=== PATIENT | female | born 1975 | race Caucasian/White ===

== ENCOUNTER → 2020-08-26 13:59 | Outpatient (BNVA) | payer OTHER, SELFPAY | PROVIDERS: PCP Internal Medicine Geriatric Medicine; Visit Provider Physician Assistant | DX: K62.5 Hemorrhage of anus and rectum (principal); R10.9 Unspecified abdominal pain | CPT/HCPCS: 99213 ==

== ENCOUNTER 2020-09-05 09:38 | Outpatient (REF) | payer OTHER, SELFPAY | END 2020-09-05 09:39 | disposition home or self-care (01) | LOC: HO.MDS 09:38 | PROVIDERS: PCP Internal Medicine Geriatric Medicine; Visit Provider Internal Medicine Pulmonary Disease | DX: J45.50 Severe persistent asthma, uncomplicated (principal) | CPT/HCPCS: 96372 ==

== ENCOUNTER 2020-10-02 09:51 | Outpatient (REF) | payer OTHER, SELFPAY | END 2020-10-02 09:52 | disposition home or self-care (01) | LOC: HO.MDS 09:51 | PROVIDERS: PCP Internal Medicine Geriatric Medicine; Visit Provider Internal Medicine Pulmonary Disease | DX: J45.50 Severe persistent asthma, uncomplicated (principal) | CPT/HCPCS: 96372; J0517 ==

== ENCOUNTER 2020-11-28 10:34 | Outpatient (REF) | payer OTHER, SELFPAY | END 2020-11-28 10:35 | disposition home or self-care (01) | LOC: HO.MDS 10:34 | PROVIDERS: PCP Internal Medicine Geriatric Medicine; Visit Provider Internal Medicine Pulmonary Disease | DX: J45.50 Severe persistent asthma, uncomplicated (principal) | CPT/HCPCS: 96372; J0517 ==

== ENCOUNTER 2021-01-23 10:14 | Outpatient (REF) | payer OTHER, SELFPAY | END 2021-01-23 10:15 | disposition home or self-care (01) | LOC: HO.MDS 10:14 | PROVIDERS: PCP Internal Medicine Geriatric Medicine; Visit Provider Internal Medicine Pulmonary Disease | DX: J45.50 Severe persistent asthma, uncomplicated (principal) | CPT/HCPCS: 96372; 99212; J0517 ==

== ENCOUNTER → 2021-02-24 09:39 | Outpatient (BNVA) | payer OTHER, SELFPAY | PROVIDERS: PCP Internal Medicine Geriatric Medicine; Visit Provider Internal Medicine Pulmonary Disease | DX: J45.50 Severe persistent asthma, uncomplicated (principal); Z91.09 Other allergy status, other than to drugs and biological substances; B94.8 Sequelae of other specified infectious and parasitic diseases | CPT/HCPCS: 99212 ==

== ENCOUNTER 2021-03-16 13:37 | Outpatient (REF) | payer OTHER, SELFPAY ==
--- NOTE | ~2021-03-16 | US_ITS ---
EXAMINATION: US PELVIC COMPLETE CLINICAL INFORMATION: Amenorrhea COMPARISON: None TECHNIQUE: Transabdominal and transvaginal ultrasound pelvis were performed. FINDINGS: Uterus is retroflexed measuring 10.6 cm in length, 4.0 cm in AP and 5.0 cm in transverse dimension. There is a hypoechoic lesion in the fundal uterus measuring 0.9 x 0.7 x 0.8 cm. It is consistent with fibroid. No additional lesions seen. Right ovary measures 2.2 x 1.9 x 1.8 cm and volume 3.9 mL. It appears unremarkable. Left ovary measures 2.0 x 2.0 x 1.6 cm and volume 3.4 mL. It appears unremarkable. There is no free fluid in cul-de-sac. US/US pelvic and transvaginal IMPRESSION: Retroflexed uterus with a small fundal uterine fibroid. Unremarkable ovaries.
== END 2021-03-16 13:38 | disposition home or self-care (01) ==
LOC: HO.US 13:37
PROVIDERS: PCP Internal Medicine Geriatric Medicine; Visit Provider Registered Nurse
DX: N91.2 Amenorrhea, unspecified (principal)
CPT/HCPCS: 76830; 76856

== ENCOUNTER 2021-03-27 10:36 | Outpatient (REF) | payer OTHER, SELFPAY | END 2021-03-27 10:37 | disposition home or self-care (01) | LOC: HO.MDS 10:36 | PROVIDERS: PCP Internal Medicine Geriatric Medicine; Visit Provider Internal Medicine Pulmonary Disease | DX: J45.50 Severe persistent asthma, uncomplicated (principal) | CPT/HCPCS: 96372; 99212; J0517 ==

== ENCOUNTER 2021-04-28 16:58 | Emergency (ER) | payer OTHER, SELFPAY ==
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
[2021-04-28 17:09] VITALS: BP 150/78; PULSE 70; RESP 18; TEMP 36.8; O2SAT 99; BMI 38.2
[2021-04-28 19:07] LABS: Glucose Urine UA NEG (NEG); Leukocyte Esterase Urine NEG (NEG); Nitrite Urine NEG (NEG); PH 7.5 (5.0-8.0); Urine Blood NEG (NEG); Urine Ketones NEG (NEG); Urine Protein NEG (NEG-TRACE)
[2021-04-28 19:10] LABS: Appearance Urine CLEAR; Color Urine YELLOW; UPreg QC Valid YES; Urine Pregnancy NEGATIVE (NEGATIVE)
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
== END 2021-04-28 21:05 | disposition home or self-care (01) ==
PROVIDERS: Nurse Practitioner Family; Emergency Provider Internal Medicine; PCP Internal Medicine
DX: S16.1XXA Strain of muscle, fascia and tendon at neck level, initial encounter (principal); S29.011A Strain of muscle and tendon of front wall of thorax, initial encounter; V43.52XA Car driver injured in collision with other type car in traffic accident, initial encounter; Y93.89 Activity, other specified; Y92.414 Local residential or business street as the place of occurrence of the external cause; Y99.9 Unspecified external cause status
CPT/HCPCS: 70450; 71046; 72125; 81003; 81025; 99284

== ENCOUNTER → 2021-04-29 16:07 | Outpatient (BNVA) | payer OTHER, SELFPAY | PROVIDERS: PCP Internal Medicine Geriatric Medicine; Visit Provider Internal Medicine Pulmonary Disease | DX: J45.50 Severe persistent asthma, uncomplicated (principal); B94.8 Sequelae of other specified infectious and parasitic diseases; Z91.09 Other allergy status, other than to drugs and biological substances | CPT/HCPCS: 99212 ==

== ENCOUNTER 2021-05-29 13:24 | Outpatient (REF) | payer OTHER, SELFPAY | END 2021-05-29 13:25 | disposition home or self-care (01) | LOC: HO.MDS 13:24 | PROVIDERS: Visit Provider Internal Medicine Pulmonary Disease | DX: J45.50 Severe persistent asthma, uncomplicated (principal) | CPT/HCPCS: 96372; J0517 ==

== ENCOUNTER 2021-06-17 08:38 | Outpatient (REF) | payer OTHER, SELFPAY ==
--- NOTE | ~2021-06-17 | MM_ITS ---
EXAMINATION: MM SCREENING DIGITAL BREAST TOMOSYNTHESIS, BILATERAL CLINICAL INFORMATION: Screening. Asymptomatic. The lifetime risk of breast cancer based on the Tyrer-Cuzick Model is 8%. COMPARISON: Mammography: 06/03/2017, 07/21/2016, 12/06/2013 TECHNIQUE: Digital breast tomosynthesis is performed in both the craniocaudal and mediolateral oblique views along with computer-aided detection (CAD). Synthesized 2D images are generated from the tomosynthesis. FINDINGS: There are scattered areas of fibroglandular density (ACR BI-RADS breast composition Category b). There are no significant masses, abnormal calcifications, or other abnormalities. Parenchymal pattern is similar to prior studies. No developing density. No significant changes. MM/MM tomosynthesis screening BI IMPRESSION: No mammographic evidence of malignancy. ASSESSMENT: BI-RADS 1: Negative RECOMMENDATION: Routine annual mammography screening. This patient's information was entered into a reminder system with a target due date for their next mammogram.
== END 2021-06-17 08:39 | disposition home or self-care (01) ==
LOC: HO.MAMMO 08:38
PROVIDERS: Visit Provider Internal Medicine Geriatric Medicine
DX: Z12.31 Encounter for screening mammogram for malignant neoplasm of breast (principal)
CPT/HCPCS: 77063; 77067

== ENCOUNTER → 2021-07-02 14:30 | Outpatient (BNVA) | payer OTHER, SELFPAY | PROVIDERS: PCP Internal Medicine Geriatric Medicine; Visit Provider Internal Medicine Pulmonary Disease | DX: J45.50 Severe persistent asthma, uncomplicated (principal); Z91.09 Other allergy status, other than to drugs and biological substances | CPT/HCPCS: 99212 ==

== ENCOUNTER 2021-09-25 08:52 | Outpatient (REF) | payer OTHER, SELFPAY | END 2021-09-25 08:53 | disposition home or self-care (01) | LOC: HO.MDS 08:52 | PROVIDERS: PCP Internal Medicine; Visit Provider Internal Medicine Pulmonary Disease | DX: J45.50 Severe persistent asthma, uncomplicated (principal) | CPT/HCPCS: 96372; J0517 ==

== ENCOUNTER 2022-01-05 14:39 | Outpatient (REF) | payer OTHER, SELFPAY ==
--- NOTE | ~2022-01-05 | XR_ITS ---
EXAMINATION: XR CHEST CLINICAL INFORMATION: B94.8 - Sequelae of other specified infectious and parasitic conditions COMPARISON: Chest radiographs 04/28/2021, 06/23/2020; CT C-spine 04/28/2021 TECHNIQUE: 2 views of the chest were obtained. FINDINGS: The lungs are clear. There is no airspace consolidation or groundglass opacity or effusion. No hyperinflation. The costophrenic sulci are well-defined. The heart is normal in size. Vascularity normal. Hilar and mediastinal contours are unremarkable. No acute bony abnormality. There are some fine surgical clips in region of left thyroid. XR/XR chest 2V IMPRESSION: Unremarkable examination.
== END 2022-01-05 14:40 | disposition home or self-care (01) ==
LOC: HO.XRAY 14:39
PROVIDERS: PCP Internal Medicine Geriatric Medicine; Visit Provider Internal Medicine Pulmonary Disease
DX: B94.8 Sequelae of other specified infectious and parasitic diseases (principal); J45.50 Severe persistent asthma, uncomplicated; Z91.09 Other allergy status, other than to drugs and biological substances
CPT/HCPCS: 71046; 99212

== ENCOUNTER 2022-01-23 11:34 | Emergency (ER) | payer OTHER, SELFPAY ==
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
--- NOTE | ~2022-01-23 | XR_ITS ---
EXAMINATION: XR HAND, LEFT CLINICAL INFORMATION: Left hand injury. COMPARISON: None TECHNIQUE: PA, lateral, and oblique views of the left hand. FINDINGS: The bones and soft tissues are normal. No fracture. Alignment is anatomic. Joint spaces are maintained. No erosions or soft tissue calcifications. XR/XR hand LT min 3V IMPRESSION: Unremarkable left hand.
[2022-01-23 11:40] VITALS: BP 164/84; PULSE 75; O2SAT 96
[2022-01-23 11:41] VITALS: BP 148/47; PULSE 75; RESP 20; TEMP 36.7; O2SAT 98
[2022-01-23 11:44] VITALS: BP 148/57; PULSE 72; RESP 18; O2SAT 97; BMI 37.9
[2022-01-23] MEDS: Acetaminophen 325 MG TABLET 975 MG PO (12:05)
--- NOTE | 2022-01-23 12:11 | ED_ITS ---
HPI - Fall General Chief Complaint: Fall <MARIO Correa - Last Filed: 01/23/22 14:09> Stated Complaint: fall, left arm pain <MARIO Correa - Last Filed: 01/23/22 14:09> Time Seen by Provider: 01/23/22 11:59 <MARIO Correa - Last Filed: 01/23/22 14:09> History of Present Illness HPI Narrative: Patient complains of left hand and left upper chest after a fall where she fell on the hand and fell on her chest and bruised her face and her knees, she slipped going into a store <MARIO Correa - Last Filed: 01/23/22 14:09> Related Data Home Medications: Home Medications Medication Instructions Recorded Confirmed albuterol sulfate mg INHALATION 08/26/20 albuterol sulfate 90 mcg/actuation 2 puff PO Q4-6H PRN 08/26/20 aerosol inhaler budesonide 0.25 mg/2 mL suspension mg INHALATION BID 08/26/20 for nebulization levothyroxine 150 mcg tablet 150 mcg PO DAILY 08/26/20 Previous Rx's Medication Instructions Recorded fluticasone furoate 200 1 inh INHALATION DAILY 30 Days #1 03/27/21 mcg-vilanterol 25 mcg/dose ea inhalation powder (Breo Ellipta) acetaminophen 325 mg capsule 650 mg PO Q6H PRN #20 cap 04/28/21 (Tylenol) cyclobenzaprine 10 mg tablet 10 mg PO TID PRN #10 tab 04/28/21 benralizumab 30 mg/mL subcutaneous 30 mg SUBCUT Q8W #1 ml 07/06/21 syringe prednisone 10 mg tablet 40 mg PO DAILY 5 Days #20 tab 01/05/22 acetaminophen 300 mg-codeine 30 mg 1 tab PO Q6H PRN #10 tab 01/23/22 tablet <MARIO Correa - Last Filed: 01/23/22 14:09> Allergies/Adverse Reactions: Allergies Allergy/AdvReac Type Severity Reaction Status Date / Time aspirin [ASPIRIN] Allergy Unknown UNKNOWN, Verified 01/05/22 14:42 anaphylaxis Latex Allergy Unknown anaphylaxis, Verified 01/05/22 14:42 rash Latex, Natural Rubber Allergy Unknown HIVES Verified 01/05/22 14:42 [LATEX, NATURAL RUBBER] naproxen [From NAPROSYN] Allergy Unknown UNKNOWN, Verified 02/15/22 14:42 anaphylaxis <MARIO Correa - Last Filed: 01/23/22 14:09> Review of Systems Review of Systems: Positive for left hand and left chest wall pain after a fall Negatives are no headache no loss of consciousness no dizziness no confusion no fainting no feeling faint no vision changes no no neck pain no numbness weakness or tingling no difficulty breathing no abdominal pain no nausea or vomiting no weakness or numbness <MARIO Correa - Last Filed: 01/23/22 14:09> Yes all other systems are reviewed and are negative <MARIO Correa - Last Filed: 01/23/22 14:09> [facility] Past Medical History Source: nursing notes reviewed <MARIO Correa - Last Filed: 01/23/22 14:09> Surgical History: Surgical History H/O thyroidectomy History of facial surgery <MARIO Correa Last Filed: 01/23/22 14:09> Family History Family History: Family History Mother Diabetes <MARIO Correa Last Filed: 01/23/22 14:09> Social History Social History: Social History Alcohol intake: never Patient Tobacco Use Status: Never used Tobacco Use of substances other than those prescribed or required for medical reasons: No Advance Directives: No Advance Directives Information Provided: No Patient : No <MARIO Correa Last Filed: 01/23/22 14:09> Physical Exam Vital Signs: Vital Signs: Last Vital Signs Temp 97.8 F 01/23/22 13:56 Pulse 71 01/23/22 13:56 Resp 18 01/23/22 13:56 BP 124/66 01/23/22 13:56 Pulse Ox 98 01/23/22 13:56 BMI result Body Mass Index 37.9 <MARIO Correa Last Filed: 01/23/22 14:09> General appearance is no distress There is no bruising or deformity to the skull no Ayon sign no raccoon eyes Pupils equal round reactive to light extraocular motions are intact There is mild scraped to the left side of face The neck is supple and nontender next the chest is clear to auscultation bilateral but there is some left-sided chest wall tenderness reproduced with movement and palpation Abdomen is soft and nontender Extremities the left hand is bruised on the ulnar aspect of the hand with some swelling, there is an abrasion over the 5th MCP joint, and limited range of motion of the 5th finger Other extremities seem to be normal Gait and balance are normal, she is A&O x3 her interaction verbal comprehension and expression are normal <MARIO Correa Last Filed: 01/23/22 14:09> Course Course Course Narrative: X-ray of left hand was negative but as she was having discomfort and there was swelling she was given a splint and will follow with the hand doctor if not improved as x-ray can miss some injuries she is informed Left ribs x-ray and chest were normal and patient is discharged with diagnosis of left hand sprain and contusion and chest wall pain musculoskeletal <MARIO Correa Last Filed: 01/23/22 14:09> Discharge Plan Discharge Clinical Impression: Chest wall pain, Sprain of hand, left, Contusion of hand, left <MARIO Correa Last Filed: 01/23/22 14:09> Patient Disposition: Home, Self-Care <MARIO Correa Last Filed: 01/23/22 14:09> Additional Instructions: Left hand x-ray was normal but as it was uncomfortable to bend and move we placed a splint, you can remove it to check the hand and to wash the hand as needed If not better next week follow with hand doctor For any problems with the injury to her chest follow with primary doctor Return any time any worse condition or any concerns <MARIO Correa Last Filed: 01/23/22 14:09> Prescriptions: New acetaminophen-codeine 300-30 mg tablet 1 tab PO Q6H PRN (Reason: pain) Qty: 10 0RF Rx Instructions: Narcotic, no driving for 6 hours after taking this medication No Action benralizumab 30 mg/mL syringe 30 mg subcut Q8W Qty: 1 12RF cyclobenzaprine 10 mg tablet 10 mg PO TID PRN (Reason: muscle spasm) Qty: 10 0RF acetaminophen [Tylenol] 325 mg capsule 650 mg PO Q6H PRN (Reason: pain) Qty: 20 0RF Breo Ellipta 200-25 mcg/dose blister with device 1 inh inhalation DAILY 30 Days Qty: 1 6RF budesonide 0.25 mg/2 mL suspension for nebulization inhalation BID 0RF levothyroxine 150 mcg tablet 150 mcg PO DAILY 0RF albuterol sulfate 90 mcg/actuation HFA aerosol inhaler 2 puff PO Q4-6H PRN0RF albuterol sulfate 2.5 mg /3 mL (0.083 %) solution for nebulization inhalation 0RF prednisone 10 mg tablet 40 mg PO DAILY 5 Days Qty: 20 0RF <MARIO Correa - Last Filed: 01/23/22 14:09> Referrals: Yazmin Mchugh MD [Physician] - 10 days (Left hand injury) <MARIO Correa - Last Filed: 01/23/22 14:09> Stand Alone Forms: Work/School Release <MARIO Correa - Last Filed: 01/23/22 14:09> Interventions: ED Discharge Assessment Last Done: 01/23/22 14:22 <MARIO Correa - Last Filed: 01/23/22 14:09> Discharge Date/Time: 01/23/22 14:24 <MARIO Correa - Last Filed: 01/23/22 14:09>
[2022-01-23 13:10] VITALS: RESP 17
[2022-01-23 13:56] VITALS: BP 124/66; PULSE 71; RESP 18; TEMP 36.6; O2SAT 98
[2022-01-23] MEDS: Diphth,Pertus(ACell),Tet Adult 0.5 ML SYRINGE IM (14:16)
== END 2022-01-23 14:24 | disposition home or self-care (01) ==
PROVIDERS: Emergency Provider Emergency Medicine
DX: R07.89 Other chest pain (principal); S63.92XA Sprain of unspecified part of left wrist and hand, initial encounter; S60.221A Contusion of right hand, initial encounter; W01.0XXA Fall on same level from slipping, tripping and stumbling without subsequent striking against object, initial encounter; Y93.01 Activity, walking, marching and hiking; Y92.512 Supermarket, store or market as the place of occurrence of the external cause; Y99.9 Unspecified external cause status
CPT/HCPCS: 71101; 73130; 90471; 90715; 99284

== ENCOUNTER → 2022-02-03 14:19 | Outpatient (BNVA) | payer OTHER, SELFPAY | PROVIDERS: PCP Internal Medicine Geriatric Medicine; Visit Provider Internal Medicine Pulmonary Disease | DX: J45.50 Severe persistent asthma, uncomplicated (principal); Z91.09 Other allergy status, other than to drugs and biological substances | CPT/HCPCS: 99212 ==

== ENCOUNTER 2022-02-04 13:09 | Outpatient (REF) | payer OTHER, SELFPAY ==
--- NOTE | ~2022-02-04 | XR_ITS ---
EXAMINATION: XR HAND, LEFT CLINICAL INFORMATION: Pain COMPARISON: Previous x-ray 01/23/2022 TECHNIQUE: PA, lateral, and oblique views of the left hand. FINDINGS: The bones and soft tissues are normal. No fracture. Alignment is anatomic. Joint spaces are maintained. No erosions or soft tissue calcifications. XR/XR hand LT min 3V IMPRESSION: Normal left hand.
== END 2022-02-04 13:10 | disposition home or self-care (01) ==
LOC: HO.HOSX 13:09
PROVIDERS: Visit Provider Physician Assistant
DX: S62.301A Unspecified fracture of second metacarpal bone, left hand, initial encounter for closed fracture (principal); W19.XXXA Unspecified fall, initial encounter; Y93.9 Activity, unspecified; Y92.9 Unspecified place or not applicable; Y99.9 Unspecified external cause status
CPT/HCPCS: 73130; 99202

== ENCOUNTER 2022-02-24 07:52 | Outpatient (REF) | payer OTHER, SELFPAY ==
--- NOTE | ~2022-02-24 | XR_ITS ---
EXAMINATION: XR HAND, LEFT CLINICAL INFORMATION: Pain COMPARISON: None TECHNIQUE: PA, lateral, and oblique views of the left hand. FINDINGS: The bones and soft tissues are normal. No fracture. Alignment is anatomic. Joint spaces are maintained. No erosions or soft tissue calcifications. XR/XR hand LT min 3V IMPRESSION: Normal radiograph. No evidence of bone erosion. No significant arthritis.
== END 2022-02-24 07:53 | disposition home or self-care (01) ==
LOC: HO.HOSX 07:52
PROVIDERS: Visit Provider Physician Assistant
DX: S62.309D Unspecified fracture of unspecified metacarpal bone, subsequent encounter for fracture with routine healing (principal)
CPT/HCPCS: 73130; 99212

== ENCOUNTER 2022-02-25 07:13 | Outpatient (REF) | payer OTHER, SELFPAY | END 2022-02-25 07:14 | disposition home or self-care (01) | LOC: HO.MDS 07:13 | PROVIDERS: Visit Provider Internal Medicine Pulmonary Disease | DX: J45.50 Severe persistent asthma, uncomplicated (principal) | CPT/HCPCS: 96372; J0517 ==

== ENCOUNTER → 2022-03-19 08:14 | Outpatient (BNVA) | payer OTHER, SELFPAY | PROVIDERS: Visit Provider Surgery | DX: Z13.89 Encounter for screening for other disorder (principal) ==

== ENCOUNTER 2022-03-30 07:20 | Outpatient (REF) | payer OTHER, SELFPAY ==
--- NOTE | ~2022-03-30 | XR_ITS ---
EXAMINATION: XR CHEST 2 VIEWS CLINICAL INFORMATION: Morbid obesity. COMPARISON: Prior chest radiographs, most recently 01/23/2022. TECHNIQUE: Frontal and lateral views of the chest were obtained. FINDINGS: The heart, great vessels, pulmonary vasculature and mediastinum are normal. The lungs show no focal infiltrate, effusion or pneumothorax. There is no acute osseous abnormality. There are degenerative changes of the thoracic spine. XR/XR chest 2V IMPRESSION: No active cardiopulmonary disease.
--- NOTE | 2022-03-30 07:31 | ECG_ITS ---
Test Reason : e66.01 Blood Pressure : / mmHG Vent. Rate : 066 BPM Atrial Rate : 066 BPM P-R Int : 156 ms QRS Dur : 082 ms QT Int : 374 ms P-R-T Axes : 066 019 032 degrees QTc Int : 392 ms Normal sinus rhythm Normal ECG No previous ECGs available Referred By: Roni Everett Electronically Signed By:BRAYAN GUERRA MD
[2022-03-30 07:57] LABS: MANUAL DIFF FLAG NO
[2022-03-30 08:35] LABS: Basophils Percent Auto 0.2 % (0-2); Hemoglobin 13.1 g/dl (12.0-16.0); Imm Gran Abs Auto 0.01 X10*3/uL (0.00-0.03); Imm Gran Pct Auto 0.2 % (0.0-0.4); Lymphocytes Absolute Auto 2.1 X10*3/uL (1.2-4.9); Lymphocytes Percent Auto 35.1 % (20-40); Mean Corpuscular HGB Conc 32.8 g/dl (31.0-35.0); Mean Corpuscular Hemoglobin 29.3 pg (27.0-33.0); Mean Corpuscular Volume 89.5 fL (80.0-98.0); Mean Platelet Volume 10.5 fL (9.4-12.3); Monocytes Absolute Auto 0.4 X10*3/uL (0.1-1.2); Neutrophils Absolute Auto 3.4 x10*3/uL (2.0-8.3); Neutrophils Percent Auto 57.5 % (45-73); Platelet Count 229 X10*3/uL (160-400); Red Blood Count 4.47 X10*6/uL (4.20-5.50); Red Cell Distribution Width 15.2 % (11.0-16.0); White Blood Count 5.8 X10*3/uL (4.8-10.8)
[2022-03-30 08:37] LABS: Estimated Average Glucose 114 mg/dL; Hemoglobin A1c % 5.6 %
[2022-03-30 09:07] LABS: Alanine Aminotransferase 14 U/L (0-31); Alkaline Phosphatase 58 U/L (39-117); Anion Gap 10 (12-20); Aspartate Amino Transferase 15 U/L (5-31); Bilirubin Total 0.5 mg/dL (0.0-1.0); Blood Urea Nitrogen 14 mg/dL (9-16); C Reactive Protein 0.27 mg/dL (< or = 0.50); Calcium 9.7 mg/dL (8.4-10.2); Carbon Dioxide 25 mmol/L (22-29); Chloride 108 mmol/L (96-108); Cholesterol 189 mg/dL; Estimated Glomerular Filt Rate > 60; Glucose Random 104 mg/dL (60-115); HDL Cholesterol 49 mg/dL; Iron 79 mcg/dL (30-160); LDL Cholesterol Calculated 128 mg/dl; Percent Iron Saturation 22 % (15-50); Potassium 4.6 mmol/L (3.3-5.1); Sodium 138 mmol/L (135-145); Total Iron Binding Capacity 355 mcg/dL (228-428); Total Protein 6.8 g/dL (6.5-8.0); Triglycerides 60 mg/dL; Unsaturated Iron Binding 276 ug/dL
[2022-03-30 09:31] LABS: Ferritin 49 ng/mL (10-250); Insulin 10 uU/mL (2-29); TSH reflex Free T4 2.95 uIU/mL (0.32-4.0); Vitamin D 25-OH Total 19.6 ng/mL (>30)
[2022-03-30 09:35] LABS: Folate 10.1 ng/mL (> or = 4.0); Vitamin B12 738 pg/mL (200-900)
[2022-04-01 14:46] LABS: Calcium (PTHI) 8.8 mg/dL (8.6-10.2); PTHI 82 pg/mL (16-77)
[2022-04-03 14:51] LABS: Zinc 65 mcg/dL (60-130)
[2022-04-05 06:02] LABS: Vitamin B1 10 nmol/L (8-30)
[2022-04-05 12:40] LABS: Vitamin A 40 mcg/dL (38-98)
== END 2022-03-30 07:21 | disposition home or self-care (01) ==
LOC: HO.XRAY 07:20
PROVIDERS: PCP Internal Medicine Geriatric Medicine; Visit Provider Surgery
DX: Z01.818 Encounter for other preprocedural examination (principal); E66.01 Morbid (severe) obesity due to excess calories; E03.9 Hypothyroidism, unspecified; J45.909 Unspecified asthma, uncomplicated
CPT/HCPCS: 36415; 71046; 80053; 80061; 82306; 82607; 82728; 82746; 83036; 83525; 83540; 83970; 84425; 84443; 84590; 84630; 85025; 86140; 93005

== ENCOUNTER 2022-04-12 | Outpatient (REF) | payer OTHER, SELFPAY ==
[2022-04-14 14:55] LABS: H Pylori Breath Test Negative (Negative)
== END 2022-04-12 00:01 | disposition home or self-care (01) ==
LOC: HO.LNP
PROVIDERS: Visit Provider Surgery
DX: E03.9 Hypothyroidism, unspecified (principal); E66.01 Morbid (severe) obesity due to excess calories; J45.909 Unspecified asthma, uncomplicated
CPT/HCPCS: 83013

== ENCOUNTER → 2022-04-12 14:43 | Outpatient (BNVA) | payer OTHER, SELFPAY | PROVIDERS: PCP Internal Medicine Geriatric Medicine; Referring Provider Internal Medicine Geriatric Medicine; Visit Provider Physician Assistant Surgical | DX: Z11.0 Encounter for screening for intestinal infectious diseases (principal) | CPT/HCPCS: 99211 ==

== ENCOUNTER → 2022-04-21 13:25 | Outpatient (BNVA) | payer OTHER, SELFPAY | PROVIDERS: PCP Internal Medicine Geriatric Medicine; Visit Provider Internal Medicine Pulmonary Disease | DX: J45.50 Severe persistent asthma, uncomplicated (principal); Z91.09 Other allergy status, other than to drugs and biological substances; F43.21 Adjustment disorder with depressed mood; F15.10 Other stimulant abuse, uncomplicated; E66.9 Obesity, unspecified | CPT/HCPCS: 90791; 99212 ==

== ENCOUNTER 2022-04-30 08:18 | Outpatient (REF) | payer OTHER, SELFPAY | END 2022-04-30 08:19 | disposition home or self-care (01) | LOC: HO.MDS 08:18 | PROVIDERS: Visit Provider Internal Medicine Pulmonary Disease | DX: J45.50 Severe persistent asthma, uncomplicated (principal) | CPT/HCPCS: 96372; J0517 ==

== ENCOUNTER → 2022-05-03 14:06 | Outpatient (BNVA) | payer OTHER, SELFPAY | PROVIDERS: Referring Provider Internal Medicine Geriatric Medicine; Visit Provider Dietitian, Registered | DX: E66.9 Obesity, unspecified (principal); Z71.3 Dietary counseling and surveillance | CPT/HCPCS: 97802 ==

== ENCOUNTER → 2022-05-26 13:57 | Outpatient (BNVA) | payer OTHER, SELFPAY | PROVIDERS: Visit Provider Counselor Mental Health | DX: F43.21 Adjustment disorder with depressed mood (principal); F15.10 Other stimulant abuse, uncomplicated; E66.9 Obesity, unspecified | CPT/HCPCS: 90834 ==

== ENCOUNTER 2022-05-27 08:42 | Outpatient (REF) | payer OTHER, SELFPAY ==
--- NOTE | ~2022-05-27 | US_ITS ---
EXAMINATION: US COMPLETE ABDOMEN WITH LIVER ELASTOGRAPHY CLINICAL INFORMATION: Obesity. COMPARISON: None TECHNIQUE: Real-time imaging of the abdominal viscera. Noninvasive ultrasound liver fibrosis assessment was performed using Rizwana ElastPQ point quantification shear wave elastography (2D-SWE) with a C5-2 MHz transducer. Multiple elastography samples are obtained. FINDINGS: PANCREAS: Normal. The visualized pancreatic head and body are normal in appearance. The remainder of the pancreas is obscured from visualization by the overlying bowel gas. ABDOMINAL AORTA: The proximal, middle, and distal aortic segments are normal in caliber. INFERIOR VENA CAVA: Visualized portions are normal. LIVER: There is a small calcification in the right hepatic lobe measuring 0.4 x 0.3 x 0.3 cm. The liver demonstrates normal size, contour and echogenicity. No focal lesion or intrahepatic biliary duct dilatation. The right lobe measures 14.7 cm in length. The left lobe measures 10.1 cm in length. Portal flow is hepatopetal. Shear wave liver elastography median stiffness is 1.52 m/s (reference: Normal median stiffness is 1.3 m/s or less). IQR/median stiffness to assess sampling precision is 0.39 (reference: Good quality data set is IQR/median stiffness of 0.15 or less). GALLBLADDER: Normal. The gallbladder is physiologically distended without evidence of stones, sludge, polyps, wall thickening or pericholecystic fluid. COMMON BILE DUCT: Normal in caliber measuring 0.6 cm in diameter. RIGHT KIDNEY: Normal. No hydronephrosis. No renal calculi or focal parenchymal lesions. The kidney measures 11.2 cm in maximum dimension. LEFT KIDNEY: Normal. No hydronephrosis. No renal calculi or focal parenchymal lesions. The kidney measures 9.6 cm in maximum dimension. SPLEEN: Normal. The spleen measures 8.8 cm in maximum dimension. FREE FLUID: None. US/US abdomen comp w elastography IMPRESSION: 1. Small calcification in the right hepatic lobe measuring 0.4 x 0.3 x 0.3 cm. The rest of the liver is unremarkable. 2. Liver Elastography: Median liver stiffness measures 1.52 m/s corresponding to cACLD (ruled out). REFERENCE: Society of Radiologists in Ultrasound Liver Stiffness Thresholds (2020): LIVER STIFFNESS THRESHOLDS: *Liver Stiffness equal or less than 1.3 m/s: High probability of being normal. *Liver Stiffness less than 1.7 m/s: In the absence of other known clinical signs, rules out compensated advanced chronic liver disease. *Liver Stiffness 1.7-2.1 m/s: Suggestive of compensated advanced chronic liver disease but need further test for confirmation. *Liver Stiffness over 2.1 m/s: Rules in compensated advanced chronic liver disease. *Liver Stiffness over 2.4 m/s: Suggestive of clinically significant portal hypertension. QUALITY OF DATA SET: *IQR/Median value equal or less than 0.15 implies a quality data set. *IQR/Median value over 0.15 implies a poor quality data set. SIGNIFICANT CHANGE FROM PRIOR EXAM: Significant change if liver stiffness measurement is 10% or greater from prior exam. OTHER CONSIDERATIONS: The stage of liver fibrosis may be overestimated in the setting of acute hepatitis, liver inflammation, elevated liver function tests, hepatic vascular congestion, obstructive cholestasis, non-fasting state, and infiltrative diseases such as amyloidosis and lymphoma. In some patients with NAFLD, the liver stiffness thresholds for compensated advanced chronic liver disease may be lower. In causes other than viral hepatitis and NAFLD, liver stiffness thresholds are not well established.
--- NOTE | ~2022-05-27 | FL_ITS ---
: EXAMINATION: FLUOROSCOPY UPPER GI WITH AIR CLINICAL INFORMATION: Obesity due to excess calories. COMPARISON: Abdominal ultrasound performed same day. TECHNIQUE: A double contrast examination was performed. Fluoroscopic evaluation and multiple spot films were obtained. Barium contrast was utilized throughout the exam. A barium tablet was also administered. FINDINGS: There is normal esophageal mucosa and motility. No hiatal hernia or reflux is identified. Barium flows easily through a normal appearing stomach, duodenal bulb, and sweep without evidence of ulcer or inflammation. Barium tablet passed through the esophagus into the stomach without delay. FLUOROSCOPY TIME: 1.1 minutes DOSE: 31.176 mGy DAP: 9.394 Gy-cm2 IMAGES: 26 FL/FL upper GI w air IMPRESSION: Normal upper GI series.
== END 2022-05-27 08:43 | disposition home or self-care (01) ==
LOC: HO.XRAY 08:42
PROVIDERS: PCP Internal Medicine Geriatric Medicine; Visit Provider Surgery
DX: E03.9 Hypothyroidism, unspecified (principal); J45.909 Unspecified asthma, uncomplicated; E66.01 Morbid (severe) obesity due to excess calories
CPT/HCPCS: 74246; 76705; 76981

== ENCOUNTER 2022-06-25 14:12 | Outpatient (REF) | payer OTHER, SELFPAY | END 2022-06-25 14:13 | disposition home or self-care (01) | LOC: HO.MDS 14:12 | PROVIDERS: PCP Internal Medicine Geriatric Medicine; Visit Provider Internal Medicine Pulmonary Disease | DX: J45.50 Severe persistent asthma, uncomplicated (principal) | CPT/HCPCS: 96372; J0517 ==

== ENCOUNTER → 2022-06-28 16:01 | Outpatient (BNVA) | payer OTHER, SELFPAY | PROVIDERS: PCP Internal Medicine Geriatric Medicine; Visit Provider Dietitian, Registered | DX: E66.9 Obesity, unspecified (principal); Z71.3 Dietary counseling and surveillance | CPT/HCPCS: 97803 ==

== ENCOUNTER 2022-08-20 | Outpatient (REF) | payer OTHER, SELFPAY | END 2022-08-20 00:01 | disposition home or self-care (01) | LOC: CF | PROVIDERS: Visit Provider Dietitian, Registered | DX: E66.9 Obesity, unspecified (principal); Z68.37 Body mass index [BMI] 37.0-37.9, adult; Z71.3 Dietary counseling and surveillance | CPT/HCPCS: 97803 ==

== ENCOUNTER 2022-08-31 14:18 | Outpatient (REF) | payer OTHER, SELFPAY | END 2022-08-31 14:19 | disposition home or self-care (01) | LOC: HO.MDS 14:18 | PROVIDERS: Visit Provider Internal Medicine Pulmonary Disease | DX: J45.50 Severe persistent asthma, uncomplicated (principal) | CPT/HCPCS: 96372; J0517 ==

== ENCOUNTER 2023-01-28 10:24 | Outpatient (REF) | payer MEDICAID, SELFPAY ==
--- NOTE | ~2023-01-28 | MM_ITS ---
EXAMINATION: MM SCREENING DIGITAL BREAST TOMOSYNTHESIS, BILATERAL CLINICAL INFORMATION: Screening. Asymptomatic. The lifetime risk of breast cancer based on the Tyrer-Cuzick Model is 8%. COMPARISON: Mammography: 06/17/2021, 06/03/2017, 07/21/2016 TECHNIQUE: Digital breast tomosynthesis is performed in both the craniocaudal and mediolateral oblique views along with computer-aided detection (CAD). Synthesized 2D images are generated from the tomosynthesis. FINDINGS: There are scattered areas of fibroglandular density (ACR BI-RADS breast composition Category b). There are no significant masses, abnormal calcifications, or other abnormalities. Parenchymal pattern is similar to prior studies. There is no developing density or architectural abnormality. The axilla and skin contours are unremarkable. No significant changes. MM/MM tomosynthesis screening BI IMPRESSION: No mammographic evidence of malignancy. ASSESSMENT: BI-RADS 1: Negative RECOMMENDATION: Routine annual mammography screening. This patient's information was entered into a reminder system with a target due date for their next mammogram.
== END 2023-01-28 10:25 | disposition home or self-care (01) ==
LOC: HO.MAMMO 10:24
PROVIDERS: Visit Provider Internal Medicine Geriatric Medicine
DX: Z12.31 Encounter for screening mammogram for malignant neoplasm of breast (principal)
CPT/HCPCS: 77063; 77067

== ENCOUNTER 2023-08-03 13:11 | Outpatient (AMB) | payer MEDICAID, SELFPAY ==
[2023-08-03 13:13] VITALS: BP 119/77; PULSE 77; O2SAT 98; BMI 38.9
--- NOTE | 2023-08-03 13:13 | A.OFFVIS_ITS ---
Intake Vital Signs 08/03/23 13:13 Height 5 ft 2 in Weight 212 lb 11.937 oz BMI 38.9 BP 119/77 Blood Pressure Location Rt brachial Position Sitting Pulse 77 Pulse Source Doppler Pulse Oximetry (%) 98 Oxygen Delivery Method Room Air Intake Visit Reasons: asthma exacerbation Allergies aspirin [ASPIRIN] Allergy (Unknown, Verified 08/03/23 13:16) UNKNOWN, anaphylaxis latex Allergy (Unknown, Verified 08/03/23 13:16) Anaphylaxis, Rash Latex, Natural Rubber [LATEX, NATURAL RUBBER] Allergy (Unknown, Verified 08/03/23 13:16) HIVES naproxen [From NAPROSYN] Allergy (Unknown, Verified 08/03/23 13:16) UNKNOWN, anaphylaxis HPI asthma exacerbation HPI Details 47-year-old lady, lifetime nonsmoker, fo llowed for environmental allergies and severe persistent allergic asthma. Previously has syndrome has been controlled on Fasenra, Breo, nebulized budesonide and albuterol. However, recently she has ran out of her medications and now she presents with an acute exacerbation complain of wheezing and dyspnea on exertion. FORMERLY [facility] Medical History (Updated 07/16/22 @ 11:50 by Roni Everett MD) Hypothyroidism Morbid obesity Surgical History History of facial surgery H/O thyroidectomy Family History Mother Diabetes Social History Household Members: Significant Other and Children Housing: House Alcohol intake: never Patient Tobacco Use Status: Never used Tobacco service: No Current occupational status: employed Current occupation: rt handed [employer] Const Denies daytime sleepiness, Denies excessive sweating, Denies fatigue, Denies fever(s), Denies lethargy, Denies malaise, Denies night sweats, Denies snoring and Denies weight loss Eyes Denies blurry vision and Denies itchy eyes ENT Denies nasal congestion, Denies post nasal drip, Denies sinus pain, Denies sinus pressure and Denies other ( Thrush) Card Denies chest pain, Denies pedal edema, Denies dyspnea, Reports dyspnea on exertion, Denies orthopnea and Denies paroxysmal nocturnal dyspnea Resp Denies cough, Denies hemoptysis, Denies excessive phlegm production, Denies dyspnea, Reports dyspnea on exertion, Denies snoring and Reports wheezing GI Denies abdominal pain and Denies heartburn Musc Denies myalgias, Denies arthralgias and Denies joint swelling Skin/Breast Denies rash Neuro Denies memory loss and Denies seizure-like activity Psych Denies abnormal sleep pattern, Denies anxiety and Denies memory loss Endo Denies excessive sweating, Denies fatigue and Denies heat intolerance Sam/Lymph Denies easy bruising Aller/Immun Denies itchy eyes, Denies seasonal rhinorrhea and Reports wheezing Physical Exam Vital Signs: Last Vital Signs Pulse 77 08/03/23 13:13 BP 119/77 08/03/23 13:13 Pulse Ox 98 08/03/23 13:13 Oxygen Delivery Method Room Air 08/03/23 13:13 BMI result Body Mass Index 38.9 Const General: no acute distress and alert Nutritional Appearance: not obese Orientation/consciousness: Other orientation findings ( oriented) HEENT Head: Yes atraumatic Eyes General: appearance normal, both eyes and all related structures Sclerae: sclerae normal EOM: EOMs intact bilaterally Neck Neck: Yes supple Lymphatic: no lymphadenopathy noted Resp Effort & Inspection: normal respiratory effort and no use of accessory muscles Auscultation: wheezes expiratory wheezes (Mild bilaterally) Cardio Rate: regular rate Rhythm: regular rhythm Heart sounds: no gallops, no murmurs and no rubs Skin General skin exam: other ( warm) Extrem General: No clubbing, No cyanosis and No edema Assessment & Plan Assessment & Plan (1) Severe persistent allergic asthma: Code(s): J45.50 - Severe persistent asthma, uncomplicated Plan: Suboptimal control as patient has ran out of her Breo and stopped her Fasenra. Restart Fasenra and Breo. Continue albuterol MDI. Will treat acute exacerbation with a course of prednisone. (2) Environmental allergies: Code(s): Z91.09 - Other allergy status, other than to drugs and biological substances Plan: Expect to improve after restarting Fasenra. Medications: New prednisone 40 mg (4 x 10 mg) PO DAILY 7 days 28 tabs 0RF Changed From albuterol sulfate 90 mcg/actuation 2 puffs PO Q4-6H PRN To albuterol sulfate 90 mcg/actuation 2 puffs PO Q4-6H 30 days PRN 1 ea 6RF shortness of breath or wheezing Refilled fluticasone furoate-vilanterol 200-25 mcg/dose (Breo Ellipta) 1 inh inhalation DAILY 1 ea 6RF 30 days fluticasone furoate-vilanterol 200-25 mcg/dose (Breo Ellipta) 1 inh inhalation DAILY 30 days 1 ea 6RF Coding Level of Care Code Est Pt Level 4 (39800) Diagnoses Severe persistent allergic asthma J45.50 Environmental allergies Z91.09
== END 2023-08-03 13:39 | disposition home or self-care (01) ==
PROVIDERS: PCP Internal Medicine Geriatric Medicine; Visit Provider Internal Medicine Pulmonary Disease
DX: J45.50 Severe persistent asthma, uncomplicated (principal); Z91.09 Other allergy status, other than to drugs and biological substances
CPT/HCPCS: 99214

== ENCOUNTER → 2023-08-03 13:11 | Outpatient (BNVA) | payer MEDICAID, SELFPAY | PROVIDERS: PCP Internal Medicine Geriatric Medicine; Visit Provider Internal Medicine Pulmonary Disease | DX: J45.51 Severe persistent asthma with (acute) exacerbation (principal); Z91.09 Other allergy status, other than to drugs and biological substances | CPT/HCPCS: 99212 ==

== ENCOUNTER 2023-09-14 13:03 | Outpatient (AMB) | payer MEDICAID, SELFPAY ==
[2023-09-14 13:13] VITALS: BP 118/72; PULSE 80; O2SAT 96; BMI 38.7
--- NOTE | 2023-09-14 13:13 | A.OFFVIS_ITS ---
Intake Vital Signs 09/14/23 13:13 Height 5 ft 2 in Weight 211 lb 10.3 oz BMI 38.7 BP 118/72 Blood Pressure Location Rt brachial Position Sitting Pulse 80 Pulse Source Doppler Pulse Oximetry (%) 96 Oxygen Delivery Method Room Air Intake Visit Reasons: asthma exacerbation Allergies aspirin [ASPIRIN] Allergy (Unknown, Verified 09/14/23 13:19) UNKNOWN, anaphylaxis latex Allergy (Unknown, Verified 09/14/23 13:19) Anaphylaxis, Rash Latex, Natural Rubber [LATEX, NATURAL RUBBER] Allergy (Unknown, Verified 09/14/23 13:19) HIVES naproxen [From NAPROSYN] Allergy (Unknown, Verified 09/14/23 13:19) UNKNOWN, anaphylaxis HPI asthma exacerbation HPI Details 47-year-old lady, lifetime nonsmoker, fo llowed for environmental allergies and severe persistent allergic asthma. Previously has syndrome has been controlled on Fasenra, Breo, nebulized budesonide and albuterol. At the last office visit she has been restarted on her prior regimen with improvement in her symptoms. However, she has had exacerbation secondary to COVID-19 approximately 2-3 weeks prior and now she still has lingering bronchitis also further exacerbated by fluid retention with lower extremity edema and orthopnea. FOR[facility]LY [facility] Medical History (Updated 07/16/22 @ 11:50 by Roni Everett MD) Hypothyroidism Morbid obesity Surgical History History of facial surgery H/O thyroidectomy Family History Mother Diabetes Social History Household Members: Significant Other and Children Housing: House Alcohol intake: never Patient Tobacco Use Status: Never used Tobacco service: No Current occupational status: employed Current occupation: rt handed [employer] Const Denies daytime sleepiness, Denies excessive sweating, Denies fatigue, Denies fever(s), Denies lethargy, Denies malaise, Denies night sweats, Denies snoring and Denies weight loss Eyes Denies blurry vision and Denies itchy eyes ENT Denies nasal congestion, Denies post nasal drip, Denies sinus pain, Denies sinus pressure and Denies other ( Thrush) Card Denies chest pain, Reports pedal edema, Reports leg edema, Denies dyspnea, Reports dyspnea on exertion, Reports orthopnea and Denies paroxysmal nocturnal dyspnea Resp Reports cough, Denies hemoptysis, Denies excessive phlegm production, Denies dyspnea, Reports dyspnea on exertion, Denies snoring and Denies wheezing GI Denies abdominal pain and Denies heartburn Musc Denies myalgias, Denies arthralgias and Denies joint swelling Skin/Breast Denies rash Neuro Denies memory loss and Denies seizure-like activity Psych Denies abnormal sleep pattern, Denies anxiety and Denies memory loss Endo Denies excessive sweating, Denies fatigue and Denies heat intolerance Sam/Lymph Denies easy bruising Aller/Immun Denies itchy eyes, Denies seasonal rhinorrhea and Denies wheezing Physical Exam Vital Signs: Last Vital Signs Pulse 80 09/14/23 13:13 BP 118/72 09/14/23 13:13 Pulse Ox 96 09/14/23 13:13 Oxygen Delivery Method Room Air 09/14/23 13:13 BMI result Body Mass Index 38.7 Const General: no acute distress and alert Nutritional Appearance: obese Orientation/consciousness: Other orientation findings ( oriented) HEENT Head: Yes atraumatic Eyes General: appearance normal, both eyes and all related structures Sclerae: sclerae normal EOM: EOMs intact bilaterally Neck Neck: Yes supple Lymphatic: no lymphadenopathy noted Resp Effort & Inspection: normal respiratory effort and no use of accessory muscles Auscultation: crackles ( with basilar predominance) and wheezes ( Expiratory bilateral) Cardio Rate: regular rate Rhythm: regular rhythm Heart sounds: no gallops, no murmurs and no rubs Skin General skin exam: other ( warm) Extrem General: No clubbing, No cyanosis and Yes edema ( 2+ bilateral) Assessment & Plan Assessment & Plan (1) 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 Will start on diuretic with Lasix 40 mg daily. Will also treat with a course of Levaquin. Will obtain chest x-ray. (2) Severe persistent allergic asthma: Code(s): J45.50 - Severe persistent asthma, uncomplicated Plan: Baseline controlled with Fasenra, Breo, and albuterol MDI. Continue current regimen. (3) Environmental allergies: Code(s): Z91.09 - Other allergy status, other than to drugs and biological substances Plan: Baseline controlled on Fasenra. Continue current regimen. Orders: Orders XR chest 2V Today J45.50 - Severe persistent asthma, uncomplicated Medications: New levofloxacin 750 mg PO DAILY 7 days 7 tabs 0RF J45.50 - Severe persistent asthma, uncomplicated furosemide (Lasix) 40 mg PO QAM 30 days 30 tabs 6RF J45.50 - Severe persistent asthma, uncomplicated prednisone 40 mg (2 x 20 mg) PO DAILY 10 days 20 tabs 0RF J45.50 - Severe persistent asthma, uncomplicated Discontinued prednisone Discontinued Reason: Doctor's Order 40 mg (4 x 10 mg) PO DAILY 7 days 28 tabs 0RF Coding Level of Care Code Est Pt Level 4 (55889) Diagnoses [id number] syndrome B94.8 Severe persistent allergic asthma J45.50 Environmental allergies Z91.09
== END 2023-09-14 13:39 | disposition home or self-care (01) ==
PROVIDERS: PCP Internal Medicine Geriatric Medicine; Visit Provider Internal Medicine Pulmonary Disease
DX: B94.8 Sequelae of other specified infectious and parasitic diseases (principal); J45.50 Severe persistent asthma, uncomplicated; Z91.09 Other allergy status, other than to drugs and biological substances
CPT/HCPCS: 99214

== ENCOUNTER 2023-09-14 13:03 | Outpatient (REF) | payer MEDICAID, SELFPAY ==
--- NOTE | ~2023-09-14 | XR_ITS ---
EXAMINATION: XR CHEST CLINICAL INFORMATION: Reason for Exam J45.50 - Severe persistent asthma, uncomplicated COMPARISON: Chest radiograph 03/30/2022 TECHNIQUE: 2 views of the chest FINDINGS: Lines and tubes: None. Clear lungs. No pleural effusion. No pneumothorax. Unchanged cardiomediastinal silhouette. Chronic right anterior sixth rib fracture deformity. XR/XR chest 2V IMPRESSION: * Clear lungs.
== END 2023-09-14 13:04 | disposition home or self-care (01) ==
LOC: HO.XRAY 13:03
PROVIDERS: PCP Internal Medicine Geriatric Medicine; Visit Provider Internal Medicine Pulmonary Disease
DX: J45.50 Severe persistent asthma, uncomplicated (principal); B94.8 Sequelae of other specified infectious and parasitic diseases; Z91.09 Other allergy status, other than to drugs and biological substances
CPT/HCPCS: 71046; 99212

== ENCOUNTER 2023-10-27 20:22 | Emergency (ER) | payer MEDICAID, SELFPAY ==
--- NOTE | ~2023-10-27 | XR_ITS ---
EXAMINATION: XR CHEST CLINICAL INFORMATION: Cough COMPARISON: None available. TECHNIQUE: 2 views of the chest were obtained. FINDINGS: No significant abnormality is noted involving the heart, lungs, mediastinum, bony thorax or soft tissues. XR/XR chest 2V IMPRESSION: Unremarkable. Chest Examination.
--- NOTE | 2023-10-27 20:25 | ED_ITS ---
HPI - General Adult General Chief complaint: General Medical Stated complaint: chest pain,left arm numb,left eye blood shot Time Seen by Provider: 10/28/23 01:49 Source: patient Mode of arrival: ambulatory History of Present Illness HPI narrative: 47-year-old female with known history of asthma and has had a persistent cough since being treated for pneumonia approximately 1 month ago. She tells me very little of what was in her triage note about right foot numbness, chest pain. She does inform me that she was scheduled for a dental procedure today but she was informed that her blood pressure was too high. Related Data Home Medications Medication Instructions Recorded Confirmed levothyroxine 150 mcg tablet 150 mcg PO DAILY 08/26/20 03/19/22 Previous Rx's Medication Instructions Recorded levocetirizine 5 mg tablet 5 mg PO DAILY 30 days #30 tabs 04/21/22 (Allergy Relief (levocetirizine)) benralizumab 30 mg/mL subcutaneous 30 mg subcut Q8W #1 mL 08/09/22 syringe albuterol sulfate 90 mcg/actuation 2 puff PO Q4-6H PRN shortness of 08/03/23 aerosol inhaler breath or wheezing 30 days #1 ea fluticasone furoate 200 1 inh inhalation DAILY 30 days #1 08/03/23 mcg-vilanterol 25 mcg/dose ea inhalation powder (Breo Ellipta) cholecalciferol (vitamin D3) 125 125 mcg PO DAILY #90 caps 08/08/23 mcg (5,000 unit) capsule furosemide 40 mg tablet (Lasix) 40 mg PO QAM 30 days #30 tabs 09/14/23 prednisone 20 mg tablet 40 mg (2 x 20 mg) PO DAILY 10 days 09/14/23 #20 tabs albuterol sulfate 2.5 mg/3 mL 2.5 mg (3 mL) inhalation Q4-6H PRN 09/21/23 (0.083 %) solution for nebulization shortness of breath or wheezing 30 days #180 mL amoxicillin 875 mg-potassium 1 tab PO BID 10 days #20 tabs 09/21/23 clavulanate 125 mg tablet budesonide 0.25 mg/2 mL suspension 0.25 mg (2 mL) inhalation BID 30 09/21/23 for nebulization days #120 mL benzonatate 200 mg capsule 200 mg PO TID PRN cough #14 caps 10/28/23 prednisone 50 mg tablet 50 mg PO DAILY 4 days #4 tabs 10/28/23 Allergies Allergy/AdvReac Type Severity Reaction Status Date / Time aspirin [ASPIRIN] Allergy Unknown UNKNOWN, Verified 10/27/23 20:26 anaphylaxis latex Allergy Unknown Anaphylaxis, Verified 10/27/23 20:26 Rash Latex, Natural Rubber Allergy Unknown HIVES Verified 10/27/23 20:26 [LATEX, NATURAL RUBBER] naproxen [From NAPROSYN] Allergy Unknown UNKNOWN, Verified 10/27/23 20:26 anaphylaxis Review of Systems 2 Review of Systems: Pertinent positives and negatives as stated in [facility] Past Medical History Source: nursing notes reviewed Medical History Hypothyroidism Morbid obesity Surgical History History of facial surgery H/O thyroidectomy Family History Family History Mother Diabetes Social History Social History Household Members: Significant Other and Children Housing: House Alcohol intake: never Patient Tobacco Use Status: Never used Tobacco Advance Directives: No Advance Directives Information Provided: No service: No Current occupational status: employed Current occupation: rt handed Physical Exam ED Vital Signs: Vital Signs - 24 hr 10/27/23 20:26 10/27/23 23:54 10/28/23 01:17 Temperature 97.5 F 97.3 F 98.3 F Pulse Rate 83 88 87 Respiratory Rate 18 20 16 Blood Pressure 190/72 H 136/84 144/70 H Pulse Oximetry 96 95 96 Oxygen Delivery Method Room Air Room Air Room Air BMI result Body Mass Index 38.4 VITAL SIGNS: Reviewed. GENERAL: Well developed, well nourished, in no acute distress. HEAD: Normocephalic/atraumatic EYES: PERRLA, EOMI EARS: Ext canals without abnormality NOSE: Nares patent bilateral OROPHARYNX: no oral lesions noted, posterior pharynx clear NECK: Supple, no adenopathy LUNGS: Decreased breath sounds without increased work of breathing or tachypnea SpO2<96> CARDIOVASCULAR: Regular rate and rhythm without noted murmurs ABDOMEN: Soft, non-tender, non-distended with bowel sounds. MUSCULOSKELETAL: No tenderness, deformities, or effusions noted on gross inspection. EXTREMITIES: No cyanosis, clubbing or edema. SKIN: Inspection of the skin reveals no rashes NEUROLOGIC: Alert and oriented x 4. Strength and sensation to light touch were grossly intact x 4. Course Course Course Narrative: This is an RME: Additional HPI, ROS, PE not included below will be deferred to primary provider. This is a 15-sgey-huf-female, with a hx of asthma, presenting to the emergency department with complaints of left arm arm pain and chest pain x 3 hours. Patient also reports that she traveled to [place] recently, recently treated for pneumonia. Treated with Augmentin. She finished a course. Patient with cough with shortness of breath, prolonged expiratory wheeze noted throughout all lung blackwell. Plan: Labs, EKG, chest x-ray further ER evaluation needed. Medical Decision Making Medical Decision Making MDM Narrative: 47-year-old female with history and clinical presentation most consistent with mild asthma exacerbation and will treat patient with 10 mg DuoNeb and 50 mg of prednisone. She is not hypoxic. And suspect that patient's elevated blood pressure is related to her use of the cough suppressant containing phenylephrine. She will be instructed to no longer use the phenylephrine/cough suppressant and instead I will prescribe something different. Reviewed all investigations and hematologic indices are grossly within normal limits without any derangements. Chemistry indices are grossly within normal limits, high sensitivity troponin is undetectable and BNP is within normal limits. Chest x-ray negative for infiltrate and otherwise my interpretation is in agreement with radiology's impression. My interpretation is that patient is experiencing asthma exacerbation, mild. After receiving treatment and prednisone with Tessalon she will be discharged. Differential Diagnosis Differential Diagnoses: The differential diagnosis associated with the presentation includes Please see the discussion above Admission/Observation Consideration of admission/observation: Escalation of care including admission/observation considered Please see the discussion above Lab Data [facility] Lab Attestation statement: I reviewed the patient's lab results. Please see the discussion above 10/27/23 20:49 10/27/23 20:49 Labs: Lab Results 10/27/23 10/27/23 Range/Units 20:49 20:50 WBC 8.6 (4.8-10.8) X10*3/uL RBC 4.63 (4.20-5.50) X10*6/uL Hgb 13.2 (12.0-16.0) g/dl Hct 39.9 (37.0-47.0) % MCV 86.2 (80.0-98.0) fL MCH 28.5 (27.0-33.0) pg MCHC 33.1 (31.0-35.0) g/dl RDW 14.9 (11.0-16.0) % Plt Count 289 D (160-400) X10*3/uL MPV 10.1 (9.4-12.3) fL Immature Gran % (Auto) 0.3 (0.0-0.4) % Neut % (Auto) 52.5 (45-73) % Lymph % (Auto) 32.2 (20-40) % [place] % (Auto) 6.8 (2-11) % Eos % (Auto) 7.9 H (0-4) % Baso % (Auto) 0.3 (0-2) % Lymph # (Auto) 2.8 (1.2-4.9) X10*3/uL [place] # (Auto) 0.6 (0.1-1.2) X10*3/uL Eos # (Auto) 0.7 H (0.0-0.4) X10*3/uL Baso # (Auto) 0.0 (0.0-0.2) X10*3/uL Abs Immat Gran (auto) 0.03 (0.00-0.03) X10*3/uL Absolute Neuts (auto) 4.5 (2.0-8.3) x10*3/uL Absolute Nucleated RBC 0.000 (0.0-0.012) X10*3/uL Nucleated RBC % (auto) 0.0 (0.0-0.2) /100WBC Sodium 138 (135-145) mmol/L Potassium 4.0 (3.3-5.1) mmol/L Chloride 105 (96-108) mmol/L Carbon Dioxide 23 (22-29) mmol/L Anion Gap 14 (12-20) BUN 23 H (9-16) mg/dL Creatinine 0.89 (0.5-1.4) mg/dL Estim Creat Clear Calc 82.2 Estimated GFR > 60 Random Glucose 107 (60-115) mg/dL Calcium 9.8 (8.4-10.2) mg/dL Total Bilirubin 0.3 (0.0-1.0) mg/dL Direct Bilirubin 0.1 (0.0-0.5) mg/dL AST 18 (5-31) U/L ALT 14 (0-31) U/L Alkaline Phosphatase 65 (39-117) U/L Troponin I High Sens < 2.7 (<3.5-17.0) ng/L B-Natriuretic Peptide < 10 (<100) pg/mL Total Protein 8.1 H (6.5-8.0) g/dL Albumin 4.2 (3.5-5.0) g/dL Influenza Type A (PCR) NEGATIVE (Negative) Influenza Type B (PCR) NEGATIVE (Negative) RSV RNA Qual (PCR) NEGATIVE (Negative) SARS-CoV-2 RNA (RT-PCR) NEGATIVE (Negative) Independent Interpretation I performed an independent interpretation of an: EKG Interpretation: Normal sinus rhythm, HR-73, no STEMI, VA/QRS/QTC is within normal limits. Radiology Impression Discussion of test interpretation with radiology: I have reviewed the radiologist's reading. Radiologist Impression: Please see the discussion above External Record Review External record reviewed: Outpatient record, Prior outpatient labs and Prior outpatient radiology Chronic Conditions Patient?s care impacted by: Other Asthma Critical Care Time Critical Care Time Critical Care Time: Yes Total Critical Care Time: 30 Attestation: I personally attest to this time spent taking care of the patient. Discharge Plan Discharge Clinical Impression: Asthma exacerbation Patient Disposition: Home, Self-Care Instructions: Asthma (ED) Additional Instructions: 1. Resume all home medications as prescribed. 2. Complete the course of steroids as prescribed. 3. Follow-up with your primary care doctor as well as your cloth mercerizer back tender. Stop using the cough medicine that you currently have as it is likely contributing to your blood pressure. I will prescribe you cough medication. Prescriptions: New benzonatate 200 mg capsule 200 mg PO TID PRN (Reason: cough) Qty: 14 0RF prednisone 50 mg tablet 50 mg PO DAILY 4 Days Qty: 4 0RF No Action benralizumab 30 mg/mL syringe 30 mg subcut Q8W Qty: 1 12RF cholecalciferol (vitamin D3) 125 mcg (5,000 unit) capsule 125 mcg PO DAILY Qty: 90 0RF amoxicillin-pot clavulanate 875-125 mg tablet 1 tab PO BID 10 Days Qty: 20 0RF budesonide 0.25 mg/2 mL suspension for nebulization 0.25 mg inhalation BID 30 Days Qty: 120 6RF albuterol sulfate 2.5 mg /3 mL (0.083 %) solution for nebulization 2.5 mg inhalation Q4-6H PRN (Reason: shortness of breath or wheezing) 30 Days Qty: 180 6RF levothyroxine 150 mcg tablet 150 mcg PO DAILY levocetirizine [Allergy Relief (levocetirizin)] 5 mg tablet 5 mg PO DAILY 30 Days Qty: 30 3RF albuterol sulfate 90 mcg/actuation HFA aerosol inhaler 2 puff PO Q4-6H PRN (Reason: shortness of breath or wheezing) 30 Days Qty: 1 6RF fluticasone furoate-vilanterol [Breo Ellipta] 200-25 mcg/dose blister with device 1 inh inhalation DAILY 30 Days Qty: 1 6RF furosemide [Lasix] 40 mg tablet 40 mg PO QAM 30 Days Qty: 30 6RF prednisone 20 mg tablet 40 mg PO DAILY 10 Days Qty: 20 0RF Referrals: Name,MD Amol [Primary Care Provider] -
[2023-10-27 20:26] VITALS: BP 190/72; PULSE 83; RESP 18; TEMP 36.4; O2SAT 96; BMI 38.4
--- NOTE | 2023-10-27 20:30 | ECG_ITS ---
Test Reason : CX PAIN Blood Pressure : / mmHG Vent. Rate : 073 BPM Atrial Rate : 073 BPM P-R Int : 128 ms QRS Dur : 086 ms QT Int : 372 ms P-R-T Axes : 011 004 024 degrees QTc Int : 409 ms Normal sinus rhythm Normal ECG When compared with ECG of 30-MAR-2022 07:32, No significant change was found Referred By: Rain Amado Electronically Signed By:GRZEGORZ LEONARD
[2023-10-27 20:56] LABS: MANUAL DIFF FLAG NO
[2023-10-27 20:58] LABS: Basophils Percent Auto 0.3 % (0-2); Eosinophils Absolute Auto 0.7 X10*3/uL (0.0-0.4); Eosinophils Percent Auto 7.9 % (0-4); Hematocrit 39.9 % (37.0-47.0); Hemoglobin 13.2 g/dl (12.0-16.0); Imm Gran Abs Auto 0.03 X10*3/uL (0.00-0.03); Imm Gran Pct Auto 0.3 % (0.0-0.4); Lymphocytes Absolute Auto 2.8 X10*3/uL (1.2-4.9); Lymphocytes Percent Auto 32.2 % (20-40); Mean Corpuscular HGB Conc 33.1 g/dl (31.0-35.0); Mean Corpuscular Hemoglobin 28.5 pg (27.0-33.0); Mean Corpuscular Volume 86.2 fL (80.0-98.0); Mean Platelet Volume 10.1 fL (9.4-12.3); Monocytes Absolute Auto 0.6 X10*3/uL (0.1-1.2); Monocytes Percent Auto 6.8 % (2-11); Neutrophils Absolute Auto 4.5 x10*3/uL (2.0-8.3); Neutrophils Percent Auto 52.5 % (45-73); Platelet Count 289 X10*3/uL (160-400); Red Blood Count 4.63 X10*6/uL (4.20-5.50); Red Cell Distribution Width 14.9 % (11.0-16.0); White Blood Count 8.6 X10*3/uL (4.8-10.8)
[2023-10-27 21:12] LABS: Alanine Aminotransferase 14 U/L (0-31); Albumin Level 4.2 g/dL (3.5-5.0); Alkaline Phosphatase 65 U/L (39-117); Anion Gap 14 (12-20); Aspartate Amino Transferase 18 U/L (5-31); Bilirubin Direct 0.1 mg/dL (0.0-0.5); Bilirubin Total 0.3 mg/dL (0.0-1.0); Blood Urea Nitrogen 23 mg/dL (9-16); Calcium 9.8 mg/dL (8.4-10.2); Carbon Dioxide 23 mmol/L (22-29); Chloride 105 mmol/L (96-108); Creatinine Clr Calc Pharmacy 82.2; Estimated Glomerular Filt Rate > 60; Glucose Random 107 mg/dL (60-115); Sodium 138 mmol/L (135-145); Total Protein 8.1 g/dL (6.5-8.0)
[2023-10-27 21:17] LABS: B Type Natriuretic Peptide < 10 pg/mL (<100)
[2023-10-27 21:20] LABS: Troponin-I High Sensitivity < 2.7 ng/L (<3.5-17.0)
[2023-10-27 21:34] LABS: Influenza A PCR NEGATIVE (Negative); Influenza B PCR NEGATIVE (Negative); Resp Syncy Virus RNA Qual PCR NEGATIVE (Negative); SARS COV2 PCR INHOUSE NEGATIVE (Negative)
[2023-10-27 23:54] VITALS: BP 136/84; PULSE 88; RESP 20; TEMP 36.3; O2SAT 95
[2023-10-28 01:17] VITALS: BP 144/70; PULSE 87; RESP 16; TEMP 36.8; O2SAT 96
[2023-10-28] MEDS: Benzonatate 100 MG CAPSULE 200 MG PO (02:35)
[2023-10-28] MEDS: predniSONE 10 MG TABLET 50 MG PO (02:36)
[2023-10-28 02:49] VITALS: PULSE 83; RESP 16; O2SAT 94
[2023-10-28] MEDS: Albuterol Sulfate 7.5 MG, Albuterol/Iprat 2.5/0.5MG 3 ML 3 ML INHALE (02:49)
== END 2023-10-28 04:17 | disposition home or self-care (01) ==
PROVIDERS: Physician Assistant Medical; Emergency Provider Emergency Medicine; PCP Internal Medicine Geriatric Medicine
DX: J45.901 Unspecified asthma with (acute) exacerbation (principal); R07.89 Other chest pain; R05.9 Cough, unspecified; Z20.822 Contact with and (suspected) exposure to COVID-19; Z20.828 Contact with and (suspected) exposure to other viral communicable diseases; Z79.899 Other long term (current) drug therapy
CPT/HCPCS: 0241U; 36415; 71046; 80048; 80076; 83880; 84484; 85025; 93005; 94640; 99284; 99285

== ENCOUNTER → 2023-10-27 20:30 | Outpatient (BNV) | payer MEDICAID, SELFPAY | PROVIDERS: Emergency Provider Emergency Medicine; PCP Internal Medicine Geriatric Medicine; Visit Provider Internal Medicine | DX: R07.9 Chest pain, unspecified (principal) | CPT/HCPCS: 93010 ==

== ENCOUNTER 2023-12-26 11:01 | Outpatient (REF) | payer MEDICAID, SELFPAY ==
[2023-12-26 14:05] LABS: TSH reflex Free T4 0.03 uIU/mL (0.32-4.0)
[2023-12-26 15:07] LABS: Free T4 (Free Thyroxine) 1.58 ng/dL (0.71-1.85)
== END 2023-12-26 11:02 | disposition home or self-care (01) ==
LOC: HO.HHCL 11:01
PROVIDERS: Visit Provider Internal Medicine Geriatric Medicine
DX: E89.0 Postprocedural hypothyroidism (principal)
CPT/HCPCS: 36415; 84439; 84443

== ENCOUNTER 2024-08-10 11:36 | Outpatient (REF) | payer MEDICAID, SELFPAY ==
--- NOTE | ~2024-08-10 | XR_ITS ---
EXAMINATION: XR CHEST CLINICAL INFORMATION: Cough. COMPARISON: October 27, 2023 TECHNIQUE: 2 views of the chest were obtained. FINDINGS: The lungs are well-expanded. No focal consolidation. No pleural effusion. Cardiac silhouette is unchanged. XR/XR chest 2V IMPRESSION: No acute abnormality. Electronically signed by: Delmar Bran MD 08/10/2024 01:31 PM EDT
== END 2024-08-10 11:37 | disposition home or self-care (01) ==
LOC: HO.HHCX 11:36
PROVIDERS: Visit Provider Internal Medicine Geriatric Medicine
DX: J45.50 Severe persistent asthma, uncomplicated (principal); R07.81 Pleurodynia
CPT/HCPCS: 71046

== ENCOUNTER 2024-09-29 13:16 | Inpatient (IN) | payer OTHER, SELFPAY ==
[2024-09-29] VITALS (7 sets, daily range): BP systolic 130–153; BP diastolic 69–89; PULSE 100–131; RESP 17–32; TEMP 36.3–36.6; O2SAT 93–98; BMI 38.4; BMI 38.2
--- NOTE | ~2024-09-29 | CT_ITS ---
EXAMINATION: CT ANGIOGRAM OF THE CHEST WITH AND WITHOUT CONTRAST (CT PULMONARY ANGIOGRAM FOR PE) CLINICAL INFORMATION: hypoxia, cough COMPARISON: Chest CTA dated 12/28/2018 TECHNIQUE: Prior to contrast administration, noncontrast localization images were obtained. Subsequently, multidetector volumetric imaging was performed from the thoracic inlet to below the diaphragms following the administration of 80 mL Omnipaque 350 intravenous contrast. No contrast reaction reported Sagittal, coronal, and MIP oblique sagittal reformatted images were obtained on the CT workstation, uploaded to PACS, and reviewed. This CT examination was performed using dose optimization techniques as appropriate, variously including the following: *Automated exposure control *Adjustment of mA and/or kV according to patient size (this includes techniques or standardized protocols for targeted exams where dose is matched to indication/reason for exam; i.e. extremities or head) *Use of iterative reconstruction technique Total exam dose-length product 363 mGy-cm FINDINGS: QUALITY OF STUDY/CONTRAST BOLUS: Satisfactory. PULMONARY ARTERIES: No pulmonary emboli in the central or segmental pulmonary arteries. Limited evaluation of the subsegmental pulmonary arteries but no definite filling defects. THORACIC AORTA: No aneurysm. LUNG: Mosaic attenuation of the lungs likely represents small airways disease. Subsegmental atelectasis in the bilateral lower lobes. Scattered areas of mucus plugging in the bilateral lower lobes. No focal consolidation, nodules or masses. PLEURA: No pleural effusion or pneumothorax. MEDIASTINUM: Normal heart size. No pericardial effusion. No hilar or mediastinal lymphadenopathy. No evidence of septal bowing or right heart strain. CORONARY ARTERY CALCIFICATION: None visualized on this study. CHEST WALL/AXILLA: No axillary or internal mammary lymphadenopathy. OSSEOUS STRUCTURES: Multilevel degenerative changes of the thoracic spine. No destructive osseous lesions. Subacute or chronic fracture of the lateral right sixth rib with callus formation (9:100). UPPER ABDOMEN: Unremarkable. No reflux of contrast into the hepatic veins to suggest elevated right heart pressures. CT/CT angio chest PE protocol IMPRESSION: 1. No pulmonary emboli in the central or segmental pulmonary arteries. Limited evaluation of the subsegmental pulmonary arteries but no definite filling defects. 2. Mosaic attenuation of the lungs likely represents small airways disease. Scattered areas of mucus plugging in the bilateral lower lobes. 3. Subacute versus chronic fracture of the lateral right sixth rib with callus formation. VTE: negative. Electronically signed by: Macrina Adams MD 09/30/2024 12:01 PM [facility]
--- NOTE | ~2024-09-29 | XR_ITS ---
EXAMINATION: XR CHEST CLINICAL INFORMATION: Cough and wheezing for the past 8 days. Worse over the last 3 days. COMPARISON: Chest radiograph dated 08/10/2024 TECHNIQUE: Frontal view of the chest was obtained. FINDINGS: The lung volumes. No significant abnormality is noted involving the heart, lungs, mediastinum, bony thorax or soft tissues. XR/XR chest 1V IMPRESSION: Unremarkable examination. Electronically signed by: Macrina Adams MD 09/29/2024 03:37 PM [facility]
--- NOTE | 2024-09-29 13:19 | ED_ITS ---
HPI - Asthma General Chief Complaint: Asthma Stated Complaint: asthma diff breathing Time Seen by Provider: 09/29/24 13:23 Related Data Home Medications ?Medication ?Instructions ?Recorded ?Confirmed levothyroxine 150 mcg tablet 150 mcg PO DAILY 08/26/20 03/19/22 Previous Rx's ?Medication ?Instructions ?Recorded levocetirizine 5 mg tablet 5 mg PO DAILY 30 days #30 tabs 04/21/22 (Allergy Relief (levocetirizine)) albuterol sulfate 90 mcg/actuation 2 puff PO Q4-6H PRN shortness of 08/03/23 aerosol inhaler breath or wheezing 30 days #1 ea fluticasone furoate 200 1 inh inhalation DAILY 30 days #1 08/03/23 mcg-vilanterol 25 mcg/dose ea inhalation powder (Breo Ellipta) cholecalciferol (vitamin D3) 125 125 mcg PO DAILY #90 caps 08/08/23 mcg (5,000 unit) capsule prednisone 20 mg tablet 40 mg (2 x 20 mg) PO DAILY 10 days 09/14/23 #20 tabs albuterol sulfate 2.5 mg/3 mL 2.5 mg (3 mL) inhalation Q4-6H PRN 09/21/23 (0.083 %) solution for nebulization shortness of breath or wheezing 30 days #180 mL amoxicillin 875 mg-potassium 1 tab PO BID 10 days #20 tabs 09/21/23 clavulanate 125 mg tablet benzonatate 200 mg capsule 200 mg PO TID PRN cough #14 caps 10/28/23 prednisone 50 mg tablet 50 mg PO DAILY 4 days #4 tabs 10/28/23 benralizumab 30 mg/mL subcutaneous 30 mg subcut Q8W #1 mL 01/23/24 syringe furosemide 40 mg tablet 40 mg PO QAM #90 tabs 06/13/24 budesonide 0.25 mg/2 mL suspension 0.25 mg (2 mL) inhalation BID #360 07/02/24 for nebulization mL Allergies Allergy/AdvReac Type Severity Reaction Status Date / Time aspirin [ASPIRIN] Allergy Unknown UNKNOWN, Verified 09/29/24 13:20 anaphylaxis latex Allergy Unknown Anaphylaxis, Verified 09/29/24 13:20 Rash Latex, Natural Rubber Allergy Unknown HIVES Verified 09/29/24 13:20 [LATEX, NATURAL RUBBER] naproxen [From NAPROSYN] Allergy Unknown UNKNOWN, Verified 09/29/24 13:20 anaphylaxis [facility] Past Medical History Medical History Hypothyroidism Morbid obesity Surgical History History of facial surgery H/O thyroidectomy Family History Family History Mother Diabetes Social History Social History Household Members: Significant Other and Children Housing: House Alcohol intake: never Patient Tobacco Use Status: Never used Tobacco Advance Directives: No Advance Directives Information Provided: No Patient : No service: No Current occupational status: employed Current occupation: rt handed Physical Exam 2 Vital Signs: Vital Signs: Last Vital Signs Temp 97.4 F 09/29/24 13:19 Pulse 131 H 09/29/24 13:30 Resp 32 H 09/29/24 13:30 BP 153/89 H 09/29/24 13:19 Pulse Ox 97 09/29/24 13:19 O2 Del Method Room Air 09/29/24 13:19 BMI result Body Mass Index 38.4 Course Course Course Narrative: This is an RME performed by Katrina Flores CNP: Additional HPI, ROS, PE not included below will be deferred to primary provider. Patient is a 48-year-old female who presents emergency department for evaluation of an asthma attack. Onset 8 days ago progressively worsening. Requiring treatments every 2 hours with minimal improvement. Arrived obviously dyspneic, inspiratory wheezing, tachycardia 123, O2 saturation 97%. Significant increased work of breathing. Spoke with charge master coordinator, patient moved to ED 4 Medications Administered Generic Name Dose Route Start Last Admin Trade Name Freq PRN Reason Stop Dose Admin Magnesium Sulfate 2 gm in 50 mls @ 25 mls/hr 09/29/24 13:24 09/29/24 13:32 Magnesium Sulfate/H2o IV 09/29/24 15:23 25 mls/hr ONCE ONE Administration Discontinued Medications Generic Name Dose Route Start Last Admin Trade Name Freq PRN Reason Stop Dose Admin Levalbuterol HCl 3.75 mg 09/29/24 13:29 09/29/24 13:36 Levalbuterol Hcl 1.25 Mg/3 Ml Vial.Neb INHALE 09/29/24 13:30 3.75 mg ONCE ONE Administration Methylprednisolone Sodium Succinate 125 mg 09/29/24 13:20 09/29/24 13:29 Methylprednisolone Sod Succ 125 Mg/2 Ml Vial IVPUSH 09/29/24 13:21 125 mg ONCE ONE Administration Medical Decision Making Lab Data 09/29/24 13:30 09/29/24 13:30 Labs: Lab Results 09/29/24 09/29/24 09/29/24 Range/Units 13:30 13:31 13:38 WBC 13.7 H (4.8-10.8) X10*3/uL RBC 4.92 (4.20-5.50) X10*6/uL Hgb 14.3 (12.0-16.0) g/dl Hct 42.5 (37.0-47.0) % MCV 86.4 (80.0-98.0) fL MCH 29.1 (27.0-33.0) pg MCHC 33.6 (31.0-35.0) g/dl RDW 15.5 (11.0-16.0) % Plt Count 256 (160-400) X10*3/uL MPV 9.8 (9.4-12.3) fL Immature Gran % (Auto) 0.2 (0.0-0.4) % Neut % (Auto) 66.9 (45-73) % Lymph % (Auto) 22.7 (20-40) % [place] % (Auto) 5.3 (2-11) % Eos % (Auto) 4.7 H (0-4) % Baso % (Auto) 0.2 (0-2) % Lymph # (Auto) 3.1 (1.2-4.9) X10*3/uL [place] # (Auto) 0.7 (0.1-1.2) X10*3/uL Eos # (Auto) 0.6 H (0.0-0.4) X10*3/uL Baso # (Auto) 0.0 (0.0-0.2) X10*3/uL Abs Immat Gran (auto) 0.03 (0.00-0.03) X10*3/uL Absolute Neuts (auto) 9.1 H (2.0-8.3) x10*3/uL Absolute Nucleated RBC 0.000 (0.0-0.012) X10*3/uL Nucleated RBC % (auto) 0.0 (0.0-0.2) /100WBC VBG pH 7.34 (7.32-7.43) VBG pCO2 52 mmHg VBG pO2 36 mmHg VBG HCO3 29 H (22-26) mmol/L VBG O2 Saturation 51.0 % VBG Base Excess 2.2 mmol/L Sodium 145 (135-145) mmol/L Potassium 4.2 (3.3-5.1) mmol/L Chloride 109 H (96-108) mmol/L Carbon Dioxide 25 (22-29) mmol/L Anion Gap 15 (12-20) BUN 12 (9-16) mg/dL Creatinine 0.79 (0.5-1.4) mg/dL Estim Creat Clear Calc 91.6 Estimated GFR > 60 Random Glucose 109 (60-115) mg/dL Calcium 10.9 H D (8.4-10.2) mg/dL Magnesium 2.2 (1.6-2.6) mg/dL Total Bilirubin 1.0 (0.0-1.0) mg/dL AST 26 (5-31) U/L ALT 28 (0-31) U/L Alkaline Phosphatase 80 (39-117) U/L B-Natriuretic Peptide < 10 (<100) pg/mL Total Protein 8.3 H (6.5-8.0) g/dL Albumin 4.5 (3.5-5.0) g/dL Influenza Type A (PCR) NEGATIVE (Negative) Influenza Type B (PCR) NEGATIVE (Negative) RSV RNA Qual (PCR) NEGATIVE (Negative) SARS-CoV-2 RNA (RT-PCR) NEGATIVE (Negative) Discharge Plan Discharge Prescriptions: No Action cholecalciferol (vitamin D3) 125 mcg (5,000 unit) capsule 125 mcg PO DAILY Qty: 90 0RF amoxicillin-pot clavulanate 875-125 mg tablet 1 tab PO BID 10 Days Qty: 20 0RF albuterol sulfate 2.5 mg /3 mL (0.083 %) solution for nebulization 2.5 mg inhalation Q4-6H PRN (Reason: shortness of breath or wheezing) 30 Days Qty: 180 6RF benralizumab 30 mg/mL syringe 30 mg subcut Q8W Qty: 1 12RF furosemide 40 mg tablet 40 mg PO QAM Qty: 90 2RF budesonide 0.25 mg/2 mL suspension for nebulization 0.25 mg inhalation BID Qty: 360 2RF benzonatate 200 mg capsule 200 mg PO TID PRN (Reason: cough) Qty: 14 0RF prednisone 50 mg tablet 50 mg PO DAILY 4 Days Qty: 4 0RF levothyroxine 150 mcg tablet 150 mcg PO DAILY levocetirizine [Allergy Relief (levocetirizin)] 5 mg tablet 5 mg PO DAILY 30 Days Qty: 30 3RF albuterol sulfate 90 mcg/actuation HFA aerosol inhaler 2 puff PO Q4-6H PRN (Reason: shortness of breath or wheezing) 30 Days Qty: 1 6RF fluticasone furoate-vilanterol [Breo Ellipta] 200-25 mcg/dose blister with device 1 inh inhalation DAILY 30 Days Qty: 1 6RF prednisone 20 mg tablet 40 mg PO DAILY 10 Days Qty: 20 0RF Print Language: Occitan
--- NOTE | 2024-09-29 13:20 | ECG_ITS ---
Test Reason : sob Blood Pressure : / mmHG Vent. Rate : 111 BPM Atrial Rate : 111 BPM P-R Int : 154 ms QRS Dur : 078 ms QT Int : 288 ms P-R-T Axes : 059 008 015 degrees QTc Int : 391 ms Sinus tachycardia Possible Left atrial enlargement Nonspecific ST and T wave abnormality Abnormal ECG When compared with ECG of 27-OCT-2023 20:41, Vent. rate has increased BY [address] now depressed in Anterior leads Nonspecific T wave abnormality now evident in Anterolateral leads Referred By: Anne Flores Electronically Signed By:BRAYAN GUERRA MD
--- NOTE | 2024-09-29 13:26 | ED_ITS ---
HPI - Asthma General Chief Complaint: Asthma Stated Complaint: asthma diff breathing Time Seen by Provider: 09/29/24 13:23 Source: patient Mode of arrival: ambulatory Limitations: no limitations History of Present Illness ED Provider: MARIO Hoffman HPI Narrative: 48-year-old female presents with cough, shortness of breath, wheezing ongoing x9 days. Patient reports seems to be getting worse despite using nebulizing treatments at home Q 1 hour. Patient reports her knees was sick with bronchitis and she is not sure if she could have something similar. She reports she decided to come in today after 9 days because her breathing became more labored. She just feels overall unwell. Denies chest pain, fevers, chills, headache, vision changes, dizziness, weakness. Related Data Home Medications ?Medication ?Instructions ?Recorded ?Confirmed levothyroxine 150 mcg tablet 150 mcg PO DAILY 08/26/20 03/19/22 Previous Rx's ?Medication ?Instructions ?Recorded levocetirizine 5 mg tablet 5 mg PO DAILY 30 days #30 tabs 04/21/22 (Allergy Relief (levocetirizine)) albuterol sulfate 90 mcg/actuation 2 puff PO Q4-6H PRN shortness of 08/03/23 aerosol inhaler breath or wheezing 30 days #1 ea fluticasone furoate 200 1 inh inhalation DAILY 30 days #1 08/03/23 mcg-vilanterol 25 mcg/dose ea inhalation powder (Breo Ellipta) cholecalciferol (vitamin D3) 125 125 mcg PO DAILY #90 caps 08/08/23 mcg (5,000 unit) capsule prednisone 20 mg tablet 40 mg (2 x 20 mg) PO DAILY 10 days 09/14/23 #20 tabs albuterol sulfate 2.5 mg/3 mL 2.5 mg (3 mL) inhalation Q4-6H PRN 09/21/23 (0.083 %) solution for nebulization shortness of breath or wheezing 30 days #180 mL amoxicillin 875 mg-potassium 1 tab PO BID 10 days #20 tabs 09/21/23 clavulanate 125 mg tablet benzonatate 200 mg capsule 200 mg PO TID PRN cough #14 caps 10/28/23 prednisone 50 mg tablet 50 mg PO DAILY 4 days #4 tabs 10/28/23 benralizumab 30 mg/mL subcutaneous 30 mg subcut Q8W #1 mL 01/23/24 syringe furosemide 40 mg tablet 40 mg PO QAM #90 tabs 06/13/24 budesonide 0.25 mg/2 mL suspension 0.25 mg (2 mL) inhalation BID #360 07/02/24 for nebulization mL Allergies Allergy/AdvReac Type Severity Reaction Status Date / Time aspirin [ASPIRIN] Allergy Unknown UNKNOWN, Verified 09/29/24 13:20 anaphylaxis latex Allergy Unknown Anaphylaxis, Verified 09/29/24 13:20 Rash Latex, Natural Rubber Allergy Unknown HIVES Verified 09/29/24 13:20 [LATEX, NATURAL RUBBER] naproxen [From NAPROSYN] Allergy Unknown UNKNOWN, Verified 09/29/24 13:20 anaphylaxis Review of Systems 2 Review of Systems: Yes all other systems are reviewed and are negative [facility] Past Medical History Attestation statement: The following information was validated with the patient. Source: old records reviewed and nursing notes reviewed Medical History Hypothyroidism Morbid obesity Surgical History History of facial surgery H/O thyroidectomy Family History Family History Mother Diabetes Social History Social History Household Members: Significant Other and Children Housing: House Alcohol intake: never Patient Tobacco Use Status: Never used Tobacco Advance Directives: No Advance Directives Information Provided: No Patient : No service: No Current occupational status: employed Current occupation: rt handed Physical Exam 2 Vital Signs: Vital Signs: Last Vital Signs Temp 97.4 F 09/29/24 13:19 Pulse 131 H 09/29/24 13:30 Resp 32 H 09/29/24 13:30 BP 153/89 H 09/29/24 13:19 Pulse Ox 97 09/29/24 13:19 O2 Del Method Room Air 09/29/24 13:19 BMI result Body Mass Index 38.4 Patient tachypneic, tachycardic. Appearance: Alert.? Oriented X3.? + Mild- moderate acute distress.? Head: Normocephalic, atraumatic, no step-offs or deformities Eyes: Pupils equal, round and reactive to light.? Neck: Normal inspection.? Neck supple.? CVS: Normal heart rate and rhythm.? Pulses normal.? Respiratory: + mild to moderate respiratory distress, patient tripoding, tachypneic, little air movement with expiratory wheezing bilaterally. Abdomen: Soft and nontender.? Skin: Skin warm and dry.? Normal skin color.? Normal skin turgor.? Extremities: No lower extremity edema.? No calf ttp. 5/5 strength to bilateral upper and lower extremities Back: No midline tenderness, no C-spine tenderness, full range of motion, no CVA tenderness bilaterally Neuro: Oriented X 3.? No motor deficit.? No sensory deficit. CN 2-12 intact Course Reevaluation(s) Reevaluation #1: Patient with mild leukocytosis 13.7 no left shift this is likely reactive secondary to acute respiratory distress/from multiple steroid treatments at home. Chemistry unremarkable no acute findings needing intervention. Flu, COVID, RSV negative. Chest x-ray has not been read however no signs of consolidation on x-ray. EKG nonischemic. Patient is saturating well on room air however is very tight still with wheezing. Will give more Xopenex. Plan hospital admission Time: 14:41 Medications Administered Generic Name Dose Route Start Last Admin Trade Name Freq PRN Reason Stop Dose Admin Magnesium Sulfate 2 gm in 50 mls @ 25 mls/hr 09/29/24 13:24 09/29/24 13:32 Magnesium Sulfate/H2o IV 09/29/24 15:23 25 mls/hr ONCE ONE Administration Discontinued Medications Generic Name Dose Route Start Last Admin Trade Name Freq PRN Reason Stop Dose Admin Levalbuterol HCl 3.75 mg 09/29/24 13:29 09/29/24 13:36 Levalbuterol Hcl 1.25 Mg/3 Ml Vial.Neb INHALE 09/29/24 13:30 3.75 mg ONCE ONE Administration Methylprednisolone Sodium Succinate 125 mg 09/29/24 13:20 09/29/24 13:29 Methylprednisolone Sod Succ 125 Mg/2 Ml Vial IVPUSH 09/29/24 13:21 125 mg ONCE ONE Administration Medical Decision Making Medical Decision Making [facility] Narrative: 1327 48-year-old female presents with shortness of breath, wheezing, cough x9 days. Recent sick contact at home PE- + mild to moderate respiratory distress, patient tripoding, tachypneic, little air movement with expiratory wheezing bilaterally. History and physical exam concerning for bronchitis with asthma exacerbation. Unlikely pneumonia, PE, ACS. There is [id number] respiratory distress on exam. Unlikely pneumothorax. Plan labs, viral testing, chest x-ray, bronch protocol Differential Diagnosis Differential Diagnoses: The differential diagnosis associated with the presentation includes (History and physical exam concerning for bronchitis with asthma exacerbation. Unlikely pneumonia, PE, ACS. There is [id number] respiratory distress on exam. Unlikely pneumothorax.) Admission/Observation Consideration of admission/observation: Escalation of care including admission/observation considered Lab Data MDM Lab Attestation statement: I reviewed the patient's lab results. 09/29/24 13:30 09/29/24 13:30 Labs: Lab Results 09/29/24 09/29/24 09/29/24 Range/Units 13:30 13:31 13:38 WBC 13.7 H (4.8-10.8) X10*3/uL RBC 4.92 (4.20-5.50) X10*6/uL Hgb 14.3 (12.0-16.0) g/dl Hct 42.5 (37.0-47.0) % MCV 86.4 (80.0-98.0) fL MCH 29.1 (27.0-33.0) pg MCHC 33.6 (31.0-35.0) g/dl RDW 15.5 (11.0-16.0) % Plt Count 256 (160-400) X10*3/uL MPV 9.8 (9.4-12.3) fL Immature Gran % (Auto) 0.2 (0.0-0.4) % Neut % (Auto) 66.9 (45-73) % Lymph % (Auto) 22.7 (20-40) % [place] % (Auto) 5.3 (2-11) % Eos % (Auto) 4.7 H (0-4) % Baso % (Auto) 0.2 (0-2) % Lymph # (Auto) 3.1 (1.2-4.9) X10*3/uL [place] # (Auto) 0.7 (0.1-1.2) X10*3/uL Eos # (Auto) 0.6 H (0.0-0.4) X10*3/uL Baso # (Auto) 0.0 (0.0-0.2) X10*3/uL Abs Immat Gran (auto) 0.03 (0.00-0.03) X10*3/uL Absolute Neuts (auto) 9.1 H (2.0-8.3) x10*3/uL Absolute Nucleated RBC 0.000 (0.0-0.012) X10*3/uL Nucleated RBC % (auto) 0.0 (0.0-0.2) /100WBC VBG pH 7.34 (7.32-7.43) VBG pCO2 52 mmHg VBG pO2 36 mmHg VBG HCO3 29 H (22-26) mmol/L VBG O2 Saturation 51.0 % VBG Base Excess 2.2 mmol/L Sodium 145 (135-145) mmol/L Potassium 4.2 (3.3-5.1) mmol/L Chloride 109 H (96-108) mmol/L Carbon Dioxide 25 (22-29) mmol/L Anion Gap 15 (12-20) BUN 12 (9-16) mg/dL Creatinine 0.79 (0.5-1.4) mg/dL Estim Creat Clear Calc 91.6 Estimated GFR > 60 Random Glucose 109 (60-115) mg/dL Calcium 10.9 H D (8.4-10.2) mg/dL Magnesium 2.2 (1.6-2.6) mg/dL Total Bilirubin 1.0 (0.0-1.0) mg/dL AST 26 (5-31) U/L ALT 28 (0-31) U/L Alkaline Phosphatase 80 (39-117) U/L B-Natriuretic Peptide < 10 (<100) pg/mL Total Protein 8.3 H (6.5-8.0) g/dL Albumin 4.5 (3.5-5.0) g/dL Influenza Type A (PCR) NEGATIVE (Negative) Influenza Type B (PCR) NEGATIVE (Negative) RSV RNA Qual (PCR) NEGATIVE (Negative) SARS-CoV-2 RNA (RT-PCR) NEGATIVE (Negative) Independent Interpretation I performed an independent interpretation of an: EKG (Sinus tachycardia Possible Left atrial enlargement Nonspecific ST and T wave abnormality Abnormal ECG When compared with ECG of 27-OCT-2023 20:41, Vent. rate has increased BY [address] now depressed in Anterior leads Nonspecific T wave abnormality now evident in Anterolateral leads) and Plain X-Ray Radiology Impression Discussion of test interpretation with radiology: I have reviewed the radiologist's reading. External Record Review External record reviewed: Office record and Outpatient record Chronic Conditions Patient?s care impacted by: Other (astham ) Critical Care Time Critical Care Time Critical Care Time: Yes Total Critical Care Time: 35 Attestation: I attest to this time spent taking care of the patient, obtaining history, physical, reviewing labs, imaging, treatment of patients condition +/- specialist/hospitalist consult Discharge Plan Discharge Clinical Impression: Asthma exacerbation Patient Disposition: Admitted As Inpatient Prescriptions: No Action cholecalciferol (vitamin D3) 125 mcg (5,000 unit) capsule 125 mcg PO DAILY Qty: 90 0RF amoxicillin-pot clavulanate 875-125 mg tablet 1 tab PO BID 10 Days Qty: 20 0RF albuterol sulfate 2.5 mg /3 mL (0.083 %) solution for nebulization 2.5 mg inhalation Q4-6H PRN (Reason: shortness of breath or wheezing) 30 Days Qty: 180 6RF benralizumab 30 mg/mL syringe 30 mg subcut Q8W Qty: 1 12RF furosemide 40 mg tablet 40 mg PO QAM Qty: 90 2RF budesonide 0.25 mg/2 mL suspension for nebulization 0.25 mg inhalation BID Qty: 360 2RF benzonatate 200 mg capsule 200 mg PO TID PRN (Reason: cough) Qty: 14 0RF prednisone 50 mg tablet 50 mg PO DAILY 4 Days Qty: 4 0RF levothyroxine 150 mcg tablet 150 mcg PO DAILY levocetirizine [Allergy Relief (levocetirizin)] 5 mg tablet 5 mg PO DAILY 30 Days Qty: 30 3RF albuterol sulfate 90 mcg/actuation HFA aerosol inhaler 2 puff PO Q4-6H PRN (Reason: shortness of breath or wheezing) 30 Days Qty: 1 6RF fluticasone furoate-vilanterol [Breo Ellipta] 200-25 mcg/dose blister with device 1 inh inhalation DAILY 30 Days Qty: 1 6RF prednisone 20 mg tablet 40 mg PO DAILY 10 Days Qty: 20 0RF Print Language: Latvian
[2024-09-29] MEDS: methylPREDNISolone Sod Succ 125 MG/2 ML VIAL IVPUSH (13:29)
[2024-09-29] MEDS: Magnesium Sulfate/H2O 2 GM/50 ML PIGGYBACK IV (13:32)
[2024-09-29 13:35] LABS: MANUAL DIFF FLAG NO
[2024-09-29] MEDS: levalbuterol HCL 1.25 MG/3 ML VIAL.NEB 3.75 MG INHALE (13:36)
[2024-09-29 13:37] LABS: Basophils Percent Auto 0.2 % (0-2); Eosinophils Absolute Auto 0.6 X10*3/uL (0.0-0.4); Eosinophils Percent Auto 4.7 % (0-4); Hematocrit 42.5 % (37.0-47.0); Hemoglobin 14.3 g/dl (12.0-16.0); Imm Gran Abs Auto 0.03 X10*3/uL (0.00-0.03); Imm Gran Pct Auto 0.2 % (0.0-0.4); Lymphocytes Absolute Auto 3.1 X10*3/uL (1.2-4.9); Lymphocytes Percent Auto 22.7 % (20-40); Mean Corpuscular HGB Conc 33.6 g/dl (31.0-35.0); Mean Corpuscular Hemoglobin 29.1 pg (27.0-33.0); Mean Corpuscular Volume 86.4 fL (80.0-98.0); Mean Platelet Volume 9.8 fL (9.4-12.3); Monocytes Absolute Auto 0.7 X10*3/uL (0.1-1.2); Monocytes Percent Auto 5.3 % (2-11); Neutrophils Absolute Auto 9.1 x10*3/uL (2.0-8.3); Neutrophils Percent Auto 66.9 % (45-73); Platelet Count 256 X10*3/uL (160-400); Red Blood Count 4.92 X10*6/uL (4.20-5.50); Red Cell Distribution Width 15.5 % (11.0-16.0); White Blood Count 13.7 X10*3/uL (4.8-10.8)
[2024-09-29 13:41] LABS: Venous Blood Gas Refer to POC result
[2024-09-29 13:43] LABS: VBG Base Excess 2.2 mmol/L; VBG HCO3 29 mmol/L (22-26); VBG pCO2 52 mmHg; VBG pH 7.34 (7.32-7.43); VBG pO2 36 mmHg
[2024-09-29 13:58] LABS: Alanine Aminotransferase 28 U/L (0-31); Albumin Level 4.5 g/dL (3.5-5.0); Alkaline Phosphatase 80 U/L (39-117); Anion Gap 15 (12-20); Aspartate Amino Transferase 26 U/L (5-31); Blood Urea Nitrogen 12 mg/dL (9-16); Calcium 10.9 mg/dL (8.4-10.2); Carbon Dioxide 25 mmol/L (22-29); Chloride 109 mmol/L (96-108); Creatinine Clr Calc Pharmacy 91.6; Estimated Glomerular Filt Rate > 60; Glucose Random 109 mg/dL (60-115); Magnesium 2.2 mg/dL (1.6-2.6); Potassium 4.2 mmol/L (3.3-5.1); Sodium 145 mmol/L (135-145); Total Protein 8.3 g/dL (6.5-8.0)
[2024-09-29 14:04] LABS: B Type Natriuretic Peptide < 10 pg/mL (<100)
[2024-09-29 14:14] LABS: Influenza A PCR NEGATIVE (Negative); Influenza B PCR NEGATIVE (Negative); Resp Syncy Virus RNA Qual PCR NEGATIVE (Negative); SARS COV2 PCR INHOUSE NEGATIVE (Negative)
--- NOTE | 2024-09-29 14:52 | PC.NURSE ---
Pt presents to ED from home, reports 3 days of worsening SOB, cough (productive) and right sided back/lung pain. Reports hx of asthma, using inhalers with no relief. Initially very tachypnic and SOB on arrival, after treatments and meds pt improved and is now comfortable. Denies N/V/D, fevers. Alert and oriented, sinus tach on monitor.
--- NOTE | 2024-09-29 15:31 | PHA.MEDREC ---
Addendum entered by Jon Kyle RPh 09/29/24 15:47: Reviewed by [facility] Original Note: Pharmacy Consult ? Medication Reconciliation Pharmacy has completed the medication reconciliation. Spoke with patient to confirm medications. She has combivent that she uses q4h prn. She got it in [place] which is why it is not in claims (she has it with her currently). She still uses her Breo which she also has with her (it has 12 doses left), which she last used yesterday. She confirmed her levothyroxine is 150 mcg currently (claims shows she goes back and forth between 175 and 150). She reports she is not using the furosemide right now. She finished her prednisone taper. Unknown when she last took montelukast. She uses not OTC.
--- NOTE | 2024-09-29 16:06 | PM.IMHP ---
History of Present Illness Date of Service: 09/29/24 <Camila Becerra NP - Last Filed: 09/30/24 11:42> Chief Complaint: Cough <Camila Becerra NP - Last Filed: 09/30/24 11:42> 48-year-old woman presenting with shortness of breath, cough and wheezing for over 9 days. Patient reports that her symptoms have been getting worse despite using her home nebulizers and using them almost every hour. She denies any recent illness but a family member had bronchitis recently. She denied chest pain, nausea, vomiting, diarrhea, recent travel. In the ER chest x-ray was negative for consolidation or effusion. She received a dose of IV Solu-Medrol, IV magnesium and Xopenex. Plan will be to admit for acute asthma exacerbation. <Camila Becerra NP - Last Filed: 09/30/24 11:42> Review of Systems Review of Systems: Denies any recent fever chills or decrease in appetite respiratory see HPI cardiovascular denied chest pain gastrointestinal denies any dysphagia abdominal pain nausea vomiting or diarrhea genitourinary denies any dysuria frequency or hematuria musculoskeletal denies any joint pain or swelling neuropsych denies any weakness or seizures all other systems reviewed are negative <Camila Becerra NP - Last Filed: 09/30/24 11:42> [facility] Medical History: Medical History Hypothyroidism Morbid obesity <Camila Becerra NP - Last Filed: 09/30/24 11:42> Family History: Family History Mother Diabetes <Camila Becerra NP - Last Filed: 09/30/24 11:42> Surgical History: Surgical History History of facial surgery H/O thyroidectomy <Camila Becerra NP - Last Filed: 09/30/24 11:42> Social History: Social History Household Members: Significant Other and Children Housing: House Alcohol intake: never Patient Tobacco Use Status: Never used Tobacco Use of substances other than those prescribed or required for medical reasons: No Currently Displaying Signs/Symptoms of Drug Intoxication Withdrawal: No Have you been hit, kicked, punched, or otherwise hurt by someone within the past year? If so, by whom?: No Do you feel safe in your current relationship?: No Is there a partner from a previous relationship who is making you feel unsafe now?: No Are you made to feel afraid or neglected: No Advance Directives: No Advance Directives Information Provided: No Advance Directives on File: No Do you have a plan to hurt others: No Plan Recently lost weight without trying: No Eating poorly because of decreased appetite: No Nutrition Risks: No Nutritional Risk Patient : No : No Poor oral hygiene: No service: No Current occupational status: employed Current occupation: rt handed <Camila Becerra NP - Last Filed: 09/30/24 11:42> Meds Allergies/Adverse reactions: Allergies Allergy/AdvReac Type Severity Reaction Status Date / Time aspirin [ASPIRIN] Allergy Unknown UNKNOWN, Verified 09/29/24 13:20 anaphylaxis latex Allergy Unknown Anaphylaxis, Verified 09/29/24 13:20 Rash Latex, Natural Rubber Allergy Unknown HIVES Verified 09/29/24 13:20 [LATEX, NATURAL RUBBER] naproxen [From NAPROSYN] Allergy Unknown UNKNOWN, Verified 09/29/24 13:20 anaphylaxis <Camila Becerra NP - Last Filed: 09/30/24 11:42> Home medications: Home Medications ?Medication ?Instructions ?Recorded ?Confirmed ?Last Taken ?Type levothyroxine 150 mcg tablet 150 mcg PO DAILY@0600 08/26/20 09/29/24 09/28/24 History albuterol sulfate 2.5 mg/3 mL 2.5 mg inhalation QID PRN 09/29/24 09/29/24 Unknown History (0.083 %) solution for nebulization shortness of breath or wheezing ipratropium 20 mcg-albuterol 100 1 puff inhalation Q4H PRN 09/29/24 09/29/24 Unknown History mcg/actuation mist for inhalation Shortness Of Breath Or Wheezing (Combivent Respimat) montelukast 10 mg tablet 10 mg PO DAILY 09/29/24 09/29/24 Unknown History <Camila Becerra NP - Last Filed: 09/30/24 11:42> Physical Exam Vital Signs and Narrative: Vital Signs: Last Vital Signs Temp 97.4 F 11/09/24 13:19 Pulse 110 H 09/29/24 14:50 Resp 20 09/29/24 14:50 BP 130/76 09/29/24 14:50 Pulse Ox 95 09/29/24 14:50 O2 Del Method Room Air 09/29/24 14:50 BMI result Body Mass Index 38.4 <Camila Becerra NP - Last Filed: 09/30/24 11:42> Appearing in no acute distress head is normocephalic atraumatic eyes pupils are PERRLA sclera is anicteric mouth throat mucous membranes are intact and moist neck is supple no lymphadenopathy, no JVD noted lung sounds exp wheezing heart regular rate rhythm, clear S1, S2 positive bowel sounds, abdomen is soft, nontender neuro patient is alert x3, no focal deficits <Camila Becerra NP - Last Filed: 09/30/24 11:42> Results Labs CBC and Chem 7: 09/30/24 06:55 09/30/24 06:55 <Camila Becerra NP - Last Filed: 09/30/24 11:42> Labs: Laboratory Results - last 24 hr 09/29/24 09/29/24 09/29/24 13:30 13:31 13:38 MCV 86.4 MCH 29.1 MCHC 33.6 RDW 15.5 Plt Count 256 MPV 9.8 Immature Gran % (Auto) 0.2 Neut % (Auto) 66.9 Lymph % (Auto) 22.7 [place] % (Auto) 5.3 Eos % (Auto) 4.7 H Baso % (Auto) 0.2 Lymph # (Auto) 3.1 [place] # (Auto) 0.7 Eos # (Auto) 0.6 H Baso # (Auto) 0.0 Abs Immat Gran (auto) 0.03 Absolute Neuts (auto) 9.1 H Absolute Nucleated RBC 0.000 Nucleated RBC % (auto) 0.0 VBG pH 7.34 VBG pCO2 52 VBG pO2 36 VBG HCO3 29 H VBG O2 Saturation 51.0 VBG Base Excess 2.2 Anion Gap 15 Estim Creat Clear Calc 91.6 Estimated GFR > 60 Random Glucose 109 Calcium 10.9 H D Magnesium 2.2 Total Bilirubin 1.0 AST 26 ALT 28 Alkaline Phosphatase 80 B-Natriuretic Peptide < 10 Total Protein 8.3 H Albumin 4.5 Influenza Type A (PCR) NEGATIVE Influenza Type B (PCR) NEGATIVE RSV RNA Qual (PCR) NEGATIVE SARS-CoV-2 RNA (RT-PCR) NEGATIVE <Camila Becerra NP - Last Filed: 09/30/24 11:42> Imaging Radiologist's Impressions: Impressions Chest X-Ray 09/29/24 13:29 IMPRESSION: Unremarkable examination. Electronically signed by: Macrina Adams MD 09/29/2024 03:37 PM [facility] <Camila Becerra NP - Last Filed: 09/30/24 11:42> Assessment and Plan (1) Asthma exacerbation: Status: Acute <Camila Becerra NP - Last Filed: 09/30/24 11:42> 48 year old women admitted with asthma exacerbation Asthma exacerbation Start xopenex and IV Solu-Medrol Oxygen supplementation to keep oxygen saturation greater than 91% Monitor respiratory status Tachycardia Secondary to respiratory updraft treatments Monitor on telemetry Hypothyroidism Continue levothyroxine Severe obesity. BMI 38.4 Discussed importance of weight management as this may be contributing to worsening of other comorbidities DVT prophylaxis with Lovenox Full code <Camila Becerra NP - Last Filed: 09/30/24 11:42> Quality Stroke Does the patient have a stroke diagnosis?: No <Ace Prieto MD - Last Filed: 09/30/24 06:55> VTE Prior VTE?: No <Ace Prieto MD - Last Filed: 09/30/24 06:55> VTE Risk Level:: Medical - moderate - high <Ace Prieto MD - Last Filed: 09/30/24 06:55> VTE Device Contraindication: Treatment Not Indicated <Ace Prieto MD - Last Filed: 09/30/24 06:55> VTE Drug Contraindication: N/A - Med Ordered <Ace Prieto MD - Last Filed: 09/30/24 06:55>
[2024-09-29] MEDS: levalbuterol HCL 1.25 MG/3 ML VIAL.NEB INHALE ×2 (18:37→23:21)
--- NOTE | 2024-09-29 19:51 | PC.NURSE ---
Patient complains of SOB with ambulation. Ambulated with nurse to the bathroom. Returned and Oxygen saturations were ok at 98%.
[2024-09-29] MEDS: 0.9 % Sodium Chloride Flush 3 ML SYRINGE IVFLUSH (23:58)
[2024-09-30] VITALS (14 sets, daily range): BP systolic 117–145; BP diastolic 59–72; PULSE 72–124; RESP 16–28; TEMP 35.9–37; O2SAT 91–99
[2024-09-30] MEDS: Acetaminophen 325 MG TABLET 650 MG PO ×3 (00:05→20:54)
[2024-09-30] MEDS: levalbuterol HCL 1.25 MG/3 ML VIAL.NEB INHALE ×6 (03:18→23:18)
[2024-09-30] MEDS: Levothyroxine Sodium 150 MCG TABLET PO (06:36)
[2024-09-30 07:37] LABS: MANUAL DIFF FLAG NO
[2024-09-30 08:01] LABS: Basophils Percent Auto 0.1 % (0-2); Hematocrit 38.3 % (37.0-47.0); Imm Gran Abs Auto 0.08 X10*3/uL (0.00-0.03); Imm Gran Pct Auto 0.6 % (0.0-0.4); Lymphocytes Absolute Auto 1.1 X10*3/uL (1.2-4.9); Lymphocytes Percent Auto 7.8 % (20-40); Mean Corpuscular HGB Conc 33.9 g/dl (31.0-35.0); Mean Corpuscular Hemoglobin 29.1 pg (27.0-33.0); Mean Corpuscular Volume 85.9 fL (80.0-98.0); Mean Platelet Volume 10.3 fL (9.4-12.3); Monocytes Absolute Auto 0.6 X10*3/uL (0.1-1.2); Neutrophils Absolute Auto 12.6 x10*3/uL (2.0-8.3); Neutrophils Percent Auto 87.5 % (45-73); Platelet Count 230 X10*3/uL (160-400); Red Blood Count 4.46 X10*6/uL (4.20-5.50); Red Cell Distribution Width 15.4 % (11.0-16.0); White Blood Count 14.4 X10*3/uL (4.8-10.8)
[2024-09-30 08:12] LABS: Anion Gap 15 (12-20); Blood Urea Nitrogen 13 mg/dL (9-16); Calcium 10.1 mg/dL (8.4-10.2); Carbon Dioxide 21 mmol/L (22-29); Chloride 110 mmol/L (96-108); Creatinine Clr Calc Pharmacy 103.1; Estimated Glomerular Filt Rate > 60; Glucose Random 127 mg/dL (60-115); Potassium 4.4 mmol/L (3.3-5.1); Sodium 142 mmol/L (135-145)
--- NOTE | 2024-09-30 08:21 | P.PNIM_ITS ---
Subjective Subjective Date of Service: 09/30/24 Physical Exam 2 Vital Signs: Vital Signs: Last Vital Signs Temp 98.6 F 09/30/24 07:24 Pulse 124 H 09/30/24 07:50 Resp 28 H 09/30/24 07:50 BP 140/62 H 09/30/24 07:24 Pulse Ox 99 09/30/24 07:24 O2 Del Method Nasal Cannula 09/30/24 07:24 O2 Flow Rate 3.0 09/30/24 07:24 BMI result Body Mass Index 38.2 Objective Data Active Medications Acetaminophen (Acetaminophen 325 Mg Tablet) 650 mg PO Q6H PRN PRN Reason: Pain, Mild (Pain Scale 1-3), fever or headache Last Admin: 09/30/24 00:05 Dose: 650 mg Documented By: LIZBETH Calcium Carbonate (Calcium Carbonate 750 Mg Tab.Chew) 750 mg PO Q4H PRN PRN Reason: Heartburn Guaifenesin/Dextromethorphan (Guaifenesin Dm 100/10/5 Ml 5 Ml Syrup) 5 ml PO Q4H PRN PRN Reason: Cough Azithromycin 500 mg/ Sodium (Chloride) 250 mls @ 125 mls/hr IV Q24H [facility] Levalbuterol HCl (Levalbuterol Hcl 1.25 Mg/3 Ml Vial.Neb) 1.25 mg INHALE Q4H [facility] Last Admin: 09/30/24 07:49 Dose: 1.25 mg Documented By: ARCHANA Levothyroxine Sodium (Levothyroxine Sodium 150 Mcg Tablet) 150 mcg PO DAILY@0600 [facility] Last Admin: 09/30/24 06:36 Dose: 150 mcg Documented By: LIZBETH Magnesium Hydroxide (Milk Of Magnesia 30 Ml Oral.Susp) 30 ml PO DAILY PRN PRN Reason: Constipation Melatonin (Melatonin 3 Mg Tablet) 6 mg PO BEDTIME PRN PRN Reason: Insomnia Methylprednisolone Sodium Succinate (Methylprednisolone Sod Succ 40 Mg/Ml Vial) 40 mg IVPUSH Q12H [facility] Sodium Chloride (0.9 % Sodium Chloride Flush 3 Ml Syringe) 3 ml IVFLUSH QSHIFT [facility] Last Admin: 09/29/24 23:58 Dose: 3 ml Documented By: LIZBETH Labs 09/30/24 06:55 09/30/24 06:55 Labs: Laboratory Results - last 24 hr 09/29/24 09/29/24 09/29/24 13:30 13:31 13:38 MCV 86.4 MCH 29.1 MCHC 33.6 RDW 15.5 Plt Count 256 MPV 9.8 Immature Gran % (Auto) 0.2 Neut % (Auto) 66.9 Lymph % (Auto) 22.7 [place] % (Auto) 5.3 Eos % (Auto) 4.7 H Baso % (Auto) 0.2 Lymph # (Auto) 3.1 [place] # (Auto) 0.7 Eos # (Auto) 0.6 H Baso # (Auto) 0.0 Abs Immat Gran (auto) 0.03 Absolute Neuts (auto) 9.1 H Absolute Nucleated RBC 0.000 Nucleated RBC % (auto) 0.0 VBG pH 7.34 VBG pCO2 52 VBG pO2 36 VBG HCO3 29 H VBG O2 Saturation 51.0 VBG Base Excess 2.2 Anion Gap 15 Estim Creat Clear Calc 91.6 Estimated GFR > 60 Random Glucose 109 Calcium 10.9 H D Magnesium 2.2 Total Bilirubin 1.0 AST 26 ALT 28 Alkaline Phosphatase 80 B-Natriuretic Peptide < 10 Total Protein 8.3 H Albumin 4.5 Influenza Type A (PCR) NEGATIVE Influenza Type B (PCR) NEGATIVE RSV RNA Qual (PCR) NEGATIVE SARS-CoV-2 RNA (RT-PCR) NEGATIVE 09/30/24 06:55 MCV 85.9 MCH 29.1 MCHC 33.9 RDW 15.4 Plt Count 230 MPV 10.3 Immature Gran % (Auto) 0.6 H Neut % (Auto) 87.5 H Lymph % (Auto) 7.8 L [place] % (Auto) 4.0 Eos % (Auto) 0.0 Baso % (Auto) 0.1 Lymph # (Auto) 1.1 L [place] # (Auto) 0.6 Eos # (Auto) 0.0 Baso # (Auto) 0.0 Abs Immat Gran (auto) 0.08 H Absolute Neuts (auto) 12.6 H Absolute Nucleated RBC 0.000 Nucleated RBC % (auto) 0.0 VBG pH VBG pCO2 VBG pO2 VBG HCO3 VBG O2 Saturation VBG Base Excess Anion Gap 15 Estim Creat Clear Calc 103.1 Estimated GFR > 60 Random Glucose 127 H Calcium 10.1 D Magnesium Total Bilirubin AST ALT Alkaline Phosphatase B-Natriuretic Peptide Total Protein Albumin Influenza Type A (PCR) Influenza Type B (PCR) RSV RNA Qual (PCR) SARS-CoV-2 RNA (RT-PCR) Assessment and Plan (1) Asthma: Status: Acute Plan 48 year old women admitted with asthma exacerbation Asthma exacerbation continue xopenex and IV Solu-Medrol Oxygen supplementation to keep oxygen saturation greater than 91% start azithromycin check RPP cough suppresant Tachycardia Secondary to respiratory updraft treatments Monitor on telemetry Hypothyroidism Continue levothyroxine Severe obesity. BMI 38.4 Discussed importance of weight management as this may be contributing to worsening of other comorbidities DVT prophylaxis with Lovenox attending Dr. Anderson Full code Quality Stroke Does the patient have a stroke diagnosis?: No VTE Prior VTE?: No VTE Risk Level:: Medical - moderate - high VTE Device Contraindication: Treatment Not Indicated VTE Drug Contraindication: N/A - Med Ordered
[2024-09-30] MEDS: Azithromycin 500 MG in 0.9 % Sodium Chloride 250 ML 125 MG IV (08:44)
[2024-09-30] MEDS: methylPREDNISolone Sod Succ 40 MG/ML VIAL IVPUSH ×2 (08:44→20:49)
[2024-09-30] MEDS: guaiFENesin DM 100/10/5 ML 5 ML SYRUP PO ×3 (08:44→22:20)
[2024-09-30] MEDS: 0.9 % Sodium Chloride Flush 3 ML SYRINGE IVFLUSH ×2 (08:45→20:51)
--- NOTE | 2024-09-30 09:50 | MHC.CM.PN ---
CM met with Patient at bedside. Patient lives in a house with her Mother, whom she cares for. Home/self care is the goal and CM has initiated and will follow for dc planning. Patient's PCP is Dr. Amol Titus and Patient's car is her for self transport to home.
[2024-09-30] MEDS: iohexoL 350 MG/ML 100 ML INFUS..BTL IV (10:42)
[2024-09-30 12:00] LABS: Adenovirus PCR Not Detected (Not Detect.); Bordetella parapertussis PCR Not Detected (Not Detect.); Bordetella pertussis PCR Not Detected (Not Detect.); Chlamydia pneumoniae PCR Not Detected (Not Detect.); Coronavirus 229E PCR Not Detected (Not Detect.); Coronavirus HKU1 PCR Not Detected (Not Detect.); Coronavirus NL63 PCR Not Detected (Not Detect.); Coronavirus OC43 PCR Not Detected (Not Detect.); Human metapneumovirus PCR Not Detected (Not Detect.); Influenza A PCR Not Detected (Not Detect.); Influenza B PCR Not Detected (Not Detect.); Mycoplasma pneumoniae PCR Not Detected (Not Detect.); Parainfluenza 1 PCR Not Detected (Not Detect.); Parainfluenza 2 PCR Not Detected (Not Detect.); Parainfluenza 3 PCR Not Detected (Not Detect.); Parainfluenza 4 PCR Not Detected (Not Detect.); RSV PCR Not Detected (Not Detect.); Rhino/Enterovirus PCR Not Detected (Not Detect.)
--- NOTE | 2024-09-30 12:07 | HO.PM.IMPN ---
Subjective Subjective Date of Service: 09/30/24 Physical Exam Vital Signs: Vital Signs: Last Vital Signs Temp 98.6 F 09/30/24 07:24 Pulse 101 H 09/30/24 10:37 Resp 20 09/30/24 10:37 BP 140/62 H 09/30/24 07:24 Pulse Ox 99 09/30/24 07:24 O2 Del Method Nasal Cannula 09/30/24 07:24 O2 Flow Rate 3.0 09/30/24 07:24 BMI result Body Mass Index 38.2 Objective Data Active Medications Acetaminophen (Acetaminophen 325 Mg Tablet) 650 mg PO Q6H PRN PRN Reason: Pain, Mild (Pain Scale 1-3), fever or headache Last Admin: 09/30/24 00:05 Dose: 650 mg Documented By: LIZBETH Calcium Carbonate (Calcium Carbonate 750 Mg Tab.Chew) 750 mg PO Q4H PRN PRN Reason: Heartburn Guaifenesin/Dextromethorphan (Guaifenesin Dm 100/10/5 Ml 5 Ml Syrup) 5 ml PO Q4H PRN PRN Reason: Cough Last Admin: 09/30/24 08:44 Dose: 5 ml Documented By: MINDY Azithromycin 500 mg/ Sodium (Chloride) 250 mls @ 125 mls/hr IV Q24H [facility] Last Infusion: 09/30/24 10:28 Dose: 125 mls/hr Documented By: MINDY Levalbuterol HCl (Levalbuterol Hcl 1.25 Mg/3 Ml Vial.Neb) 1.25 mg INHALE Q4H [facility] Last Admin: 09/30/24 10:31 Dose: 1.25 mg Documented By: ARCHANA Levothyroxine Sodium (Levothyroxine Sodium 150 Mcg Tablet) 150 mcg PO DAILY@0600 [facility] Last Admin: 09/30/24 06:36 Dose: 150 mcg Documented By: LIZBETH Magnesium Hydroxide (Milk Of Magnesia 30 Ml Oral.Susp) 30 ml PO DAILY PRN PRN Reason: Constipation Melatonin (Melatonin 3 Mg Tablet) 6 mg PO BEDTIME PRN PRN Reason: Insomnia Methylprednisolone Sodium Succinate (Methylprednisolone Sod Succ 40 Mg/Ml Vial) 40 mg IVPUSH Q12H [facility] Last Admin: 09/30/24 08:44 Dose: 40 mg Documented By: MINDY Sodium Chloride (0.9 % Sodium Chloride Flush 3 Ml Syringe) 3 ml IVFLUSH QSHIFT [facility] Last Admin: 09/30/24 08:45 Dose: 3 ml Documented By: MINDY Labs 09/30/24 06:55 09/30/24 06:55 Labs: Laboratory Results - last 24 hr 09/29/24 09/29/24 09/29/24 13:30 13:31 13:38 MCV 86.4 MCH 29.1 MCHC 33.6 RDW 15.5 Plt Count 256 MPV 9.8 Immature Gran % (Auto) 0.2 Neut % (Auto) 66.9 Lymph % (Auto) 22.7 [place] % (Auto) 5.3 Eos % (Auto) 4.7 H Baso % (Auto) 0.2 Lymph # (Auto) 3.1 [place] # (Auto) 0.7 Eos # (Auto) 0.6 H Baso # (Auto) 0.0 Abs Immat Gran (auto) 0.03 Absolute Neuts (auto) 9.1 H Absolute Nucleated RBC 0.000 Nucleated RBC % (auto) 0.0 VBG pH 7.34 VBG pCO2 52 VBG pO2 36 VBG HCO3 29 H VBG O2 Saturation 51.0 VBG Base Excess 2.2 Anion Gap 15 Estim Creat Clear Calc 91.6 Estimated GFR > 60 Random Glucose 109 Calcium 10.9 H D Magnesium 2.2 Total Bilirubin 1.0 AST 26 ALT 28 Alkaline Phosphatase 80 B-Natriuretic Peptide < 10 Total Protein 8.3 H Albumin 4.5 Influenza Type A (PCR) NEGATIVE Influenza Type B (PCR) NEGATIVE RSV RNA Qual (PCR) NEGATIVE SARS-CoV-2 RNA (RT-PCR) NEGATIVE 09/30/24 06:55 MCV 85.9 MCH 29.1 MCHC 33.9 RDW 15.4 Plt Count 230 MPV 10.3 Immature Gran % (Auto) 0.6 H Neut % (Auto) 87.5 H Lymph % (Auto) 7.8 L [place] % (Auto) 4.0 Eos % (Auto) 0.0 Baso % (Auto) 0.1 Lymph # (Auto) 1.1 L [place] # (Auto) 0.6 Eos # (Auto) 0.0 Baso # (Auto) 0.0 Abs Immat Gran (auto) 0.08 H Absolute Neuts (auto) 12.6 H Absolute Nucleated RBC 0.000 Nucleated RBC % (auto) 0.0 VBG pH VBG pCO2 VBG pO2 VBG HCO3 VBG O2 Saturation VBG Base Excess Anion Gap 15 Estim Creat Clear Calc 103.1 Estimated GFR > 60 Random Glucose 127 H Calcium 10.1 D Magnesium Total Bilirubin AST ALT Alkaline Phosphatase B-Natriuretic Peptide Total Protein Albumin Influenza Type A (PCR) Influenza Type B (PCR) RSV RNA Qual (PCR) SARS-CoV-2 RNA (RT-PCR) Quality Stroke Does the patient have a stroke diagnosis?: No VTE Prior VTE?: No VTE Risk Level:: Medical - moderate - high VTE Device Contraindication: Treatment Not Indicated VTE Drug Contraindication: N/A - Med Ordered
--- NOTE | 2024-09-30 12:38 | P.CONPL_ITS ---
History of Present Illness History of Present Illness Consult date: 09/30/24 Chief complaint: asthma exacerbation, dyspnea Narrative: 48-year-old lady with underlying severe persistent allergic asthma previously on biologic therapy, suboptimally compliant with follow-up, admitted on 09/29/2024 with worsening dyspnea deemed to be secondary to asthma exacerbation, treated with empiric steroids and nebulized bronchodilators. CT angio chest with no evidence of pulmonary emboli, but showing pulmonary edema. Patient also complaining of orthopnea and worsening lower extremity edema. Review of Systems 2 Constitutional: Constitutional: Denies daytime sleepiness, Denies excessive sweating, Denies fatigue, Denies fever(s), Denies lethargy, Denies malaise, Denies night sweats, Denies snoring and Denies weight loss Eyes: Eyes: Denies blurry vision and Denies itchy eyes ENT: Denies nasal congestion, Denies post nasal drip, Denies sinus pain, Denies sinus pressure and Denies other ( Thrush) Cardiovascular: Cardiovascular: Denies chest pain, Reports pedal edema, Reports dyspnea, Reports orthopnea and Reports paroxysmal nocturnal dyspnea Respiratory: Respiratory: Denies cough, Denies hemoptysis, Denies excessive phlegm production, Reports dyspnea, Denies snoring and Denies wheezing Gastrointestinal: Gastrointestinal: Denies abdominal pain and Denies heartburn Musculoskeletal: Musculoskeletal: Denies myalgias, Denies arthralgias and Denies joint swelling Integumentary/Breasts: Skin/Breast: Denies rash Neurologic: Denies memory loss and Denies seizure-like activity Psychiatric: Psychiatric: Denies abnormal sleep pattern, Denies anxiety and Denies memory loss Endocrine: Endocrine: Denies excessive sweating, Denies fatigue and Denies heat intolerance Hematologic/Lymphatic: Hematologic/Lymphatic: Denies easy bruising Allergic/Immunologic: Allergic/Immunologic: Denies itchy eyes, Denies seasonal rhinorrhea and Denies wheezing PMFSH Past Medical History Medical History Hypothyroidism Morbid obesity Family History Family History Mother Diabetes Surgical History Surgical History History of facial surgery H/O thyroidectomy Social History Social History Household Members: Significant Other and Children Housing: House Alcohol intake: never Patient Tobacco Use Status: Never used Tobacco Use of substances other than those prescribed or required for medical reasons: No Currently Displaying Signs/Symptoms of Drug Intoxication Withdrawal: No Have you been hit, kicked, punched, or otherwise hurt by someone within the past year? If so, by whom?: No Do you feel safe in your current relationship?: No Is there a partner from a previous relationship who is making you feel unsafe now?: No Are you made to feel afraid or neglected: No Advance Directives: No Advance Directives Information Provided: No Advance Directives on File: No Do you have a plan to hurt others: No Plan Recently lost weight without trying: No Eating poorly because of decreased appetite: No Nutrition Risks: No Nutritional Risk Patient : No : No Poor oral hygiene: No service: No Current occupational status: employed Current occupation: rt handed Meds Allergies Allergy/AdvReac Type Severity Reaction Status Date / Time aspirin [ASPIRIN] Allergy Unknown UNKNOWN, Verified 09/29/24 13:20 anaphylaxis latex Allergy Unknown Anaphylaxis, Verified 09/29/24 13:20 Rash Latex, Natural Rubber Allergy Unknown HIVES Verified 09/29/24 13:20 [LATEX, NATURAL RUBBER] naproxen [From NAPROSYN] Allergy Unknown UNKNOWN, Verified 09/29/24 13:20 anaphylaxis Active Medications: Current Medications Acetaminophen (Acetaminophen 325 Mg Tablet) 650 mg PO Q6H PRN PRN Reason: Pain, Mild (Pain Scale 1-3), fever or headache Last Admin: 09/30/24 00:05 Dose: 650 mg Calcium Carbonate (Calcium Carbonate 750 Mg Tab.Chew) 750 mg PO Q4H PRN PRN Reason: Heartburn Furosemide (Furosemide 20 Mg/2 Ml Vial) 20 mg IVPUSH BID@0900,1800 [facility]; Protocol Guaifenesin/Dextromethorphan (Guaifenesin Dm 100/10/5 Ml 5 Ml Syrup) 5 ml PO Q4H PRN PRN Reason: Cough Last Admin: 09/30/24 08:44 Dose: 5 ml Azithromycin 500 mg/ Sodium (Chloride) 250 mls @ 125 mls/hr IV Q24H [facility] Last Infusion: 09/30/24 12:22 Dose: Infused Levalbuterol HCl (Levalbuterol Hcl 1.25 Mg/3 Ml Vial.Neb) 1.25 mg INHALE Q4H [facility] Last Admin: 09/30/24 10:31 Dose: 1.25 mg Levothyroxine Sodium (Levothyroxine Sodium 150 Mcg Tablet) 150 mcg PO DAILY@0600 [facility] Last Admin: 09/30/24 06:36 Dose: 150 mcg Magnesium Hydroxide (Milk Of Magnesia 30 Ml Oral.Susp) 30 ml PO DAILY PRN PRN Reason: Constipation Melatonin (Melatonin 3 Mg Tablet) 6 mg PO BEDTIME PRN PRN Reason: Insomnia Methylprednisolone Sodium Succinate (Methylprednisolone Sod Succ 40 Mg/Ml Vial) 40 mg IVPUSH Q12H [facility] Last Admin: 09/30/24 08:44 Dose: 40 mg Sodium Chloride (0.9 % Sodium Chloride Flush 3 Ml Syringe) 3 ml IVFLUSH QSHIFT [facility] Last Admin: 09/30/24 08:45 Dose: 3 ml Home Medications ?Medication ?Instructions ?Recorded ?Confirmed ?Last Taken ?Type levothyroxine 150 mcg tablet 150 mcg PO DAILY@0600 08/26/20 09/29/24 09/28/24 History albuterol sulfate 2.5 mg/3 mL 2.5 mg inhalation QID PRN 09/29/24 09/29/24 Unknown History (0.083 %) solution for nebulization shortness of breath or wheezing ipratropium 20 mcg-albuterol 100 1 puff inhalation Q4H PRN 09/29/24 09/29/24 Unknown History mcg/actuation mist for inhalation Shortness Of Breath Or Wheezing (Combivent Respimat) montelukast 10 mg tablet 10 mg PO DAILY 09/29/24 09/29/24 Unknown History Physical Exam 2 Vital Signs: Vital Signs: Last Vital Signs Temp 98.6 F 09/30/24 07:24 Pulse 101 H 09/30/24 10:37 Resp 20 09/30/24 10:37 BP 140/62 H 09/30/24 07:24 Pulse Ox 99 09/30/24 07:24 O2 Del Method Nasal Cannula 09/30/24 07:24 O2 Flow Rate 3.0 09/30/24 07:24 BMI result Body Mass Index 38.2 Const: General: no acute distress and alert Nutritional Appearance: obese Orientation/consciousness: Other orientation findings ( oriented) HEENT: Head: Yes atraumatic Eyes: General: appearance normal, both eyes and all related structures S clerae: sclerae normal EOM: EOMs intact bilaterally Neck: Neck: Yes supple Lymphatic: no lymphadenopathy noted Resp: Effort & Inspection: normal respiratory effort and no use of accessory muscles Auscultation: clear to auscultation bilaterally Cardio: Rate: tachycardic Rhythm: regular rhythm Heart sounds: no gallops, no murmurs and no rubs Skin: General skin exam: other ( warm) Extrem: General: No clubbing, No cyanosis and Yes edema (1+ bilateral lower extremity) Results Laboratory Findings 09/30/24 06:55 09/30/24 06:55 Abnormal lab findings: Abnormal Labs 09/29/24 09/29/24 09/30/24 13:30 13:38 06:55 WBC 13.7 H 14.4 H Immature Gran % (Auto) 0.6 H Neut % (Auto) 87.5 H Lymph % (Auto) 7.8 L Eos % (Auto) 4.7 H Lymph # (Auto) 1.1 L Eos # (Auto) 0.6 H Abs Immat Gran (auto) 0.08 H Absolute Neuts (auto) 9.1 H 12.6 H VBG HCO3 29 H Chloride 109 H 110 H Carbon Dioxide 21 L Random Glucose 127 H Calcium 10.9 H D Total Protein 8.3 H Assessment and Plan (1) Severe persistent allergic asthma: Status: Acute (2) Morbid obesity: Status: Acute (3) Orthopnea: Status: Acute Plan Impression: 48-year-old lady with underlying severe persistent allergic asthma admitted with worsening dyspnea. CT angio chest with no evidence of pulmonary emboli. No significant wheezing on physical exam, does complain of orthopnea and worsening lower extremity edema. Respiratory viral panel is pending. Recommendations: Consider tapering off systemic glucocorticoids. Agree with nebulized bronchodilator regimen. Consider obtaining 2D echocardiogram and starting diuresis. Procedures Date of Service Date of Service: 09/30/24
[2024-09-30 13:50] LABS: SARS-CoV-2 PCR Not Detected (Not Detect.)
[2024-09-30] MEDS: Furosemide 20 MG/2 ML VIAL IVPUSH (17:27)
[2024-10-01] VITALS (10 sets, daily range): BP systolic 124–142; BP diastolic 70–91; PULSE 78–108; RESP 16–24; TEMP 36.5–36.8; O2SAT 93–98
[2024-10-01] MEDS: levalbuterol HCL 1.25 MG/3 ML VIAL.NEB INHALE ×5 (03:44→20:24)
[2024-10-01] MEDS: Levothyroxine Sodium 150 MCG TABLET PO (06:04)
--- NOTE | 2024-10-01 07:00 | CA_ITS ---
Transthoracic Echocardiogram Patient (Last, First, Middle): Denise Saunders, Gender: Female Date of : 1975 Age: 48 Procedure Date: 10/01/2024 Procedure Type: Transthoracic Echocardiogram Location[place] [facility] [place] Height: 157.48 cm Weight: 94.35 kg BSA: 1.94 m2 Heart Rate: 73 bpm BP: 139 / 70 mmHg Glove Turner: Referring MD: Camila Becerra NP Symptoms: ? chf, pos orthopnea Study Quality: Fair ECG Rhythm: Sinus Conclusions: - Normal left ventricular size and systolic function. There is mildly increased left ventricular wall thickness. The visually estimated ejection fraction is between 60-65%. - Diastolic function is normal for age. - Normal right ventricular cavity size and systolic function. - Normal right atrial pressure. There is no evidence of pulmonary hypertension. Findings Left Ventricle Normal left ventricular size and systolic function. There is mildly increased left ventricular wall thickness. The visually estimated ejection fraction is between 60-65%. There is no evidence of regional wall motion abnormalities. Diastolic function is normal for age. Right Ventricle Normal right ventricular cavity size and systolic function. Atria The left atrium is normal in size. The right atrium is normal in size. Aortic Valve The aortic valve structure and function is likely normal. There is no aortic valve stenosis. There is no aortic valve regurgitation. Mitral Valve The mitral valve appears normal. There is no mitral valve regurgitation. There is no mitral valve stenosis. Pulmonic Valve The pulmonic valve is likely normal. Tricuspid Valve Normal tricuspid valve structure and function. There is no tricuspid valve regurgitation. The right ventricular systolic pressure is 35 mmHg. Normal right atrial pressure. There is no evidence of pulmonary hypertension. Great Vessels All visible segments of the aorta are normal in size. The visualized portions of the pulmonary artery and branches are normal. Venous The inferior vena cava is normal in size and collapses greater than 50% with inspiration. Pericardium/Pleural There is no evidence of pericardial effusion. Prior Study Comparison No significant change compared to prior study dated: 07/16/2020. Measurements 2D Linear Measurements IVSd: 0.99 0.6-0.9/0.6-1.0 cm LVIDd: 4.27 3.9-5.3/4.2-5.9 cm LVIDd Index: 2.20 2.4-3.2/2.2-3.1 cm/m2 LVIDs: 2.68 2.0-3.6 cm LVPWd: 0.97 0.7-1.1 cm LA Diam: 3.30 2.7-3.8/3.0-4.0 cm LAIDs Index: 1.70 1.5-2.3 cm/m2 LV Mass: 170.99 67-162/88-224 g LV Mass Index: 88.14 43-95/49-115 g/m2 LVOT Diam: 2.20 3.0+(-)1.3 cm Mitral Valve MV Pk E: 0.79 MV PK A: 0.63 MV Decel Time: 138.00 E/A: 1.30 E'Lateral: 14.50 E'Medial: 9.14 E/E' Med: 8.70 E/E' Lat: 5.50 PHT: 41.00 MVA PHT: 5.37 Decel Iron: 5.73 Aortic Valve AoV Pk Vasile: 1.60 AoV Pk Grad: 10.00 TERRI: 2.47 LVOT LVOT Pk Vasile: 1.01 LVOT Mn Vasile: 0.68 LVOT VTI: 0.23 LVOT Pk Grad: 4.00 LVOT Mn Grad: 2.00 LVOT Diam: 2.20 LVOT Area: 3.80 Diastolic Function MV Pk E: 0.79 MV Pk A: 0.63 E/A: 1.30 E'Medial: 9.14 E/E' Med: 8.70 E' Laterial: 14.50 E/E' Lat: 5.50 Right Ventricle TAPSE (mm): 28.40 Tricuspid Valve TR Pk Vasile: 2.85 TR Pk Grad: 32.00 RA Press: 3.00 RVSP: 35.00 Great Vessels Aorta Sinus of Valsalva: 2.80 2.0-3.5 cm Ao Asc: 2.90 2.1-3.4 cm Pulmonary Valve PV Pk Vasile: 1.05 Peak PV Grad: 4.00 Updated in Other Vendor System with Status of Final Wagner Cristina MD electronically signed on 10/01/2024 2:56:01 PM with status of Final
--- NOTE | 2024-10-01 09:30 | P.PNIM_ITS ---
Subjective Subjective Date of Service: 10/01/24 Review of Systems Follow up cough and wheezing feels slightly better after lasix Physical Exam 2 Vital Signs: Vital Signs: Last Vital Signs Temp 97.9 F 10/01/24 07:19 Pulse 80 10/01/24 07:43 Resp 16 10/01/24 07:43 BP 139/70 10/01/24 07:19 Pulse Ox 95 10/01/24 07:19 O2 Del Method Room Air 10/01/24 07:19 O2 Flow Rate 2 09/30/24 23:26 BMI result Body Mass Index 38.2 Appearing in no acute distress lung sounds exp wheezing heart regular rate rhythm, clear S1, S2 positive bowel sounds, abdomen is soft, nontender neuro patient is alert x3, no focal deficits Objective Data Active Medications Acetaminophen (Acetaminophen 325 Mg Tablet) 650 mg PO Q6H PRN PRN Reason: Pain, Mild (Pain Scale 1-3), fever or headache Last Admin: 09/30/24 20:54 Dose: 650 mg Documented By: MONA Calcium Carbonate (Calcium Carbonate 750 Mg Tab.Chew) 750 mg PO Q4H PRN PRN Reason: Heartburn Furosemide (Furosemide 20 Mg/2 Ml Vial) 20 mg IVPUSH BID@0900,1800 [facility]; Protocol Last Admin: 09/30/24 17:27 Dose: 20 mg Documented By: MINDY Guaifenesin/Dextromethorphan (Guaifenesin Dm 100/10/5 Ml 5 Ml Syrup) 5 ml PO Q4H PRN PRN Reason: Cough Last Admin: 09/30/24 22:20 Dose: 5 ml Documented By: MONA Azithromycin 500 mg/ Sodium (Chloride) 250 mls @ 125 mls/hr IV Q24H [facility] Last Infusion: 09/30/24 12:22 Dose: Infused Documented By: BONITA Levalbuterol HCl (Levalbuterol Hcl 1.25 Mg/3 Ml Vial.Neb) 1.25 mg INHALE Q4H [facility] Last Admin: 10/01/24 07:43 Dose: 1.25 mg Documented By: ANN MARIE Levothyroxine Sodium (Levothyroxine Sodium 150 Mcg Tablet) 150 mcg PO DAILY@0600 [facility] Last Admin: 10/01/24 06:04 Dose: 150 mcg Documented By: MONA Magnesium Hydroxide (Milk Of Magnesia 30 Ml Oral.Susp) 30 ml PO DAILY PRN PRN Reason: Constipation Melatonin (Melatonin 3 Mg Tablet) 6 mg PO BEDTIME PRN PRN Reason: Insomnia Methylprednisolone Sodium Succinate (Methylprednisolone Sod Succ 40 Mg/Ml Vial) 40 mg IVPUSH Q12H [facility] Last Admin: 09/30/24 20:49 Dose: 40 mg Documented By: MONA Sodium Chloride (0.9 % Sodium Chloride Flush 3 Ml Syringe) 3 ml IVFLUSH QSHIFT [facility] Last Admin: 09/30/24 20:51 Dose: 3 ml Documented By: MONA Labs 09/30/24 06:55 09/30/24 06:55 Labs: Laboratory Results - last 24 hr 09/30/24 09:00 Respiratory Panel Valerio See Note Adenovirus (Rapid PCR) Not Detected B.pert (TEM-PCR) Not Detected B.parapertussis DNA PCR Not Detected C. pneumoniae DNA (PCR) Not Detected Coronavirus OC43 (PCR) Not Detected Coronavirus HKU1 (PCR) Not Detected Coronavirus 229E (PCR) Not Detected Coronavirus NL63 (PCR) Not Detected Human Metapneumovir PCR Not Detected Influenza A (RT-PCR) Not Detected Influenza B (RT-PCR) Not Detected M. pneumoniae (PCR) Not Detected Parainfluenza 1 (PCR) Not Detected Parainfluenza 2 (PCR) Not Detected Parainfluenza 3 (PCR) Not Detected Parainfluenza 4 (PCR) Not Detected RSV (PCR) Not Detected Entero/Rhino (PCR) Not Detected SARS-CoV-2 RNA (RT-PCR) Not Detected Microbiology Microbiology Results: Microbiology 09/30/24 09:10 Gram Stain - Final Sputum - Expectorated Sputum Culture - Final Assessment and Plan (1) Asthma: Status: Acute Plan 48 year old women admitted with asthma exacerbation ? fluid overload start IV lasix echocardiogram pulmonary following Asthma exacerbation continue xopenex and IV Solu-Medrol Oxygen supplementation oxygen to keep oxygen saturation greater than 91% azithromycin neg RPP cough suppresant Tachycardia Secondary to respiratory updraft treatments Monitor on telemetry Hypothyroidism Continue levothyroxine Severe obesity. BMI 38.2 Discussed importance of weight management as this may be contributing to worsening of other comorbidities DVT prophylaxis with Lovenox attending Dr. Maria Full code Quality Stroke Does the patient have a stroke diagnosis?: No VTE Prior VTE?: No VTE Risk Level:: Medical - moderate - high VTE Device Contraindication: Treatment Not Indicated VTE Drug Contraindication: N/A - Med Ordered
[2024-10-01 09:49] LABS: Anion Gap 15 (12-20); Blood Urea Nitrogen 16 mg/dL (9-16); Calcium 9.7 mg/dL (8.4-10.2); Carbon Dioxide 25 mmol/L (22-29); Chloride 105 mmol/L (96-108); Creatinine Clr Calc Pharmacy 96.2; Estimated Glomerular Filt Rate > 60; Glucose Random 115 mg/dL (60-115); Potassium 4.5 mmol/L (3.3-5.1); Sodium 140 mmol/L (135-145)
[2024-10-01 09:51] LABS: B Type Natriuretic Peptide 16 pg/mL (<100)
[2024-10-01] MEDS: Furosemide 20 MG/2 ML VIAL IVPUSH ×2 (10:45→18:31)
[2024-10-01] MEDS: 0.9 % Sodium Chloride Flush 3 ML SYRINGE IVFLUSH ×2 (10:45→18:31)
[2024-10-01] MEDS: methylPREDNISolone Sod Succ 40 MG/ML VIAL IVPUSH ×2 (10:45→21:24)
[2024-10-01] MEDS: Azithromycin 500 MG in 0.9 % Sodium Chloride 250 ML 125 MG IV (10:46)
--- NOTE | 2024-10-01 12:47 | MHC.CM.PN ---
PER MD ROUNDS, PT NOT YET CLEARED TO DC DCP REMAINS HOME VIA SELF TRANSPORT
[2024-10-01] MEDS: guaiFENesin DM 100/10/5 ML 5 ML SYRUP PO (21:30)
[2024-10-01] MEDS: Acetaminophen 325 MG TABLET 650 MG PO (21:30)
[2024-10-02] VITALS (13 sets, daily range): BP systolic 112–148; BP diastolic 57–87; PULSE 57–91; RESP 18–20; TEMP 36.3–36.8; O2SAT 91–98
[2024-10-02] MEDS: levalbuterol HCL 1.25 MG/3 ML VIAL.NEB INHALE ×6 (00:22→22:10)
[2024-10-02] MEDS: Levothyroxine Sodium 150 MCG TABLET PO (06:24)
[2024-10-02] MEDS: 0.9 % Sodium Chloride Flush 3 ML SYRINGE IVFLUSH ×3 (08:55→20:09)
[2024-10-02] MEDS: predniSONE 20 MG TABLET 40 MG PO (09:26)
[2024-10-02] MEDS: Acetaminophen 325 MG TABLET 650 MG PO (09:30)
[2024-10-02] MEDS: Azithromycin 500 MG in 0.9 % Sodium Chloride 250 ML 250 MG IV (09:33)
--- NOTE | 2024-10-02 11:34 | HO.PM.IMPN ---
Subjective Subjective Date of Service: 10/02/24 Review of Systems Follow up cough and wheezing feels slightly better after lasix Physical Exam Vital Signs: Vital Signs: Last Vital Signs Temp 97.7 F 10/02/24 08:00 Pulse 82 10/02/24 09:01 Resp 18 10/02/24 09:01 BP 112/62 10/02/24 08:00 Pulse Ox 97 10/02/24 08:00 O2 Del Method Nasal Cannula 10/02/24 08:00 O2 Flow Rate 2 10/02/24 08:00 BMI result Body Mass Index 38.2 Appearing in no acute distress lung sounds exp wheezing heart regular rate rhythm, clear S1, S2 positive bowel sounds, abdomen is soft, nontender neuro patient is alert x3, no focal deficits Objective Data Active Medications Acetaminophen (Acetaminophen 325 Mg Tablet) 650 mg PO Q6H PRN PRN Reason: Pain, Mild (Pain Scale 1-3), fever or headache Last Admin: 10/02/24 09:30 Dose: 650 mg Documented By: ÁNGEL Calcium Carbonate (Calcium Carbonate 750 Mg Tab.Chew) 750 mg PO Q4H PRN PRN Reason: Heartburn Guaifenesin/Dextromethorphan (Guaifenesin Dm 100/10/5 Ml 5 Ml Syrup) 5 ml PO Q4H PRN PRN Reason: Cough Last Admin: 10/01/24 21:30 Dose: 5 ml Documented By: MONA Azithromycin 500 mg/ Sodium (Chloride) 250 mls @ 125 mls/hr IV Q24H REPLACED BY [facility] Last Infusion: 10/02/24 11:25 Dose: Infused Documented By: ÁNGEL Levalbuterol HCl (Levalbuterol Hcl 1.25 Mg/3 Ml Vial.Neb) 1.25 mg INHALE Q4H REPLACED BY [facility] Last Admin: 10/02/24 08:58 Dose: 1.25 mg Documented By: SCOVIJUSTUS Levothyroxine Sodium (Levothyroxine Sodium 150 Mcg Tablet) 150 mcg PO DAILY@0600 REPLACED BY [facility] Last Admin: 10/02/24 06:24 Dose: 150 mcg Documented By: MONA Magnesium Hydroxide (Milk Of Magnesia 30 Ml Oral.Susp) 30 ml PO DAILY PRN PRN Reason: Constipation Melatonin (Melatonin 3 Mg Tablet) 6 mg PO BEDTIME PRN PRN Reason: Insomnia Prednisone (Prednisone 20 Mg Tablet) 40 mg PO DAILY REPLACED BY [facility] Last Admin: 10/02/24 09:26 Dose: 40 mg Documented By: ÁNGEL Sodium Chloride (0.9 % Sodium Chloride Flush 3 Ml Syringe) 3 ml IVFLUSH QSHIFT REPLACED BY [facility] Last Admin: 10/02/24 00:23 Dose: Not Given Documented By: MONA Non-Admin Reason: No Access Labs 09/30/24 06:55 10/01/24 08:38 Assessment and Plan (1) Asthma: Status: Acute Plan 48 year old women admitted with asthma exacerbation Asthma exacerbation continue xopenex and switch to po prednisone Oxygen supplementation oxygen to keep oxygen saturation greater than 91% azithromycin, stop tomorrow neg RPP cough suppresant ? fluid overload, leg edema s/p IV lasix normal echocardiogram, low BNP Tachycardia Secondary to respiratory updraft treatments Monitor on telemetry Hypothyroidism Continue levothyroxine Severe obesity. BMI 38.2 Discussed importance of weight management as this may be contributing to worsening of other comorbidities DVT prophylaxis with Lovenox attending Dr. Maria Full code Quality Stroke Does the patient have a stroke diagnosis?: No VTE Prior VTE?: No VTE Risk Level:: Medical - moderate - high VTE Device Contraindication: Treatment Not Indicated VTE Drug Contraindication: N/A - Med Ordered
[2024-10-02] MEDS: guaiFENesin LA 600 MG TAB.ER.12H PO ×2 (11:54→20:08)
--- NOTE | 2024-10-02 16:01 | P.CDIM_ITS ---
PROVIDER RESPONSE TEXT: To clarify, the appropriate diagnosis supported by the clinical indicators: Mild intermittent: With exacerbation QUERY TEXT: PHYSICIAN'S DOCUMENTATION REQUEST Date of Query: 10/01/2024 11:37 AM EST Patient Name: Denise Saunders Admit Date: 09/29/2024 Dear Camila Becerra SECURITY ORDERLY, A review of the medical record indicates additional documentation may be needed. Please review below and update the documentation accordingly. The diagnosis of asthma was documented in the record on 10/01/24. Additional clinical indicators from the record include: Asthma exacerbation continue xopenex and IV Solu-Medrol Oxygen supplementation oxygen to keep oxygen saturation greater than 91% azithromycin neg RPP cough suppressant Based on the above, please clarify in the Progress Notes further specificity regarding the type and a cuity of the asthma: Mild intermittent Please specify if with or without acute exacerbation or status asthmaticus Mild persistent Please specify if with or without acute exacerbation or status asthmaticus Moderate persistent Please specify if with or without acute exacerbation or status asthmaticus Severe persistent Please specify if with or without acute exacerbation or status asthmaticus Exercise induced Please specify if with or without acute exacerbation or status asthmaticus Chronic obstructive asthma and indicate if with acute lower respiratory infection Please specify if with or without acute exacerbation or status asthmaticus Asthma with underlying COPD and indicate if with acute lower respiratory infection Please specify if with or without acute exacerbation or status asthmaticus Other (explain) Clinically unable to determine (explain) Thank you, Ingris Sebastian RN Use of terms such as suspected, likely, concern for, or probable (associated with a specific diagnosi s that is being evaluated, monitored, or treated as if it exists) are acceptable and can be coded in the inpatient se tting, when documented at the time of discharge. Please use your independent medical judgment in providing your response. THIS QUERY IS PART OF THE PERMANENT MEDICAL RECORD
[2024-10-03] VITALS (11 sets, daily range): BP systolic 115–132; BP diastolic 56–71; PULSE 56–98; RESP 16–20; TEMP 36.1–36.9; O2SAT 94–100
[2024-10-03] MEDS: levalbuterol HCL 1.25 MG/3 ML VIAL.NEB INHALE ×6 (01:03→20:31)
[2024-10-03] MEDS: Levothyroxine Sodium 150 MCG TABLET PO (05:44)
[2024-10-03] MEDS: Fluticasone/Vilanterol 200/25 BLST.W.DEV 1 PUFF INHALE (07:52)
[2024-10-03] MEDS: guaiFENesin LA 600 MG TAB.ER.12H PO ×2 (09:01→20:27)
[2024-10-03] MEDS: predniSONE 20 MG TABLET 40 MG PO (09:01)
[2024-10-03] MEDS: 0.9 % Sodium Chloride Flush 3 ML SYRINGE IVFLUSH ×3 (09:02→20:34)
--- NOTE | 2024-10-03 14:39 | MHC.CM.PN ---
Per rounds and EMR review, pt is not medically cleared for DC, she requires ongoing treatment for Asthma exaserbation. DCP: home, self care.
--- NOTE | 2024-10-03 15:02 | P.PNIM_ITS ---
Subjective Subjective Date of Service: 10/03/24 Interval History: Breathing essentially unchanged since admission if not worse. Compliant with therapies Review of Systems Admits shortness of breath with minimal movement Denies chest pain Denies nausea vomiting diarrhea Denies fever chills Physical Exam 2 Vital Signs: Vital Signs: Last Vital Signs Temp 97.3 F 10/03/24 10:49 Pulse 79 10/03/24 11:35 Resp 20 10/03/24 11:35 BP 116/64 10/03/24 10:49 Pulse Ox 96 10/03/24 10:49 O2 Del Method Room Air 10/03/24 10:49 O2 Flow Rate 2 10/03/24 07:41 BMI result Body Mass Index 38.2 Const: Other: Awake alert. Able to speak in full sentences Resp: Other: Diminished bilaterally with expiratory wheezes noted Cardio: Other: No S4; positive S1-S2; no S3 murmurs rubs or gallops GI: Other: Soft nontender nondistended normoactive bowel sounds Extrem: Other: No edema bilaterally Objective Data Active Medications Acetaminophen (Acetaminophen 325 Mg Tablet) 650 mg PO Q6H PRN PRN Reason: Pain, Mild (Pain Scale 1-3), fever or headache Last Admin: 10/02/24 09:30 Dose: 650 mg Documented By: ÁNGEL Calcium Carbonate (Calcium Carbonate 750 Mg Tab.Chew) 750 mg PO Q4H PRN PRN Reason: Heartburn Fluticasone/Vilanterol (Fluticasone/Vilanterol 200/25 Blst.W.Dev) 1 puff INHALE RDAILY [facility] Last Admin: 10/03/24 07:52 Dose: 1 puff Documented By: ANN MARIE Guaifenesin (Guaifenesin La 600 Mg Tab.Er.12h) 600 mg PO BID [facility] Last Admin: 10/03/24 09:01 Dose: 600 mg Documented By: TOYA Guaifenesin/Dextromethorphan (Guaifenesin Dm 100/10/5 Ml 5 Ml Syrup) 5 ml PO Q4H PRN PRN Reason: Cough Last Admin: 10/01/24 21:30 Dose: 5 ml Documented By: MONA Levalbuterol HCl (Levalbuterol Hcl 1.25 Mg/3 Ml Vial.Neb) 1.25 mg INHALE Q4H [facility] Last Admin: 10/03/24 11:35 Dose: 1.25 mg Documented By: ANN MARIE Levothyroxine Sodium (Levothyroxine Sodium 150 Mcg Tablet) 150 mcg PO DAILY@0600 [facility] Last Admin: 10/03/24 05:44 Dose: 150 mcg Documented By: CHRISTIE Magnesium Hydroxide (Milk Of Magnesia 30 Ml Oral.Susp) 30 ml PO DAILY PRN PRN Reason: Constipation Melatonin (Melatonin 3 Mg Tablet) 6 mg PO BEDTIME PRN PRN Reason: Insomnia Prednisone (Prednisone 20 Mg Tablet) 40 mg PO DAILY [facility] Last Admin: 10/03/24 09:01 Dose: 40 mg Documented By: TOYA Sodium Chloride (0.9 % Sodium Chloride Flush 3 Ml Syringe) 3 ml IVFLUSH QSHIFT [facility] Last Admin: 10/03/24 09:02 Dose: 3 ml Documented By: TOYA Labs 09/30/24 06:55 10/01/24 08:38 Assessment and Plan (1) Asthma exacerbation: Status: Acute Plan 48 year old women admitted with asthma exacerbation; has had ongoing issues worsening over the last years but acutely over the last 9 days 1.Asthma exacerbation -continue xopenex; given exam we will restart methylprednisolone 60 IV q.6 - add doxycycline 100 mg IV q.12 hours -maintain O2 greater than 92% 2.Hypothyroidism -stable and well compensated -continue current therapies Lovenox Full code Requires ongoing hospitalization given failure with switch to oral prednisone. Will add IV doxycycline and methylprednisolone and follow up Quality Stroke Does the patient have a stroke diagnosis?: No VTE Prior VTE?: No VTE Risk Level:: Medical - moderate - high VTE Device Contraindication: Treatment Not Indicated VTE Drug Contraindication: N/A - Med Ordered
[2024-10-03] MEDS: methylPREDNISolone Sod Succ 125 MG/2 ML VIAL 60 MG IVPUSH ×2 (15:39→20:27)
[2024-10-04] VITALS (13 sets, daily range): BP systolic 116–144; BP diastolic 64–91; PULSE 57–87; RESP 16–20; TEMP 36.1–37.2; O2SAT 94–99
[2024-10-04] MEDS: levalbuterol HCL 1.25 MG/3 ML VIAL.NEB INHALE ×7 (00:34→23:36)
[2024-10-04] MEDS: methylPREDNISolone Sod Succ 125 MG/2 ML VIAL 60 MG IVPUSH ×4 (03:34→20:08)
[2024-10-04] MEDS: Levothyroxine Sodium 150 MCG TABLET PO (05:57)
[2024-10-04 07:31] LABS: MANUAL DIFF FLAG NO
[2024-10-04 07:36] LABS: Basophils Percent Auto 0.3 % (0-2); Hematocrit 44.5 % (37.0-47.0); Hemoglobin 14.6 g/dl (12.0-16.0); Imm Gran Abs Auto 0.16 X10*3/uL (0.00-0.03); Imm Gran Pct Auto 1.1 % (0.0-0.4); Lymphocytes Absolute Auto 1.4 X10*3/uL (1.2-4.9); Lymphocytes Percent Auto 9.4 % (20-40); Mean Corpuscular HGB Conc 32.8 g/dl (31.0-35.0); Mean Corpuscular Hemoglobin 28.9 pg (27.0-33.0); Mean Corpuscular Volume 87.9 fL (80.0-98.0); Mean Platelet Volume 10.1 fL (9.4-12.3); Monocytes Absolute Auto 0.3 X10*3/uL (0.1-1.2); Monocytes Percent Auto 1.7 % (2-11); Neutrophils Absolute Auto 12.6 x10*3/uL (2.0-8.3); Neutrophils Percent Auto 87.5 % (45-73); Platelet Count 285 X10*3/uL (160-400); Red Blood Count 5.06 X10*6/uL (4.20-5.50); Red Cell Distribution Width 15.4 % (11.0-16.0); White Blood Count 14.4 X10*3/uL (4.8-10.8)
[2024-10-04 07:56] LABS: Alanine Aminotransferase 26 U/L (0-31); Albumin Level 4.1 g/dL (3.5-5.0); Alkaline Phosphatase 72 U/L (39-117); Anion Gap 15 (12-20); Aspartate Amino Transferase 17 U/L (5-31); Bilirubin Total 0.5 mg/dL (0.0-1.0); Blood Urea Nitrogen 16 mg/dL (9-16); Calcium 10.4 mg/dL (8.4-10.2); Carbon Dioxide 26 mmol/L (22-29); Chloride 103 mmol/L (96-108); Creatinine Clr Calc Pharmacy 92.5; Estimated Glomerular Filt Rate > 60; Glucose Fasting 149 mg/dL (60-99); Potassium 5.2 mmol/L (3.3-5.1); Sodium 139 mmol/L (135-145); Total Protein 7.5 g/dL (6.5-8.0)
[2024-10-04] MEDS: Fluticasone/Vilanterol 200/25 BLST.W.DEV 1 PUFF INHALE (08:36)
[2024-10-04] MEDS: Sodium Zirconium Cyclosilicate 10 GM POWD.PACK PO (08:44)
[2024-10-04] MEDS: guaiFENesin LA 600 MG TAB.ER.12H PO ×2 (08:44→20:07)
[2024-10-04] MEDS: 0.9 % Sodium Chloride Flush 3 ML SYRINGE IVFLUSH ×2 (08:45→14:58)
--- NOTE | 2024-10-04 16:41 | P.PNIM_ITS ---
Subjective Subjective Date of Service: 10/04/24 Interval History: Breathing somewhat improved overnight and response to steroids Review of Systems Admits shortness of breath with minimal movement Denies chest pain Denies nausea vomiting diarrhea Denies fever chills Physical Exam 2 Vital Signs: Vital Signs: Last Vital Signs Temp 96.9 F 10/04/24 15:08 Pulse 81 10/04/24 15:59 Resp 17 10/04/24 15:59 BP 132/79 10/04/24 15:08 Pulse Ox 97 10/04/24 15:08 O2 Del Method Room Air 10/04/24 15:08 O2 Flow Rate 2 10/03/24 23:06 BMI result Body Mass Index 38.2 Const: Other: Awake alert. Able to speak in full sentences Resp: Other: Diminished bilaterally with expiratory wheezes noted Cardio: Other: No S4; positive S1-S2; no S3 murmurs rubs or gallops GI: Other: Soft nontender nondistended normoactive bowel sounds Extrem: Other: No edema bilaterally Objective Data Active Medications Acetaminophen (Acetaminophen 325 Mg Tablet) 650 mg PO Q6H PRN PRN Reason: Pain, Mild (Pain Scale 1-3), fever or headache Last Admin: 10/02/24 09:30 Dose: 650 mg Documented By: ÁNGEL Calcium Carbonate (Calcium Carbonate 750 Mg Tab.Chew) 750 mg PO Q4H PRN PRN Reason: Heartburn Fluticasone/Vilanterol (Fluticasone/Vilanterol 200/25 Blst.W.Dev) 1 puff INHALE RDAILY [facility] Last Admin: 10/04/24 08:36 Dose: 1 puff Documented By: MARTINA Guaifenesin (Guaifenesin La 600 Mg Tab.Er.12h) 600 mg PO BID [facility] Last Admin: 10/04/24 08:44 Dose: 600 mg Documented By: MT Guaifenesin/Dextromethorphan (Guaifenesin Dm 100/10/5 Ml 5 Ml Syrup) 5 ml PO Q4H PRN PRN Reason: Cough Last Admin: 10/01/24 21:30 Dose: 5 ml Documented By: MONA Levalbuterol HCl (Levalbuterol Hcl 1.25 Mg/3 Ml Vial.Neb) 1.25 mg INHALE Q4H [facility] Last Admin: 10/04/24 15:59 Dose: 1.25 mg Documented By: MARTINA Levothyroxine Sodium (Levothyroxine Sodium 150 Mcg Tablet) 150 mcg PO DAILY@0600 [facility] Last Admin: 10/04/24 05:57 Dose: 150 mcg Documented By: BETI Magnesium Hydroxide (Milk Of Magnesia 30 Ml Oral.Susp) 30 ml PO DAILY PRN PRN Reason: Constipation Melatonin (Melatonin 3 Mg Tablet) 6 mg PO BEDTIME PRN PRN Reason: Insomnia Methylprednisolone Sodium Succinate (Methylprednisolone Sod Succ 125 Mg/2 Ml Vial) 60 mg IVPUSH Q6H [facility] Last Admin: 10/04/24 14:57 Dose: 60 mg Documented By: MT Sodium Chloride (0.9 % Sodium Chloride Flush 3 Ml Syringe) 3 ml IVFLUSH QSHIFT [facility] Last Admin: 10/04/24 14:58 Dose: 3 ml Documented By: MT Labs 10/04/24 06:49 10/04/24 06:49 Labs: Laboratory Results - last 24 hr 10/04/24 06:49 MCV 87.9 MCH 28.9 MCHC 32.8 RDW 15.4 Plt Count 285 MPV 10.1 Immature Gran % (Auto) 1.1 H Neut % (Auto) 87.5 H Lymph % (Auto) 9.4 L [place] % (Auto) 1.7 L Eos % (Auto) 0.0 Baso % (Auto) 0.3 Lymph # (Auto) 1.4 [place] # (Auto) 0.3 Eos # (Auto) 0.0 Baso # (Auto) 0.0 Abs Immat Gran (auto) 0.16 H Absolute Neuts (auto) 12.6 H Absolute Nucleated RBC 0.000 Nucleated RBC % (auto) 0.0 Anion Gap 15 Estim Creat Clear Calc 92.5 Estimated GFR > 60 Fasting Glucose 149 H Calcium 10.4 H D Total Bilirubin 0.5 AST 17 ALT 26 Alkaline Phosphatase 72 Total Protein 7.5 Albumin 4.1 Assessment and Plan (1) Asthma exacerbation: Status: Acute Plan 48 year old women admitted with asthma exacerbation; has had ongoing issues worsening over the last years but acutely over the last 9 days 1.Asthma exacerbation -continue xopenex; given exam we will restart methylprednisolone 60 IV q.6... Improvement noted -doxycycline 100 mg IV q.12 hours(2) -maintain O2 greater than 92% 2.Hypothyroidism -stable and well compensated -continue current therapies Lovenox Full code Requires ongoing hospitalization given failure with switch to oral prednisone. Will add IV doxycycline and methylprednisolone and follow up Quality Stroke Does the patient have a stroke diagnosis?: No VTE Prior VTE?: No VTE Risk Level:: Medical - moderate - high VTE Device Contraindication: Treatment Not Indicated VTE Drug Contraindication: N/A - Med Ordered
[2024-10-04] MEDS: Furosemide 20 MG/2 ML VIAL IVPUSH (17:40)
[2024-10-05] VITALS (11 sets, daily range): BP systolic 104–124; BP diastolic 57–63; PULSE 62–85; RESP 17–20; TEMP 36.4–37.1; O2SAT 92–98
[2024-10-05] MEDS: methylPREDNISolone Sod Succ 125 MG/2 ML VIAL 60 MG IVPUSH ×4 (02:31→20:19)
[2024-10-05] MEDS: 0.9 % Sodium Chloride Flush 3 ML SYRINGE IVFLUSH ×4 (02:31→20:20)
[2024-10-05] MEDS: Levothyroxine Sodium 150 MCG TABLET PO (06:00)
[2024-10-05] MEDS: levalbuterol HCL 1.25 MG/3 ML VIAL.NEB INHALE ×4 (07:02→20:08)
[2024-10-05] MEDS: Fluticasone/Vilanterol 200/25 BLST.W.DEV 1 PUFF INHALE (07:03)
[2024-10-05] MEDS: guaiFENesin LA 600 MG TAB.ER.12H PO ×2 (09:03→20:19)
--- NOTE | 2024-10-05 15:26 | MHC.CM.PN ---
Pt is not ready for DC, she requires ongoing tx for asthma exaserbation. DCP remains home, self care.
--- NOTE | 2024-10-05 15:42 | P.PNIM_ITS ---
Subjective Subjective Date of Service: 10/05/24 Interval History: Slowly improving with steroids. Ambulating without O2 Review of Systems Admits shortness of breath with minimal movement Denies chest pain Denies nausea vomiting diarrhea Denies fever chills Physical Exam 2 Vital Signs: Vital Signs: Last Vital Signs Temp 97.7 F 10/05/24 15:23 Pulse 76 10/05/24 15:23 Resp 18 10/05/24 15:23 BP 118/61 10/05/24 15:23 Pulse Ox 98 10/05/24 15:23 O2 Del Method Room Air 10/05/24 15:23 O2 Flow Rate 2 10/05/24 03:23 BMI result Body Mass Index 38.2 Const: Other: Awake alert. Able to speak in full sentences Resp: Other: Diminished bilaterally with expiratory wheezes noted Cardio: Other: No S4; positive S1-S2; no S3 murmurs rubs or gallops GI: Other: Soft nontender nondistended normoactive bowel sounds Extrem: Other: No edema bilaterally Objective Data Active Medications Acetaminophen (Acetaminophen 325 Mg Tablet) 650 mg PO Q6H PRN PRN Reason: Pain, Mild (Pain Scale 1-3), fever or headache Last Admin: 10/02/24 09:30 Dose: 650 mg Documented By: ÁNGEL Calcium Carbonate (Calcium Carbonate 750 Mg Tab.Chew) 750 mg PO Q4H PRN PRN Reason: Heartburn Fluticasone/Vilanterol (Fluticasone/Vilanterol 200/25 Blst.W.Dev) 1 puff INHALE RDAILY [facility] Last Admin: 10/05/24 07:03 Dose: 1 puff Documented By: ANN MARIE Guaifenesin (Guaifenesin La 600 Mg Tab.Er.12h) 600 mg PO BID [facility] Last Admin: 10/05/24 09:03 Dose: 600 mg Documented By: MICHAEL Guaifenesin/Dextromethorphan (Guaifenesin Dm 100/10/5 Ml 5 Ml Syrup) 5 ml PO Q4H PRN PRN Reason: Cough Last Admin: 10/01/24 21:30 Dose: 5 ml Documented By: MONA Levalbuterol HCl (Levalbuterol Hcl 1.25 Mg/3 Ml Vial.Neb) 1.25 mg INHALE Q4H [facility] Last Admin: 10/05/24 15:05 Dose: 1.25 mg Documented By: ANN MARIE Levothyroxine Sodium (Levothyroxine Sodium 150 Mcg Tablet) 150 mcg PO DAILY@0600 [facility] Last Admin: 10/05/24 06:00 Dose: 150 mcg Documented By: ROCHELLE Magnesium Hydroxide (Milk Of Magnesia 30 Ml Oral.Susp) 30 ml PO DAILY PRN PRN Reason: Constipation Melatonin (Melatonin 3 Mg Tablet) 6 mg PO BEDTIME PRN PRN Reason: Insomnia Methylprednisolone Sodium Succinate (Methylprednisolone Sod Succ 125 Mg/2 Ml Vial) 60 mg IVPUSH Q6H [facility] Last Admin: 10/05/24 09:03 Dose: 60 mg Documented By: MICHAEL Sodium Chloride (0.9 % Sodium Chloride Flush 3 Ml Syringe) 3 ml IVFLUSH QSHIFT [facility] Last Admin: 10/05/24 09:03 Dose: 3 ml Documented By: MICHAEL Labs 10/04/24 06:49 10/04/24 06:49 Assessment and Plan (1) Asthma exacerbation: Status: Acute Plan 48 year old women admitted with asthma exacerbation; has had ongoing issues worsening over the last years but acutely over the last 9 days 1.Asthma exacerbation -continue xopenex; given exam we will restart methylprednisolone 60 IV q.6... P.o. taper in a.m. -doxycycline 100 mg IV q.12 hours(3) -maintain O2 greater than 92% 2.Hypothyroidism -stable and well compensated -continue current therapies Lovenox Full code Requires ongoing hospitalization given failure with switch to oral prednisone. Will add IV doxycycline and methylprednisolone and follow up Quality Stroke Does the patient have a stroke diagnosis?: No VTE Prior VTE?: No VTE Risk Level:: Medical - moderate - high VTE Device Contraindication: Treatment Not Indicated VTE Drug Contraindication: N/A - Med Ordered
[2024-10-06] VITALS (8 sets, daily range): BP systolic 113–121; BP diastolic 55–61; PULSE 63–86; RESP 18–20; TEMP 36.4–36.5; O2SAT 95–98
[2024-10-06] MEDS: levalbuterol HCL 1.25 MG/3 ML VIAL.NEB INHALE ×4 (00:48→11:10)
[2024-10-06] MEDS: methylPREDNISolone Sod Succ 125 MG/2 ML VIAL 60 MG IVPUSH ×2 (03:04→08:44)
[2024-10-06] MEDS: Levothyroxine Sodium 150 MCG TABLET PO (05:53)
[2024-10-06] MEDS: Fluticasone/Vilanterol 200/25 BLST.W.DEV 1 PUFF INHALE (07:41)
[2024-10-06] MEDS: guaiFENesin LA 600 MG TAB.ER.12H PO (08:44)
[2024-10-06] MEDS: 0.9 % Sodium Chloride Flush 3 ML SYRINGE IVFLUSH (08:44)
--- NOTE | 2024-10-06 11:43 | P.DS_ITS ---
DS: Providers Provider Date of Service: 10/06/24 Date of admission: 09/29/24 16:21 Date of discharge: 10/06/24 Primary care physician: Amol Titus MD Consults: 09/30/24 09:08 Consult to Pulmonology Routine Consulting Provider: [facility] [place] [facility] Reason for consultation: worsening cough, asthma symptoms DS: Diagnosis Discharge Diagnosis (1) Asthma exacerbation: Status: Acute DS: Summary Hospital Course Hospital Course: 48-year-old woman presenting with shortness of breath, cough and wheezing for over 9 days. Patient reports that her symptoms have been getting worse despite using her home nebulizers and using them almost every hour. She denies any recent illness but a family member had bronchitis recently. She denied chest pain, nausea, vomiting, diarrhea, recent travel. In the ER chest x-ray was negative for consolidation or effusion. She received a dose of IV Solu-Medrol, IV magnesium and Xopenex. Plan will be to admit for acute asthma exacerbation. Hospital Course Patient admitted to telemetry where monitor failed to demonstrate any abnormal rhythms. Her Solu-Medrol was increased to 60 mg q.6 hours on day 4 secondary to limited response to previous dosing. At that point azithromycin was added and she received azithromycin 500 mg daily for 5 days. She was slow to progress however was able to be weaned off of O2. At this point in time she is medically acceptable discharge to complete a course of steroid taper. She has been given the number of Weston Prince MD, allergy immunology to follow up for her persistent allergic asthma. Time Attestation Discharge Coordination Time (in mins): 35 Quality: Safe Use of Opioids Does Pt have an Active Cancer Diagnosis on the Problem List?: No Quality: Stroke Does the patient have a stroke diagnosis?: No Physical Exam Vital Signs: Vital Signs: Last Vital Signs Temp 97.6 F 10/06/24 10:55 Pulse 86 10/06/24 11:10 Resp 18 10/06/24 11:10 BP 121/61 10/06/24 10:55 Pulse Ox 96 10/06/24 10:55 O2 Del Method Room Air 10/06/24 10:55 O2 Flow Rate 2 10/05/24 03:23 BMI result Body Mass Index 38.2 Const: Other: Awake alert. Able to speak in full sentences Resp: Other: Diminished bilaterally with expiratory wheezes noted Cardio: Other: No S4; positive S1-S2; no S3 murmurs rubs or gallops GI: Other: Soft nontender nondistended normoactive bowel sounds Extrem: Other: No edema bilaterally Discharge Plan Discharge Anticipated Discharge Date/Time: 10/06/24 11:35 Patient Disposition: Home, Self-Care Discharge Diagnosis: Asthma exacerbation Referrals: Name,MD Amol [Primary Care Provider] - 1 Week Discharge Medications: New prednisone 10 mg tablet See Rx Instructions .Route .COMPLEX Qty: 45 0RF Rx Instructions: 10 mg orally; 5 tabs p.o. daily x3 days; 4 tabs p.o. daily x3 days; 3 tabs daily x3 days; 2 tabs daily x3 days; 1 tab daily x3 days doxycycline hyclate 100 mg tablet 100 mg PO BID 7 Days Qty: 14 0RF Continued budesonide 0.25 mg/2 mL suspension for nebulization 0.25 mg inhalation BID Qty: 360 2RF montelukast 10 mg tablet 10 mg PO DAILY Combivent Respimat 20-100 mcg/actuation Mist 1 puff INHALATION Q4H PRN (Reason: Shortness Of Breath Or Wheezing) levothyroxine 150 mcg tablet 150 mcg PO DAILY@0600 albuterol sulfate 90 mcg/actuation HFA aerosol inhaler 2 puff PO Q4-6H PRN (Reason: shortness of breath or wheezing) 30 Days Qty: 1 6RF fluticasone furoate-vilanterol [Breo Ellipta] 200-25 mcg/dose blister with device 1 inh inhalation DAILY 30 Days Qty: 1 6RF Discontinued albuterol sulfate 2.5 mg /3 mL (0.083 %) solution for nebulization 2.5 mg inhalation QID PRN (Reason: shortness of breath or wheezing) Discharge Orders: Discharge Order (Routine); Ordered 10/06/24 Ordered By: Kervin Romeo Diet: Advance to usual diet Activity on Discharge: As tolerated Stand Alone Forms: Patient Portal Discharge page Print Language: Swedish Care Plan Goals: Continue all medications as prior to hospitalization Health Concerns: Doxycycline 100 mg twice daily 7 days has been added along with prednisone taper. Plan of Treatment: Follow up with PCP next available; call for an appointment with Weston Prince MD brick pointer [phone] Assessment: See discharge summary
--- NOTE | 2024-10-06 12:20 | MHC.CM.PN ---
Pt is medically cleared for discharge home self-care today, pt will transport herself home today.
== END 2024-10-06 14:14 | disposition home or self-care (01) | DRG 141 ==
LOC: HO.ED 14:41 → HO.EDOVER 16:44 → HO.IMC 23:00
PROVIDERS: Nurse Practitioner Family; Physician Assistant; Admitting Provider Nurse Practitioner Acute Care; Emergency Provider Emergency Medicine; PCP Internal Medicine Geriatric Medicine; Visit Provider Hospitalist
DX: J45.21 Mild intermittent asthma with (acute) exacerbation (principal); E66.01 Morbid (severe) obesity due to excess calories; E89.0 Postprocedural hypothyroidism; Z68.38 Body mass index [BMI] 38.0-38.9, adult; Z71.3 Dietary counseling and surveillance; E87.70 Fluid overload, unspecified; Z20.822 Contact with and (suspected) exposure to COVID-19; Z91.040 Latex allergy status; Z79.51 Long term (current) use of inhaled steroids; Z79.890 Hormone replacement therapy; Z79.899 Other long term (current) drug therapy
CPT/HCPCS: 0241U; 36415; 71045; 71275; 80048; 80053; 82803; 83735; 83880; 85025; 87070; 87205; 87633; 93005; 93306; 94640; 97116; 97162; 99285; J0456; J1940; J2919; J3475; Q9957; Q9967

== ENCOUNTER → 2024-09-29 13:20 | Outpatient (BNV) | payer MEDICAID, SELFPAY | PROVIDERS: Admitting Provider Nurse Practitioner Acute Care; Emergency Provider Emergency Medicine; PCP Internal Medicine Geriatric Medicine; Visit Provider Internal Medicine Cardiovascular Disease | DX: R06.02 Shortness of breath (principal); R00.0 Tachycardia, unspecified; R94.31 Abnormal electrocardiogram [ECG] [EKG] | CPT/HCPCS: 93010 ==

== ENCOUNTER 2024-09-29 16:21 | Outpatient (BNV) | payer OTHER, SELFPAY | END 2024-10-01 07:00 | PROVIDERS: Admitting Provider Nurse Practitioner Acute Care; Emergency Provider Emergency Medicine; PCP Internal Medicine Geriatric Medicine; Visit Provider Internal Medicine Cardiovascular Disease | DX: R06.01 Orthopnea (principal) | CPT/HCPCS: 93306 ==

== ENCOUNTER → 2024-09-29 16:21 | Outpatient (BNV) | payer MEDICAID, SELFPAY | PROVIDERS: Admitting Provider Nurse Practitioner Acute Care; Emergency Provider Emergency Medicine; PCP Internal Medicine Geriatric Medicine; Visit Provider Nurse Practitioner Acute Care | DX: J45.901 Unspecified asthma with (acute) exacerbation (principal) | CPT/HCPCS: 99232; 99239 ==

== ENCOUNTER → 2024-09-29 16:21 | Outpatient (BNV) | payer MEDICAID, SELFPAY | PROVIDERS: Admitting Provider Nurse Practitioner Acute Care; Emergency Provider Emergency Medicine; PCP Internal Medicine Geriatric Medicine; Visit Provider Internal Medicine Pulmonary Disease | DX: J45.50 Severe persistent asthma, uncomplicated (principal); E66.01 Morbid (severe) obesity due to excess calories; Z68.38 Body mass index [BMI] 38.0-38.9, adult | CPT/HCPCS: 99222 ==

== ENCOUNTER 2024-11-23 16:20 | Outpatient (REF) | payer MEDICAID, SELFPAY ==
--- NOTE | ~2024-11-23 | US_ITS ---
CLINICAL HISTORY: LE edema recent travel Venous duplex ultrasound bilateral lower extremity Comparison: None Findings: The visualized deep veins are fully compressible with normal Doppler color flow and spectral tracings. No popliteal cyst. IMPRESSION: 1. Negative for bilateral lower extremity deep vein thrombosis. This document has been electronically signed by: Dread Bolanos MD on 11/24/2024 08:42:08
--- OUTSIDE RECORDS SUMMARY | 2024-11-23 16:52 | XMS_ITS | Data Portability ---
Author Organization [place] - [facility], Allergy Address [address] [place] [phone] Care Team Providers Care Molding Room Supervisor Name Role Phone NAME, YANIRA Primary Care Provider Assessment Encounter Date Assessment Date Assessment LastModified by Organization Details LastModified Time 10/12/2024 10/12/2024 48-year-old female presents for reevaluation. She seems to be improving on current antibiotic and steroid regimen. Given her persistent facial pain and pressure however I have recommended CT scan of the sinus. Follow-up after CT scan for review and further planning. In the meantime she should resume use of Flonase and sinus irrigation. All questions were answered. [email or web address] Not available 10/12/2024 11:50:21 Plan of Treatment Reminders Order Date Submit Date Provider Last Modified By Organization Details Last Modified Time Details Appointments Establish ed 30 2024 02:30P M ADDY Abdi MD Not available Not available Not available Lab None recorded. Referral None recorded. Procedures None recorded. Surgeries None recorded. Imaging CT, maxillofa cial, w/o contrast 2023 024 [facility] [place], [address] [facility] [address], [place], [address], 10/29/2024 13:56:00 Medication Orders Flonase Allergy Relief 50 mcg/actua tion nasal spray,milka pension 2023 024 [email or web address] [id number], [address] [place], [address], 10/26/2024 16:10:11 Patient TargetsNo targets recorded. Patient InstructionsNo instructions recorded. Reason for Referral None Reported. Results Created Date Observation Date Name Description Value Unit Range Abnormal Flag Note LastModifiedBy Organization Detail LastModifiedTime 10/20/20 24 10/19/2024 CT, maxil lofac ial, w/o contr ast No observ ation record ed. [email or web address] [facility] [address], [place], [address], 10/24/2024 14:14:10 Result Notes None recorded. Problems Name Problem SNOMED Code Status Onset Date Resolution Date Notes Provider Name and Address Organization Details Recorded Time Headache 92758731 Active 2017 Facial pain NOS; Note: Date Diagnosed: 07/26/2018 11:01 AM (R51) Not Available formerly [facility] 4 02:30:49 Uncomplic ated severe persisten t asthma 050661603 Active 2017 Severe persistent asthma, uncomplica sarah; Note: Date Diagnosed: 06/26/2018 1:04 PM (J45.50) Not Available formerly [facility] 4 02:30:43 Recurrent acute sinusitis 524032293 Active 2017 Other acute recurrent sinusitis; Note: Date Diagnosed: 07/26/2018 10:56 AM (J01.81) Not Available formerly [facility] 4 02:30:42 Nasal congestio n 19685509 Active 2017 Nasal congestion ; Note: Date Diagnosed: 06/26/2018 1:04 PM (R09.81) Not Available formerly [facility] 4 02:30:57 Problem Notes None recorded. Procedures Surgical History Date Name Laterality Status Provider Name and Address Organization Details Recorded Time Thyroid Surgery completed Estefani Coello [place] - [facility] 10/12/2024 10:31:27 excision of varicose vein completed Estefani Coello [place] - [facility] 10/12/2024 10:31:35 Imaging Results Imaging Date Name Status LastModified by Organiz ation Details LastModified Time 10/19/2024 CT, maxillofacial , w/o contrast completed [facility] [address] [facility] [address], [place], [address], 10/24/2024 14:14:10 Procedure Notes None recorded. Medical Equipment None Reported. Allergies Allergen ID Allergen Name Allergen Category Reaction Reaction Severity Criticality Documentation Date Start Date Code Code System Note Provider Name and Address Organization Details Recorded Time 92613 Latex (substanc e) environme nt,medica tion other Not available Not available 04/03/2024 78138 8007 SNOMED React ion: unkno wn, unspe cifie d;; Not Available formerly [facility] 4 00:59:03 00940 aspirin medicatio n other Not available Not available 04/03/2024 1191 RxNorm React ion: unkno wn, unspe cifie d;; Not Available formerly [facility] 4 00:59:05 95413 naproxen medicatio n other Not available Not available 04/03/2024 7258 RxNorm React ion: unkno wn, unspe cifie d;; Not Available formerly [facility] 4 00:59:09 Medications Name Sig Start Date Stop Date Status Note LastModified by Organization Details LastModified Time pulmoneb comp nebulizer 3665lt Use nebulize r as instruct ed active Not Available Not Available No t Available furosemid e 40 mg tablet TAKE 1 TABLET BY MOUTH EVERY DAY IN THE MORNING active Not Available Not Available No t Available levothyro xine 175 mcg tablet TAKE 1 TABLET BY MOUTH EVERY DAY 10/12 completed Not Available Not Available Not Available prednison e 10 mg tablet PLEASE SEE ATTACHED FOR DETAILED DIRECTIO NS active Not Available Not Available No t Available doxycycli ne hyclate 100 mg capsule 10/12 completed Medicati on ID: [id number] P rescribe d By Name: Addy dangelo MD Brand Name: doxycycl ine hyclate Send Method: E-Prescr ibed Sub s Allowed: subs OK Speci al Instruct ion: Take 1 PO bid X 2 weeks Me dication GenericN andre: doxycycl ine hyclate Not Available Not Available Not Available albuterol sulfate 2.5 mg/3 mL (0.083 %) solution for nebulizat ion INHALE 1 AMPULE USING A NEBULIZE R FOUR TIMES DAILY NEEDED active Not Available Not Available No t Available benzonata te 200 mg capsule TAKE 1 CAPSULE BY MOUTH 3 TIMES A DAY NEEDED COUGH 10/12 completed Not Available Not Available Not Available prednison e 20 mg tablet PLEASE SEE ATTACHED FOR DETAILED DIRECTIO NS 10/12 completed Not Available Not Available Not Available triamcino lone acetonide 0.1 % topical ointment APPLY TO THE AFFECTED AREA(S) TWICE DAILY active Not Available Not Available No t Available prednison e 50 mg tablet TAKE 1 TABLET BY MOUTH EVERY DAY FOR 4 DAYS 10/12 completed Not Available Not Available Not Available levothyro xine 150 mcg tablet TAKE 1 TABLET BY MOUTH EVERY DAY active Not Available Not Available No t Available budesonid e 0.25 mg/2 mL suspensio n for nebulizat ion 0.25 MG (2 ML) INHALED 2 TIMES A DAY active Not Available Not Available No t Available omeprazol e 20 mg capsule,d elayed release 1 capsule by mouth 10/12 completed Medicati on ID: [id number] D uration Value: 30 Prescri bed By Name: JESE Rock nd Name: karthik craig Send Method: E-Prescr ibed Sub s Allowed: subs OK Medic ationGen ericName : omeprazo le Not Available Not Available Not Available mont[address] [facility] 10 mg tablet TAKE 1 TABLET BY MOUTH EVERY DAY IN THE MORNING 10/12 completed Not Available Not Available Not Available fluticaso ne propionat e 50 mcg/actua tion nasal spray,milka pension USE 2 SPRAYS IN EACH NOSTRIL ONCE A DAY 2023 active Not Available Not Available Not Avai lable doxycycli ne hyclate 100 mg tablet TAKE 1 TABLET BY MOUTH TWICE A DAY FOR 7 DAYS active Not Available Not Available No t Available Ventolin HFA 90 mcg/actua tion aerosol inhaler INHALE 2 PUFFS BY MOUTH EVERY 4 HOURS NEEDED FOR WHEEZING OR SHORTNES S OF BREATH active Not Available Not Available No t Available Breo Ellipta 200 mcg-25 mcg/dose powder for inhalatio n INHALE 1 PUFF DAILY active Not Available Not Available No t Available Breztri Aerospher e 160 mcg-9mcg- 4.8mcg/ac tuation HFA aerosol inhaler active Not Available Not Available Not Available Flowflex COVID-19 Antigen Home Test kit USE DIRECTED 10/12 completed Not Available Not Available Not Available Paxlovid 300 mg (150 mg x 2)-100 mg tablets in a dose pack TAKE 3 TABLETS BY MOUTH 2 TIMES A DAY FOR 5 DAYS 10/12 completed Not Available Not Available Not Available Vitals None Recorded Social History None recorded. Functional Status None recorded. Mental Status None recorded. Family History Nothing Reported. Medical History Condition Response Thyroid Problems Y Asthma Y Gynecological HistoryNo gynecological history recorded. Obstetrics History GPAL:G 0 P 0 0 0 0 Past Encounters Encounter ID Performer Location Encounter Start Date Encounter Closed Date Diagnosis/Indication Diagnosis SNOMED-CT Code Diagnosis ICD10 Code [id number] MEENU DANIELS PA-C [facility] [address] [phone] 10/12/2024 09:52:25 10/12/2024 11:06:29 Nasal congestion 47477515 R09.81 Recurrent acute sinusitis 483614153 J01.81 Uncomplica sarah severe persistent asthma 570114272 J45.50 Health Concerns Section Related Observation LastModified by Organization Detai ls LastModified Time None Recorded Concern Status LastModified by Organization Details LastModified Time None Recorded Advance Directives Directive None Recorded Payers Encounter Date Sequence Insurance Name Policy Number Policy Gan Covered Member ID Gan Member ID Guarantor Name 10/12/2024 1 [facility] TYPE I ([id number]) [id number] [facility] [id number] Denisetrent Saunders Notes Date Note Type Note Provider Name and Address Organization Details Recorded Time 10/12/2024 text/html 48-year-old femdeclan craig with history of endoscopic sinus surgery with Dr. Gonzalez 6 years ago presents for reevaluation. Recently evaluated at the emergency room for cough. She was also having copious nasal discharge. 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 Was recently prescribed a new inhaler. Chest x-rays were negative for pneumonia. She was prescribed doxycycline and prednisone and is feeling improved but does continue to have some facial pain and pressure. Was on antibiotic for 8 days in the hospital and was prescribed an additional 7 days outpatient. 2 more days until completion. MEENU DANIELS PA-C [address] [place] [address] [address], [place], [address], [facility] - [facility] 10/12/2024 11:51:22 OBGyn Episode No OBEpisode recorded.
--- OUTSIDE RECORDS SUMMARY | 2024-11-23 16:52 | XMS_ITS | Continuity of Care Document ---
Author Organization [place] - [facility], [facility] Address [address] [place] [phone] Care Team Providers Care Verification Lead Name Role Phone NAME, YANIRA Primary Care [...] and sinus irrigation. All questions were answered. [email or web address] Not available 10/12/2024 11:50:21 Plan of Treatment Reminders Order Date Submit Date Provider Last Modified By Organization Details Last Modified Time Details Appointments Establish ed 30 2024 02:30P M ADDY Abdi MD Not available Not available Not available Lab None recorded. Referral None recorded. Procedures None recorded. Surgeries None recorded. Imaging CT, maxillofa cial, w/o contrast 2023 024 [email or web address] [facility] [place], [address] [facility], [facility] [address], [place], [address], 10/29/2024 13:56:00 Medication Orders Flonase Allergy Relief 50 mcg/actua tion nasal spray,milka pension 2023 024 [email or web address] [id number], [address] [place], [address], 10/26/2024 16:10:11 Patient TargetsNo targets recorded. Patient InstructionsNo instructions recorded. Reason for Referral None Reported. Results Created Date Observation Date Name Description Value Unit Range Abnormal Flag Note LastModifiedBy Organization Detail LastModifiedTime 10/20/20 24 10/19/2024 CT, maxil lofac ial, w/o contr ast No observ ation record ed. [email or web address] [facility] [place] [address] [facility] [address], [place], [address], 10/24/2024 14:14:10 Result Notes None recorded. Problems Name Problem SNOMED Code Status Onset Date Resolution Date Notes Provider Name and Address Organization Details Recorded Time Headache 23954134 Active 2017 Facial pain NOS; Note: Date Diagnosed: 07/26/2018 11:01 AM (R51) Not Available [facility] 4 02:30:49 Uncomplic ated severe persisten t asthma 231201491 Active 2017 Severe persistent asthma, uncomplica sarah; Note: Date Diagnosed: 06/26/2018 1:04 PM (J45.50) Not Available [facility] 4 02:30:43 Recurrent acute sinusitis 299111609 Active 2017 Other acute recurrent sinusitis; Note: Date Diagnosed: 07/26/2018 10:56 AM (J01.81) Not Available [facility] 4 02:30:42 Nasal congestio n 64080416 Active 2017 Nasal congestion ; Note: Date Diagnosed: 06/26/2018 1:04 PM (R09.81) Not Available [facility] 4 02:30:57 Problem Notes None recorded. Procedures Surgical History Date Name Laterality Status Provider Name and Address Organization Details Recorded Time Thyroid Surgery completed Estefani Coello [place] - [facility] 10/12/2024 10:31:27 excision of varicose vein completed Estefani Coello [place] [facility] 10/12/2024 10:31:35 Imaging Results None recorded. Procedure Notes None recorded. Medical Equipment None Reported. Allergies Allergen ID Allergen Name Allergen Category Reaction Reaction Severity Criticality Documentation Date Start Date Code Code System Note Provider Name and Address Organization Details Recorded Time 05318 Latex (substanc e) environme nt,medica tion other Not available Not available 04/03/2024 73762 8007 SNOMED React ion: unkno wn, unspe cifie d;; Not Available [facility] 4 00:59:03 83787 aspirin medicatio n other Not available Not available 04/03/2024 1191 RxNorm React ion: unkno wn, unspe cifie d;; Not Available [facility] 4 00:59:05 01648 naproxen medicatio n other Not available Not available 04/03/2024 7258 RxNorm React ion: unkno wn, unspe cifie d;; Not Available [facility] 4 00:59:09 Medications Name Sig Start Date [...] mg capsule 10/12 completed Medicati on ID: [id number] P rescribe d By Name: Addy dangelo [...] by mouth 10/12 completed Medicati on ID: [id number] D uration Value: 30 Prescri bed By [...] Diagnosis/Indication Diagnosis SNOMED-CT Code Diagnosis ICD10 Code [id number] MEENU DANIELS PA-C [facility] [address] [address] 10/12/2024 09:52:25 10/12/2024 11:06:29 Nasal congestion 61350955 R09.81 Recurrent acute sinusitis 744315834 J01.81 Uncomplica sarah severe persistent asthma 975268055 J45.50 Health Concerns Section Related Observation LastModified by Organization Detai ls LastModified Time None Recorded Concern Status LastModified by Organization Details LastModified Time None Recorded Payers Encounter Date Sequence Insurance Name Policy Number Policy Gan Covered Member ID Gan Member ID Guarantor Name 10/12/2024 1 [facility] [employer] [facility] DIRECT [facility] TYPE I (HMO) [id number] [employer] [id number] Denise Chip Notes Date Note Type Note Provider Name and Address Organization Details Recorded Time 10/12/2024 text/html 48-year-old fema rafa with history of endoscopic sinus surgery with Dr. Gonzalez 6 years ago presents for reevaluation. Recently evaluated at the emergency room for cough. She was also having copious nasal discharge. She sees a mule driver and an bench scientist who manage her allergies and asthma. Was recently prescribed a new inhaler. Chest x-rays were negative for pneumonia. She was prescribed doxycycline and prednisone and is feeling improved but does continue to have some facial pain and pressure. Was on antibiotic for 8 days in the hospital and was prescribed an additional 7 days outpatient. 2 more days until completion. MEENU DANIELS PA-C [address] [place] [address], [phone], [facility] - [facility] 10/12/2024 11:51:22 OBGyn Episode No OBEpisode recorded.
== END 2024-11-23 16:21 | disposition home or self-care (01) ==
LOC: HO.US 16:20
PROVIDERS: PCP Internal Medicine Geriatric Medicine; Visit Provider Internal Medicine
DX: R60.0 Localized edema (principal)
CPT/HCPCS: 93970

== ENCOUNTER → 2024-11-23 16:27 | Outpatient (BNV) | payer MEDICAID, SELFPAY | PROVIDERS: PCP Internal Medicine Geriatric Medicine; Visit Provider Specialist | DX: R60.0 Localized edema (principal) | CPT/HCPCS: 93970 ==

== ENCOUNTER 2024-12-11 10:31 | Outpatient (AMB) | payer MEDICAID, SELFPAY ==
--- NOTE | 2024-12-11 10:37 | A.OFFVIS_ITS ---
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 She states this has been going on for about a month. She took a trip in October and states the swelling has been going on since then. Non diabetic , never a smoker. Patient has discoloration and burning pain in both legs. 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 The patient states she 1st noticed it approximately 1 month ago when she went on vacation with a 3 hour flight. She states the swelling occurred after the flight while she was on vacation in [place]. Complaints include pain in her calves, swelling of lower extremities, cramping, fatigue, and heaviness of the lower extremities. It has been affecting their daily activities including walking, standing, and physical activity. It is noted in bilateral legs. Her primary has started her on Lasix, the patient states that it has not been working to decrease the swelling. Patient states that at [facility] approximately 10+ years ago she had laser vein procedures on bilateral lower extremities, pointing to the areas of the great saphenous veins. Patient denies any history of DVT/ PE. Patient denies any history of phlebitis. Trial of compression includes - nothing They now present for vascular evaluation regarding their varicose veins. [facility] Medical History Severe persistent allergic asthma Asthma Hypothyroidism Morbid obesity Surgical History History of facial surgery H/O thyroidectomy Family History Mother Diabetes Social History Household Members: Significant Other and Children Housing: House Alcohol intake: never Patient Tobacco Use Status: Never used Tobacco service: No Current occupational status: employed Current occupation: rt handed Review of Systems Const Reports as per HPI and Denies weakness ENT Reports Normal hearing present and Denies dizziness Card Reports as per HPI, Denies chest pain, Denies chest pain at rest, Denies chest pain with activity, Denies dyspnea and Denies dyspnea on exertion Resp Reports as per HPI, Denies cough, Denies dyspnea and Denies dyspnea on exertion GI Reports as per HPI, Denies abdominal pain, Denies nausea and Denies vomiting Musc Denies numbness Skin/Breast Reports as per HPI, Denies erythema and Denies wounds Neuro Reports Normal hearing present, Denies dizziness, Denies numbness, Denies Sensory deficit (Neuro) and Denies weakness Psych Reports no additional complaints Endo Reports no additional complaints Physical Exam Const General: healthy appearing and no acute distress Orientation/consciousness: patient oriented x3 HEENT Head: Yes normal to inspection Ears: hearing grossly normal bilaterally Mouth: Normal oral and palatal mucosa present Resp Effort & Inspection: normal respiratory effort and able to speak in complete sentences Auscultation: clear to auscultation bilaterally Cardio Jugular venous distension: no JVD Rate: regular rate Rhythm: regular rhythm Heart sounds: S1 normal heart sound present and S2 normal heart sound present Bruits: no abdominal aortic bruits, no carotid bruits, no femoral bruits and no renal bruits Peripheral pulses: Peripheral pulses 2+ throughout GI Inspection: Yes normal to inspection Palpation (GI): No Abdominal aortic bruit present Skin General skin exam: no rashes or lesions noted Wounds: no wounds Hair: normal Neuro General: patient oriented x3 Cranial nerves: Yes Normal hearing present Cognition (Neuro): normal cognition Gait exam (Neuro): Normal gait present Motor exam (neuro): 5/5 motor strength present throughout Sensory Exam: No Sensory deficit (Neuro) Extrem Other: Bilateral lower extremities:+ 1 peripheral edema noted. Discoloration noted around the ankles. No varicosities noted. General: Yes normal to inspection, Yes full ROM, Yes capillary refill normal and Yes normal gait Assessment & Plan Assessment & Plan (1) Varicose veins of both lower extremities with inflammation: Code(s): I83.11 - Varicose veins of right lower extremity with inflammation; I83.12 - Varicose veins of left lower extremity with inflammation Category: Medical Plan: Denise is presenting today on a referral from her PCP for bilateral lower extremity swelling and pain, worsening over the last month. In short, the patient has evidence of venous insufficiency. I have discussed the pathophysiology with the patient. In addition I have provided informational material regarding venous disease to the patient. We have discussed conservative measures including compression, elevation, and exercise. I have also provided a handout regarding appropriate use of compression stockings and where to purchase good compression stockings as well. I measured her calf and ankle circumference and I discussed that an extra-large were probably be the best size for her. I have taken the liberty of ordering venous insufficiency testing with the patient. They will follow up with me after testing. The patient had an opportunity to ask questions regarding the treatment plan. All questions were answered. Imaging studies, laboratory studies and physical exam results were discussed and reviewed in detail. No major barriers to understanding were identified. The patient expressed understanding and agreement with the above treatment plan. The patient is aware they should contact our office by phone for worsening of the current condition or the appearance of new symptoms. Thank you for allowing me to participate in the vascular care of this patient. If you have any questions or concerns regarding the treatment for the above condition please do not hesitate to contact me. The office telephone contact is [phone]. This note is constructed using voice recognition software. While every effort has been made to ensure accuracy, alligator shear operator errors may have been included. Thank you for allowing me to participate in the care of your patient. Yours sincerely, MARIO Landaverde Orders: Orders US venous duplex LE BI 1 Week I83.11 - Varicose veins of right lower extremity with inflammation, I83.12 - Varicose veins of left lower extremity with i nflammation Coding Level of Care Code New Pt Level 4 (17017) Diagnoses Varicose veins of both lower extremities with inflammation I83.11; I83.12
--- OUTSIDE RECORDS SUMMARY | 2024-12-11 11:51 | XMS_ITS | Encounter Summary ---
Author Organization [employer] Address [address] [facility] [address] [place] [address] Care Team Providers Care Ship Runner Name Role Phone Name, Amol CARY Primary Care Provider [phone] Encounter Details Date Type Department Care Team ([facility] st Contact Info) Description 11/26/2024 Telephone [facility] [address] [place], [place] [phone] Saloni Horta MD [address] [place] [address] Social History Tobacco Use Types Packs/Day Years Used Date Smoking Tobacco: Never Smokeless Tobacco: Never Alcohol Use Standard Drinks/Week Comments Never 0 (1 standard drink = 0.6 oz pur e alcohol) Depression Answer Date Recorded Patient Health Questionnaire-9 Score 0 12/26/2023 Patient Health Questionnaire-9 Score 0 12/26/2023 Last PHQ-9: Questionnaire Data Not on file 0 12/26/2023 Housing Stability Answer Date Recorded What is your housing situation today? I have ranjeet partida 09/05/[address] you li ve. Do you have problems with any of the following? None of the above 09/05/2023 Food Insecurity Answer Date Recorded Within the past 12 months, y ou worried that your food would run out before you got money to buy more: Never True 09/05/2023 Within the past 12 months,th e food you bought just didn't last and you didn't have enough money to get more: Never True Transportation Answer Date Recorded In the past 12 months, has l ack of transportation kept you from medical appts, meetings, work or from getting things needed for daily living? No 09/05/2023 Utilities Answer Date Recorded In the past 12 months, has t he electric, gas, oil or water company threatened to shut off services in your home? No 09/05/2023 Depression Answer Date Recorded Patient Health Questionnaire-2 Score 0 12/26/2023 Comments Unknown Sex and Gender Information Value Date Recorded Sex Assigned at Female 09/20/2022 10:19 AM EDT Legal Sex Female 10:19 AM EDT Gender Identity Female 09/20/2022 10:19 AM EDT Sexual Orientation Straight 09/20/2022 10 :19 AM EDT documented as of this encounter Miscellaneous Notes * Telephone Encounter - Sisi Celis RN - 11/26/2024 11:35 AM EST TC placed to pt regarding message below per Dr. Mirza. Pt verbalized understanding. No questionsor concerns expressed at this time. Pt to F/U as needed. ----- Message from Saloni Beck MD sent at 11/26/2024 11:34 AM EST ----- Please let patient know venous US is negative for DVT thank you documented in this encounter Plan of Treatment Upcoming Encounters Date Type Department Care Team (Late st Contact Info) Description 01/25/2025 10:30 AM EST Office Visit [facility] [address] [place] [address] Name, MD Amol [address] [place] [address] documented as of this encounter Visit Diagnoses Not on filedocumented in this encounter Additional Health Concerns Assessment Noted Time PHQ-9 Depression Total Score: 0 12/26/19 24 10:28 AM EST documented as of this encounter Care Teams Ship Runner Relationship Specialty Start Date End Date Name, MD Amol [address] [place] [phone] PCP - General Family Medicine 07/06/17 documented as of this encounter
--- OUTSIDE RECORDS SUMMARY | 2024-12-11 11:51 | XMS_ITS | Encounter Summary ---
Author Organization [employer] Address [address] [facility] 7t [place] [address] Care Team Providers Care Supervisor [employer] Name Role Phone Name, Amol CARY Primary Care Provider [phone] Reason for Visit * Reason Comments Med Refill Encounter Details Date Type Department Care Team ([facility] st Contact Info) Description 07/01/2024 Refill [facility] [address] [place], [place] [phone] Name, MD Amol [address] [place] [address] Severe persistent allergic asthma Social History Tobacco Use Types Packs/Day Years [...] AM EDT documented as of this encounter Plan of Treatment Upcoming Encounters Date Type Department Care Team (Late st Contact Info) Description 01/25/2025 10:30 AM EST Office Visit [facility] [address] [place] [phone] Name, MD Amol [address] [place] [phone] documented as of this encounter Visit Diagnoses Diagnosis Severe persistent allergic asthma documented in this encounter Additional Health Concerns Assessment Noted Time PHQ-9 Depression Total Score: 0 12/26/19 24 10:28 AM EST documented as of this encounter Care Teams Supervisor [employer] Relationship Specialty Start Date End Date NameAmol MD [address] [place] [phone] PCP - General Family Medicine 07/06/17 documented as of this encounter
--- OUTSIDE RECORDS SUMMARY | 2024-12-11 11:51 | XMS_ITS | Encounter Summary ---
Author Organization [facility] [facility] Address [address] [place] [address] 7t [place] [address] Care Team Providers Care Hat Lacer Name Role Phone Name, Amol CARY Primary Care Provider [phone] Reason for Referral * Imaging (STAT) - Closed Specialty Diagnoses / Procedures Referred By Contac t Referred To Contact Cardiology Diagnoses Bilateral leg edema Procedures Vascular US lower extremity venous duplex bilateral Saloni Horta MD [address] [place] [address] Phone: tel: fax: [address] Phone: tel: fax: Referral ID Status Reason Start Date Expiration Date V isits Requested Visits Authorized [id number] Closed Perform Procedure 11/23/2024 11/23/2025 1 0 * Consultation (Routine) - Authorized Specialty Diagnoses / Procedures Referred By Contac t Referred To Contact Vascular Surgery Diagnoses Bilateral leg edema Saloni Horta MD [address] [place] [address] Phone: tel: fax: Jovanni Medina MD [address] [place] [address] Phone: tel: fax: Referral ID Status Reason Start Date Expiration Date Visits Requested Visits Authorized [id number] Authorized Specialty Services Required 11/26/2024 11/26/2025 6 6 Reason for Visit * Reason Comments Fever Chills Leg Swelling Encounter Details Date Type Department Care Team (Late st Contact Info) Description 11/23/2024 3:20 PM EST Office Visit [facility] [address] [place] [phone] Saloni Horta MD [address] [place] [address] Bilateral leg edema (Primary Dx); Viral URI; Viral upper respiratory tract infection; Elevated blood pressure reading Social History Tobacco Use Types Packs/Day Years [...] AM EDT documented as of this encounter Last Filed Vital Signs Vital Sign Reading Time Taken Comments Blood Pressure 152/80 11/23/2024 3:22 PM EST Pulse 82 11/23/2024 3:22 PM EST Temperature 36.6 ??C (97.8 ??F) 11/23/2024 3:22 PM ES T Respiratory Rate 17 11/23/2024 3:22 PM EST Oxygen Saturation 98% 11/23/2024 3:22 PM EST Inhaled Oxygen Concentration - - Weight 99.3 kg (219 lb) 11/23/2024 3:22 PM EST Height - - Body Mass Index 40.06 08/10/2024 10:19 AM EDT documented in this encounter Progress Notes * Saloni Beck MD - 11/23/2024 3:20 PM EST SUBJECTIVE: Denise Saunders is a 48 y.o. year old female who presents for sick visit . Acute Concerns: 2 days with chills, body aches, congestion patient also tells me she has being having for the past 10 days LE edema, reports she walked for 2 hours and after this she noticed the swelling of both legs, patient recent traveled to [place] Social History Social History Narrative Not on file Patient Active Problem List Diagnosis Other allergic rhinitis Class 2 obesity Hypothyroidism Elevated immunoglobulin E level Eosinophilia Prediabetes Severe persistent asthma without complication Visual impairment Stargardt's disease Varicose vein of leg Family history of dementia Acid reflux Dermatitis Hospital discharge follow-up Bilateral leg edema Viral upper respiratory tract infection Elevated blood pressure reading No family history on file. Review of Systems Constitutional: Negative. HENT: Positive for congestion, rhinorrhea, sinus pain, sneezing and sore throat. Negative for dental problem, drooling, ear discharge, ear pain, facial swelling, hearing loss, mouth sores, nosebleeds, postnasal drip, sinus pressure, tinnitus, trouble swallowing and voice change. Respiratory: Positive for cough. Negative for apnea, choking, chest tightness, shortness of breath,wheezing and stridor. OBJECTIVE: Vitals: 11/23/24 1522 BP: (!) 152/80 BP Location: Left arm Patient Position: Sitting BP Cuff Size: Large adult Pulse: 82 Resp: 17 Temp: 97.8 ??F (36.6 ??C) TempSrc: Temporal SpO2: 98% Weight: 219 lb (99.3 kg) Physical Exam Constitutional: Appearance: Normal appearance. Cardiovascular: Rate and Rhythm: Normal rate and regular rhythm. Pulmonary: Effort: Pulmonary effort is normal. Breath sounds: Normal breath sounds. Abdominal: General: Abdomen is flat. Palpations: Abdomen is soft. Musculoskeletal: Right lower leg: Edema present. Left lower leg: Edema present. Neurological: Mental Status: She is alert. Follow Up: No follow-ups on file. Current Outpatient Medications on File Prior to Visit Medication Sig Dispense Refill albuterol (2.5 MG/3ML) 0.083% nebulizer solution TAKE 3ML VIA NEBULIZER 4 TIMES A DAY NEEDED 75 mL 2 albuterol 108 (90 Base) MCG/ACT inhaler Inhale 2 puffs every 4 (four) hours if needed for wheezing or shortness of breath. 18 g 3 Fvpzqle-Xcjehzsfsxv-Hvjlujzwvg (Breztri Aerosphere) 160-9-4.8 MCG/ACT aerosol Inhale 2 puffs 2 times daily. fluticasone (Flonase) 50 MCG/ACT nasal spray Administer 1 spray into each nostril 2 times daily. levothyroxine (Synthroid) 150 MCG tablet Take 1 tablet (150 mcg) by mouth before breakfast. 30 tablet 11 Misc. Devices (Pulse Oximeter For Finger) [facility] To use every 4 hours. Call the office if O2 Sat <90% 1 each 0 Nebulizers [facility] Use nebulizer as instructed 1 each 0 Respiratory Therapy Supplies (Nebulizer/Tubing/Mouthpiece) kit To be used with Nebulizer 1 kit 0 [] triamcinolone (Kenalog) 0.1 % ointment Apply topically 2 times daily. 80 g 1 No current facility-administered medications on file prior to visit. Problem List Items Addressed This Visit Bilateral leg edema - Primary US stat to r/o DVT (low probability) Likely venous insufficiency referral to vascular Relevant Medications furosemide (Lasix) 40 MG tablet Other Relevant Orders Referral to Vascular Surgery Vascular US lower extremity venous duplex bilateral (Completed) Viral upper respiratory tract infection Symptomatic relief and rest Elevated blood pressure reading Likely due to patient being sick I advise low Na diet and weight reduction F/u with PCP Other Visit Diagnoses Viral URI Relevant Orders POCT Rapid COVID Ag (Completed) Influenza A (ID NOW Rapid Molecular) (Completed) Influenza B (ID NOW Rapid Molecular) (Completed) documented in this encounter Miscellaneous Notes * Assessment & Plan Note - Saloni Beck MD - 11/26/2024 12:22 PM EST Associated Problem(s): Bilateral leg edema US stat to r/o DVT (low probability) Likely venous insufficiency referral to vascular * Assessment & Plan Note - Saloni Beck MD - 11/26/2024 12:22 PM EST Associated Problem(s): Viral upper respiratory tract infection Symptomatic relief and rest * Assessment & Plan Note - Saloni Beck MD - 11/26/2024 12:21 PM EST Associated Problem(s): Elevated blood pressure reading Likely due to patient being sick I advise low Na diet and weight reduction F/u with PCP documented in this encounter Plan of Treatment Upcoming Encounters Date Type Department Care Team (Late st Contact Info) Description 01/25/2025 10:30 AM EST Office Visit [facility] [address] [place] [address] Name, MD Amol [address] [place] [address] Scheduled Referrals Name Type Priority Associated Diagnoses Orde r Schedule Referral to Vascular Surgery Outpatient Referral Routine Bilateral leg edema Expected: 11/23/2024 (Approximate), Expires: 11/23/2025 documented as of this encounter Procedures Procedure Name Priority Date/Time Associated Diagnosis Comments VASC US LOWER EXTREMITY VENOUS DUPLEX BILATERAL STAT 11/24/2024 8:42 AM EST Bilateral leg edema POCT INFLUENZA B (ID NOW RAPID MOLECULAR) Routine 11/23/2024 3:32 PM EST Viral URI POCT INFLUENZA A (ID NOW RAPID MOLECULAR) Routine 11/23/2024 3:32 PM EST Viral URI POCT RAPID COVID ANTIGEN Routine 11/23/2024 3:32 PM EST Viral URI documented in this encounter Results * Vascular US lower extremity venous duplex bilateral (11/24/2024 8:42 AM EST) 11/24/2024 8:42 AM EST Narrative [facility] - 11/24/2024 8:43 AM EST ? [facility] ?[address] ?[place] [address] ? Ultrasound Report ? Signed ? Patient: Chip,Denise ?MR#: [id number] ?? 190 ? : 1975 ?Acct:[id number] ? Age/Sex: 48 / F ?ADM Date: 11/23/24 ? Loc: HO.US ? Attending Dr: Saloni Beck MD ? Ordering Physician: Saloni Horta MD ?? Date of Service: 11/23/24 ?? Procedure(s): US venous duplex LE BI ?? Accession Number(s): [id number] ? cc: Saloni Horta MD; Name,Amol CARY ? CLINICAL HISTORY: LE edema recent travel ? Venous duplex ultrasound bilateral lower extremity ? Comparison: None ? Findings: ?? The visualized deep veins are fully compressible with normal Doppler color ?? flow and spectral tracings. ?? No popliteal cyst. ? IMPRESSION: ?? 1. Negative for bilateral lower extremity deep vein thrombosis. ? This document has been electronically signed by: Dread Bolanos MD on ?? 11/24/2024 08:42:08 ? Dictated By: ?Dread Bolanos MD ? Signed By: ?<Electronically signed by Dread Bolanos MD in OV> ?11/24/24842 ? DD/ 1 ? TD/TT: 01/04/25 0842 ? Machine Strap Buckler: ? Procedure Note Donotuseinterpreter, Image - 11/24/[address] [address] Ultrasound Report Signed Patient: Jesus Saunders#: [id number] : 1975Acct:[id number] Age/Sex: 48 / FADM Date: 11/23/24 Loc: HO.US Attending Dr: Saloni Beck MD Ordering Physician: Saloni Horta MD Date of Service: 11/23/24 Procedure(s): US venous duplex LE BI Accession Number(s): [id number] cc: Saloni Horta MD; Name,Amol CARY CLINICAL HISTORY: LE edema recent travel Venous duplex ultrasound bilateral lower extremity Comparison: None Findings: The visualized deep veins are fully compressible with normal Doppler color flow and spectral tracings. No popliteal cyst. IMPRESSION: 1. Negative for bilateral lower extremity deep vein thrombosis. This document has been electronically signed by: Dread Bolanos MD on 11/24/2024 08:42:08 Dictated By: Dread Bolanos MD Signed By: <Electronically signed by Dread Bolanos MD in OV> 11/24/24 0843 DD/ 0842 TD/TT: 11/24/24 0842 Machine Strap Buckler: us Saloni Beck MD CV VASCULAR PROCEDURE S Final Result [facility] [address] [place] [phone] * Influenza B (ID NOW Rapid Molecular) (11/23/2024 3:32 PM EST) Influenza B Negative Negative, Indeterminate [facility] Swab 11/23/2024 3:32 PM EST Saloni Beck MD POINT OF CARE TEST EN TER/EDIT ORDERABLES Final Result Performing Organization Address [facility]/ZIP Co de Phone Number [facility] [address] [place] [address] [phone] * Influenza A (ID NOW Rapid Molecular) (11/23/2024 3:32 PM EST) Influenza A Negative Negative, Indeterminate [facility] Swab 11/23/2024 3:32 PM EST us Saloni Beck MD POINT OF CARE TEST EN TER/EDIT ORDERABLES Final Result Performing Organization Address [facility] Co de Phone Number [facility] [address] [place] [phone] * POCT Rapid COVID Ag (11/23/2024 3:32 PM EST) Rapid COVID Ag Negative [facility] Swab 11/23/2024 3:32 PM EST us Saloni Beck MD POINT OF CARE TEST EN TER/EDIT ORDERABLES Final Result Performing Organization Address [facility] de Phone Number [facility] [address] [place] [phone] documented in this encounter Visit Diagnoses Diagnosis Bilateral leg edema- Primary Edema Viral URI Acute upper respiratory infections of unspecified site Viral upper respiratory tract infection Acute upper respiratory infections of unspecified site Elevated blood pressure reading Elevated blood pressure reading without diagnosis of hypertension documented in this encounter Additional Health Concerns Assessment Noted Time PHQ-9 Depression Total Score: 0 12/26/19 24 10:28 AM EST documented as of this encounter Care Teams Hat Lacer Relationship Specialty Start Date End Date Name, MD Amol [address] [place] [address] PCP - General Family Medicine 07/06/17 documented as of this encounter
--- OUTSIDE RECORDS SUMMARY | 2024-12-11 11:51 | XMS_ITS | Data Portability ---
Author Organization [place] - [facility] Address [address] [place] [phone] Care Team Providers Care Supervisor Sleeping Bag Department Name Role Phone NAME, YANIRA Primary Care [...] and sinus irrigation. All questions were answered. [email or web address] Not available 10/12/2024 11:50:21 Plan of Treatment Reminders Order Date Submit Date Provider Last Modified By Organization Details Last Modified Time Details Appointments Establish ed 30 2024 02:30P M ADDY Abdi MD Not available Not available Not available Lab None recorded. Referral None recorded. Procedures None recorded. Surgeries None recorded. Imaging CT, maxillofa cial, w/o contrast 2023 024 [email or web address] [facility] [place], [address] [facility] [address], [place], [address], 10/29/2024 13:56:00 Medication Orders Flonase Allergy Relief 50 mcg/actua tion nasal spray,milka pension 2023 024 [email or web address] [id number], [address] [place], [address], 10/26/2024 16:10:11 Patient TargetsNo targets recorded. Patient InstructionsNo instructions recorded. Reason for Referral None Reported. Results Created Date Observation Date Name Description Value Unit Range Abnormal Flag Note LastModifiedBy Organization Detail LastModifiedTime 10/20/20 24 10/19/2024 CT, maxil lofac ial, w/o contr ast No observ ation record ed. [email or web address] [facility] [place] [address], [place], [address], 10/24/2024 14:14:10 Result Notes None recorded. Problems Name Problem SNOMED Code Status Onset Date Resolution Date Notes Provider Name and Address Organization Details Recorded Time Headache 78397079 Active 2017 Facial pain NOS; Note: Date Diagnosed: 07/26/2018 11:01 AM (R51) Not Available [facility] 4 02:30:49 Uncomplic ated severe persisten t asthma 517312532 Active 2017 Severe persistent asthma, uncomplica sarah; Note: Date Diagnosed: 06/26/2018 1:04 PM (J45.50) Not Available [facility] 4 02:30:43 Recurrent acute sinusitis 050450532 Active 2017 Other acute recurrent sinusitis; Note: Date Diagnosed: 07/26/2018 10:56 AM (J01.81) Not Available [facility] 4 02:30:42 Nasal congestio n 83409662 Active 2017 Nasal congestion ; Note: Date Diagnosed: 06/26/2018 1:04 PM (R09.81) Not Available [facility] 4 02:30:57 Problem Notes None recorded. Procedures Surgical History Date Name Laterality Status Provider Name and Address Organization Details Recorded Time Thyroid Surgery completed Estefani Coello [place] - [facility] 10/12/2024 10:31:27 excision of varicose vein completed Estefani Coello [place] - [facility] 10/12/2024 10:31:35 Imaging Results Imaging Date Name Status LastModified by Organiz ation Details LastModified Time 10/19/2024 CT, maxillofacial , w/o contrast completed [email or web address] [facility] [address] [facility] [address], [place], [address], 10/24/2024 14:14:10 Procedure Notes None recorded. Medical Equipment None Reported. Allergies Allergen ID Allergen Name Allergen Category Reaction Reaction Severity Criticality Documentation Date Start Date Code Code System Note Provider Name and Address Organization Details Recorded Time 78528 Latex (substanc e) environme nt,medica tion other Not available Not available 04/03/2024 95873 8007 SNOMED React ion: unkno wn, unspe cifie d;; Not Available [facility] 4 00:59:03 01344 aspirin medicatio n other Not available Not available 04/03/2024 1191 RxNorm React ion: unkno wn, unspe cifie d;; Not Available [facility] 4 00:59:05 34263 naproxen medicatio n other Not available Not available 04/03/2024 7258 RxNorm React ion: unkno wn, unspe cifie d;; Not Available [facility] 4 00:59:09 Medications Name Sig [...] mg capsule 10/12 completed Medicati on ID: [id number] P rescribe d By Name: Addy dangelo [...] by mouth 10/12 completed Medicati on ID: [id number] D uration Value: 30 Prescri bed By [...] Diagnosis/Indication Diagnosis SNOMED-CT Code Diagnosis ICD10 Code Diagnosis Note [id number] MEENU DANIELS PA-C [facility] [address] [phone] 10/12/2024 09:52:25 10/12/2024 11:06:29 Nasal congestion 73530937 R09.81 Recurrent acute sinusitis 034481063 J01.81 Uncomplica sarah severe persistent asthma 647051815 J45.50 Health Concerns Section Related Observation LastModified by Organization Detai ls LastModified Time None Recorded Concern Status LastModified by Organization Details LastModified Time None Recorded Advance Directives Directive None Recorded Payers Encounter Date Sequence Insurance Name Policy Number Policy Gan Covered Member ID Gan Member ID Guarantor Name 10/12/2024 1 [facility] TYPE I ([id number]) [id number] Denise Chip [id number] Denisetrent Saunders Notes Date Note Type Note Provider Name and Address Organization Details Recorded Time 10/12/2024 text/html 48-year-old alverto craig with history of endoscopic sinus surgery with Dr. Gonzalez 6 years ago presents for reevaluation. Recently evaluated at the emergency room for cough. She was also having copious nasal discharge. She sees a main galley scullion and an market risk manager who manage her allergies and asthma. Was recently prescribed a new inhaler. Chest x-rays were negative for pneumonia. She was prescribed doxycycline and prednisone and is feeling improved but does continue to have some facial pain and pressure. Was on antibiotic for 8 days in the hospital and was prescribed an additional 7 days outpatient. 2 more days until completion. MEENU DANIELS PA-C [address] [place] [address], [place], [phone], [facility] - [facility] 10/12/2024 11:51:22 OBGyn Episode No OBEpisode recorded.
--- OUTSIDE RECORDS SUMMARY | 2024-12-11 11:51 | XMS_ITS | Encounter Summary ---
Author Organization [employer] Address [address] [facility] 7t [place] [address] Care Team Providers Care Bath Solution Maker Name Role Phone Name, Amol CARY Primary Care Provider [phone] Reason for Visit * Reason Onset Date Comments Hospital Follow-up 10/08/2024 Encounter Details Date Type Department Care Team ([facility] st Contact Info) Description 10/08/2024 Telephone [facility] [address] [place], [place] [id number] Name, MD Amol [address] [place] [address] Hospital Follow-up Social History Tobacco Use Types Packs/Day Years [...] encounter Miscellaneous Notes * Telephone Encounter - Harleen Corbett - 10/08/2024 10:12 AM EST Tc from pt requesting a HDF appt. [place] [facility] [place]: [place]/29/24 Discharge date: 10/06/24 Diagnosed: chronic asthma Please contact at [phone] Croatian documented in this encounter Plan of Treatment Upcoming Encounters Date Type Department Care Team (Late st Contact Info) Description 01/25/2025 10:30 AM EST Office Visit [facility] [address] [place] [address] Name, MD Amol [address] [place] [phone] documented as of this encounter Visit Diagnoses Not on filedocumented in this encounter Additional Health Concerns Assessment Noted Time PHQ-9 Depression Total Score: 0 12/26/19 10:28 AM EST documented as of this encounter Care Teams Bath Solution Maker Relationship Specialty Start Date End Date Name, MD Amol [address] [place] [id number] PCP - General Family Medicine 07/06/17 documented as of this encounter
--- OUTSIDE RECORDS SUMMARY | 2024-12-11 11:51 | XMS_ITS | Encounter Summary ---
Author Organization [employer] Address [address] [facility] 7t [place] [address] Care Team Providers Care Television Picture Tube Rebuilder Name Role Phone Name, Amol CARY Primary Care Provider [phone] Reason for Visit * Reason Onset Date Comments FMLA 12/03/2024 I called the pat ient regarding an application for FMLA. She stated that she was hospitalized at the [facility], from 09/29/24 to 10/06/24 for asthma. She has been out of work since that time, because she is still not feeling well enough to return to work. She stated that she will be having polyps removed from her sinuses in December, and she will bring a different application to her surgeon at that time. Encounter Details Date Type Department Care Team (Late st Contact Info) Description 12/03/2024 Telephone [facility] [address] [place] [address] Name, MD Amol [address] [place] [address] FMLA (I called the patient regarding an application for FMLA. She stated that she was hospitalized at the [facility], from 09/29/24 to 10/06/24 for asthma. She has been out of work since that time, because she is still not feeling well enough to return to work. She stated that she will be having polyps removed from her sinuses in December, and she will bring a different application to her surgeon at that time.) Social History Tobacco Use Types Packs/Day Years [...] encounter Miscellaneous Notes * Telephone Encounter - Bri Fernández [place] - 12/03/2024 1:58 PM EST I called the patient regarding an application for FMLA. She stated that she was hospitalized at [facility], from 09/29/24 to 10/06/24 for asthma. She has been out of work since that time, because she is still not feeling well enough to return to work. She stated that she will be having polyps removed from her sinuses in December, and she will bring a different application to her [facility] at that time. documented in this encounter Plan of Treatment Upcoming Encounters Date Type Department Care Team (Late st Contact Info) Description 01/25/2025 10:30 AM EST Office Visit [facility] [address] [facility] [place] [address] Name, MD Amol [address] [place] [address] documented as of this encounter Visit Diagnoses Not on filedocumented in this encounter Additional Health Concerns Assessment Noted Time PHQ-9 Depression Total Score: 0 12/26/19 10:28 AM EST documented as of this encounter Care Teams Television Picture Tube Rebuilder Relationship Specialty Start Date End Date Name, MD Amol [facility] [place] [address] PCP - General Family Medicine 07/06/17 documented as of this encounter
--- OUTSIDE RECORDS SUMMARY | 2024-12-11 11:51 | XMS_ITS | Encounter Summary ---
Author Organization [facility] Address [address] [place] [address] 7 [place] [address] Care Team Providers Care Field Specialist Name Role Phone Name, Amol CARY Primary Care Provider [phone] Encounter Details Date Type Department Care Team (Latest Contact Info) Description 07/28/2022 Abstract [facility] CONVERSIONS Dental, Provider, DDS Social History Tobacco Use Types Packs/Day Years Used Date Smoking Tobacco: Never Assessed Comments Unknown Sex and Gender Information Value [...] Description 01/25/2025 10:30 AM EST Office Visit [facility] [address] [place] [address] NameAmol MD [address] [place] [address] documented as of this encounter Visit Diagnoses Not on filedocumented in this encounter Care Teams Field Specialist Relationship Specialty Start Date End Date Amol Titus MD [address] [place] [address] PCP - General Family Medicine 07/06/17 documented as of this encounter
--- OUTSIDE RECORDS SUMMARY | 2024-12-11 11:51 | XMS_ITS | Encounter Summary ---
Author Organization [employer] Address [address] [facility] 7t [place] [address] Care Team Providers Care Electronics Test Engineer Name Role Phone Name, Amol CARY Primary Care Provider [phone] Reason for Visit * Reason Onset Date Comments Dec recalls 11/23/2024 Encounter Details Date Type Department Care Team ([facility] st Contact Info) Description 11/23/2024 Telephone [facility] [address] [place] [address] Rhea Whitmore [place] Dec recalls Social History Tobacco Use Types Packs/Day Years [...] encounter Miscellaneous Notes * Telephone Encounter - Rhea Whitmore MA - 11/23/2024 1:39 PM EST T/C placed to pt. Scheduled recall. Pt agrees with plan. Reminder letter sent . documented in this encounter Plan of Treatment Upcoming Encounters Date Type Department Care Team (Late st Contact Info) Description 01/25/2025 10:30 AM EST Office Visit [facility] [address] [place] [address] Name, MD Amol [address] [place] [address] documented as of this encounter Visit Diagnoses Not on filedocumented in this encounter Additional Health Concerns Assessment Noted Time PHQ-9 Depression Total Score: 0 12/26/19 24 10:28 AM EST documented as of this encounter Care Teams Electronics Test Engineer Relationship Specialty Start Date End Date Name, MD Amol [address] [place] [address] PCP - General Family Medicine 07/06/17 documented as of this encounter
--- OUTSIDE RECORDS SUMMARY | 2024-12-11 11:51 | XMS_ITS | Encounter Summary ---
Author Organization [employer] Address [address] [facility] [address]t [place] [address] Care Team Providers Care Hydraulic Assembler Name Role Phone Name, Amol CARY Primary Care Provider [phone] Reason for Visit * Reason Comments Follow-up Encounter Details Date Type Department Care Team ([facility] Contact Info) Description 12/11/2024 11:00 AM EST Office Visit [facility] [address] [place] [phone] Name, MD Amol [address] [place] [address] Prediabetes Social History Tobacco Use Types Packs/Day Years [...] Sign Reading Time Taken Comments Blood Pressure 140/82 12/11/2024 11:47 AM EST Pulse 88 12/11/2024 11:47 AM EST Temperature 36 ??C (96.8 ??F) 12/11/2024 11:47 AM EST Respiratory Rate 16 12/11/2024 11:47 AM EST Oxygen Saturation - - Inhaled Oxygen Concentration - - Weight 97.7 kg (215 lb 6.4 oz) 12/11/2024 11:47 AM EST Height 157.5 cm (5' 2 ) 12/11/2024 11:47 AM EST Body Mass Index 39.4 12/11/2024 11:47 AM EST documented in this encounter Plan of Treatment Upcoming Encounters Date Type Department Care Team (Late st Contact Info) Description 01/25/2025 10:30 AM EST Office Visit [facility] [address] [place] [address] Name, MD Amol [address] [place] [address] Scheduled Orders Name Type Priority Associated Diagnoses Orde r Schedule POCT Glucose Point of Care Testing Routine Prediabetes Ordered: 12/11/2024 documented as of this encounter Procedures Procedure Name Priority Date/Time Associated Diagnosis Comments POCT GLYCATED HEMOGLOBIN, TOTAL Routine 12/11/2024 11:49 AM EST Prediabetes documented in this encounter Results * POCT HGB A1C (12/11/2024 11:49 AM EST) Hemoglobin A1C 6.0 4.0 - 6.0 % QC Media Lot # [id number] Lot# Expiration Date [id number] Blood 12/11/2024 11:4 9 AM EST Amol Titus MD POINT OF CARE TEST ENTER/EDIT OR DERABLES Final Result documented in this encounter Visit Diagnoses Diagnosis Prediabetes Other abnormal glucose documented in this encounter Additional Health Concerns Assessment Noted Time PHQ-9 Depression Total Score: 0 12/26/19 24 10:28 AM EST documented as of this encounter Care Teams Hydraulic Assembler Relationship Specialty Start Date End Date Name, MD Amol [address] [place] [address] PCP - General Family Medicine 07/06/17 documented as of this encounter
--- OUTSIDE RECORDS SUMMARY | 2024-12-11 11:51 | XMS_ITS | Encounter Summary ---
Author Organization [employer] Address [address] [facility] 7t [place] [address] Care Team Providers Care Child Care Center Assistant Director Name Role Phone Name, Amol CARY Primary Care Provider [phone] Reason for Visit * Reason Onset Date Comments chart prep 12/03/2024 Encounter Details Date Type Department Care Team ([facility] st Contact Info) Description 12/03/2024 Telephone [facility] [address] [place] [address] Rhea Whitmore MA chart prep Social History Tobacco Use Types Packs/Day Years [...] Telephone Encounter - Rhea Whitmore MA - 12/03/2024 10:54 AM EST Chart Prep Labs: done Images: done Vaccines due: yes Referrals: complete Screenings: colonoscopy , mammogram Overdue care gaps: A1C Pre-DM documented in this encounter Plan of Treatment Upcoming Encounters Date Type Department Care Team (Late st Contact Info) Description 01/25/2025 10:30 AM EST Office Visit [facility] [address] [place] [address] Name, MD mAol [address] [place] [address] documented as of this encounter Visit Diagnoses Not on filedocumented in this encounter Additional Health Concerns Assessment Noted Time PHQ-9 Depression Total Score: 0 12/26/19 24 10:28 AM EST documented as of this encounter Care Teams Child Care Center Assistant Director Relationship Specialty Start Date End Date Name, MD Amol [address] [place] [address] PCP - General Family Medicine 07/06/17 documented as of this encounter
--- OUTSIDE RECORDS SUMMARY | 2024-12-11 11:51 | XMS_ITS | Clinical Summary ---
Author Organization [employer] Address [address] [facility] [address] [place] [address] Care Team Providers Care Director Of Strategic Communications Name Role Phone Name, Amol CARY Primary Care Provider [phone] Allergies Active Allergy Reactions Criticality Noted Date Comments Aspirin Angioedema,Swelling Other reaction(s): difficulty breathing, hives Latex Swelling 03/29/2017 Other reaction(s): swelling of face Naproxen Angioedema,Swelling, Whe ezing High Other reaction(s): swelling Medications Misc. Devices (Pulse Oximeter For Finger) miscIndications: Cough in adult,COVID-19 To use every 4 hours. Call the office if O2 Sat < 90% 1 each 4 Active levothyroxine (Synthroid) 150 MCG tablet Take 1 tablet (150 mcg) by mouth before breakfast. 30 tablet 11 4 12/26/19 25 Active Budeson-Glycopyr rol-Formoterol (Breztri Aerosphere) 160-9-4.8 MCG/ACT aerosol Inhale 2 puffs 2 times daily. Active fluticasone (Flonase) 50 MCG/ACT nasal spray Administer 1 spray into each nostril 2 times daily. 4 Active albuterol (2.5 MG/3ML) 0.083% nebulizer solutionIndicati ons:Severe persistent asthma without complication TAKE 3ML VIA NEBULIZER 4 TIMES A DAY NEEDED 75 mL 2 4 Active albuterol 108 (90 Base) MCG/ACT inhalerIndicatio ns:Severe persistent asthma without complication Inhale 2 puffs every 4 (four) hours if needed for wheezing or shortness of breath. 18 g 3 4 Active Nebulizers miscIndications: Severe persistent asthma without complication Use nebulizer as instructed 1 each 4 Active Respiratory Therapy Supplies (Nebulizer/Tubin g/Mouthpiece) kitIndications:S evere persistent asthma without complication To be used with Nebulizer 1 kit 4 Active furosemide (Lasix) 40 MG tabletIndication s:Bilateral leg edema Take 1 tablet (40 mg) by mouth Once per day. 7 tablet 5 11/23/19 26 Active triamcinolone (Kenalog) 0.1 % ointmentIndicati ons:Dermatitis Apply topically 2 times daily. 80 g 1 4 11/23/19 25 Active Problems Problem Noted Date Diagnosed Date Elevated blood pressure reading 11/26/2024 Assessment & Plan (11/26/2024 12:21 PM EST): Likely due to patient being sick I advise low Na diet and weight reduction F/u with PCP Bilateral leg edema 11/23/2024 Assessment & Plan (11/26/2024 12:22 PM EST): US stat to r/o DVT (low probability) Likely venous insufficiency referral to vascular Viral upper respiratory tract infection 11/23/19 25 Assessment & Plan (11/26/2024 12:22 PM EST): Symptomatic relief and rest Dermatitis 10/24/2024 Assessment & Plan (10/24/2024 12:37 PM EST): Dry skin evident on soles of feet, no sign of fungal infection Will send rx for triamcinolone BID x 2 weeks for itchy, dry skin Hospital discharge follow-up 10/24/2024 Acid reflux 12/23/2023 12/23/2023 Prediabetes 12/20/2022 Visual impairment 12/20/2022 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 Hypothyroidism 11/07/2017 Elevated immunoglobulin E level 11/07/2017 Overview (12/20/2022): Last Assessment & Plan: Continue singulair. Eosinophilia 11/07/2017 Overview (12/20/2022): Last Assessment & Plan: She may be a candidate for Nucala or Fasenra, but unfortunately noncompliance with appointments render this a nonviable option at this time. Uncomplicated severe persistent asthma 7 Overview (12/03/2024): Severe persistent asthma, uncomplicated; Note: Date Diagnosed: 06/26/2018 1:04 PM (J45.50) Assessment & Plan (10/24/2024 2:18 PM EST): Pt asthma controlled on Breztri BID and albuterol PRN Discontinued Budesonide and educated patient that she is getting Budesonide dose in her Breztri inhaler Also counseled patient that it is not necessary to have both albuterol nebulizer solution and inhaler, pt insisted to have both on hand and was educated on proper dosing and not to exceed 6 doses a day. Also educated on side effects of albuterol including palpitations and shakiness Pt plans to f/u with pulm Pt plans to f/u on ENT for surgery scheduled for 01/01/25, informed patient of need for preoperative evaluation Plan 2 f/u with me in 2 months for asthma Varicose vein of leg 10/16/2012 Class 2 obesity 05/31/2012 Overview (12/23/2023): Last Assessment & Plan: Minimize oral steroid use. Resolved Problems Problem Noted Date Diagnosed Date Resolved Date Leg swelling 12/23/2023 12/23/2023 12/26/2023 Restrictive lung disease 11/07/201703/2024 Overview (12/20/2022): Last Assessment & Plan: Likely from body habitus. Weight loss encouraged. Recent chest imaging revealed no evidence of interstitial lung disease. Cough 11/07/2017 12/26/2023 Overview (12/20/2022): Last Assessment & Plan: Polysomnogram 4 years ago revealed no evidence of obstructive sleep apnea. Postoperative hypothyroidism 07/12/2012 12/26/2023 Encounters Date Type Department Care Team Description 12/11/2024 11:00 AM EST Office Visit [facility] [address] [place] [phone] Name, MD Amol Prediabetes 12/03/2024 Telephone [facility] [address] [place] [address] Name, MD Amol FMLA (I called the patient regarding an application for FMLA. She stated that she was hospitalized at the [facility], from 09/29/24 to 10/06/24 for asthma. She has been out of work since that time, because she is still not feeling well enough to return to work. She stated that she will be having polyps removed from her sinuses in December, and she will bring a different application to her surgeon at that time.) 12/03/2024 Telephone [facility] [address] [place] [address] Rhea Whitmore MA chart prep 11/26/2024 Telephone [facility] [address] [address] Saloni Horta MD 11/23/2024 3:20 PM EST Office Visit [facility] [address] [address] Saloni Hrota MD Bilateral leg edema (Primary Dx); Viral URI; Viral upper respiratory tract infection; Elevated blood pressure reading 11/23/[address] [address] Rhea Whitmore MA Feb recalls 10/24/2024 9:45 AM EST Office Visit [address] [address] Faye Rivera MD Hospital discharge follow-up (Primary Dx); Severe persistent asthma without complication; Dermatitis 10/23/[address] [address] Brayden Tirado MA chart prep 10/08/2024 Patient Outreach [address] [address] Amol Titus MD Transition Of Care (Tcm) (HDF scheduled) 10/08/[address] [address] Amol Titus MD Hospital Follow-up 09/29/2024 Orders Only [facility] External Provider, [facility] 09/14/[address] [address] Rhea Whitmore MA Jan recsll from Last 3 Months Immunizations Name Administration Dates Next Due Hep B, adult 01/08/2009,08/27/2008,07/03/2002 Influenza injectable quadriv alent IIV4 with preservative 10/03/2017,09/29/2015 Influenza, Split (incl. arely fied surface antigen) 09/14/2013,10/16/2012 Influenza, seasonal, injecta ble, preservative free 01/06/2017 MMR 07/31/2014,05/13/2014 TD (adult), 2 Lf tetanus tox oid, preservative free, adsorbed 01/23/2022,11/21/2004 Tdap 01/23/2022 Social History Tobacco Use Types Packs/Day Years Used Date Smoking Tobacco: Never Smokeless Tobacco: Never Tobacco Cessation:Counseling Given: Not Answered Alcohol Use Standard Drinks/Week Comments Never 0 (1 standard drink = 0.6 oz pur e alcohol) Depression Answer Date Recorded Patient Health Questionnaire-9 Score 0 12/26/2023 Patient Health Questionnaire-9 Score 0 12/26/2023 Last PHQ-9: Questionnaire Data Not on file 0 12/26/2023 Housing Stability Answer Date Recorded What is your housing situation today? I have ranjeet helga 09/05/[address] you li [...] Orientation Straight 09/20/2022 10 :19 AM EDT Last Filed Vital Signs Vital Sign Reading Time Taken Comments Blood Pressure 140/82 12/11/2024 11:47 AM EST Pulse 88 12/11/2024 11:47 AM EST Temperature 36 ??C (96.8 ??F) 12/11/2024 11:47 AM EST Respiratory Rate 16 12/11/2024 11:47 AM EST Oxygen Saturation 98% 11/23/2024 3:22 PM EST Inhaled Oxygen Concentration - - Weight 97.7 kg (215 lb 6.4 oz) 12/11/2024 11:47 AM EST Height 157.5 cm (5' 2 ) 12/11/2024 11:47 AM EST Body Mass Index 39.4 12/11/2024 11:47 AM EST Plan of Treatment Upcoming Encounters Date Type Department Care Team (Late st Contact Info) Description 01/25/2025 10:30 AM EST Office Visit [facility] [address] [place] [address] Name, MD Amol [address] [place] [address] Health Maintenance Due Date Last Done Comments CT Colonography 1975 Colonoscopy 1973 Colorectal Cancer Screening 1975 FIT DNA/Cologuard 1975 FIT 1975 FOBT 1975 HIV Screening 1975 Sigmoidoscopy 1975 Pneumococcal Vaccine: Pediatrics (0 to 5 Years) and At-Risk Patients (6 to 64 Years) (1 of 2 - PCV) 1979 Family Planning (PISQ) 1988 Hepatitis C Screening 1991 Pap Smear 06/18/2023 06/18/2020 Zoster Vaccines (1 of 2) 2023 COVID-19 Vaccine (3 - season) 2024 08/20/2021, 07/30/2021 Influenza Vaccine (#1) 2024 7, 01/06/2017, 09/29/2015, Additional history exists SDOH Screening 12/19/2024 12/19/2023 Depression Screening 12/26/2024 12/26/2023, 12/26/19 24 Mammogram 01/28/2025 01/28/2023, 01/19, 01/28/2023, Additional history exists Cervical Cancer Screening 06/18/2025 HPV/Cotest 06/18/2025 06/18/2020 Alcohol/Substance Use Screening 07/04/2025 07/04/2024 Tobacco Screening 08/10/2025 08/10/2024 Diabetes: Hemoglobin A1C 12/11/2025 025, 03/30/2022, 02/05/2022, Additional history exists DTaP/Tdap/Td Vaccines (3 - Td or Tdap) 01/24/2032 01/23/2022, 01/23/2022, 11/21/2004 RSV Patients and Patients Aged 60 years or older (1 - 1-dose 75+ series) 2048 Hepatitis B Vaccines Completed 01/08/2009, 08/27/2008, 07/03/2002 HIB Vaccines Aged Out No longer eligi ble based on patient's age to complete this topic HPV Vaccines Aged Out No longer eligi ble based on patient's age to complete this topic Hepatitis A Vaccines Aged Out No long er eligible based on patient's age to complete this topic IPV Vaccines Aged Out No longer eligi ble based on patient's age to complete this topic Meningococcal Vaccine Aged Out No pa kim eligible based on patient's age to complete this topic RSV under 20 months Aged Out No longe r eligible based on patient's age to complete this topic Rotavirus Vaccines Aged Out No longer eligible based on patient's age to complete this topic Procedures Procedure Name Priority Date/Time Associated Diagnosis Comments POCT GLYCATED HEMOGLOBIN, TOTAL Routine 12/11/2024 11:49 AM EST Prediabetes VASC US LOWER EXTREMITY VENOUS DUPLEX BILATERAL STAT 11/24/2024 8:42 AM EST Bilateral leg edema POCT INFLUENZA B (ID NOW RAPID MOLECULAR) Routine 11/23/2024 3:32 PM EST Viral URI POCT INFLUENZA A (ID NOW RAPID MOLECULAR) Routine 11/23/2024 3:32 PM EST Viral URI POCT RAPID COVID ANTIGEN Routine 11/23/2024 3:32 PM EST Viral URI CTA CHEST PE PROTOCAL Routine 09/30/2024 9:00 AM EST VENOUS BLOOD GAS Routine 09/29/2024 1:38 PM EST SARS COV2/INFLUENZA A/B AND RSV RNA QL NAAT Routine 09/29/2024 1:31 PM EST B TYPE NATRIURETIC PEPTIDE (BNP) Routine 09/29/2024 1:30 PM EST MAGNESIUM Routine 09/29/2024 1:30 PM EST COMPREHENSIVE METABOLIC PANEL Routine 09/29/2024 1:30 PM EST CBC WITH AUTO DIFFERENTIAL Routine 09/29/2024 1:30 PM EST XR CHEST 1 VIEW Routine 09/29/2024 1:29 PM EST BI MAMMOGRAM SCREENING TOMOSYNTHESIS BILATERAL Routine 01/28/2023 10:46 AM EST HPV MRNA E6/E7 Routine 06/18/2020 2:37 PM EDT THINPREP PAP Routine 06/18/2020 2:37 PM EDT from Last 3 Months or Most Recently Relevant to Health Maintenance Results * POCT HGB A1C (12/11/2024 11:49 AM EST) Hemoglobin A1C 6.0 4.0 - 6.0 % QC Media Lot # [id number] Lot# Expiration Date [id number] Blood 12/11/2024 11:4 9 AM EST us Amol Titus MD POINT OF CARE TEST ENTER/EDIT OR DERABLES Final Result * Vascular US lower extremity venous duplex bilateral (11/24/2024 8:42 AM EST) 11/24/2024 8:42 AM EST Narrative [facility] - 11/24/2024 8:43 AM EST ? [facility] ?[address] ?[place] [address] ? Ultrasound Report ? Signed ? Patient: Chip,Denise ?MR#: [id number] ?? 190 ? : 1975 ?Acct:[id number] ? Age/Sex: 48 / F ?ADM Date: 11/23/24 ? Loc: HO.US ? Attending Dr: Saloni Beck MD ? Ordering Physician: Saloni Horta MD ?? Date of Service: 11/23/24 ?? Procedure(s): US venous duplex LE BI ?? Accession Number(s): [id number] ? cc: Saloni Horta MD; Name,Amol CARY [...] signed by Dread Bolanos MD in OV> ?11/24/24 0843 ? DD/ 0842 ? TD/TT: 11/24/24841 ? Jacquard Loom Carpet Weaver: ? Procedure Note Susie, Image - 11/24/2024 [place] [address] Ultrasound Report Signed Patient: Denise SaundersMR#: [id number] 190 : 1975Acct:[id number] Age/Sex: 48 / FADM Date: 11/23/24 Loc: HO.US Attending Dr: Saloni Beck MD Ordering Physician: Saloni Horta MD Date of Service: 11/23/24 Procedure(s): US venous duplex LE BI Accession Number(s): [id number] cc: Saloni Horta MD; Name,Amol CARY CLINICAL [...] signed by Dread Bolanos MD in OV> 11/24/24842 DD/ 1 TD/TT: 11/24/24841 Jacquard Loom Carpet Weaver: us Saloni Beck MD CV VASCULAR PROCEDURE S Final Result Performing Organization Address [facility]/ZIP Co de Phone Number [facility] [address] [place] [phone] * Influenza B (ID NOW Rapid Molecular) (11/23/2024 3:32 PM EST) [facility] Influenza B Negative Negative, Indeterminate [facility] Swab 11/23/2024 3:32 PM EST us Saloni Beck MD POINT OF CARE TEST EN TER/EDIT ORDERABLES Final Result Performing Organization Address [facility] Co de Phone Number [facility] [address] [place] [phone] * Influenza A (ID NOW Rapid Molecular) (11/23/2024 3:32 PM EST) [facility] Influenza A Negative Negative, Indeterminate [facility] Swab 11/23/2024 3:32 PM EST Saloni Beck MD POINT OF CARE TEST EN TER/EDIT ORDERABLES Final Result Performing Organization Address [facility] Co de Phone Number [facility] [address] [place] [phone] * POCT Rapid COVID Ag (11/23/2024 3:32 PM EST) [facility] Rapid COVID Ag Negative [facility] Swab 11/23/2024 3:32 PM EST us Saloni Beck MD POINT OF CARE TEST EN TER/EDIT ORDERABLES Final Result [facility] [address] [place] [address] [phone] * CTA Chest PE Protocal (09/30/2024 9:00 AM EST) Anatomical Region Laterality Modality Body, Chest Computed Tomogra phy 09/30/2024 9:00 AM EST Narrative 09/30/2024 12:03 PM EST ? [facility] ?[address] ?[place] [address] ? CT Scan Report ? Signed ? Patient: Chip,Denise ?MR#: [id number] ?? 190 ? : 1975 ?Acct:[id number] ? Age/Sex: 48 / F ?ADM Date: 09/29/24 ? Loc: HO.IMC ?482-1 ? Attending Dr: Camila Becerra CAMERA SUPERVISOR ? Ordering Physician: Camila Becerra NP ?? Date of Service: 09/30/24 ?? Procedure(s): CT angio chest PE protocol ?? Accession Number(s): [id number] ? cc: Name,Amol CARY; Camila Becerra NP ? EXAMINATION: ?? CT ANGIOGRAM OF THE CHEST WITH AND WITHOUT CONTRAST (CT PULMONARY ?? ANGIOGRAM FOR PE) ? CLINICAL INFORMATION: ?? hypoxia, cough ? COMPARISON: ?? Chest CTA dated 12/28/2018 ? TECHNIQUE: ?? Prior to contrast administration, noncontrast localization images were ?? obtained. ?? Subsequently, multidetector volumetric imaging was ?? performed from the thoracic inlet to below the diaphragms following the ?? administration of 80 mL Omnipaque 350 intravenous contrast. ?? No contrast reaction reported ?? Sagittal, coronal, and MIP oblique sagittal reformatted images were ?? obtained on the CT workstation, uploaded to PACS, and reviewed. ? This CT examination was performed using dose optimization techniques as ?? appropriate, variously including the following: ?? *Automated exposure control ?? *Adjustment of mA and/or kV according to patient size (this includes ?? techniques or standardized protocols for targeted exams where dose is ?? matched to indication/reason for exam; i.e. extremities or head) ?? *Use of iterative reconstruction technique ? Total exam dose-length product 363 mGy-cm ? FINDINGS: ? QUALITY OF STUDY/CONTRAST BOLUS: Satisfactory. ? PULMONARY ARTERIES: No pulmonary emboli in the central or segmental ?? pulmonary arteries. Limited evaluation of the subsegmental pulmonary ?? arteries but no definite filling defects. ? THORACIC AORTA: No aneurysm. ? LUNG: Mosaic attenuation of the lungs likely represents small airways ?? disease. Subsegmental atelectasis in the bilateral lower lobes. ?? Scattered areas of mucus plugging in the bilateral lower lobes. No ?? focal consolidation, nodules or masses. ? PLEURA: No pleural effusion or pneumothorax. ? MEDIASTINUM: Normal heart size. ??No pericardial effusion. ??No hilar or ?? mediastinal lymphadenopathy. ??No evidence of septal bowing or right ?? heart strain. ? CORONARY ARTERY CALCIFICATION: None visualized on this study. ? CHEST WALL/AXILLA: No axillary or internal mammary lymphadenopathy. ? OSSEOUS STRUCTURES: Multilevel degenerative changes of the thoracic ?? spine. No destructive osseous lesions. ??Subacute or chronic fracture of ?? the lateral right sixth rib with callus formation (9:100). ? UPPER ABDOMEN: Unremarkable. ??No reflux of contrast into the hepatic ?? veins to suggest elevated right heart pressures. ? CT/CT angio chest PE protocol ?? IMPRESSION: ?? 1. ??No pulmonary emboli in the central or segmental pulmonary arteries. ?? Limited evaluation of the subsegmental pulmonary arteries but no ?? definite filling defects. ?? 2. ??Mosaic attenuation of the lungs likely represents small airways ?? disease. Scattered areas of mucus plugging in the bilateral lower lobes. ?? 3. ??Subacute versus chronic fracture of the lateral right sixth rib ?? with callus formation. ?? VTE: negative. ? Electronically signed by: ??Macrina Adams MD ??09/30/2024 12:01 PM EST ?? RP ? Dictated By: ?No Adams ? Signed By: ?<Electronically signed by No ??Bryan in OV> ? 09/30/24 1201 ? DD/ 0900 ? TD/TT: 09/30/24 1043 ? Jacquard Loom Carpet Weaver: ? Procedure Note Susie, Image - 09/30/[address] [address] [address] Scan Report Signed Patient: Jesus Saunders#: [id number] 190 : 1975Acct:[id number] Age/Sex: 48 / FADM Date: 09/29/24 Loc: [facility] 482-[address]: Camila Becerra NP Ordering Physician: Camila Becerra NP Date of Service: 09/30/24 Procedure(s): CT angio chest PE protocol Accession Number(s): [id number] cc: Amol Titus MD; Camila Becerra NP EXAMINATION: CT ANGIOGRAM OF THE CHEST WITH AND WITHOUT CONTRAST (CT PULMONARY ANGIOGRAM FOR PE) CLINICAL INFORMATION: hypoxia, cough COMPARISON: Chest CTA dated 12/28/2018 TECHNIQUE: Prior to contrast administration, noncontrast localization images were obtained. Subsequently, multidetector volumetric imaging was performed from the thoracic inlet to below the diaphragms following the administration of 80 mL Omnipaque 350 intravenous contrast. No contrast reaction reported Sagittal, coronal, and MIP oblique sagittal reformatted images were obtained on the CT workstation, uploaded to PACS, and reviewed. This CT examination was performed using dose optimization techniques as appropriate, variously including the following: *Automated exposure control *Adjustment of mA and/or kV according to patient size (this includes techniques or standardized protocols for targeted exams where dose is matched to indication/reason for exam; i.e. extremities or head) *Use of iterative reconstruction technique Total exam dose-length product 363 mGy-cm FINDINGS: QUALITY OF STUDY/CONTRAST BOLUS: Satisfactory. PULMONARY ARTERIES: No pulmonary emboli in the central or segmental pulmonary arteries. Limited evaluation of the subsegmental pulmonary arteries but no definite filling defects. THORACIC AORTA: No aneurysm. LUNG: Mosaic attenuation of the lungs likely represents small airways disease. Subsegmental atelectasis in the bilateral lower lobes. Scattered areas of mucus plugging in the bilateral lower lobes. No focal consolidation, nodules or masses. PLEURA: No pleural effusion or pneumothorax. MEDIASTINUM: Normal heart size. No pericardial effusion. No hilar or mediastinal lymphadenopathy. No evidence of septal bowing or right heart strain. CORONARY ARTERY CALCIFICATION: None visualized on this study. CHEST WALL/AXILLA: No axillary or internal mammary lymphadenopathy. OSSEOUS STRUCTURES: Multilevel degenerative changes of the thoracic spine. No destructive osseous lesions. Subacute or chronic fracture of the lateral right sixth rib with callus formation (9:100). UPPER ABDOMEN: Unremarkable. No reflux of contrast into the hepatic veins to suggest elevated right heart pressures. CT/CT angio chest PE protocol IMPRESSION: 1. No pulmonary emboli in the central or segmental pulmonary arteries. Limited evaluation of the subsegmental pulmonary arteries but no definite filling defects. 2. Mosaic attenuation of the lungs likely represents small airways disease. Scattered areas of mucus plugging in the bilateral lower lobes. 3. Subacute versus chronic fracture of the lateral right sixth rib with callus formation. VTE: negative. Electronically signed by: Macrina Adams MD 09/30/2024 12:01 PM EST Dictated By: No Adams Signed By: <Electronically signed by No Adams in OV> 09/30/24 1201 DD/ 0900 TD/TT: 09/30/24 1043 Jacquard Loom Carpet Weaver: [facility] External Provider IMG CT PROCEDURES Edited Result - Final * (ABNORMAL) VENOUS BLOOD GAS (09/29/2024 1:38 PM EST) VBG pH 7.34 7.32 - 7.43 [facility] Comment:METER #: [id number] additional_comment: Cbcabanbe VBG PCO2 52 mmHg [facility] Comment:METER #: [id number] additional_comment: Cbcabanbe VBG PO2 36 mmHg [facility] Comment:METER #: [id number] additional_comment: Cbcabanbe VBG Base Excess 2.2 mmol/L [facility] Comment:METER #: [id number] additional_comment: Cbcabanbe VBG HCO3 29(H) 22 - 26 mmol/L [facility] Comment:METER #: [id number] additional_comment: Cbcabanbe O2 Sat, [place] 51.0 % [facility] Comment:METER #: [id number] additional_comment: Cbcabanbe 09/29/2024 1:38 PM EST 09/29/2024 1:43 PM EST Generic External Data Provider LAB BLOOD ORDERAB LES Final Result Performing Organization Address [facility] Co de Phone Number [facility] [address] [place] [phone] * SARS-CoV-2 RNA, Influenza A/B, and RSV RNA, Ql NAAT (09/29/2024 1:31 PM EST) Influenza A PCR NEGATIVE Negative [facility] Influenza B PCR NEGATIVE Negative [facility] Resp Syncy Virus RNA Qual PCR NEGATIVE Negative [facility] SARS COV2 PCR NEGATIVE Negative [facility] Comment:All test results mus t be correlated with clinical findings.Negative results do not preclude SARS-CoV2, influenza Avirus, influenza B virus and/or RSV infectionand should not be used as the sole basis for treatment orother patient management decisions. Negative results must becombined with clinical observations, patient history, andepidemiological information.This test has not been evaluated for monitoring treatment ofinfection.This test has been authorized by the FDA under an EmergencyUse Authorization (EUA) for use by authorized laboratories.Testing performed on the [employer] GeneXpert utilizingreal-time RT-PCR.All SARS CoV2 and positive influenza A/B results arereported to [facility]. 09/29/2024 1:31 PM EST 09/29/2024 1:34 PM EST Generic External Data Provider LAB MICROBIOLOGY - GENERAL ORDERABLES Final Result Performing Organization Address [facility] [place]/[facility]/ZIP Co de Phone Number [facility] [address] [place] [phone] * (ABNORMAL) CBC auto differential (09/29/2024 1:30 PM EST) White Blood Count 13.7(H) 4.8 - 10.8 X10*3/uL [facility] Red Blood Count 4.92 4.20 - 5.50 X10*6/uL [facility] Hemoglobin 14.3 12.0 - 16.0 g/dl [facility] Hematocrit 42.5 37.0 - 47.0 % [facility] Mean Corpuscular Volume 86.4 80.0 - 98.0 fL [facility] Mean Corpuscular Hemoglobin 29.1 27.0 - 33.0 pg [facility] Mean Corpuscular HGB Conc 33.6 31.0 - 35.0 g/dl [facility] Red Cell Distribution Width 15.5 11.0 - 16.0 % [facility] Platelet Count 256 160 - 400 X10*3/uL [facility] Mean Platelet Volume 9.8 9.4 - 12.3 fL [facility] Neutrophils Percent Auto 66.9 45 - 73 % [facility] Imm Gran Pct Auto 0.2 0.0 - 0.4 % [facility] Lymphocytes Percent Auto 22.7 20 - 40 % [facility] Monocytes Percent Auto 5.3 2 - 11 % [facility] Eosinophils Percent Auto 4.7(H) 0 - 4 % [facility] Basophils Percent Auto 0.2 0 - 2 % [facility] NRBC Pct Auto 0.0 0.0 - 0.2 /100WBC [facility] Neutrophils Absolute Auto 9.1(H) 2.0 - 8.3 x10*3/uL [facility] Imm Gran Abs Auto 0.03 0.00 - 0.03 X10*3/uL [facility] Lymphocytes Absolute Auto 3.1 1.2 - 4.9 X10*3/uL [facility] Monocytes Absolute Auto 0.7 0.1 - 1.2 X10*3/uL [facility] Eosinophils Absolute Auto 0.6(H) 0.0 - 0.4 X10*3/uL [facility] Basophils Absolute Auto 0.0 0.0 - 0.2 X10*3/uL [facility] NRBC Abs Auto 0.000 0.0 - 0.012 X10*3/uL [facility] 09/29/2024 1:30 PM EST 09/29/2024 1:33 PM EST us Generic External Data Provider LAB BLOOD ORDERAB LES Final Result Performing Organization Address [facility] [place]/[facility] Co de Phone Number [facility] [address] [place] [phone] * B Type Natriuretic Peptide (BNP) (09/29/2024 1:30 PM EST) Pathologist [facility] B Type Natriuretic Peptide <10 <100 pg/mL [facility] Comment:For those patients w ho are being treated with Natrecor(nesiritide, recombinant BNP), BNP testing should beperformed at least two hours post treatment in order toensure that only endogenous levels of BNP are detected. 09/29/2024 1:30 PM EST 09/29/2024 1:33 PM EST us Generic External Data Provider LAB BLOOD ORDERAB LES Final Result Performing Organization Address [facility] Phone Number [facility] [address] [place] [phone] * Magnesium (09/29/2024 1:30 PM EST) Pathologist [facility] Magnesium 2.2 1.6 - 2.6 mg/dL [facility] 09/29/2024 1:30 PM EST 09/29/2024 1:34 PM EST us Generic External Data Provider LAB BLOOD ORDERAB LES Final Result Performing Organization Address [facility] [place]/[facility] Co de Phone Number [facility] [address] [place] [phone] * (ABNORMAL) Comprehensive Metabolic Panel (09/29/2024 1:30 PM EST) Sodium 145 135 - 145 mmol/L [facility] Potassium 4.2 3.3 - 5.1 mmol/L [facility] Chloride 109(H) 96 - 108 mmol/L [facility] Carbon Dioxide 25 22 - 29 mmol/L [facility] Anion Gap 15 12 - 20 [facility] Urea Nitrogen (BUN) 12 9 - 16 mg/dL [facility] Creatinine, Serum 0.79 0.5 - 1.4 mg/dL [facility] Creatinine Clr Calc Pharmacy 91.6 [facility] Comment:Provided height and weight: 157.48 cm,95.254 kg.eGFR (calculated from the MDRD study equation) and eCrCl(calculated from the Cockcroft-Gault equation) are based ondifferent parameters and may not yield comparable results.If eCrCl result is absurd, please check patient'sheight/weight. Estimated Glomerular Filt Rate >60 [facility] Comment:NOTE: For -Am erican individuals, multiply the result by 1.210.Chronic Kidney Disease: Estimated GFR < 60 mL/min/1.18f1Cjetph Kidney Disease: Estimated GFR < 15 mL/min/1.73m2 Glucose 109 60 - 115 mg/dL [facility] Calcium 10.9(H) 8.4 - 10.2 mg/dL [facility] Bilirubin, Total 1.0 0.0 - 1.0 mg/dL [facility] Aspartate Amino Transferase 26 5 - 31 U/L [facility] Alanine Aminotransferase 28 0 - 31 U/L [facility] Total Protein 8.3(H) 6.5 - 8.0 g/dL [facility] Albumin Level 4.5 3.5 - 5.0 g/dL [facility] Alkaline Phosphatase 80 39 - 117 U/L [facility] 09/29/2024 1:30 PM EST 09/29/2024 1:34 PM EST us Generic External Data Provider LAB BLOOD ORDERAB LES Final Result [facility] [address] [place] [phone] * XR Chest 1 View (09/29/2024 1:29 PM EST) Anatomical Region Laterality Modality Chest Radiographic Mariana ging 09/29/2024 1:29 PM EST Narrative 09/29/2024 3:40 PM EST ? [facility] ?[address] ?[place] [address] ?XRay Report ? Signed ? Patient: Chip,Denise ?MR#: [id number] ?? 190 ? : 1975 ?Acct:[id number] ? Age/Sex: 48 / F ?ADM Date: 09/29/24 ? Loc: HO.ED ? Attending Dr: ? Ordering Physician: Stewart Hoffman ?? Date of Service: 09/29/24 ?? Procedure(s): XR chest 1V ?? Accession Number(s): [id number] ? cc: Stewart Hoffman; Name,Amol CARY ? EXAMINATION: ?? XR CHEST ? CLINICAL INFORMATION: ?? Cough and wheezing for the past 8 days. Worse over the last 3 days. ? COMPARISON: ?? Chest radiograph dated 08/10/2024 ? TECHNIQUE: ?? Frontal view of the chest was obtained. ? FINDINGS: ?? The lung volumes. No significant abnormality is noted involving the ?? heart, lungs, mediastinum, bony thorax or soft tissues. ? XR/XR chest 1V ?? IMPRESSION: ?? Unremarkable examination. ? Electronically signed by: ??Macrina Adams MD ??09/29/2024 03:37 PM EST ?? RP ? Dictated By: ?No Adams ? Signed By: ?<Electronically signed by No ??Bryan in OV> ? 09/29/24 1537 ? DD/ 1329 ? TD/TT: 09/29/24 1337 ? Jacquard Loom Carpet Weaver: ? Procedure Note Dottie Richards - 09/29/[address] [address] XRay Report Signed Patient: Denise SaundersMR#: [id number] 190 : 1975Acct:[id number] Age/Sex: 48 / FADM Date: 09/29/24 Loc: .ED Attending Dr: Ordering Physician: Stewart Hoffman Date of Service: 09/29/24 Procedure(s): XR chest 1V Accession Number(s): [id number] cc: Stewart Hoffman; Name,Amol CARY EXAMINATION: XR CHEST CLINICAL INFORMATION: Cough and wheezing for the past 8 days. Worse over the last 3 days. COMPARISON: Chest radiograph dated 08/10/2024 TECHNIQUE: Frontal view of the chest was obtained. FINDINGS: The lung volumes. No significant abnormality is noted involving the heart, lungs, mediastinum, bony thorax or soft tissues. XR/XR chest 1V IMPRESSION: Unremarkable examination. Electronically signed by: Macrina Adams MD 09/29/2024 03:37 PM EST Dictated By: No Adams Signed By: <Electronically signed by No Adams in OV> 09/29/24 1537 DD/ 1329 TD/TT: 09/29/24 1337 Jacquard Loom Carpet Weaver: [facility] External Provider IMG XR PROCEDURES Final Result * BI Mammogram Screening Tomosynthesis Bilateral (01/28/2023 10:46 AM EST) Anatomical Region Laterality Modality Breast Bilateral Mammography 01/28/2023 10:4 6 AM EST Narrative 01/31/2023 1:16 PM EDT ? [facility] ? [address] ?[place] [address] ? Mammography Report ? Signed ? Patient: Chip,Denise ?MR#: [id number] ?? 190 ? : 1975 ?Acct:[id number] ? Age/Sex: 47 / F ?ADM Date: 03/10/23 ? Loc: HO.MAMMO ? Attending : Amol Titus MD ? Ordering Physician: Amol Titus MD ?Results: 1Negative ? Date of Service: 01/28/23 ?Follow Up: 1 Year From Orig ?? inal Mammogram ? Procedure(s): MM tomosynthesis screening BI ?? Accession Number(s): [id number] ? cc: Tacho,Amol CARY ? EXAMINATION: ?? MM SCREENING DIGITAL BREAST TOMOSYNTHESIS, BILATERAL ? CLINICAL INFORMATION: ? Screening. Asymptomatic. ? The lifetime risk of breast cancer based on the Tyrer-Cuzick Model is ?? 8%. ? COMPARISON: ?? Mammography: 06/17/2021, 06/03/2017, 07/21/2016 ? TECHNIQUE: ?? Digital breast tomosynthesis is performed in both the craniocaudal and ?? mediolateral oblique views along with computer-aided detection (CAD). ?? Synthesized 2D images are generated from the tomosynthesis. ? FINDINGS: ?? There are scattered areas of fibroglandular density (ACR BI-RADS breast ?? composition Category b). ? There are no significant masses, abnormal calcifications, or other ?? abnormalities. ??Parenchymal pattern is similar to prior studies. There ?? is no developing density or architectural abnormality. The axilla and ?? skin contours are unremarkable. No significant changes. ? MM/MM tomosynthesis screening BI ?? IMPRESSION: ?? No mammographic evidence of malignancy. ? ASSESSMENT: ? BI-RADS 1: Negative ? RECOMMENDATION: ?? Routine annual mammography screening. ? This patient's information was entered into a reminder system with a ?? target due date for their next mammogram. ? Dictated By: ?Lucas Ocampo MD ? Signed By: ?<Electronically signed by Lucas Ocampo MD in OV> ?01/31/23 1314 ? DD/ 45 ? TD/TT: ? Jacquard Loom Carpet Weaver: BUCK ? Procedure Note Donotbradinterpreter, Image - [facility] [address] [place] [address] Mammography Report Signed Patient: Denise SaundersMR#: [id number] 190 : 1975Acct:[id number] Age/Sex: 47 / FADM Date: 01/28/23 Loc: HO.MAMMO Attending Dr: Amol Titus MD Ordering Physician: Amol Titus MDResults: 1Negative Date of Service: 01/28/23Follow Up: 1 Year From Orig inal Mammogram Procedure(s): MM tomosynthesis screening BI Accession Number(s): [id number] cc: Amol Titus MD EXAMINATION: MM SCREENING DIGITAL BREAST TOMOSYNTHESIS, BILATERAL CLINICAL INFORMATION: Screening. Asymptomatic. The lifetime risk of breast cancer based on the Tyrer-Cuzick Model is 8%. COMPARISON: Mammography: 06/17/2021, 06/03/2017, 07/21/2016 TECHNIQUE: Digital breast tomosynthesis is performed in both the craniocaudal and mediolateral oblique views along with computer-aided detection (CAD). Synthesized 2D images are generated from the tomosynthesis. FINDINGS: There are scattered areas of fibroglandular density (ACR BI-RADS breast composition Category b). There are no significant masses, abnormal calcifications, or other abnormalities. Parenchymal pattern is similar to prior studies. There is no developing density or architectural abnormality. The axilla and skin contours are unremarkable. No significant changes. MM/MM tomosynthesis screening BI IMPRESSION: No mammographic evidence of malignancy. ASSESSMENT: BI-RADS 1: Negative RECOMMENDATION: Routine annual mammography screening. This patient's information was entered into a reminder system with a target due date for their next mammogram. Dictated By: Lucas Ocampo MD Signed By: <Electronically signed by Lucas Ocampo MD in OV> 01/31/23 1314 DD/ 1046 TD/TT: Jacquard Loom Carpet Weaver: BUCK [facility] External Provider IMG BI PROCEDURES Edited Result - Final * THINPREP PAP (06/18/2020 2:37 PM EDT) Clinical Information: [facility] Comment:None given COMMENT [facility] Comment: EXPLANATORY NOTE: ? The Pap is a screening test for cervical cancer. It is ?? not a diagnostic test and is subject to false negative ?? and false positive results. It is most reliable when a ?? satisfactory sample, regularly obtained, is submitted ?? with relevant clinical findings and history, and when ?? the Pap result is evaluated along with historic and ?? current clinical information. ?? [employer]: [facility] Comment: JXM, CT(ASCP) CT screening location: [address] ??[address] Interpretation/Resu lt: [facility] Comment:Negative for intraep ithelial lesion or malignancy. LMP: [facility] Comment:05/28/20 Prev. BX: NONE [facility] Prev. PAP: [facility] Comment:NONE GIVEN SOURCE: [facility] Comment:None given Statement Of Adequacy: [facility] Comment: Satisfactory for evaluation. Endocervical/transformation zone component present. 06/18/2020 2:37 PM EDT Tamar BERMUDEZ LAB PATHOLOGY ORDERABLES Final Result [facility] [address] * HPV mRNA E6/E7 (06/18/2020 2:37 PM EDT) HPV nRNA E6/E7 Not Detected Not Detected [facility] Comment: This test was performed using the APTIMA HPV Assay ([employer] ?? This assay detects E6/E7 viral messenger RNA (mRNA) from 14 high-risk HPV types (16,18,31,33,35,39,45,51,52,56,58,59,66,68). ?? The analytical performance characteristics of this assay have been determined by [employer]. The modifications have not been cleared or approved by the FDA. This assay has been validated pursuant to the CLIA regulations and is used for clinical purposes. 06/18/2020 2:37 PM EDT us Tamar BERMUDEZ LAB BLOOD ORDERABLES Gin pierson Result [facility] [address] from Last 3 Months or Most Recently Relevant to Health Maintenance Insurance [facility] C3 HSN FULL Care Teams Director Of Strategic Communications Relationship Specialty Start Date End Date Name, MD Amol [address] [place] [phone] PCP - General Family Medicine 07/06/17
== END 2024-12-11 11:10 | disposition home or self-care (01) ==
PROVIDERS: PCP Internal Medicine Geriatric Medicine; Visit Provider Physician Assistant Surgical
DX: I83.11 Varicose veins of right lower extremity with inflammation (principal); I83.12 Varicose veins of left lower extremity with inflammation
CPT/HCPCS: 99204

== ENCOUNTER → 2024-12-11 10:31 | Outpatient (BNVA) | payer MEDICAID, SELFPAY | PROVIDERS: PCP Internal Medicine Geriatric Medicine; Visit Provider Physician Assistant Surgical | DX: I83.11 Varicose veins of right lower extremity with inflammation (principal); I83.12 Varicose veins of left lower extremity with inflammation | CPT/HCPCS: 99212 ==

== ENCOUNTER → 2024-12-25 08:34 | Outpatient (BNV) | payer MEDICAID, SELFPAY | PROVIDERS: PCP Internal Medicine Geriatric Medicine; Visit Provider Radiology Diagnostic Radiology | DX: I83.11 Varicose veins of right lower extremity with inflammation (principal); I83.12 Varicose veins of left lower extremity with inflammation | CPT/HCPCS: 93970 ==

== ENCOUNTER 2025-01-08 11:12 | Outpatient (AMB) | payer MEDICAID, SELFPAY ==
--- NOTE | 2025-01-08 11:18 | A.OFFVIS_ITS ---
Intake Visit Reasons: follow up s/p US 12/25/24 Intake Note: Patient presents for follow up US . She states both legs are swollen . Accompanied by: Self / Same As Patient Allergies aspirin [ASPIRIN] Allergy (Unknown, Verified 01/08/25 11:19) UNKNOWN, anaphylaxis latex Allergy (Unknown, Verified 01/08/25 11:19) Anaphylaxis, Rash Latex, Natural Rubber [LATEX, NATURAL RUBBER] Allergy (Unknown, Verified 01/08/25 11:19) HIVES naproxen [From NAPROSYN] Allergy (Unknown, Verified 01/08/25 11:19) UNKNOWN, anaphylaxis HPI HPI follow up s/p US 12/25/24: Details: Very pleasant 49-year-old female presents for a re-evaluation regarding swollen lower extremities. She had actually been seen and treated for venous disease in the past proximally 10 years ago at [facility] where it appears that she had bilateral lower extremity ablation is. She continues to have significantly swollen lower extremities. She has even had a trial of Lasix with no signifi cant improvement. 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 She actually provided at the time of visit a picture of her lower extremities which was quite impressive of the amount of edema that she develops at the end of the day in her legs. She now presents to us for follow-up. [facility] Medical History Severe persistent allergic asthma Asthma Hypothyroidism Morbid obesity Surgical History History of facial surgery H/O thyroidectomy Family History Mother Diabetes Social History Household Members: Significant Other and Children Housing: House Alcohol intake: never Patient Tobacco Use Status: Never used Tobacco service: No Current occupational status: employed Current occupation: rt handed Review of Systems Const Reports as per HPI ENT Reports no additional complaints Card Denies chest pain, Denies chest pain at rest and Denies chest pain with activity Resp Denies chest congestion and Denies cough GI Reports no additional complaints Musc Details: pain over varicosities, aching of lower extremities, swelling, cramping, heaviness and tiredness, itching Denies abnormal gait Skin/Breast Reports pruritus and Denies wounds Neuro Reports no additional complaints and Denies abnormal gait Psych Denies no additional complaints Physical Exam Const General: cooperative, healthy appearing and comfortable Orientation/consciousness: oriented to person, oriented to place and oriented to time Neck Carotids: no bruits Chest Chest palpation & inspection: normal inspection of the chest and normal palpation of entire chest wall Resp Effort & Inspection: normal respiratory effort and able to speak in complete sentences Cardio Rate: regular rate Heart sounds: S1 normal heart sound present and S2 normal heart sound present Peripheral pulses: Peripheral pulses 2+ throughout GI Inspection: Yes normal to inspection Skin Other: +2 edema, CEAP Classification C4 - skin color changes Ep - Etiology Primary As - superficial veins P - reflux General skin exam: dry skin Neuro General: oriented to person, oriented to place and oriented to time Extrem Other: Right in cm: Thigh 56 Knee 50 Calf 49.5 Ankle 26 Left in cm: Thigh 63 Knee 49.5 Calf 46 Ankle 28 Right lower extremity: full ROM, normal capillary refill and edema Left lower extremity: full ROM, normal capillary refill and edema Psych Mental Status: mental status grossly normal Results Reviewed Results Reviewed: Brief summary of venous insufficiency testing is as follows: right great saphenous vein: negative right small saphenous vein: negative right accessory vein: none present left great saphenous vein: negative left small saphenous vein: negative left accessory vein: none present Please note there is no evidence of any venous aneurysms or significant tortuosity Assessment & Plan Assessment & Plan (1) Varicose veins of both lower extremities with inflammation: Code(s): I83.11 - Varicose veins of right lower extremity with inflammation; I83.12 - Varicose veins of left lower extremity with inflammation Category: Medical Plan: Patient is negative for any significant venous insufficiency. We will treat for lymphedema. (2) Lymphedema: Code(s): I89.0 - Lymphedema, not elsewhere classified Category: Medical Plan: In short the patient has late on sent lymphedema. The patient has been on conservative treatment for at least 3 months with minimal relief. Patient has tried 30 mm of mercury compression garments, elevation, exercise healthy diet and doing manual says self MLD to the best of their ability for over 4 weeks but with no significant relief. She has been compliant with the program but has provided minimal relief. In addition on physical we are noticing h yperpigmentation, lymphorrhea, and hyperplasia. It appears that she has stage 2 lymphedema. Patient has completed multiple forms of conservative therapy yet significant symptoms remain. Patient requires the use of a pneumatic compression device which we will assist in trying to have the patient obtain them. A pneumatic compression device will help reduce swelling and other lymphedema comorbidities. Thank you for allowing us to assist in this patient's care. Coding Level of Care Code Est Pt Level 4 (52184) Complex EM visit Add On G2211 Diagnoses Varicose veins of both lower extremities with inflammation I83.11; I83.12 Lymphedema I89.0
--- OUTSIDE RECORDS SUMMARY | 2025-01-08 12:26 | XMS_ITS | Continuity of Care Document ---
Author Organization [place] - [facility], [facility] Address [address] [place] [id number] Care Team Providers Care Business Account Leader Name Role Phone NAME, YANIRA Primary Care Provider Assessment No assessment recorded. Plan of Treatment Reminders Order Date Submit Date Provider Last Modified By Organization Details Last Modified Time Details Appointments Establish ed 30 2024 01:00P M ADDY Abdi MD Not available Not available Not available Lab None recorded. Referral None recorded. Procedures None recorded. Surgeries None recorded. Imaging None recorded. Medication Orders fluticaso ne propionat e 50 mcg/actua tion nasal spray,milka pension 2024 025 [facility] #[id number], [address] [place], [address], 01/01/2025 15:18:22 Patient TargetsNo targets recorded. Patient InstructionsNo instructions recorded. Reason for Referral None Reported. Problems Name Problem SNOMED Code Status Onset Date Resolution Date Notes Provider Name and Address Organization Details Recorded Time Headache 46691543 Active 2017 Facial pain NOS; Note: Date Diagnosed: 07/26/2018 11:01 AM (R51) Not Available [facility] 4 02:30:49 Uncomplic ated severe persisten t asthma 440437147 Active 2017 Severe persistent asthma, uncomplica sarah; Note: Date Diagnosed: 06/26/2018 1:04 PM (J45.50) Not Available [facility] 4 02:30:43 Recurrent acute sinusitis 969199251 Active 2017 Other acute recurrent sinusitis; Note: Date Diagnosed: 07/26/2018 10:56 AM (J01.81) Not Available [facility] 4 02:30:42 Nasal congestio n 27905029 Active 2017 Nasal congestion ; Note: Date Diagnosed: 06/26/2018 1:04 PM (R09.81) Not Available [facility] 4 02:30:57 Chronic pansinusi tis 61493675 Active 2024 ADDY ANDRADE MD [address] [place] [address], [place], [address] , [facility] - [facility] 5 15:16:18 Polyp of nasal cavity 556644699 Active 2024 ADDY ANDRADE MD [address] [place] [address], [facility] [place], [address] , [facility] [place] 5 15:16:21 Problem Notes None recorded. Procedures Surgical History Date Name Laterality Status Provider Name and Address Organization Details Recorded Time 5 NasalEndoscop y_DP completed ADDY ANDRADE MD [address] [place] [address],[place] [address], [place], [address], [facility] [place] 01/01/2025 15:15:51 Thyroid Surgery completed Estefani Coello [facility] 10/12/2024 10:31:27 excision of varicose vein completed Estefani Coello [facility] 10/12/2024 10:31:35 Imaging Results None recorded. Procedure Notes None recorded. Medical Equipment None Reported. Allergies Allergen ID Allergen Name Allergen Category Reaction Reaction Severity Criticality Documentation Date Start Date Code Code System Note Provider Name and Address Organization Details Recorded Time 50005 Latex (substanc e) environme nt,medica tion other Not available Not available 04/03/2024 05875 8007 SNOMED React ion: unkno wn, unspe cifie d;; Not Available [facility] 4 00:59:03 22625 aspirin medicatio n other Not available Not available 04/03/2024 1191 RxNorm React ion: unkno wn, unspe cifie d;; Not Available [facility] 4 00:59:05 75794 naproxen medicatio n other Not available Not available 04/03/2024 7258 RxNorm React ion: unkno wn, unspe cifie d;; Not Available [facility] 00:59:09 Medications Name Sig Start Date Stop [...] mg capsule 10/12 completed Medicati on ID: [id number] P rescribe d By Name: Addy dangelo [...] by mouth 10/12 completed Medicati on ID: [id number] D uration Value: 30 Prescri bed By [...] SPRAYS IN EACH NOSTRIL ONCE A DAY 2024 active Not Available Not Available Not Avai [...] Not Available Not Available Not Available Vitals Date Recorded Body height Provider Name an d Address Organization Details Last Updated DateTime 01/01/2025 157.48 cm Bryant Wallace [place] - [facility] 01/01/2025 14:35:48 Social History None recorded. Functional Status None recorded. Mental Status None recorded. Family History Nothing Reported. Medical History Condition Response Thyroid Problems Y Asthma Y Gynecological HistoryNo gynecological history recorded. Obstetrics History GPAL:G 0 P 0 0 0 0 Past Encounters Encounter ID Performer Location Encounter Start Date Encounter Closed Date Diagnosis/Indication Diagnosis SNOMED-CT Code Diagnosis ICD10 Code Diagnosis Note [id number] ADDY ANDRADE MD [facility] [address] [phone] 01/01/2025 14:11:28 01/01/2025 15:13:46 Nasal congestion 11751622 R09.81 see below Uncomplica sarah severe persistent asthma 171487834 J45.50 If her asthma becomes poorly controlled I would be more in favor of revision FESS. Chronic pansinusitis 888 90407 J32.4 Polyps are moderate on nasal endo. Last CT showed mild pansinusit is. I recommend observatio n at this point and the daily use of flonase. We will recheck in 6 months. If her asthma becomes poorly controlled I would be more in favor of revision FESS. Polyp of nasal cavity 73 4722431 J33.0 see above Health Concerns Section Related Observation LastModified by Organization Detai ls LastModified Time None Recorded Concern Status LastModified by Organization Details LastModified Time None Recorded Payers Encounter Date Sequence Insurance Name Policy Number Policy Gan Covered Member ID Gan Member ID Guarantor Name 01/01/2025 1 [facility] [employer] - DIRECT [facility] TYPE I (HMO) [id number] Denisetrent Saunders [id number] Denise Saunders Notes Date Note Type Note Provider Name and Address Organization Details Recorded Time 01/01/2025 text/html 49-year-old fema rafa with history of FESS 07/2018 including bilateral maxillary antrostomy and ethmoidectomy and polyp removal. She continues to have congestion. Sinus CT 09/2024 showed mild pansinusitis mostly involving the bilateral frontal, ethmoid and sphenoid sinuses (frontal and sphenoid sinusitis was worse on the left). She denies facial pain in the frontal area. Has mild maxillary pain. She has asthma. She was hospitalized for asthma in the beginning of September. ADDY ANDRADE MD [address] [place] [address], [phone], [facility] - [facility] 01/01/2025 15:18:20 OBGyn Episode No OBEpisode recorded.
--- OUTSIDE RECORDS SUMMARY | 2025-01-08 12:26 | XMS_ITS | Encounter Summary ---
Author Organization [employer] [facility] Address [address] [place] [address] [address] [place] [address] Care Team Providers Care Assistant Purchasing Manager Name Role Phone Name, Amol CARY Primary Care Provider [phone] Encounter Details Date Type Department Care Team (Latest Contact Info) Description 07/28/2022 Abstract [facility] CONVERSIONS Dental, Provider, DDS Social History [...] Description 01/25/2025 10:30 AM EST Office Visit [facility] [address] [place] [address] NameAmol MD [address] [place] [address] documented as of this encounter Visit Diagnoses Not on filedocumented in this encounter Care Teams Assistant Purchasing Manager Relationship Specialty Start Date End Date Amol Titus MD [address] [place] [address] PCP - General Family Medicine 07/06/17 documented as of this encounter
--- OUTSIDE RECORDS SUMMARY | 2025-01-08 12:26 | XMS_ITS | Encounter Summary ---
Author Organization [employer] Address [address] [facility] [address] [place] [address] Care Team Providers Care Baggage Smasher Name Role Phone Name, Amol CARY Primary Care Provider [phone] Encounter Details Date Type Department Care Team ([facility] st Contact Info) Description 12/25/2024 Orders Only [facility] External Provider, [facility] Social History Tobacco Use Types Packs/Day Years [...] 10:30 AM EST Office Visit [facility] [address] [facility] [place] [address] Name, MD Amol [address] [place] [address] documented as of this encounter Procedures Procedure Name Priority Date/Time Associated Diagnosis Comments [facility] LOWER EXTREMITY VENOUS INSUFFICIENCY BILATERAL Routine 12/25/2024 9:01 AM EST documented in this encounter Results * [facility] Lower Extremity Venous Insufficiency Bilateral (12/25/2024 9:01 AM EST) 12/25/2024 9:01 AM EST Narrative [facility] IMAGING - 12/25/2024 10:50 AM EST ? [facility] ?[address] ?[place] [address] ? Ultrasound Report ? Signed ? Patient: Chip,Denise ?MR#: [id number] ?? 190 ? : 1975 ?Acct:[id number] ? Age/Sex: 49 / F ?ADM Date: 02/04/25 ? Loc: HO.US ? Attending Dr: Misa MARTIN-C ? Ordering Physician: Misa Salas-C ?? Date of Service: 12/25/24 ?? Procedure(s): US venous insuf bilat ?? Accession Number(s): [id number] ? cc: Misa Salas PA-C; Name,Amol CARY ? EXAMINATION: ?? US LOWER EXTREMITY VENOUS (REFLUX EXAM), BILATERAL ? CLINICAL INFORMATION: ?? Varices with inflammation. ? COMPARISON: ?? Doppler venous ultrasound dated November 23, 2024. ? TECHNIQUE: ?? Color flow triplex imaging and compression Doppler was performed to ?? evaluate both the deep and the superficial systems bilaterally. To ?? evaluate the superficial system, the examination was performed in the ?? upright position. Color-flow Doppler ultrasound and compression ?? ultrasound were utilized. In addition, maneuvers were utilized to ?? demonstrate reflux. ? FINDINGS: ? 1. DEEP VENOUS ULTRASOUND OF THE RIGHT LOWER EXTREMITY: ?? Common Femoral Vein: Compressible, normal respiratory variation and ?? augmented flow. ? Femoral Vein: Compressible, normal color flow and augmentation. ?? Popliteal Vein: Compressible, normal augmentation. ? Deep Reflux: There is no evidence of reflux in the deep system in ?? either the common femoral vein, superficial femoral or the popliteal ?? vein. ? There is no evidence of a Melo's cyst. ? 2. SUPERFICIAL ULTRASOUND WITH DOPPLER OF RIGHT LOWER EXTREMITY: ? GREAT SAPHENOUS VEIN: ?? Saphenofemoral Junction: 0.5 cm; Reflux: 0 ms ?? Proximal Thigh: Status post ablation procedure. ?? Mid Thigh: Status post ablation procedure . ?? Distal Thigh: 0.2 cm; Reflux: 792 ms ?? At Knee: 0.2 cm; Reflux: 0 ms ?? Proximal Calf: 0.3 cm; Reflux: 0 ms ?? Mid Calf: 0.1 cm; Reflux: 1012 ms ?? Distal Calf: 0.2 cm; Reflux: 0 ms ? DUPLICATED MEDIAL GREAT SAPHENOUS VEIN: ?? Diameter: None imaged ?? Reflux: NA ? DUPLICATED LATERAL GREAT SAPHENOUS VEIN: ?? Diameter: 0.2 cm. ?? Reflux: NA ? SMALL SAPHENOUS VEIN: ?? Saphenopopliteal Junction: 0.2 cm; Reflux: 0 ms ?? Proximal: 0.2 cm; Reflux: 1632 ms ?? Distal: 0.1 cm; Reflux: 0 ms ? VEIN OF GIACOMINI: ?? Size: NA ?? Reflux: NA ? PERFORATORS: ?? Location: Proximal distal calf. ?? Size: 0.2 cm. ?? Reflux: NA ? VARICOSITIES: ?? Location: None imaged. ?? Size: NA ?? Reflux: NA ? 3. DEEP VENOUS ULTRASOUND OF THE LEFT LOWER EXTREMITY: ?? Common Femoral Vein: Compressible, normal respiratory variation and ?? augmented flow. ? Femoral Vein: Compressible, normal color flow and augmentation. ?? Popliteal Vein: Compressible, normal augmentation. ? Deep Reflux: There is no evidence of reflux in the deep system in ?? either the common femoral vein, superficial femoral or the popliteal ?? vein. ? There is no evidence of a Melo's cyst. ? 4. SUPERFICIAL ULTRASOUND WITH DOPPLER OF LEFT LOWER EXTREMITY: ? GREAT SAPHENOUS VEIN: ?? Saphenofemoral Junction: 0.4 cm; Reflux: 0 ms ?? Proximal Thigh: Status post ablation procedure. ?? Mid Thigh: Status post ablation procedure. ?? Distal Thigh: Status post ablation procedure. ?? At Knee: Status post ablation procedure. ?? Proximal Calf: Status post ablation procedure. ?? Mid Calf: Status post ablation procedure. ?? Distal Calf: 0.2 cm; Reflux: 0 ms ? DUPLICATED MEDIAL GREAT SAPHENOUS VEIN: ?? Diameter: None imaged ?? Reflux: NA ? DUPLICATED LATERAL GREAT SAPHENOUS VEIN: ?? Diameter: None imaged. ?? Reflux: NA ? SMALL SAPHENOUS VEIN: ?? Saphenopopliteal Junction: 0.2 cm; Reflux: 0 ms ?? Proximal: 0.1 cm; Reflux: 0 ms ?? Distal: 0.1 cm; Reflux: 0 ms ? VEIN OF GIACOMINI: ?? Size: NA ?? Reflux: NA ? PERFORATORS: ?? Location: Proximal thigh, proximal calf. ?? Size: Range: 0.1-0.3 cm. ?? Reflux: NA ? VARICOSITIES: ?? Location: At the knee. ?? Size: 0.3 cm. ?? Reflux: No more than 2948 ms. ? US/US venous insuf bilat ?? IMPRESSION: ?? Right: Venous insufficiency, great saphenous vein above the and ?? midcalf. Venous insufficiency small saphenous vein and midcalf. ? Perforators in the calf without reflux. ? Left: No venous insufficiency. ?? Varices at the knee with reflux. ?? Perforators in the proximal thigh and calf without reflux. ? Electronically signed by: ??Dayne Oneil MD ??12/25/2024 10:47 AM ?? EST RP ? Dictated By: ?Dayne Spencer MD ? Signed By: ?<Electronically signed by Dayne Alonzo MD in OV> ? 12/25/241046 ? DD/ 0901 ? TD/TT: 12/25/24 0942 ? [employer]: ? Procedure Note Donotuseinterpreter, Image - 12/25/2024 [place] [address] Ultrasound Report Signed Patient: Jesus Saunders#: [id number] 190 : 1975Acct:[id number] Age/Sex: 49 / FADM Date: 12/25/24 Loc: .US Attending Dr: Misa Salas PA-C Ordering Physician: Misa Salas PA-C Date of Service: 12/25/24 Procedure(s): US venous insuf bilat Accession Number(s): [id number] cc: Misa Salas PA-C; Name,Amol CARY EXAMINATION: US LOWER EXTREMITY VENOUS (REFLUX EXAM), BILATERAL CLINICAL INFORMATION: Varices with inflammation. COMPARISON: Doppler venous ultrasound dated November 23, 2024. TECHNIQUE: Color flow triplex imaging and compression Doppler was performed to evaluate both the deep and the superficial systems bilaterally. To evaluate the superficial system, the examination was performed in the upright position. Color-flow Doppler ultrasound and compression ultrasound were utilized. In addition, maneuvers were utilized to demonstrate reflux. FINDINGS: 1. DEEP VENOUS ULTRASOUND OF THE RIGHT LOWER EXTREMITY: Common Femoral Vein: Compressible, normal respiratory variation and augmented flow. Femoral Vein: Compressible, normal color flow and augmentation. Popliteal Vein: Compressible, normal augmentation. Deep Reflux: There is no evidence of reflux in the deep system in either the common femoral vein, superficial femoral or the popliteal vein. There is no evidence of a Melo's cyst. 2. SUPERFICIAL ULTRASOUND WITH DOPPLER OF RIGHT LOWER EXTREMITY: GREAT SAPHENOUS VEIN: Saphenofemoral Junction: 0.5 cm; Reflux: 0 ms Proximal Thigh: Status post ablation procedure. Mid Thigh: Status post ablation procedure . Distal Thigh: 0.2 cm; Reflux: 792 ms At Knee: 0.2 cm; Reflux: 0 ms Proximal Calf: 0.3 cm; Reflux: 0 ms Mid Calf: 0.1 cm; Reflux: 1012 ms Distal Calf: 0.2 cm; Reflux: 0 ms DUPLICATED MEDIAL GREAT SAPHENOUS VEIN: Diameter: None imaged Reflux: NA DUPLICATED LATERAL GREAT SAPHENOUS VEIN: Diameter: 0.2 cm. Reflux: NA SMALL SAPHENOUS VEIN: Saphenopopliteal Junction: 0.2 cm; Reflux: 0 ms Proximal: 0.2 cm; Reflux: 1632 ms Distal: 0.1 cm; Reflux: 0 ms VEIN OF GIACOMINI: Size: NA Reflux: NA PERFORATORS: Location: Proximal distal calf. Size: 0.2 cm. Reflux: NA VARICOSITIES: Location: None imaged. Size: NA Reflux: NA 3. DEEP VENOUS ULTRASOUND OF THE LEFT LOWER EXTREMITY: Common Femoral Vein: Compressible, normal respiratory variation and augmented flow. Femoral Vein: Compressible, normal color flow and augmentation. Popliteal Vein: Compressible, normal augmentation. Deep Reflux: There is no evidence of reflux in the deep system in either the common femoral vein, superficial femoral or the popliteal vein. There is no evidence of a Melo's cyst. 4. SUPERFICIAL ULTRASOUND WITH DOPPLER OF LEFT LOWER EXTREMITY: GREAT SAPHENOUS VEIN: Saphenofemoral Junction: 0.4 cm; Reflux: 0 ms Proximal Thigh: Status post ablation procedure. Mid Thigh: Status post ablation procedure. Distal Thigh: Status post ablation procedure. At Knee: Status post ablation procedure. Proximal Calf: Status post ablation procedure. Mid Calf: Status post ablation procedure. Distal Calf: 0.2 cm; Reflux: 0 ms DUPLICATED MEDIAL GREAT SAPHENOUS VEIN: Diameter: None imaged Reflux: NA DUPLICATED LATERAL GREAT SAPHENOUS VEIN: Diameter: None imaged. Reflux: NA SMALL SAPHENOUS VEIN: Saphenopopliteal Junction: 0.2 cm; Reflux: 0 ms Proximal: 0.1 cm; Reflux: 0 ms Distal: 0.1 cm; Reflux: 0 ms VEIN OF GIACOMINI: Size: NA Reflux: NA PERFORATORS: Location: Proximal thigh, proximal calf. Size: Range: 0.1-0.3 cm. Reflux: NA VARICOSITIES: Location: At the knee. Size: 0.3 cm. Reflux: No more than 2948 ms. US/US venous insuf bilat IMPRESSION: Right: Venous insufficiency, great saphenous vein above the and midcalf. Venous insufficiency small saphenous vein and midcalf. Perforators in the calf without reflux. Left: No venous insufficiency. Varices at the knee with reflux. Perforators in the proximal thigh and calf without reflux. Electronically signed by: Dayne Oneil MD 12/25/2024 10:47 AM EST RP Dictated By: Dayne Spencer MD Signed By: <Electronically signed by Dayne Alonzo MDin OV> 12/25/24 1047 DD/ 09 TD/TT: 12/25/24 09 [employer]: [facility] External Provider CV VASC ULAR PROCEDURES Final Result Performing Organization Address City/State/[facility] Co de Phone Number [facility] IMAGING [address] [place] [phone] documented in this encounter Visit Diagnoses Not on filedocumented in this encounter Additional Health Concerns Assessment Noted Time PHQ-9 Depression Total Score: 0 12/26/19 24 10:28 AM EST documented as of this encounter Care Teams Baggage Smasher Relationship Specialty Start Date End Date Name, MD Amol [address] [place] [address] PCP - General Family Medicine 07/06/17 documented as of this encounter
--- OUTSIDE RECORDS SUMMARY | 2025-01-08 12:26 | XMS_ITS | Clinical Summary ---
Author Organization [employer] Address [address] [facility] 7t [place] [address] Care Team Providers Care Compressor House Operator Name Role Phone Name, Amol CARY Primary Care Provider [phone] Allergies Active Allergy Reactions Criticality Noted Date [...] mouth before breakfast. 30 tablet 11 4 Active Budeson-Glycopyr rol-Formoterol (Breztri Aerosphere) 160-9-4.8 MCG/ACT [...] day. 7 tablet 5 11/23/19 26 Active predniSONE (Deltasone) 20 MG tablet Take 2 tablets (40 mg) by mouth Once per day for 5 days. 10 tablet 5 12/16/19 25 Active Problems Problem Noted Date Diagnosed [...] vascular Viral upper respiratory tract infection 11/23/19 Assessment & Plan (11/26/2024 12:22 PM EST): [...] Encounters Date Type Department Care Team Description 12/25/2024 Orders Only [facility] External Provider, [facility] 12/11/2024 11:00 AM EST Office Visit [facility] [address] [place] [address] NameAmol MD Uncomplicated severe persistent asthma (Primary Dx); Venous insufficiency; Prediabetes 12/03/2024 Telephone [facility] [address] [place], [place] [phone] NameAmol MD FMNC (I called the patient regarding an application for FMLA. She stated that she was hospitalized at the [facility], from 09/29/24 to 10/06/24 for asthma. She has been out of work since that time, because she is still not feeling well enough to return to work. She stated that she will be having polyps removed from her sinuses in December, and she will bring a different application to her surgeon at that time.) 12/03/[address] [address] Rhea Whitmore [place] chart prep 11/26/2024 Telephone [facility] [address] [address] Saloni Horta MD 11/23/2024 3:20 PM EST Office Visit [facility] [address] [address] Saloni Horta MD Bilateral leg edema (Primary Dx); Viral URI; Viral upper respiratory tract infection; Elevated blood pressure reading 11/23/[address] [address] Rhea Whitmore [place] Feb recalls 10/24/2024 9:45 AM EST Office Visit [address] [address] Faye Rivera MD Hospital discharge follow-up (Primary Dx); Severe persistent asthma without complication; Dermatitis 10/23/[address] [address] Brayden Tirado [place] chart prep 10/08/2024 Patient Outreach [address] [address] Amol Titus MD Transition Of Care (Tcm) (HDF scheduled) 10/08/[address] [address] Amol Titus MD Hospital Follow-up from Last 3 Months Immunizations Name Administration [...] Description 01/25/2025 10:30 AM EST Office Visit [facility] [address] [place] [address] Name, MD Amol [address] [place] [address] Health Maintenance Due Date Last Done Comments CT Colonography 1973 Colonoscopy 1973 Colorectal Cancer Screening 1973 FIT DNA/Cologuard 1973 FIT 1973 FOBT 1973 HIV Screening 1973 Sigmoidoscopy 1973 Family Planning (PISQ) 1988 Hepatitis C Screening 1991 Pneumococcal Vaccine: 50+ Years (1 of 2 - PCV) 1992 Pap Smear 06/18/2023 06/18/2020 Zoster Vaccines (1 of 2) 2023 COVID-19 Vaccine (3 - season) 2024 08/20/2021, 07/30/2021 Influenza Vaccine (#1) 2024 7, 01/06/2017, 09/29/2015, Additional history exists SDOH Screening 12/19/2024 12/19/2023 Depression Screening 12/26/2024 12/26/2023, 12/26/19 24 Mammogram 01/28/2025 01/28/2023, 01/19, 01/28/2023, Additional history exists Cervical Cancer Screening 06/18/2025 HPV/Cotest 06/18/2025 06/18/2020 Alcohol/Substance Use Screening 07/04/2025 07/04/2024 Diabetes: Hemoglobin A1C 12/11/2025 025, 03/30/2022, 02/05/2022, Additional history exists Tobacco Screening 12/11/2025 12/11/2024 DTaP/Tdap/Td Vaccines (3 - Td or Tdap) [...] Procedure Name Priority Date/Time Associated Diagnosis Comments [facility] LOWER EXTREMITY VENOUS INSUFFICIENCY BILATERAL Routine 12/25/2024 9:01 AM EST POCT GLUCOSE Routine 12/11/2024 11:50 AM EST Prediabetes POCT GLYCATED HEMOGLOBIN, TOTAL Routine 12/11/2024 11:49 AM EST Prediabetes [facility] LOWER EXTREMITY VENOUS DUPLEX BILATERAL STAT 11/24/2024 8:42 AM EST Bilateral leg edema POCT INFLUENZA B (ID NOW RAPID MOLECULAR) Routine 11/23/2024 3:32 PM EST Viral URI POCT INFLUENZA A (ID NOW RAPID MOLECULAR) Routine 11/23/2024 3:32 PM EST Viral URI POCT RAPID COVID ANTIGEN Routine 11/23/2024 3:32 PM EST Viral URI BI MAMMOGRAM SCREENING TOMOSYNTHESIS BILATERAL Routine 01/28/2023 10:46 AM EST HPV MRNA E6/E7 Routine 06/18/2020 2:37 PM EDT THINPREP PAP Routine 06/18/2020 2:37 PM EDT from Last 3 Months or Most Recently Relevant to Health Maintenance Results * VASC US Lower Extremity Venous Insufficiency Bilateral (12/25/2024 9:01 AM EST) 12/25/2024 9:01 AM EST Narrative [facility] - 12/25/2024 10:50 AM EST ? [facility] ?[address] ?[place] [address] ? Ultrasound Report ? Signed ? Patient: Chip,Denise ?MR#: [id number] ?? 190 ? : 1975 ?Acct:[id number] ? Age/Sex: 49 / F ?ADM Date: 12/25/24 ? Loc: HO.US ? Attending Dr: Misa Salas PA-C ? Ordering Physician: Misa Salas PA-C ?? Date of Service: 12/25/24 ?? Procedure(s): US venous insuf bilat ?? Accession Number(s): [id number] ? cc: Misa Salas PA-C; Name,Amol CARY [...] by Dayne Alonzo MD in OV> ? 12/25/24 1047 ? DD/ 0901 ? TD/TT: 12/25/24 0942 ? New Accounts Clerk: ? Procedure Note Susie, Image - 12/25/[address] [address] Ultrasound Report Signed Patient: Jesus Saunders#: [id number] 190 : 1975Acct:[id number] Age/Sex: 49 / FADM Date: 12/25/24 Loc: . Attending Dr: Misa Salas PA-C Ordering Physician: Misa Salas PA-C Date of Service: 12/25/24 Procedure(s): US venous insuf bilat Accession Number(s): [id number] cc: Misa Salas PA-C; Name,Amol CARY EXAMINATION: [...] by: Dayne Oneil MD 12/25/2024 10:47 AM [facility] Dictated By: Dayne Spencer MD Signed By: <Electronically signed by Dayne Alonzo MDin OV> 12/25/24 1047 DD/ 0901 TD/TT: 12/25/24 09 New Accounts Clerk: [facility] External Provider CV VASC ULAR PROCEDURES Final Result [facility] [address] [place] [address] [phone] * POCT Glucose (12/11/2024 11:50 AM EST) Glucose Blood, POC 118 60 - 200 mg/dL QC Media Lot # [id number] Lot# Expiration Date 53 Blood Capillary blood specimen / Unknown 12/11/2024 11:50 AM EST Amol Titus MD POINT OF CARE TEST ENTER/EDIT OR DERABLES Final Result * POCT HGB A1C (12/11/2024 11:49 AM EST) Hemoglobin A1C 6.0 4.0 - 6.0 % QC Media Lot # [id number] Lot# Expiration Date [id number] Blood 12/11/2024 11:4 9 AM EST Amol Titus MD POINT OF CARE TEST ENTER/EDIT OR DERABLES Final Result * Vascular US lower extremity venous duplex bilateral (11/24/2024 8:42 AM EST) 11/24/2024 8:42 AM EST Narrative [facility] - 11/24/2024 8:43 AM EST ? [facility] ?[address] ?[place] [address] ? Ultrasound Report ? Signed ? Patient: Chip,Denise ?MR#: [id number] ?? 190 ? : 1975 ?Acct:[id number] ? Age/Sex: 48 / F ?ADM Date: /03/25 ? Loc: HO.US ? Attending Dr: Saloni Beck MD ? Ordering Physician: Saloni Horta MD ?? Date of Service: 11/23/24 ?? Procedure(s): US venous duplex LE BI ?? Accession Number(s): [id number] ? cc: Saloni Horta MD; Name,Amol CARY [...] MD in OV> ?11/24/24 0843 ? DD/ 1 ? TD/TT: 11/24/[address] ? New Accounts Clerk: ? Procedure Note Susie, Image - 11/24/2024 [place] [address] Ultrasound Report Signed Patient: Denise SaundersMR#: [id number] 190 : 1975Acct:[id number] Age/Sex: 48 / FADM Date: 11/23/24 Loc: HO.US Attending Dr: Saloni Beck MD Ordering Physician: Saloni Horta MD Date of Service: 11/23/24 Procedure(s): US venous duplex LE BI Accession Number(s): [id number] cc: Saloni Horta MD; Name,Amol CARY CLINICAL [...] in OV> 11/24/[address]842 DD/ 1 TD/TT: 11/24/[address]841 New Accounts Clerk: us Saloni Beck MD CV VASCULAR PROCEDURE S Final Result [facility] [address] [place] [phone] * Influenza B (ID NOW Rapid Molecular) (11/23/2024 3:32 PM EST) Influenza B Negative Negative, Indeterminate [facility] Swab 11/23/2024 3:32 PM EST us Saloni Beck MD POINT OF CARE TEST EN TER/EDIT ORDERABLES Final Result Performing Organization Address [facility] Co de Phone Number [facility] [address] [place] [phone] * Influenza A (ID NOW Rapid Molecular) (11/23/2024 3:32 PM EST) [facility] Signature Influenza A Negative Negative, Indeterminate [facility] Swab 11/23/2024 3:32 PM EST us Saloni Beck MD POINT OF CARE TEST EN TER/EDIT ORDERABLES Final Result Performing Organization Address City/[facility]/ZIP Co de Phone Number [facility] [address] [place] [phone] * POCT Rapid COVID Ag (11/23/2024 3:32 PM EST) Rapid COVID Ag Negative [facility] Swab 11/23/2024 3:32 PM EST us Saloni Beck MD POINT OF CARE TEST EN TER/EDIT ORDERABLES Final Result Performing Organization Address City/[facility]/ZIP Co de Phone Number [facility] [address] [place] [phone] * BI Mammogram Screening Tomosynthesis Bilateral (01/28/2023 10:46 AM EST) Anatomical Region Laterality Modality Breast Bilateral Mammography 01/28/2023 10:4 6 AM EST Narrative 01/31/2023 1:16 PM EDT ? [place] [facility] ? [address] ?[place] [address] ? Mammography Report ? Signed ? Patient: Chip,Denise ?MR#: [id number] ?? 190 ? : 1975 ?Acct:[id number] ? Age/Sex: 47 / F ?ADM Date: 01/28/23 ? Loc: HO.MAMMO ? Attending Dr: Amol Name MD ? Ordering Physician: Name,Amol MD ?Results: 1Negative ? Date of Service: 01/28/23 ?Follow Up: 1 Year From Orig ?? inal Mammogram ? Procedure(s): MM tomosynthesis screening BI ?? Accession Number(s): [id number] ? cc: Name,Amol CARY ? EXAMINATION: ?? MM SCREENING DIGITAL [...] MD in OV> ?01/31/23 1314 ? DD/ 1046 ? TD/TT: ? New Accounts Clerk: BUCK ? Procedure Note Susie, Image - 01/31/2023 [facility] [address] [place] [address] Mammography Report Signed Patient: Denise Saunders#: [id number] 190 : 1975Acct:[id number] Age/Sex: 47 / FADM Date: 01/28/23 Loc: HO.MAMMO Attending Dr: Amol Titus MD Ordering Physician: Amol Titus MDResults: 1Negative Date of Service: 01/28/23Follow Up: 1 Year From Orig inal Mammogram Procedure(s): MM tomosynthesis screening BI Accession Number(s): [id number] cc: Amol Titus MD EXAMINATION: MM SCREENING [...] in OV> 01/31/23 1314 DD/ 1046 TD/TT: New Accounts Clerk: BUCK [facility] External Provider IMG BI PROCEDURES Edited Result - Final * THINPREP PAP (06/18/2020 2:37 PM EDT) Clinical Information: SEE COMMENT [facility] Comment:None given COMMENT SEE COMMENT [...] historic and ?? current clinical information. ?? Cargo Station Worker: SEE COMMENT [facility] Comment: JXM, CT(ASCP) CT screening location: [address] ??[address] Interpretation/Resu lt: SEE COMMENT [facility] Comment:Negative for intraep ithelial lesion or malignancy. LMP: [facility] Comment:7/8/20 Prev. BX: NONE GIVEN [facility] Prev. PAP: SEE COMMENT [facility] Comment:NONE GIVEN SOURCE: [facility] Comment:None given Statement Of Adequacy: [facility] Comment: Satisfactory for evaluation. Endocervical/transformation zone component present. 06/18/2020 2:37 PM EDT Tamar Lott [facility]OLOGY ORDERABLES Final Result Performing Organization Address [facility] de Phone Number [facility] [address] * HPV mRNA E6/E7 (06/18/2020 2:37 PM EDT) HPV nRNA E6/E7 Not Detected Not Detected [facility] Comment: This test was performed using the APTIMA HPV Assay ([employer] ?? This assay detects E6/E7 viral messenger RNA (mRNA) from 14 high-risk HPV types (16,18,31,33,35,39,45,51,52,56,58,59,66,68). ?? The analytical performance characteristics of this assay have been determined by [employer]. The modifications have not been cleared or approved by the FDA. This assay has been validated pursuant to the CLIA regulations and is used for clinical purposes. 06/18/2020 2:37 PM EDT Tamar Lott [facility] BLOOD ORDERABLES Gin l Result Performing Organization Address [facility] de Phone Number [facility] [address] from Last 3 Months or Most Recently Relevant to Health Maintenance Insurance [facility] C3 HSN FULL Care Teams Compressor House Operator Relationship Specialty Start Date End Date Name, MD Amol [address] [place] [phone] PCP - General Family Medicine 07/06/17
--- OUTSIDE RECORDS SUMMARY | 2025-01-08 12:26 | XMS_ITS | Encounter Summary ---
Author Organization [employer] Address [address] [facility] 7t [place] [address] Care Team Providers Care Yardage Control Operator Name Role Phone Name, Amol CARY Primary Care Provider [phone] Reason for Visit * Reason Comments Med Refill Encounter Details Date Type Department Care Team ([facility] st Contact Info) Description 07/01/2024 Refill [facility] [address] [place], [place] [phone] Name, MD Amol [address] [place] [address] Severe persistent allergic asthma Social History Tobacco [...] Description 01/25/2025 10:30 AM EST Office Visit [facility] [address] [place] [phone] Name, MD Amol [address] [place] [address] documented as of this encounter Visit Diagnoses Diagnosis Severe persistent allergic asthma documented in this encounter Additional Health Concerns Assessment Noted Time PHQ-9 Depression Total Score: 0 12/26/19 24 10:28 AM EST documented as of this encounter Care Teams Yardage Control Operator Relationship Specialty Start Date End Date NameAmol MD [address] [place] [phone] PCP - General Family Medicine 07/06/17 documented as of this encounter
--- OUTSIDE RECORDS SUMMARY | 2025-01-08 12:27 | XMS_ITS | Encounter Summary ---
Author Organization [employer] Address [address] [place] [facility] [address]t [place] [address] Care Team Providers Care Ditching Machine Engineer Name Role Phone Name, Amol CARY Primary Care Provider [phone] Reason for Visit * Reason Comments Follow-up Encounter Details Date Type Department Care Team (Latest Contact Info) Description 12/11/2024 11:00 AM EST Office Visit [facility] [address] [place], [place] [phone] Name, MD Amol [address] [place] [address] Uncomplicated severe persistent asthma (Primary Dx); Venous insufficiency; Prediabetes Social History Tobacco Use Types Packs/Day [...] 11:47 AM EST documented in this encounter Progress Notes * Amol Titus MD - 12/11/2024 11:00 AM EST Subjective Patient ID: Denise Saunders is a 48 y.o. female who presents for Follow-up. Patient comes for a follow-up visit. She tells me her asthma has been well- controlled since she started on Breztri Aerosphere inhaler by an wardrobe specialist. Last hospitalization for asthma was in September of last year. She has severe allergic asthma. She felt the best when she was using biologicals but unfortunately she had side effects to the Fasenra (body aches). She also tried Xolair in thepast with limited success. She is now awaiting an appointment with a new health science specialist for athird opinion. She has seen health science specialist at [facility] so far. Review of Systems Constitutional: Negative for chills and fever. HENT: Negative for sore throat. Respiratory: Negative for cough, shortness of breath and wheezing. Cardiovascular: Positive for leg swelling. Negative for chest pain and palpitations. She has leg swelling secondary to venous insufficiency. She was seen by vascular surgery earlier today. She was scheduled to have ultrasound and recommended to use compression stockings. Gastrointestinal: Negative for abdominal pain. Visit Vitals BP 140/82 (BP Location: Right arm, Patient Position: Sitting, BP Cuff Size: Large adult) Pulse 88 Temp 96.8 ??F (36 ??C) (Temporal) Resp 16 Ht 5' 2 (1.575 m) Wt 215 lb 6.4 oz (97.7 kg) BMI 39.40 kg/m?? Smoking Status Never BSA 2.07 m?? Objective Physical Exam Constitutional: Appearance: Normal appearance. Cardiovascular: Rate and Rhythm: Normal rate and regular rhythm. Heart sounds: No murmur heard. No gallop. Pulmonary: Effort: Pulmonary effort is normal. No respiratory distress. Breath sounds: Normal breath sounds. No wheezing. Musculoskeletal: Right lower leg: Edema present. Left lower leg: Edema present. Comments: 2+ pretibial edema with skin discoloration of venous insufficiency. Neurological: Mental Status: She is alert. Assessment/Plan Diagnoses and all orders for this visit: Uncomplicated severe persistent asthma Comments: Continue current inhalers. Keep upcoming appointment with health science specialist. I prescribed prednisone to have at home in case she has an exacerbation. Venous insufficiency Comments: I recommended to follow with vascular surgery recommendations. I recommend to use compression stockings, leg elevation, keep appointment for ultrasound Prediabetes Comments: Blood sugar and A1c are normal. We discussed importance of avoiding sweets, exercise, weight loss. Orders: - POCT HGB A1C - POCT Glucose Other orders - predniSONE (Deltasone) 20 MG tablet; Take 2 tablets (40 mg) by mouth Once per day for 5 days. documented in this encounter Plan of Treatment Upcoming Encounters Date Type Department Care Team (Late st Contact Info) Description 01/25/2025 10:30 AM EST Office Visit [facility] [address] [place] [phone] Name, MD Amol [address] [place] [address] documented as of this encounter Procedures Procedure Name Priority Date/Time Associated Diagnosis Comments POCT GLUCOSE Routine 12/11/2024 11:50 AM EST Prediabetes POCT GLYCATED HEMOGLOBIN, TOTAL Routine 12/11/2024 11:49 AM EST Prediabetes documented in this encounter Results * POCT Glucose (12/11/2024 11:50 AM EST) Glucose Blood, POC 118 60 - 200 mg/dL QC Media Lot # [id number] Lot# Expiration Date Blood Capillary blood specimen / Unknown 12/11/2024 11:50 AM EST us Amol Titus MD POINT OF CARE TEST ENTER/EDIT OR DERABLES Final Result * POCT HGB A1C (12/11/2024 11:49 AM EST) Hemoglobin A1C 6.0 4.0 - 6.0 % QC Media Lot # [id number] Lot# Expiration Date [id number] Blood 12/11/2024 11:4 9 AM EST us Amol Titus MD POINT OF CARE TEST ENTER/EDIT OR DERABLES Final Result documented in this encounter Visit Diagnoses Diagnosis Uncomplicated severe persistent asthma- Primary Venous insufficiency Unspecified venous (peripheral) insufficiency Prediabetes Other abnormal glucose documented in this encounter Additional Health Concerns Assessment Noted Time PHQ-9 Depression Total Score: 0 12/26/19 24 10:28 AM EST documented as of this encounter Care Teams Ditching Machine Engineer Relationship Specialty Start Date End Date NameAmol MD [facility] [place] [address] PCP - General Family Medicine 07/06/17 documented as of this encounter"
== END 2025-01-08 11:39 | disposition home or self-care (01) ==
PROVIDERS: PCP Internal Medicine Geriatric Medicine; Visit Provider Surgery Vascular Surgery
DX: I83.11 Varicose veins of right lower extremity with inflammation (principal); I83.12 Varicose veins of left lower extremity with inflammation; I89.0 Lymphedema, not elsewhere classified
CPT/HCPCS: 99214

== ENCOUNTER → 2025-01-08 11:12 | Outpatient (BNVA) | payer MEDICAID, SELFPAY | PROVIDERS: PCP Internal Medicine Geriatric Medicine; Visit Provider Surgery Vascular Surgery | DX: I83.11 Varicose veins of right lower extremity with inflammation (principal); I83.12 Varicose veins of left lower extremity with inflammation | CPT/HCPCS: 99212 ==

== ENCOUNTER 2025-01-30 13:01 | Outpatient (AMB) | payer MEDICAID, SELFPAY ==
--- NOTE | 2025-01-30 13:07 | MHC.OFFVIS ---
Vital Signs 01/30/25 13:09 Height 5 ft 2 in Intake Visit Reasons: Lymphedema clinic Intake Note: bilateral LE swelling starting about 10 yrs. Has tried compression stockings. Accompanied by: Self / Same As Patient Allergies aspirin [ASPIRIN] Allergy (Unknown, Verified 01/30/25 13:10) UNKNOWN, anaphylaxis latex Allergy (Unknown, Verified 01/30/25 13:10) Anaphylaxis, Rash Latex, Natural Rubber [LATEX, NATURAL RUBBER] Allergy (Unknown, Verified 01/30/25 13:10) HIVES naproxen [From NAPROSYN] Allergy (Unknown, Verified 01/30/25 13:10) UNKNOWN, anaphylaxis HPI HPI Lymphedema clinic: Details: Denise is presenting today for our lymphedema clinic. She continues with bilateral lower extremity swelling with pain and discomfort. She has had more than 3 months of compression stockings, elevation, and physical activity. She does have a history of bilateral lower extremity ablation and has trialed Lasix with little relief. She states the swelling and pain is equal in both legs. 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 Review of Systems Const Reports as per HPI and Denies weakness ENT Reports Normal hearing present and Denies dizziness Card Reports as per HPI, Denies chest pain, Denies chest pain at rest, Denies chest pain with activity, Denies dyspnea and Denies dyspnea on exertion Resp Reports as per HPI, Denies cough, Denies dyspnea and Denies dyspnea on exertion GI Reports as per HPI, Denies abdominal pain, Denies nausea and Denies vomiting Musc Denies numbness Skin/Breast Reports as per HPI, Denies erythema and Denies wounds Neuro Reports Normal hearing present, Denies dizziness, Denies numbness, Denies Sensory deficit (Neuro) and Denies weakness Psych Reports no additional complaints Endo Reports no additional complaints Physical Exam Const General: healthy appearing and no acute distress Orientation/consciousness: patient oriented x3 HEENT Head: Yes normal to inspection Ears: hearing grossly normal bilaterally Mouth: Normal oral and palatal mucosa present Resp Effort & Inspection: normal respiratory effort and able to speak in complete sentences Auscultation: clear to auscultation bilaterally Cardio Jugular venous distension: no JVD Rate: regular rate Rhythm: regular rhythm Heart sounds: S1 normal heart sound present and S2 normal heart sound present Bruits: no abdominal aortic bruits, no carotid bruits, no femoral bruits and no renal bruits Peripheral pulses: Peripheral pulses 2+ throughout GI Inspection: Yes normal to inspection Palpation (GI): No Abdominal aortic bruit present Skin General skin exam: no rashes or lesions noted Wounds: no wounds Hair: normal Neuro General: patient oriented x3 Cranial nerves: Yes Normal hearing present Cognition (Neuro): normal cognition Gait exam (Neuro): Normal gait present Motor exam (neuro): 5/5 motor strength present throughout Sensory Exam: No Sensory deficit (Neuro) Extrem Other: Bilateral lower extremities: +2 nonpitting edema noted. Discoloration noted around the ankles. No varicosities noted. General: Yes normal to inspection, Yes full ROM, Yes capillary refill normal and Yes normal gait Assessment & Plan Assessment & Plan (1) Lymphedema: Code(s): I89.0 - Lymphedema, not elsewhere classified Category: Medical Plan: Denise is presenting today to be fitted for lymphedema pumps. They has had more than 3 months, starting on 11/10/24, of conservative treatments with elevation, compression stockings daily use with 20-30mmHg, and physical activity with minimal relief. They continue to have persistent symptoms, despite conservative treatments. They are presenting with hyperpigmentation, lymphorrhea, hyperkeratosis, and 2+ edema. They state both legs are equal, 1 is not more swollen than the other. They also complains of pain and itchiness. It appears that they has stage II lymphedema. Jose Francisco from [employer] will be fitting them for a pneumatic compression device, which will get mailed to their house. The patient has lymphedema that extends to her upper thigh. The basic pneumatic compression device is not adequate for the patient; is not clinically appropriate due to the extensive lymphedema extending into the upper thighs and abdomen. The advanced compression device will be the best in this case. Thank you allowing us to care for the patient. Coding Level of Care Code Est Pt Level 4 (97505) Diagnoses Lymphedema I89.0
--- OUTSIDE RECORDS SUMMARY | 2025-01-30 15:12 | XMS_ITS | Encounter Summary ---
Author Organization [employer] [facility] Address [address] [place] [address] 7 [place] [address] Care Team Providers Care Cyber Security Systems Engineer Name Role Phone Name, Amol CARY Primary Care Provider [phone] Encounter Details Date Type Department Care Team (Latest Contact Info) Description 07/28/2022 Abstract [facility]HC CONVERSIONS Dental, Provider, DDS Social History Tobacco Use Types Packs/Day Years Used Date Smoking Tobacco: Never Assessed Comments Unknown Sex and Gender Information Value Date Recorded Sex Assigned at Female 09/20/2022 10:19 AM EDT Legal Sex Female 10:19 AM EDT Gender Identity Female 09/20/2022 10:19 AM EDT Sexual Orientation Straight 09/20/2022 10 :19 AM EDT documented as of this encounter Plan of Treatment Not on file documented as of this encounter Visit Diagnoses Not on filedocumented in this encounter Care Teams Cyber Security Systems Engineer Relationship Specialty Start Date End Date Name, MD Amol [address] [place] [phone] PCP - General Family Medicine 07/06/17 documented as of this encounter
--- OUTSIDE RECORDS SUMMARY | 2025-01-30 15:12 | XMS_ITS | Encounter Summary ---
Author Organization [employer] Address [address] [facility] 7t [place] [address] Care Team Providers Care Corrections Officer Name Role Phone Name, Amol CARY Primary Care Provider [phone] Reason for Visit * Reason Comments Med Refill Encounter Details Date Type Department Care Team ([facility] st Contact Info) Description 07/01/2024 Refill [facility] MEDICINE [address] [place], [place] [phone] Name, MD Amol [address] [place] [address] Severe persistent allergic asthma Social History Tobacco [...] documented as of this encounter Care Teams Corrections Officer Relationship Specialty Start Date End Date Name, MD Amol [address] [place] [phone] PCP - General Family Medicine 07/06/17 documented as of this encounter
--- OUTSIDE RECORDS SUMMARY | 2025-01-30 15:12 | XMS_ITS | Clinical Summary ---
Author Organization [employer] Address [address] [facility] 7t [place] [address] Care Team Providers Care Trim Machine Adjuster Name Role Phone Name, Amol CARY Primary Care Provider [phone] Allergies Active Allergy Reactions Criticality Noted Date Comments Aspirin Angioedema,Swelling Other reaction(s): difficulty breathing, hives Latex Swelling 03/29/2017 Other reaction(s): swelling of face Naproxen Angioedema,Swelling, Whe ezing High Other reaction(s): swelling Medications Misc. Devices (Pulse Oximeter For Finger) miscIndications :Cough in adult,COVID-19 To use every 4 hours. Call the office if O2 Sat < 90% 1 each 024 Active Budeson-Glycopy rrol-Formoterol (Breztri Aerosphere) 160-9-4.8 MCG/ACT aerosol Inhale 2 puffs 2 times daily. Active fluticasone (Flonase) 50 MCG/ACT nasal spray Administer 1 spray into each nostril 2 times daily. 024 Active albuterol 108 (90 Base) MCG/ACT inhalerIndicati ons:Severe persistent asthma without complication Inhale 2 puffs every 4 (four) hours if needed for wheezing or shortness of breath. 18 g 3 024 Active Nebulizers miscIndications :Severe persistent asthma without complication Use nebulizer as instructed 1 each 024 Active Respiratory Therapy Supplies (Nebulizer/Tubi ng/Mouthpiece) kitIndications: Severe persistent asthma without complication To be used with Nebulizer 1 kit Active furosemide (Lasix) 40 MG tabletIndicatio ns:Bilateral leg edema Take 1 tablet (40 mg) by mouth Once per day. 7 tablet 025 2025 Active albuterol (2.5 MG/3ML) 0.083% nebulizer solutionIndicat ions:Severe persistent asthma without complication TAKE 3ML VIA NEBULIZER 4 TIMES A DAY NEEDED 75 mL 2 Active budesonide (Pulmicort) 0.25 MG/2ML nebulizer solution Take 2 mL (0.25 mg) by nebulization 2 times daily. Rinse mouth with water after use to reduce aftertaste and incidence of candidiasis. Do not swallow. 120 mL 3 025 2024 Active levothyroxine (Synthroid) 150 MCG tablet Take 1 tablet (150 mcg) by mouth before breakfast. 30 tablet 11 025 2025 Active Multiple Vitamin (multivitamin) capsule Take 1 capsule by mouth Once per day. 30 capsule 11 025 2025 Active levothyroxine (Synthroid) 150 MCG tablet Take 1 tablet (150 mcg) by mouth before breakfast. 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 Resolved Problems Problem Noted Date Diagnosed Date Resolved Date Elevated blood pressure reading 11/26/2024 01/25/2025 Assessment & Plan (11/26/2024 12:21 PM EST): Likely due to patient being sick I advise low Na diet and weight reduction F/u with PCP Bilateral leg edema 11/23/2024 01/26/20 Assessment & Plan (11/26/2024 12:22 PM EST): US stat to r/o DVT (low probability) Likely venous insufficiency referral to vascular Viral upper respiratory tract infection 11/23/2024 01/25/2025 Assessment & Plan (11/26/2024 12:22 PM EST): Symptomatic relief and rest Leg swelling 12/23/2023 12/23/2023 12/26/2023 Restrictive lung disease 11/07/201703/2024 Overview (12/20/2022): Last Assessment & Plan: Likely from body habitus. Weight loss encouraged. Recent chest imaging revealed no evidence of interstitial lung disease. Cough 11/07/2017 12/26/2023 Overview (12/20/2022): Last Assessment & Plan: Polysomnogram 4 years ago revealed no evidence of obstructive sleep apnea. Varicose vein of leg 10/16/2012 025 Postoperative hypothyroidism 07/12/2012 12/26/2023 Encounters Date Type Department Care Team Description 01/25/2025 10:30 AM EST Office Visit [address] [address] Amol Titus MD Severe persistent asthma without complication (Primary Dx); Lymphedema; Acquired hypothyroidism 01/18/2025 Patient Outreach [facility] [address] [place] [address] Amol Titus MD Care Coordination (CH[facility] outreach for SDOH food needs-referral completed /) 01/18/2025 Patient Outreach [facility] & PEDS [address] [place], [place] [phone] Amol Titus MD Pre-visit Planning (SDOH positive, Tobacco screening negative. ) 12/25/2024 Orders Only [facility] External Provider, [facility] 12/11/2024 11:00 AM EST Office Visit [address] [address] Amol Titus MD Uncomplicated severe persistent asthma (Primary Dx); Venous insufficiency; Prediabetes 12/03/[address] [address] Amol Titus MD FMLA (I called the patient regarding an application for FMLA. She stated that she was hospitalized at the [facility], from 09/29/24 to 10/06/24 for asthma. She has been out of work since that time, because she is still not feeling well enough to return to work. She stated that she will be having polyps removed from her sinuses in December, and she will bring a different application to her surgeon at that time.) 12/03/[address] [address] Rhea Whitmore MA chart prep 11/26/2024 Telephone [facility] WALK-IN CENTER [address] [place] [phone] Saloni Horta MD 11/23/2024 3:20 PM EST Office Visit [facility] WALK-IN CENTER [address] [place] [address] Saloni Horta MD Bilateral leg edema (Primary Dx); Viral URI; Viral upper respiratory tract infection; Elevated blood pressure reading 11/23/2024 Telephone [facility] MEDICINE [address] [place] [address] Rhea Whitmore MA Fe recalls from Last 3 Months Immunizations Name Administration [...] housing situation today? I have ranjeet partida 01/18/[address] you li ve. Do you have problems with any of the following? None of the above 01/18/2025 Food Insecurity Answer Date Recorded Within the past 12 months, y ou worried that your food would run out before you got money to buy more: Often true 01/18/2025 Within the past 12 months,th e food you bought just didn't last and you didn't have enough money to get more: Often true Transportation Answer Date Recorded In the past 12 months, has l ack of transportation kept you from medical appts, meetings, work or from getting things needed for daily living? No 01/18/2025 Utilities Answer Date Recorded In the past 12 months, has t he electric, gas, oil or water company threatened to shut off services in your home? No 01/18/2025 Depression Answer Date Recorded Patient Health Questionnaire-2 Score 0 12/26/2023 Internet Access Answer Date Recorded Internet Access Q1 Yes 01/18/2025 Internet Access Q2 Not on file 01/18/2025 Comments Unknown Sex and Gender Information Value Date Recorded Sex Assigned at Female 09/20/2022 10:19 AM EDT Legal Sex Female 10:19 AM EDT Gender Identity Female 09/20/2022 10:19 AM EDT Sexual Orientation Straight 09/20/2022 10 :19 AM EDT Last Filed Vital Signs Vital Sign Reading Time Taken Comments Blood Pressure 140/82 01/25/2025 10:56 AM EST Pulse 82 01/25/2025 10:56 AM EST Temperature 36.4 ??C (97.6 ??F) 01/25/2025 10:[address] Respiratory Rate 14 01/25/2025 10:56 AM EST Oxygen Saturation 96% 01/25/2025 10:56 AM EST Inhaled Oxygen Concentration - - Weight 95.3 kg (210 lb 3.2 oz) 01/25/2025 10:56 AM EST Height 157.5 cm (5' 2 ) 01/25/2025 10:56 AM EST Body Mass Index 38.45 01/25/2025 10:56 AM EST Plan of Treatment Health Maintenance Due Date Last Done Comments [...] 2024 7, 01/06/2017, 09/29/2015, Additional history exists Depression Screening 12/26/2024 12/26/2023, 12/26/19 24 Mammogram 01/28/2025 01/28/2023, 03, 01/28/2023, Additional history exists Cervical Cancer Screening 06/18/2025 HPV/Cotest 06/18/2025 06/18/2020 Alcohol/Substance Use Screening 07/04/2025 07/04/2024 Diabetes: Hemoglobin A1C 12/11/2025 025, 03/30/2022, 02/05/2022, Additional history exists SDOH Screening 01/18/2026 01/18/2025 Tobacco Screening 01/25/2026 01/25/2025 DTaP/Tdap/Td Vaccines (3 - Td or Tdap) [...] Diagnosis Comments VASC US LOWER EXTREMITY VENOUS INSUFFICIENCY BILATERAL Routine 12/25/2024 9:01 AM EST POCT GLUCOSE Routine 12/11/2024 11:50 AM EST Prediabetes POCT GLYCATED HEMOGLOBIN, TOTAL Routine 12/11/2024 11:49 AM EST Prediabetes VASC LOWER EXTREMITY VENOUS DUPLEX BILATERAL STAT 11/24/2024 [...] Recently Relevant to Health Maintenance Results * [facility] Lower Extremity Venous Insufficiency Bilateral (12/25/2024 9:01 AM EST) 12/25/2024 9:01 AM EST Narrative [facility] - 12/25/2024 10:50 AM EST ? [facility] ?[address] ?[place] [address] ? Ultrasound Report ? Signed ? Patient: Chip,Denise ?MR#: [id number] ?? 190 ? : 1975 ?Acct:[id number] ? Age/Sex: 49 / F ?ADM Date: 02/04/25 ? Loc: HO.US ? Attending : Misa Salas PA-C ? Ordering Physician: Misa Salas PA-C ?? Date of Service: 12/25/24 ?? Procedure(s): US venous insuf bilat ?? Accession Number(s): [id number] ? cc: Misa Salas PA-C; Name,Amol CARY [...] DD/ 0901 ? TD/TT: 12/25/24 0942 ? [employer] Consultant: ? Procedure Note Donotuseinterpreter, Image - 12/25/2024 [place] [address] Ultrasound Report Signed Patient: Jesus Saunders#: [id number] 190 : 1975Acct:[id number] Age/Sex: 49 / FADM Date: 12/25/24 Loc: HO.US Attending Dr: Misa Salas PA-C Ordering Physician: Misa Salas PA-C Date of Service: 12/25/24 Procedure(s): US venous insuf bilat Accession Number(s): [id number] cc: Misa Salas PA-C; Name,Amol CARY EXAMINATION: [...] 12/25/24 1047 DD/ 0901 TD/TT: 12/25/24 09 [employer] Consultant: [facility] External Provider CV VASC ULAR PROCEDURES Final Result [facility] [address] [place] [address] * POCT Glucose (12/11/2024 11:50 AM EST) [...] Media Lot # [id number] Lot# Expiration Date [id number] Blood 12/11/2024 11:4 9 AM EST us Amol Name MD POINT OF CARE TEST ENTER/EDIT OR DERABLES Final Result * Vascular US lower extremity venous duplex bilateral (11/24/2024 8:42 AM EST) 11/24/2024 8:42 AM EST Narrative [facility] - 11/24/2024 8:43 AM EST ? [facility] ?[address] ?[place] [address] ? Ultrasound Report ? Signed ? Patient: Chip,Denise ?MR#: [id number] ?? 190 ? : 1975 ?Acct:[id number] ? Age/Sex: 48 / F ?ADM Date: 11/23/24 ? Loc: HO.US ? Attending Dr: Saloni Beck MD ? Ordering Physician: Saloni Horta MD ?? Date of Service: 11/23/24 ?? Procedure(s): US venous duplex LE BI ?? Accession Number(s): [id number] ? cc: Saloni Horta MD; Name,Amol CARY [...] ?11/24/24 0843 ? DD/ 0842 ? TD/TT: 11/24/24 0842 ? [employer] Consultant: ? Procedure Note Susie, Image - 11/24/[address] [address] Ultrasound Report Signed Patient: Jesus Saunders#: [id number] 190 : 1975Acct:[id number] Age/Sex: 48 / FADM Date: 11/23/24 Loc: HO.US Attending Dr: Saloni Beck MD Ordering Physician: Saloni Horta MD Date of Service: 11/23/24 Procedure(s): US venous duplex LE BI Accession Number(s): [id number] cc: Saloni Horta MD; Name,Amol CARY CLINICAL [...] in OV> 11/24/24842 DD/ 1 TD/TT: 11/24/24841 [employer] Consultant: us Saloni Beck MD CV VASCULAR PROCEDURE S Final Result Performing Organization Address [facility] Co de Phone Number [facility] [address] [place] [address] * Influenza B (ID NOW Rapid Molecular) (11/23/2024 3:32 PM EST) [facility] Influenza B Negative Negative, Indeterminate [facility] Swab 11/23/2024 3:32 PM EST us Saloni Beck MD POINT OF CARE TEST EN TER/EDIT ORDERABLES Final Result Performing Organization Address [facility] Co de Phone Number [facility] [address] [place] [phone] * Influenza A (ID NOW Rapid Molecular) (11/23/2024 3:32 PM EST) Pathologist [facility] Influenza A Negative Negative, Indeterminate [facility] Swab 11/23/2024 3:32 PM EST Saloni Beck MD POINT OF CARE TEST EN TER/EDIT ORDERABLES Final Result Performing Organization Address [facility]/ZIP Co de Phone Number [facility] [address] [place] [address] [phone] * POCT Rapid COVID Ag (11/23/2024 3:32 PM EST) Rapid COVID Ag Negative [facility] Swab 11/23/2024 3:32 PM EST us Saloni Beck MD POINT OF CARE TEST EN TER/EDIT ORDERABLES Final Result Performing Organization Address [facility] de Phone Number [facility] [address] [place] [address] [phone] * BI Mammogram Screening Tomosynthesis Bilateral (01/28/2023 10:46 AM EST) Anatomical Region Laterality Modality Breast Bilateral Mammography 01/28/2023 10:4 6 AM EST Narrative 01/31/2023 1:16 PM EDT ? [facility] ? [address] ?[place] [address] ? Mammography Report ? Signed ? Patient: Chip,Denise ?MR#: [id number] ?? 190 ? : 1975 ?Acct:[id number] ? Age/Sex: 47 / F ?ADM Date: 03/10/23 ? Loc: HO.MAMMO ? Attending Dr: Amol Name MD ? Ordering Physician: Name,Amol MD ?Results: 1Negative ? Date of Service: 01/28/23 ?Follow Up: 1 Year From Orig ?? inal Mammogram ? Procedure(s): MM tomosynthesis screening BI ?? Accession Number(s): [id number] ? cc: Name,Amol CARY ? EXAMINATION: ?? [...] signed by Lucas Ocampo MD in OV> ?01/31/231313 ? DD/ ? TD/TT: ? [employer] Consultant: BUCK ? Procedure Note Susie, Image - 01/31/2023 [facility] [address] [place], [place] [address] Mammography Report Signed Patient: Denise SaundersMR#: [id number] 190 : 1975Acct:[id number] Age/Sex: 47 / FADM Date: 01/28/23 Loc: HO.MAMMO Attending Dr: Amol Titus MD Ordering Physician: Amol Titusesults: 1Negative Date of Service: 01/28/23Follow Up: 1 Year From Orig inal Mammogram Procedure(s): MM tomosynthesis screening BI Accession Number(s): [id number] cc: Tacho,Amol CARY EXAMINATION: MM SCREENING DIGITAL BREAST TOMOSYNTHESIS, BILATERAL [...] in OV> 01/31/23 1314 DD/ 1046 TD/TT: [employer] Consultant: HEBER [facility] External Provider IMG BI PROCEDURES Edited [...] historic and ?? current clinical information. ?? Credit Investigator: SEE COMMENT [facility] Comment: JXM, CT(ASCP) CT screening location: [address] ??[address] Interpretation/Resu lt: SEE COMMENT [facility] Comment:Negative for intraep ithelial lesion or malignancy. LMP: SEE COMMENT [facility] Comment:05/28/20 Prev. BX: NONE GIVEN [facility] Prev. PAP: SEE COMMENT [facility] Comment:NONE GIVEN SOURCE: SEE COMMENT [facility] Comment:None given Statement Of Adequacy: SEE COMMENT [facility] Comment: Satisfactory for evaluation. Endocervical/transformation zone component present. 06/18/2020 2:37 PM EDT Tamar BERMUDEZ LAB PATHOLOGY ORDERABLES Final Result [facility] [address] * HPV mRNA E6/E7 (06/18/2020 2:37 PM EDT) HPV nRNA E6/E7 Not Detected Not Detected [facility] Comment: This test was performed using the APTIMA HPV Assay ([employer] ?? This assay detects E6/E7 viral messenger RNA (mRNA) from 14 high-risk HPV types (16,18,31,33,35,39,45,51,52,56,58,59,66,68). ?? The analytical performance characteristics of this assay have been determined by [employer]. The modifications have not been cleared or approved by the FDA. This assay has been validated pursuant to the CLIA regulations and is used for clinical purposes. 06/18/2020 2:37 PM EDT us Tamar Oren BERMUDEZM LAB BLOOD ORDERABLES Gin kenna Result [facility] [address] from Last 3 Months or Most Recently Relevant to Health Maintenance Insurance [place], [place] [facility] C3 HSN FULL Care Teams Trim Machine Adjuster Relationship Specialty Start Date End Date Name, MD Amol [address] [place] [phone] PCP - General Family Medicine 07/06/17
--- OUTSIDE RECORDS SUMMARY | 2025-01-30 15:12 | XMS_ITS | Continuity of Care Document ---
Author Organization [place] - [facility], [facility] Address [address] [place] [phone] Care Team Providers Care Passport Application Examiner Name Role Phone NAME, YANIRA Primary Care [...] mcg/actua tion nasal spray,milka pension 2024 025 [facility] #[id number], [address] [place], [address], 01/01/2025 15:18:22 Patient TargetsNo targets recorded. Patient InstructionsNo instructions recorded. Reason for Referral None Reported. Problems Name Problem SNOMED Code Status Onset Date Resolution Date Notes Provider Name and Address Organization Details Recorded Time Headache 90420626 Active 2017 Facial pain NOS; Note: Date Diagnosed: 07/26/2018 11:01 AM (R51) Not Available [facility] 4 02:30:49 Uncomplic ated severe persisten t asthma 075826960 Active 2017 Severe persistent asthma, uncomplica sarah; Note: Date Diagnosed: 06/26/2018 1:04 PM (J45.50) Not Available [facility] 4 02:30:43 Recurrent acute sinusitis 822165855 Active 2017 Other acute recurrent sinusitis; Note: Date Diagnosed: 07/26/2018 10:56 AM (J01.81) Not Available [facility] 4 02:30:42 Nasal congestio n 57817914 Active 2017 Nasal congestion ; Note: Date Diagnosed: 06/26/2018 1:04 PM (R09.81) Not Available [facility] 4 02:30:57 Chronic pansinusi tis 18838970 Active 2024 ADDY ANDRADE MD [address] [place] [address], [facility] [place], [address] , [facility] - [facility] 5 15:16:18 Polyp of nasal cavity 286326265 Active 2024 ADDY ANDRADE MD [address] [place] [address], [place], [address] , [facility] 5 15:16:21 Problem Notes None recorded. Procedures Surgical History Date Name Laterality Status Provider Name and Address Organization Details Recorded Time 5 NasalEndoscop y_DP completed ADDY ANDRADE MD [address] [place] [address], [place], [address], [facility] 01/01/2025 15:15:51 Thyroid Surgery completed Estefani Coello [facility] 10/12/2024 10:31:27 excision of varicose vein completed Estefani Coello [facility] 10/12/2024 10:31:35 Imaging Results None recorded. Procedure Notes None recorded. Medical Equipment None Reported. Allergies Allergen ID Allergen Name Allergen Category Reaction Reaction Severity Criticality Documentation Date Start Date Code Code System Note Provider Name and Address Organization Details Recorded Time 65429 Latex (substanc e) environme nt,medica tion other Not available Not available 04/03/2024 99660 8007 SNOMED React ion: unkno wn, unspe cifie d;; Not Available [facility] 4 00:59:03 00029 aspirin medicatio n other Not available Not available 04/03/2024 1191 RxNorm React ion: unkno wn, unspe cifie d;; Not Available [facility] 4 00:59:05 82029 naproxen medicatio n other Not available Not available 04/03/2024 7258 RxNorm React ion: unkno wn, unspe cifie d;; Not Available [facility] 00:59:09 Medications Name Sig Start Date Stop [...] mg capsule 10/12 completed Medicati on ID: [id number] P rescribe d By Name: Addy dangelo [...] by mouth 10/12 completed Medicati on ID: [id number] D uration Value: 30 Prescri bed By [...] e 50 mcg/actua tion nasal spray,milka pension INSTILL 2 SPRAYS IN EACH NOSTRIL ONCE A DAY active Not Available Not Available No t Available doxycycli ne hyclate 100 mg tablet TAKE [...] Details Last Updated DateTime 01/01/2025 157.48 cm Braynt Wallace [place] - [facility] 01/01/2025 14:35:48 Social History None recorded. Functional Status None recorded. Mental Status None recorded. Family History Nothing Reported. Medical History Condition Response Thyroid Problems Y Asthma Y Gynecological HistoryNo gynecological history recorded. Obstetrics History GPAL:G 0 P 0 0 0 0 Past Encounters Encounter ID Performer Location Encounter Start Date Encounter Closed Date Diagnosis/Indication Diagnosis SNOMED-CT Code Diagnosis ICD10 Code Diagnosis Note [id number] ADDY ANDRADE MD [facility] [address] [place] [address] 01/01/2025 14:11:28 01/01/2025 15:13:46 Nasal congestion 43171385 R09.81 see below Uncomplica sarah severe persistent asthma 651409764 J45.50 If her asthma becomes poorly controlled I would be more in favor of revision FESS. Chronic pansinusitis 888 72044 J32.4 Polyps are moderate on nasal endo. Last CT showed mild pansinusit is. I recommend observatio n at this point and the daily use of flonase. We will recheck in 6 months. If her asthma becomes poorly controlled I would be more in favor of revision FESS. Polyp of nasal cavity 73 3988254 J33.0 see above Health Concerns Section Related Observation LastModified by Organization Detai ls LastModified Time None Recorded Concern Status LastModified by Organization Details LastModified Time None Recorded Payers Encounter Date Sequence Insurance Name Policy Number Policy Gan Covered Member ID Gan Member ID Guarantor Name 01/01/2025 1 [facility] [employer] - DIRECT [facility] TYPE I (HMO) [id number] Denise Chip [id number] Denise Saunders Notes Date Note Type Note [...] the beginning of September. ADDY ANDRADE MD [address] [place] [address], [phone], [facility] - [facility] 01/01/2025 15:18:20 OBGyn Episode No OBEpisode recorded.
--- OUTSIDE RECORDS SUMMARY | 2025-01-30 15:13 | XMS_ITS | Encounter Summary ---
Author Organization [employer] Address [address] [facility] [address] [place] [address] Care Team Providers Care Forge Shop Machine Repairer Name Role Phone Name, Amol CARY Primary Care Provider [phone] Reason for Visit * Reason Comments Pre-visit Planning SDOH positive, Tobac co screening negative. Encounter Details Date Type Department Care Team ([facility] st Contact Info) Description 01/18/2025 Patient Outreach [facility] [address] [place] [address] Name, MD Amol [address] [place] [address] Pre-visit Planning (SDOH positive, Tobacco screening negative. ) Social History Tobacco Use Types Packs/Day Years [...] AM EDT documented as of this encounter Progress Notes * Elizabeth Mendez - 01/18/2025 11:15 AM EST CC Elizabeth Herndon placed successful outbound call to patient for pre-visit planning. Patient name and confirmed. Patient confirms appt date and time, and has transportation arrangements. Biggest concern for appointment at this time is no concerns. Appropriate screenings completed in anticipation ofappointment. SDOH positive, patient needs assistance with food insecurities. documented in this encounter Plan of Treatment Not on file documented as of this encounter Visit Diagnoses Not on filedocumented in this encounter Additional Health Concerns Assessment Noted Time PHQ-9 Depression Total Score: 0 12/26/19 24 10:28 AM EST documented as of this encounter Care Teams Forge Shop Machine Repairer Relationship Specialty Start Date End Date Name, MD Amol [address] [place] [address] PCP - General Family Medicine 07/06/17 documented as of this encounter
--- OUTSIDE RECORDS SUMMARY | 2025-01-30 15:13 | XMS_ITS | Encounter Summary ---
Author Organization [employer] Address [address] [facility] [address] [place] [address] Care Team Providers Care Perfect Binder Feeder Offbearer Name Role Phone Name, Amol CARY Primary Care Provider [phone] Encounter Details Date Type Department Care Team (Latest Contact Info) Description 01/25/2025 10:30 AM EST Office Visit [facility] [address] [place], [place] [id number] Name, MD Amol [address] [place] [address] Severe persistent asthma without complication (Primary Dx); Lymphedema; Acquired hypothyroidism Social History Tobacco Use Types Packs/Day Years [...] Mass Index 38.45 01/25/2025 10:56 AM EST documented in this encounter Progress Notes * Amol Titus MD - 01/25/2025 10:30 AM EST Subjective Patient ID: Denise Saunders is a 49 y.o. female who presents for No chief complaint on file.. Patient comes for a follow-up visit. Her asthma is not well-controlled. She has many years of severe persistent asthma. She was recently evaluated by a different sole layer hand that apparently suspects that she has some tracheal stenosis. She has been referred to repeat PFTs and a CT scan in the coming weeks. Today she is coughing, she has mild wheezing, she tells me she ran out of her albuterol. [facility]. She denies any recent fever or chills or sore throat to suggest upper respiratory infection. Review of Systems Constitutional: Negative for chills and fever. HENT: Negative for sore throat. Respiratory: Positive for cough, shortness of breath and wheezing. Cardiovascular: Positive for leg swelling. Negative for chest pain and palpitations. Has years of lower extremity edema. She was recently evaluated by vascular and was diagnosed with lymphedema Gastrointestinal: Negative for abdominal pain. Visit Vitals BP (!) 140/82 (BP Location: Left arm, Patient Position: Sitting, BP Cuff Size: Large adult) Pulse 82 Temp 97.6 ??F (36.4 ??C) (Temporal) Resp 14 Ht 5' 2 (1.575 m) Wt 210 lb 3.2 oz (95.3 kg) SpO2 96% BMI 38.45 kg/m?? Smoking Status Never BSA 2.04 m?? Objective Physical Exam Constitutional: Appearance: Normal appearance. Cardiovascular: Rate and Rhythm: Normal rate and regular rhythm. Heart sounds: No murmur heard. No gallop. Pulmonary: Effort: Pulmonary effort is normal. No respiratory distress. Breath sounds: Wheezing present. Musculoskeletal: Right lower leg: Edema present. Left lower leg: Edema present. Neurological: Mental Status: She is alert. Assessment/Plan Diagnoses and all orders for this visit: Severe persistent asthma without complication Comments: [facility] albuterol and budesonide to use at home daily with her [employer] machine. I recommended to rinse mouth after use. Orders: - albuterol (2.5 MG/3ML) 0.083% nebulizer solution; TAKE 3ML VIA NEBULIZER 4 TIMES A DAY NEEDED Lymphedema Comments: Patient will soon get a machine at home to do compression therapy at home. She is congratulated andencouraged to do so. Acquired hypothyroidism Comments: She is using levothyroxine as prescribed. We reviewed her current dose that was prescribed elsewhere. I will recheck her TSH. Orders: - TSH W/Reflex to FT4; Future Other orders - budesonide (Pulmicort) 0.25 MG/2ML nebulizer solution; Take 2 mL (0.25 mg) by nebulization 2 times daily. Rinse mouth with water after use to reduce aftertaste and incidence of candidiasis. Do not swallow. - levothyroxine (Synthroid) 150 MCG tablet; Take 1 tablet (150 mcg) by mouth before breakfast. - Multiple Vitamin (multivitamin) capsule; Take 1 capsule by mouth Once per day. documented in this encounter Plan of Treatment Scheduled Orders Name Type Priority Associated Diagnoses Orde r Schedule TSH W/Reflex to FT4 Lab Routine Acquired hypothyroidism Expected: 01/25/2025 (Approximate), Expires: 01/25/2026 documented as of this encounter Visit Diagnoses Diagnosis Severe persistent asthma without complication- Primary Lymphedema Other noninfectious lymphedema Acquired hypothyroidism Unspecified hypothyroidism documented in this encounter Additional Health Concerns Assessment Noted Time PHQ-9 Depression Total Score: 0 12/26/19 24 10:28 AM EST documented as of this encounter Care Teams Perfect Binder Feeder Offbearer Relationship Specialty Start Date End Date Name, MD Amol [address] [place] [id number] PCP - General Family Medicine 07/06/17 documented as of this encounter
--- OUTSIDE RECORDS SUMMARY | 2025-01-30 15:13 | XMS_ITS | Encounter Summary ---
Author Organization [employer] Address [address] [facility] [address] [place] [address] Care Team Providers Care Senior Accountant Name Role Phone Name, Amol CARY Primary Care Provider [phone] Reason for Visit * Reason Comments Care Coordination CHW outreach for SDO H food needs-referral completed Encounter Details Date Type Department Care Team (Latest Contact Info) Description 01/18/2025 Patient Outreach [facility] [address] [place] [address] Name, MD Amol [address] [place] [address] Care Coordination ([facility] outreach for SDOH food needs-referral completed /) Social History Tobacco Use Types Packs/Day Years [...] as of this encounter Progress Notes * Kofi Silva - 01/18/2025 11:34 AM EST CHW Kofi Silva, placed outbound call to patient for assistance with SDOH as a referral was received by the provider. Patient's name and were confirmed. Patient screened positive for the following SDOH food insecurities. CHW referral patient to the local list of pantries in the area for help. Patient verbalizes understanding, and able to agree with plan to follow up. Patient educated on ex tended clinic hours on Mondays through Wednesdays, and Walk-In Urgent Care Located in [facility].Patient provided with after-hours line for [facility], , which offer night time triage serviceand option to transfer to economic development director provider if needed. documented in this encounter Plan of Treatment Not on file documented as of this encounter Visit Diagnoses Not on filedocumented in this encounter Additional Health Concerns Assessment Noted Time PHQ-9 Depression Total Score: 0 12/26/19 24 10:28 AM EST documented as of this encounter Care Teams Senior Accountant Relationship Specialty Start Date End Date Name, MD Amol [address] [place] [id number] PCP - General Family Medicine 07/06/17 documented as of this encounter
== END 2025-01-30 13:37 | disposition home or self-care (01) ==
LOC: HO.HVS 13:02
PROVIDERS: PCP Internal Medicine Geriatric Medicine; Visit Provider Physician Assistant Surgical
DX: I89.0 Lymphedema, not elsewhere classified (principal)
CPT/HCPCS: 99214

== ENCOUNTER → 2025-01-30 13:01 | Outpatient (BNVA) | payer MEDICAID, SELFPAY | PROVIDERS: PCP Internal Medicine Geriatric Medicine; Visit Provider Physician Assistant Surgical | DX: I89.0 Lymphedema, not elsewhere classified (principal) | CPT/HCPCS: 99212 ==

== ENCOUNTER 2025-02-11 18:44 | Observation (INO) | payer MEDICAID, SELFPAY ==
--- NOTE | ~2025-02-11 | CT_ITS ---
CLINICAL HISTORY: worsening RAD ? underlying PNA CT chest without contrast Comparison: CT/SR - CT ANGIO CHEST PE PROTOCOL - 09/30/24 10:10 EST Findings: The heart size is normal. The visualized thyroid and mediastinum are unremarkable. Localized tree-in-bud opacities are seen in the superior segment of the left lower lobe. Findings compatible with focal bronchiolitis. Foci of subsegmental atelectasis noted in the right upper lobe and at the bases. The upper abdomen is unremarkable. No acute fractures. IMPRESSION: 1. Localized tree-in-bud opacities are seen in the superior segment of the left lower lobe. Findings compatible with focal bronchiolitis. 2. Foci of subsegmental atelectasis noted in the right upper lobe and at the bases. This document has been electronically signed by: Juan Diego Murdock MD on 02/14/2025 11:21:46
--- NOTE | ~2025-02-11 | XR_ITS ---
CLINICAL HISTORY: cough 1 view chest x-ray Comparison: CR/SR - XR CHEST 1V - 09/29/24 13:30 EST Findings: The lungs are clear. Normal size heart. No acute fracture. IMPRESSION: 1. No acute findings. This document has been electronically signed by: Gómez Mcgee MD, PHD on 02/11/2025 20:35:17
[2025-02-11 19:00] VITALS: BP 146/78; PULSE 122; RESP 22; TEMP 37.3; O2SAT 93; BMI 37.8
--- NOTE | 2025-02-11 19:04 | ED_ITS ---
HPI - General Adult General Chief complaint: Upper Respiratory Symptoms Stated complaint: ? allergic reaction Time Seen by Provider: 02/11/25 23:53 Source: patient Limitations: no limitations History of Present Illness ED Provider: Lucas Shipley DO HPI narrative: 49-year-old female with past medical history of asthma and hypothyroidism presents to the ED due to recess cough, wheezing and difficulty breathing over the past couple of days despite taking inhalers and nebulizers every 2-3 hours at home. Patient states he also noticed right-sided swelling around her eye and upper lip swelling yesterday which resolved with diphenhydramine. She denies fevers but reports chills as well as nausea and an episode of vomiting earlier today. She also reports some chest pain associated with her cough. She was last admitted for an asthma exacerbation in September 2024. Related Data Home Medications ?Medication ?Instructions ?Recorded ?Confirmed levothyroxine 150 mcg tablet 150 mcg PO DAILY@0600 08/26/20 02/12/25 ipratropium 20 mcg-albuterol 100 1 puff inhalation Q4H PRN 09/29/24 02/12/25 mcg/actuation mist for inhalation Shortness Of Breath Or Wheezing (Combivent Respimat) montelukast 10 mg tablet 10 mg PO DAILY 09/29/24 02/12/25 fluticasone propionate 50 2 spray intranasal DAILY 02/12/25 02/12/25 mcg/actuation nasal spray,suspension multivitamin with folic acid 400 1 tab PO DAILY 02/12/25 02/12/25 mcg tablet (Daily-Emi (with folic acid)) Previous Rx's ?Medication ?Instructions ?Recorded albuterol sulfate 90 mcg/actuation 2 puff PO Q4-6H PRN shortness of 08/03/23 aerosol inhaler breath or wheezing 30 days #1 ea fluticasone furoate 200 1 inh inhalation DAILY 30 days #1 08/03/23 mcg-vilanterol 25 mcg/dose ea inhalation powder (Breo Ellipta) budesonide 0.25 mg/2 mL suspension 0.25 mg (2 mL) inhalation BID #360 07/02/24 for nebulization mL Allergies Allergy/AdvReac Type Severity Reaction Status Date / Time aspirin [ASPIRIN] Allergy Unknown UNKNOWN, Verified 02/11/25 19:03 anaphylaxis latex Allergy Unknown Anaphylaxis, Verified 02/11/25 19:03 Rash Latex, Natural Rubber Allergy Unknown HIVES Verified 02/11/25 19:03 [LATEX, NATURAL RUBBER] naproxen [From NAPROSYN] Allergy Unknown UNKNOWN, Verified 02/11/25 19:03 anaphylaxis Review of Systems 2 Review of Systems: Yes all other systems are reviewed and are negative [facility] Past Medical History Medical History Severe persistent allergic asthma Asthma Hypothyroidism Morbid obesity Surgical History History of facial surgery H/O thyroidectomy Family History Family History Mother Diabetes Social History Social History Household Members: Significant Other and Children Housing: Apartment Alcohol intake: never Patient Tobacco Use Status: Never used Tobacco Smoked in Last 30 Days: No Use of substances other than those prescribed or required for medical reasons: No Advance Directives: No Advance Directives Information Provided: Yes Do you have a plan to hurt others: No Plan Patient : No service: No Current occupational status: employed Current occupation: rt handed Physical Exam ED Vital Signs: Vital Signs - 24 hr 02/11/25 19:00 02/11/25 22:52 02/11/25 23:49 Temperature 99.2 F 98.8 F 98.9 F Pulse Rate 122 H 112 H 117 H Respiratory Rate 22 H 20 24 H Blood Pressure 146/78 H 142/76 H 139/62 Pulse Oximetry 93 98 93 Oxygen Delivery Method Room Air Room Air Room Air 02/12/25 00:25 02/12/25 02:20 Temperature Pulse Rate 106 H 107 H Respiratory Rate 22 H 20 Blood Pressure Pulse Oximetry Oxygen Delivery Method BMI result Body Mass Index 37.8 Constitutional: ?Alert, oriented, having some respiratory distress during conversation HEENT: ?Normocephalic, atraumatic. ?Moist mucous membranes, no periorbital edema, no lip, tongue or uvular swelling Eyes: ?PERRL, EOMI Neck: ?Supple, nontender Chest: ?No chest wall tenderness Respiratory: ?Mild increased work of breathing with tachypnea and lungs showing diminished breath sounds with prolonged expiratory phase and wheezing throughout all blackwell Cardio: ?Tachycardic rate, regular rhythm, no murmur, 2+ radial and DP pulses symmetrically GI: ?Soft, nondistended, nontender Back: ?Normal range of motion, nontender Skin: ?No rash, no lesions Neuro: ?Alert and oriented to person, place and time, moves all 4 extremities, no focal deficits Extremities: ?No swelling or tenderness, full range of motion Psych: ?Calm, alert and cooperative, appropriate behavior Course Course Course Narrative: This is a rapid medical exam performed by Kristie Melgoza PA-C. The patient is a 49-year-old female with a history of asthma who presents with cough and cold symptoms x1 day. Associated headache, nausea, vomiting, cough, wheezing and generalized malaise. Symptoms started yesterday. She also notes associated swelling of the right eye that has improved. On exam she is wheezing. Her oxygen is appropriate. She is stable. We will order screening labs, viral panel chest x-ray. She can return to the waiting room pending her full medical assessment. Medications Administered Generic Name Dose Route Start Last Admin Trade Name Freq PRN Reason Stop Dose Admin Budesonide 2 puff 02/12/25 09:05 02/12/25 11:15 Budesonide 180 Mcg Aer.Pow.Ba INHALE 2 puff RBID MARCIAL Administration Enoxaparin Sodium 40 mg 02/12/25 03:00 02/12/25 03:25 Enoxaparin Sodium 40 Mg/0.4 Ml Syringe SUBCUT 40 mg Q24H MARCIAL Administration Fluticasone Propionate 2 spray 02/12/25 11:00 02/12/25 12:41 Fluticasone Propionate Nasal 16 Gm Cade NOSTRIL-B 2 spray DAILY MARCIAL Administration Fluticasone/Vilanterol 1 puff 02/12/25 11:00 02/12/25 12:41 Fluticasone/Vilanterol 200/25 Blst.W.Dev INHALE 1 puff DAILY MARCIAL Administration Levalbuterol HCl 1.25 mg 02/12/25 08:00 02/12/25 13:30 Levalbuterol Hcl 1.25 Mg/3 Ml Vial.Neb INHALE 1.25 mg RTID MARCIAL Administration Levothyroxine Sodium 150 mcg 02/12/25 11:00 02/12/25 11:14 Levothyroxine Sodium 150 Mcg Tablet PO 150 mcg DAILY@0600 MARCIAL Administration Methylprednisolone Sodium Succinate 80 mg 02/12/25 09:00 02/12/25 09:46 Methylprednisolone Sod Succ 125 Mg/2 Ml Vial IVPUSH 02/13/25 08:59 80 mg Q8H MARCIAL Administration Montelukast Sodium 10 mg 02/12/25 11:00 02/12/25 11:14 Montelukast Sodium 10 Mg Tablet PO 10 mg DAILY MARCIAL Administration Multivitamins/Vitamin C 1 tab 02/12/25 11:00 02/12/25 11:14 Multivitamin Tablet PO 1 tab DAILY MARCIAL Administration Sodium Chloride 3 ml 02/12/25 08:00 02/12/25 08:50 0.9 % Sodium Chloride Flush 3 Ml Syringe IVFLUSH Not Given QSHIFT [facility] Discontinued Medications Generic Name Dose Route Start Last Admin Trade Name Freq PRN Reason Stop Dose Admin Benzonatate 100 mg 02/12/25 02:45 02/12/25 02:50 Benzonatate 100 Mg Capsule PO 02/12/25 02:46 100 mg ONCE ONE Administration Albuterol Sulfate 2.5 mg/ 0 mg 02/12/25 00:22 02/12/25 00:24 Albuterol/Ipratropium 3 ml INHALE 02/12/25 00:23 1 dose ONCE ONE Administration Albuterol Sulfate 2.5 mg/ 0 mg 02/12/25 02:17 02/12/25 02:19 Albuterol/Ipratropium 3 ml INHALE 02/12/25 02:18 1 dose ONCE ONE Administration Diphenhydramine HCl 50 mg 02/12/25 02:48 02/12/25 03:25 Diphenhydramine Hcl 50 Mg/Ml Vial IVPUSH 02/12/25 02:49 50 mg ONCE ONE Administration Methylprednisolone Sodium Succinate 125 mg 02/11/25 23:51 02/12/25 00:03 Methylprednisolone Sod Succ 125 Mg/2 Ml Vial IVPUSH 02/11/25 23:52 125 mg ONCE ONE Administration Ondansetron HCl 4 mg 02/12/25 00:17 02/12/25 00:31 Ondansetron Hcl 4 Mg/2 Ml Vial IVPUSH 02/12/25 00:18 4 mg ONCE ONE Administration Prednisone 40 mg 02/12/25 09:00 02/12/25 08:51 Prednisone 20 Mg Tablet PO 40 mg DAILY MARCIAL Administration Medical Decision Making Medical Decision Making [facility] Narrative: Patient presenting with signs and symptoms consistent with asthma exacerbation. She is improving with methylprednisolone and initial DuoNeb but despite this continues to have tachycardia and mild hypoxia to 91%. She is not exhibiting severe asthma exacerbation but we will need further treatment in the hospital and hospitalist agrees with plan. Second DuoNeb to be administered. Patient requests antitussive medication and Tessalon Perles has been ordered. She did have some chest pain earlier this evening that resolved and initial troponin unremarkable with no obvious ECG changes. She has a mild elevation of bilirubin which has been shown on previous testing. There are no other gross abnormalities of lab work, no signs of pneumonia and no clinical signs of other etiology of tachycardia such as hyperthyroidism storm. Patient is continuing to have coughing episodes and wheezing on re-evaluation. Admission/Observation Consideration of admission/observation: Escalation of care including admission/observation considered Lab Data [facility] Lab Attestation statement: I reviewed the patient's lab results. 02/12/25 07:15 02/12/25 07:15 Labs: Lab Results 02/11/25 02/12/25 Range/Units 19:58 01:00 WBC 10.4 (4.8-10.8) X10*3/uL RBC 4.84 (4.20-5.50) X10*6/uL Hgb 14.1 (12.0-16.0) g/dl Hct 40.1 (37.0-47.0) % MCV 82.9 (80.0-98.0) fL MCH 29.1 (27.0-33.0) pg MCHC 35.2 H (31.0-35.0) g/dl RDW 14.8 (11.0-16.0) % Plt Count 222 (160-400) X10*3/uL MPV 10.7 (9.4-12.3) fL Immature Gran % (Auto) 0.4 (0.0-0.4) % Neut % (Auto) 75.2 H (45-73) % Lymph % (Auto) 16.9 L (20-40) % [place] % (Auto) 6.5 (2-11) % Eos % (Auto) 0.8 (0-4) % Baso % (Auto) 0.2 (0-2) % Lymph # (Auto) 1.8 (1.2-4.9) X10*3/uL [place] # (Auto) 0.7 (0.1-1.2) X10*3/uL Eos # (Auto) 0.1 (0.0-0.4) X10*3/uL Baso # (Auto) 0.0 (0.0-0.2) X10*3/uL Abs Immat Gran (auto) 0.04 H (0.00-0.03) X10*3/uL Absolute Neuts (auto) 7.9 (2.0-8.3) x10*3/uL Absolute Nucleated RBC 0.000 (0.0-0.012) X10*3/uL Nucleated RBC % (auto) 0.0 (0.0-0.2) /100WBC Sodium 140 (135-145) mmol/L Potassium 4.0 D (3.3-5.1) mmol/L Chloride 108 (96-108) mmol/L Carbon Dioxide 23 (22-29) mmol/L Anion Gap 13 (12-20) BUN 9 (9-16) mg/dL Creatinine 0.76 (0.5-1.4) mg/dL Estim Creat Clear Calc 93.4 Estimated GFR > 60 Random Glucose 109 (60-115) mg/dL Calcium 9.6 D (8.4-10.2) mg/dL Magnesium 1.9 (1.6-2.6) mg/dL Total Bilirubin 1.3 H (0.0-1.0) mg/dL AST 21 (5-31) U/L ALT 14 (0-31) U/L Alkaline Phosphatase 75 (39-117) U/L Troponin I High Sens 3.3 (<3.5-17.0) ng/L Total Protein 7.4 (6.5-8.0) g/dL Albumin 4.2 (3.5-5.0) g/dL Influenza Type A (PCR) NEGATIVE (Negative) Influenza Type B (PCR) NEGATIVE (Negative) RSV RNA Qual (PCR) NEGATIVE (Negative) SARS-CoV-2 RNA (RT-PCR) NEGATIVE (Negative) Independent Interpretation I performed an independent interpretation of an: EKG and Plain X-Ray Interpretation: Sinus tachycardia rate 120 beats per minute, no obvious abnormalities of the intervals although there was some baseline artifact, no diagnostic ST or T-wave abnormalities. Chest x-ray per my independent interpretation shows no acute cardiopulmonary abnormalities. Discharge Plan Discharge Clinical Impression: Asthma exacerbation Patient Disposition: Admitted As Inpatient
[2025-02-11 20:13] LABS: MANUAL DIFF FLAG NO
[2025-02-11 20:15] LABS: Basophils Percent Auto 0.2 % (0-2); Eosinophils Absolute Auto 0.1 X10*3/uL (0.0-0.4); Eosinophils Percent Auto 0.8 % (0-4); Hematocrit 40.1 % (37.0-47.0); Hemoglobin 14.1 g/dl (12.0-16.0); Imm Gran Abs Auto 0.04 X10*3/uL (0.00-0.03); Imm Gran Pct Auto 0.4 % (0.0-0.4); Lymphocytes Absolute Auto 1.8 X10*3/uL (1.2-4.9); Lymphocytes Percent Auto 16.9 % (20-40); Mean Corpuscular HGB Conc 35.2 g/dl (31.0-35.0); Mean Corpuscular Hemoglobin 29.1 pg (27.0-33.0); Mean Corpuscular Volume 82.9 fL (80.0-98.0); Mean Platelet Volume 10.7 fL (9.4-12.3); Monocytes Absolute Auto 0.7 X10*3/uL (0.1-1.2); Monocytes Percent Auto 6.5 % (2-11); Neutrophils Absolute Auto 7.9 x10*3/uL (2.0-8.3); Neutrophils Percent Auto 75.2 % (45-73); Platelet Count 222 X10*3/uL (160-400); Red Blood Count 4.84 X10*6/uL (4.20-5.50); Red Cell Distribution Width 14.8 % (11.0-16.0); White Blood Count 10.4 X10*3/uL (4.8-10.8)
[2025-02-11 20:31] LABS: Alanine Aminotransferase 14 U/L (0-31); Albumin Level 4.2 g/dL (3.5-5.0); Alkaline Phosphatase 75 U/L (39-117); Anion Gap 13 (12-20); Aspartate Amino Transferase 21 U/L (5-31); Bilirubin Total 1.3 mg/dL (0.0-1.0); Blood Urea Nitrogen 9 mg/dL (9-16); Calcium 9.6 mg/dL (8.4-10.2); Carbon Dioxide 23 mmol/L (22-29); Chloride 108 mmol/L (96-108); Creatinine Clr Calc Pharmacy 93.4; Estimated Glomerular Filt Rate > 60; Glucose Random 109 mg/dL (60-115); Magnesium 1.9 mg/dL (1.6-2.6); Sodium 140 mmol/L (135-145); Total Protein 7.4 g/dL (6.5-8.0)
[2025-02-11 20:54] LABS: Influenza A PCR NEGATIVE (Negative); Influenza B PCR NEGATIVE (Negative); Resp Syncy Virus RNA Qual PCR NEGATIVE (Negative); SARS COV2 PCR INHOUSE NEGATIVE (Negative)
[2025-02-11 22:52] VITALS: BP 142/76; PULSE 112; RESP 20; TEMP 37.1; O2SAT 98
[2025-02-11 23:49] VITALS: BP 139/62; PULSE 117; RESP 24; TEMP 37.2; O2SAT 93
[2025-02-12] VITALS (9 sets, daily range): BP systolic 118–125; BP diastolic 60–70; PULSE 91–121; RESP 14–22; TEMP 36.5–36.7; O2SAT 91–98
[2025-02-12] MEDS: methylPREDNISolone Sod Succ 125 MG/2 ML VIAL IVPUSH (00:03)
--- NOTE | 2025-02-12 00:17 | ECG_ITS ---
Test Reason : CP Blood Pressure : */* mmHG Vent. Rate : 120 BPM Atrial Rate : * BPM P-R Int : * ms QRS Dur : 84 ms QT Int : 432 ms P-R-T Axes : * 4 59 degrees QTcB Int : [address] & T wave abnormality, consider lateral ischemia Prolonged QT Abnormal ECG When compared with ECG of 29-Sep-2024 13:46, No significant changes seen Referred By: Lucas Shipley Electronically Signed By: BRAYAN GUERRA MD
[2025-02-12] MEDS: Albuterol Sulfate 2.5 MG, Albuterol/Iprat 2.5/0.5MG 3 ML 3 ML INHALE ×2 (00:24→02:19)
[2025-02-12] MEDS: ondansetron HCL 4 MG/2 ML VIAL IVPUSH (00:31)
[2025-02-12 01:25] LABS: Troponin-I High Sensitivity 3.3 ng/L (<3.5-17.0)
[2025-02-12] MEDS: Benzonatate 100 MG CAPSULE PO (02:50)
--- NOTE | 2025-02-12 02:51 | P.HPHOSP_ITS ---
History of Present Illness Date of Service: 02/12/25 Chief Complaint: Dyspnea This is a 49-year-old female with pertinent history of hypothyroidism, asthma not on home oxygen who presents to the emergency department for evaluation of dyspnea. Patient states her symptoms started 3 days prior to presentation. Patient started having runny nose and nonproductive cough. Subsequently she developed dyspnea which is worse with exertion and wheezing. Did not improve with the home inhaler. Also noticed swelling of the right eye and upper lip which improved with Benadryl. No tongue swelling, change in voice, difficulty swallowing. Denies fever or chills. Had 1 episode of vomiting on the day of presentation due to cough. Has generalized weakness and easy fatigability. No palpitations, chest pain, abdominal pain, changes in urinary or bowel habits. In the emergency department, patient wheezing despite multiple DuoNeb treatments and IV steroids. Review of Systems 2 Constitutional: Constitutional: Reports fatigue, Reports malaise and Reports weakness Cardiovascular: Cardiovascular: Reports dyspnea on exertion Respiratory: Respiratory: Reports cough, Reports dyspnea on exertion and Reports wheezing Gastrointestinal: Gastrointestinal: Reports no additional gastrointestinal complaints Genitourinary: Genitourinary: Reports no additional female genitourinary complaints Neurologic: Reports weakness Endocrine: Endocrine: Reports fatigue Allergic/Immunologic: Allergic/Immunologic: Reports wheezing [facility] Medical History Severe persistent allergic asthma Asthma Hypothyroidism Morbid obesity Family History Mother Diabetes Surgical History History of facial surgery H/O thyroidectomy Social History Household Members: Significant Other and Children Housing: House Alcohol intake: never Patient Tobacco Use Status: Never used Tobacco service: No Current occupational status: employed Current occupation: rt handed Meds Allergies Allergy/AdvReac Type Severity Reaction Status Date / Time aspirin [ASPIRIN] Allergy Unknown UNKNOWN, Verified 02/11/25 19:03 anaphylaxis latex Allergy Unknown Anaphylaxis, Verified 02/11/25 19:03 Rash Latex, Natural Rubber Allergy Unknown HIVES Verified 02/11/25 19:03 [LATEX, NATURAL RUBBER] naproxen [From NAPROSYN] Allergy Unknown UNKNOWN, Verified 02/11/25 19:03 anaphylaxis Active Medications: Current Medications Diphenhydramine HCl (Diphenhydramine Hcl 50 Mg/Ml Vial) 50 mg IVPUSH ONCE ONE Stop: 02/12/25 02:49 Home Medications ?Medication ?Instructions ?Recorded ?Confirmed ?Last Taken ?Type levothyroxine 150 mcg tablet 150 mcg PO DAILY@0600 08/26/20 09/29/24 09/28/24 History ipratropium 20 mcg-albuterol 100 1 puff inhalation Q4H PRN 09/29/24 09/29/24 Unknown History mcg/actuation mist for inhalation Shortness Of Breath Or Wheezing (Combivent Respimat) montelukast 10 mg tablet 10 mg PO DAILY 09/29/24 09/29/24 Unknown History Physical Exam 2 Vital Signs and Narrative: Vital Signs: Last Vital Signs Temp 98.9 F 02/11/25 23:49 Pulse 107 H 02/12/25 02:20 Resp 20 02/12/25 02:20 BP 139/62 02/11/25 23:49 Pulse Ox 93 02/11/25 23:49 O2 Del Method Room Air 02/11/25 23:49 BMI result Body Mass Index 37.8 Middle-aged female lying in bed in mild distress Neck supple, no JVD Regular rate and rhythm, S1-S2 heard Bilateral wheezing appreciated Abdomen soft nontender, no guarding, no rigidity Patient is awake, alert and oriented to self, place, time and person ; no focal motor deficit Psych: Normal mood No pedal edema Results Labs 02/11/25 19:58 02/11/25 19:58 Labs: Laboratory Results - last 24 hr 02/11/25 19:58 MCV 82.9 MCH 29.1 MCHC 35.2 H RDW 14.8 Plt Count 222 MPV 10.7 Immature Gran % (Auto) 0.4 Neut % (Auto) 75.2 H Lymph % (Auto) 16.9 L [place] % (Auto) 6.5 Eos % (Auto) 0.8 Baso % (Auto) 0.2 Lymph # (Auto) 1.8 [place] # (Auto) 0.7 Eos # (Auto) 0.1 Baso # (Auto) 0.0 Abs Immat Gran (auto) 0.04 H Absolute Neuts (auto) 7.9 Absolute Nucleated RBC 0.000 Nucleated RBC % (auto) 0.0 Anion Gap 13 Estim Creat Clear Calc 93.4 Estimated GFR > 60 Random Glucose 109 Calcium 9.6 D Magnesium 1.9 Total Bilirubin 1.3 H AST 21 ALT 14 Alkaline Phosphatase 75 Total Protein 7.4 Albumin 4.2 Influenza Type A (PCR) NEGATIVE Influenza Type B (PCR) NEGATIVE RSV RNA Qual (PCR) NEGATIVE SARS-CoV-2 RNA (RT-PCR) NEGATIVE Assessment and Plan (1) Asthma exacerbation: Status: Acute Plan This is a 49-year-old female with pertinent history of hypothyroidism, asthma not on home oxygen who presents to the emergency department for evaluation of dyspnea. #. Acute exacerbation of asthma: Will admit patient with scheduled and p.r.n. inhaled bronchodilators. Initiating systemic steroids. Continue home inhalers #. Hypothyroidism: On Synthroid #. Obesity: Counseled regarding diet and exercise Med rec pending DVT prophylaxis: Lovenox Full code Quality Stroke Does the patient have a stroke diagnosis?: No VTE Prior VTE?: No VTE Risk Level:: Medical - moderate - high VTE Device Contraindication: Treatment Not Indicated VTE Drug Contraindication: N/A - Med Ordered
[2025-02-12] MEDS: diphenhydrAMINE HCL 50 MG/ML VIAL IVPUSH (03:25)
[2025-02-12] MEDS: Enoxaparin Sodium 40 MG/0.4 ML SYRINGE SUBCUT (03:25)
[2025-02-12 07:31] LABS: Basophils Percent Auto 0.1 % (0-2); Hemoglobin 12.8 g/dl (12.0-16.0); Imm Gran Abs Auto 0.04 X10*3/uL (0.00-0.03); Imm Gran Pct Auto 0.4 % (0.0-0.4); Lymphocytes Absolute Auto 0.4 X10*3/uL (1.2-4.9); Lymphocytes Percent Auto 4.5 % (20-40); MANUAL DIFF FLAG SCAN; Mean Corpuscular HGB Conc 32.8 g/dl (31.0-35.0); Mean Corpuscular Hemoglobin 28.3 pg (27.0-33.0); Mean Corpuscular Volume 86.3 fL (80.0-98.0); Mean Platelet Volume 10.8 fL (9.4-12.3); Monocytes Absolute Auto 0.1 X10*3/uL (0.1-1.2); Monocytes Percent Auto 0.5 % (2-11); Neutrophils Absolute Auto 9.1 x10*3/uL (2.0-8.3); Neutrophils Percent Auto 94.5 % (45-73); Platelet Count 207 X10*3/uL (160-400); Red Blood Count 4.52 X10*6/uL (4.20-5.50); SCAN SMEAR FLAG 1; White Blood Count 9.6 X10*3/uL (4.8-10.8)
[2025-02-12 07:50] LABS: Anion Gap 12 (12-20); Blood Urea Nitrogen 14 mg/dL (9-16); Calcium 9.5 mg/dL (8.4-10.2); Carbon Dioxide 20 mmol/L (22-29); Chloride 112 mmol/L (96-108); Creatinine Clr Calc Pharmacy 80.7; Estimated Glomerular Filt Rate > 60; Glucose Random 286 mg/dL (60-115); Potassium 3.6 mmol/L (3.3-5.1); Sodium 140 mmol/L (135-145)
[2025-02-12 08:03] LABS: SLIDE REVIEW VERIFIED
[2025-02-12] MEDS: levalbuterol HCL 1.25 MG/3 ML VIAL.NEB INHALE ×3 (08:34→20:29)
--- NOTE | 2025-02-12 08:46 | PHA.MEDREC ---
Pharmacy Consult ? Medication Reconciliation Pharmacy has completed the medication reconciliation. Spoke with patient, Patient was able to recall medications and frequencies, utilized claims for dosages. Patient claims she takes her budesonide nebulizer and breo MARCIAL every day. She also stated she is no longer on furosemide 40 mg. And she did confirm she is on levothyroxine 150 mcg, not the 175 mcg.
[2025-02-12] MEDS: predniSONE 20 MG TABLET 40 MG PO (08:51)
--- NOTE | 2025-02-12 09:04 | P.EN_ITS ---
Event Note Date of Service: 02/12/25 Event Note: Pt currently in ED bed 2 on RA, noted wheezing and rhonchi B upper lobes and pt has nonproductive cough. Pt did receive one dose of methylprednisolone 125 mgs IV and starting 80 Q8H IV with taper. Pt is overall afebrile, no chills, no sweats and offers that she had thyroid surgery in the past. Med Rec Completed and pt will recieve her usual levothyroxine and Breo, a new inhaler pt started recently with her back line cook at [facility]. ROS: Pt denies chest pain, is having mild SOB at rest, no CORREA, no N/V, no abdominal pain or issues with swallowing. Pt offers that she has chronic varicosities and is planning on having surgery in the near future. Pt has clinical rehabilitation coordinator kimberley edema in lower legs but does not qualifgy this as lymphedema. PE: Pt is Alert and orientated X3, able to give good history. Able to communicate in Lithuanian well. Neuro: CN II-X11 intact, no deficits, visual acuity intact EYES: PERRLA, EOM intact ENT: hearing intact, no issues with swallowing, uvula midline, lips moist, nares patent no epistaxis, oral mucosa moist, no PND Cardiac: S1 S2 RRR, no murmur, no JVD, mild edema in B Lower ext Pulmonary: lungs B wheezing upper lobes, rhonchi B, no stridor noted. Pt is not in the tripod position. Nares are not flaring. Pt is not using accessory muscles to breathe. Respirations 20, no labored breathing noted. Abdominal: BS active in all 4 quadrants, no guarding, tenderness, rebounding MSK: strength 5/5 upper and lower extremities : no CVA tenderness no bladder distension Extremities: mild B edema in lower extremities (chronic per pt), PT and DP pulses palpable +2 Psych: mood stable, judgement and insight good Skin: no open wounds noted A/P Asthma exacerbation Pt is on RA, POX WNL No indication for ABX at this time, viral testing all negative Pt denies any recent travel, but was in [place] in October 2024 Nebs ordered scheduled Methylprednisolone now 80 mg IV Q8H, taper down every 24 to 48 hours Anti-tussives IS Pt does follow with back line cook at [facility], was recently started on Breo Monitor for fever, chills, tachycardia Hypothyroidism Pt resuming her levothyroxine, pt has had surgery on her thyroid in the past TSH in AM Pt awaiting transfer to floor bed VSS, HR about 100 after neb tx Follow current admission orders This provider available for care needs via [facility] Time Spent With Patient Time: Total time managing care of this patient today ____ minutes.
[2025-02-12] MEDS: methylPREDNISolone Sod Succ 125 MG/2 ML VIAL 80 MG IVPUSH ×2 (09:46→16:57)
--- NOTE | 2025-02-12 09:46 | PC.NURSE ---
Medication request sent to pharmacy for Budesonide. Unavailable in ED or [facility] Pyxis.
--- NOTE | 2025-02-12 09:56 | PC.NURSE ---
Contacted Dr. Anderson regarding Levothyroxine 150mcg. Medication reconciliation was completed by pharmacy department (per [facility]). Patient has not taken her Levothyroxine today. Awaiting response from hospitalist.
--- NOTE | 2025-02-12 10:08 | MHC.CM.PN ---
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
[2025-02-12] MEDS: Multivitamin TABLET 1 TAB PO (11:14)
[2025-02-12] MEDS: Montelukast Sodium 10 MG TABLET PO (11:14)
[2025-02-12] MEDS: Levothyroxine Sodium 150 MCG TABLET PO (11:14)
[2025-02-12] MEDS: Budesonide 180 MCG AER.POW.BA 2 PUFF INHALE (11:15)
[2025-02-12] MEDS: Fluticasone/Vilanterol 200/25 BLST.W.DEV 1 PUFF INHALE (12:41)
[2025-02-12] MEDS: Fluticasone Propionate Nasal 16 GM SPRAY 2 SPRAY NOSTRIL-B (12:41)
[2025-02-12] MEDS: 0.9 % Sodium Chloride Flush 3 ML SYRINGE IVFLUSH (16:58)
--- NOTE | 2025-02-12 17:58 | MHC.EDTECH ---
Pt consumed 100% of dinner tray
--- NOTE | 2025-02-12 19:40 | PC.NURSE ---
Pt aox4 resting at the bedside. Bilateral wheezes in all lobes. Denies chest pain, n/v/d. Incentive spirometer provided with instructions. Pt able to demonstrate proper use. Pt reports painful urination that began today. Urine sample collected and sent. Pending bed assignment. Pt aware of plan of care.
[2025-02-12 20:00] LABS: Appearance Urine Clear; Color Urine Yellow; Glucose Urine UA 500 mg/dL (Negative); Leukocyte Esterase Urine Negative (Negative); Nitrite Urine Negative (Negative); PH 5.5 (5.0-9.0); Specific Gravity - Urine >= 1.030 (1.005-1.025); Urine Blood Negative (Negative); Urine Ketones Trace mg/dL (Negative); Urine Protein Trace mg/dL (Neg-Trace)
[2025-02-12 20:12] LABS: Bacteria Urine Trace (None Seen); Hyaline Casts Urine 0-2 /LPF (0-2); RBC Urine 0-2 /HPF (0-2); WBC Urine 0-5 /HPF (0-5)
--- NOTE | 2025-02-12 23:54 | MHC.EDTECH ---
This tech took over care of pt at 2300,rounded and introduced self to pt, patient was given a pitcher of water, pt appears comfortable watching TV on her phone, call russell in reach
[2025-02-13] MEDS: methylPREDNISolone Sod Succ 125 MG/2 ML VIAL 80 MG IVPUSH (00:09)
[2025-02-13] MEDS: 0.9 % Sodium Chloride Flush 3 ML SYRINGE IVFLUSH ×2 (00:09→08:59)
[2025-02-13 03:30] LABS: Anion Gap 13 (12-20); Blood Urea Nitrogen 15 mg/dL (9-16); Calcium 9.9 mg/dL (8.4-10.2); Carbon Dioxide 22 mmol/L (22-29); Chloride 112 mmol/L (96-108); Creatinine Clr Calc Pharmacy 94.6; Estimated Glomerular Filt Rate > 60; Glucose Random 147 mg/dL (60-115); Potassium 4.1 mmol/L (3.3-5.1); Sodium 143 mmol/L (135-145)
[2025-02-13] MEDS: Enoxaparin Sodium 40 MG/0.4 ML SYRINGE SUBCUT (03:42)
[2025-02-13 03:46] LABS: TSH reflex Free T4 0.01 uIU/mL (0.32-4.0)
[2025-02-13 05:18] LABS: Free T4 (Free Thyroxine) 1.28 ng/dL (0.71-1.85)
[2025-02-13] MEDS: Levothyroxine Sodium 150 MCG TABLET PO (06:02)
[2025-02-13] MEDS: levalbuterol HCL 1.25 MG/3 ML VIAL.NEB INHALE ×4 (07:24→19:13)
[2025-02-13] MEDS: Fluticasone/Vilanterol 200/25 BLST.W.DEV 1 PUFF INHALE (07:24)
[2025-02-13] MEDS: Budesonide 180 MCG AER.POW.BA 2 PUFF INHALE ×2 (07:24→19:13)
[2025-02-13 07:26] VITALS: PULSE 86; RESP 18; O2SAT 99
[2025-02-13 08:32] VITALS: BP 130/70; PULSE 101; RESP 17; TEMP 36.6; O2SAT 94
[2025-02-13] MEDS: Montelukast Sodium 10 MG TABLET PO (08:59)
[2025-02-13] MEDS: Multivitamin TABLET 1 TAB PO (08:59)
[2025-02-13] MEDS: Fluticasone Propionate Nasal 16 GM SPRAY 2 SPRAY NOSTRIL-B (08:59)
[2025-02-13] MEDS: methylPREDNISolone Sod Succ 125 MG/2 ML VIAL 60 MG IVPUSH (09:40)
[2025-02-13 11:12] LABS: Magnesium 2.1 mg/dL (1.6-2.6)
--- NOTE | 2025-02-13 11:23 | HO.PM.IMPN ---
Subjective Subjective Date of Service: 02/13/25 Interval History: PT is a 49-year-old female with pertinent history of hypothyroidism, asthma not on home oxygen who presented to the emergency department for evaluation of dyspnea. Pt has known hx of astham and is followed by mechanical press operator at [facility] and had recent evaluation by an equipment planner this past October. Pt was on Fesenra infusions for assumed eosonophilic asthma but pt stopped the treatment due to side effects (bone pain) and cost. Pt's viral studies were all negative. Pt has not had any fever, chills, chest pain or SOB at rest but remains wheezy and constricted noting she is on solu medrol IV taper. Adding MG IV [address] scan of chest will also be done to exclude other abnormal findings for pt's noted abnromal lung examination. TSH 0.01, FT4 WNL. Pt is on levothyroxine 150 mcgs normally but this was changed from 175 mcgs recently but pt has not been taking lower dose until 2 weeks ago. WIll lower to 125 mcgs and pt will need follow up labs in 2 weeks. Pt follows with PCP for thyroid mgmt s/p partial thyroidectomy for thyroid cancer. Review of Systems Pt currently denies chest pain, SOB at rest, sore throat, abd pain, N/V, neck pain, lower leg pain, CORREA, visual changes. Review of Systems: Yes all other systems are reviewed and are negative Physical Exam Vital Signs: Vital Signs: Last Vital Signs Temp 97.9 F 02/13/25 08:32 Pulse 101 H 02/13/25 08:32 Resp 17 02/13/25 08:32 BP 130/70 02/13/25 08:32 Pulse Ox 94 02/13/25 08:32 O2 Del Method Room Air 02/13/25 08:32 BMI result Body Mass Index 37.8 Alert and orientated X3, able to give good history. Speaks and understands colombian. Neuro: CN II-X11 intact, no deficits, visual acuity intact EYES: PERRLA, EOM intact ENT: hearing intact, no issues with swallowing, uvula midline, lips moist, nares patent no epistaxis, no thyroid nodules noted, no goiter, no lymphadenopathy Cardiac: S1 S2 RRR, no murmur, no JVD, no edema in Lower ext Pulmonary: lungs with B rhonchi and wheezes, no productive cough Abdominal: BS active in all 4 quadrants, no guarding, tenderness, rebounding MSK: strength 5/5 upper and lower extremities : no CVA tenderness no bladder distension Extremities: mild chronic edema edema in lower extremities, PT and DP pulses palpable +2, skin warm Psych: mood stable, judgment and insight good Skin: noted tattoos R arm, no open wounds Objective Data Active Medications Acetaminophen (Acetaminophen 325 Mg Tablet) 650 mg PO Q6H PRN PRN Reason: Pain, Mild 1-3,fever,headache Albuterol/Ipratropium (Albuterol/Iprat 2.5/0.5mg 3 Ml Ampul.Neb) 3 ml INHALE Q4H PRN PRN Reason: Shortness of Breath/Wheezing Benzonatate (Benzonatate 100 Mg Capsule) 100 mg PO TID PRN PRN Reason: Cough Budesonide (Budesonide 180 Mcg Aer.Pow.Ba) 2 puff INHALE RBID [facility] Last Admin: 02/13/25 07:24 Dose: 2 puff Documented By: ARCHANA Calcium Carbonate (Calcium Carbonate 750 Mg Tab.Chew) 750 mg PO Q4H PRN PRN Reason: Heartburn Enoxaparin Sodium (Enoxaparin Sodium 40 Mg/0.4 Ml Syringe) 40 mg SUBCUT Q24H [facility] Last Admin: 02/13/25 03:42 Dose: 40 mg Documented By: LILA Fluticasone Propionate (Fluticasone Propionate Nasal 16 Gm [place]) 2 spray NOSTRIL-B DAILY [facility] Last Admin: 02/13/25 08:59 Dose: 2 spray Documented By: MADDY Fluticasone/Vilanterol (Fluticasone/Vilanterol 200/25 Blst.W.Dev) 1 puff INHALE DAILY [facility] Last Admin: 02/13/25 07:24 Dose: 1 puff Documented By: ARCHANA Magnesium Sulfate (Magnesium Sulfate/H2o) 2 gm in 50 mls @ 25 mls/hr IV ONCE ONE Stop: 02/13/25 12:54 Levalbuterol HCl (Levalbuterol Hcl 1.25 Mg/3 Ml Vial.Neb) 1.25 mg INHALE Q3H PRN PRN Reason: Wheezing Levalbuterol HCl (Levalbuterol Hcl 1.25 Mg/3 Ml Vial.Neb) 1.25 mg INHALE RTID [facility] Last Admin: 02/13/25 07:24 Dose: 1.25 mg Documented By: ARCHANA Levothyroxine Sodium (Levothyroxine Sodium 125 Mcg Tablet) 125 mcg PO DAILY@0600 [facility] Magnesium Hydroxide (Milk Of Magnesia 30 Ml Oral.Susp) 30 ml PO DAILY PRN PRN Reason: Constipation Melatonin (Melatonin 3 Mg Tablet) 6 mg PO BEDTIME PRN PRN Reason: Insomnia Methylprednisolone Sodium Succinate (Methylprednisolone Sod Succ 125 Mg/2 Ml Vial) 60 mg IVPUSH Q8H [facility] Last Admin: 02/13/25 09:40 Dose: 60 mg Documented By: MADDY Montelukast Sodium (Montelukast Sodium 10 Mg Tablet) 10 mg PO DAILY [facility] Last Admin: 02/13/25 08:59 Dose: 10 mg Documented By: MADDY Multivitamins/Vitamin C (Multivitamin Tablet) 1 tab PO DAILY [facility] Last Admin: 02/13/25 08:59 Dose: 1 tab Documented By: MADDY Ondansetron HCl (Ondansetron Hcl 4 Mg/2 Ml Vial) 4 mg IVPUSH Q8H PRN PRN Reason: Nausea and Vomiting Sodium Chloride (0.9 % Sodium Chloride Flush 3 Ml Syringe) 3 ml IVFLUSH QSHIFT [facility] Last Admin: 02/13/25 08:59 Dose: 3 ml Documented By: MADDY Labs 02/12/25 07:15 02/13/25 02:49 Labs: Laboratory Results - last 24 hr 02/12/25 02/13/25 19:46 02:49 Anion Gap 13 Estim Creat Clear Calc 94.6 Estimated GFR > 60 Random Glucose 147 H Calcium 9.9 Magnesium 2.1 TSH 0.01 L Free T4 1.28 Urine Color Yellow Urine Appearance Clear Urine pH 5.5 Ur Specific [place] >= 1.030 H Urine Protein Trace Urine Glucose (UA) 500 H Urine Ketones Trace Urine Blood Negative Urine Nitrite Negative Ur Leukocyte Esterase Negative Urine RBC 0-2 Urine WBC 0-5 Ur Squamous Epith Cells 6-10 Urine Bacteria Trace Hyaline Casts 0-2 Assessment and Plan (1) Asthma exacerbation: Status: Acute (2) Hypothyroidism: Status: Acute (3) Varicose veins of both lower extremities with inflammation: Status: Acute (4) BMI 37.0-37.9, adult: Status: Acute Plan Pt in overflow for ED, noted wheezing, rhonchi on RA. CT scan ordered. MG 2 GMS provided. Pt continues on nebs and supportive care. TSH 0.01, levothyrxoine adjusted. A/P Asthma exacerbation Pt is on RA, POX 91-94 on RA Pt overall has not improved with clinical presentation noting extent of adventitious lung sounds, CT Lungs ordered MG 2 GMS provided No indication for ABX at this time, pt afebrile with no leukocytosis, viral testing all negative Pt denies any recent travel, but was in [place] in October 2024 Nebs ordered scheduled Methylprednisolone now 60 mg IV Q8H, taper down every 24 to 48 hours Anti-tussives IS Pt does follow with mechanical press operator at [facility], was recently started on Breo. Has dx of Eosonophillic asthma and was on fusenra but had to stop due to bone pain and cost Monitor for fever, chills, tachycardia Hypothyroidism Pt resuming her levothyroxine, pt has had surgery on her thyroid in the past TSH 0.01, lowered dose to 125 mcgs as pt has had issues with low TSH for some time Repeat labs in 2-4 weeks, pt follows with PCP for mgmt Varicose veins/ lymphedema Chronic, pt follows as an outpatient with specialist no open wounds or circulatory concerns currently Obesity Pt counselled, pt defereed need for dietary consult Lovenox ordered for DVT prophylaxis Pt will remain inpatient pending CT scan. MG 2GMS IV X1 provided. Pt may benefit from Zpack if indicated. DC likely tomorrow. Total time managing care of this patient today: 40 minutes. Quality Stroke Does the patient have a stroke diagnosis?: No Reason for No Anti-thrombotic by Day Two: N/A - Med Ordered VTE Prior VTE?: No VTE Risk Level:: Medical - moderate - high VTE Device Contraindication: Treatment Not Indicated VTE Drug Contraindication: N/A - Med Ordered
[2025-02-13] MEDS: Magnesium Sulfate/H2O 2 GM/50 ML PIGGYBACK IV (12:39)
[2025-02-13 14:59] VITALS: PULSE 79; RESP 18; O2SAT 92
[2025-02-13 15:43] VITALS: BP 109/55; PULSE 83; RESP 18; TEMP 36.5; O2SAT 98
[2025-02-13 19:14] VITALS: PULSE 83; RESP 18; O2SAT 95
[2025-02-13 19:43] VITALS: BP 139/68; PULSE 95; RESP 18; TEMP 36.5; O2SAT 94
[2025-02-13] MEDS: methylPREDNISolone Sod Succ 125 MG/2 ML VIAL 40 MG IVPUSH (20:41)
[2025-02-14] MEDS: 0.9 % Sodium Chloride Flush 3 ML SYRINGE IVFLUSH ×2 (00:03→07:40)
[2025-02-14 00:10] VITALS: BP 115/72; PULSE 75; RESP 16; TEMP 36.7; O2SAT 96
[2025-02-14] MEDS: Enoxaparin Sodium 40 MG/0.4 ML SYRINGE SUBCUT (03:27)
[2025-02-14 03:44] VITALS: BP 100/52; PULSE 69; RESP 16; TEMP 36.3; O2SAT 93
[2025-02-14] MEDS: Levothyroxine Sodium 125 MCG TABLET PO (05:59)
[2025-02-14] MEDS: Benzonatate 100 MG CAPSULE PO (06:03)
[2025-02-14] MEDS: levalbuterol HCL 1.25 MG/3 ML VIAL.NEB INHALE (08:00)
[2025-02-14] MEDS: Fluticasone/Vilanterol 200/25 BLST.W.DEV 1 PUFF INHALE (08:00)
[2025-02-14 08:03] VITALS: PULSE 86; RESP 18
[2025-02-14] MEDS: Budesonide 180 MCG AER.POW.BA 2 PUFF INHALE (08:05)
[2025-02-14 08:21] VITALS: BMI 38.8
[2025-02-14 08:27] VITALS: BP 136/63; PULSE 106; RESP 16; TEMP 36.3; O2SAT 95
[2025-02-14] MEDS: Fluticasone Propionate Nasal 16 GM SPRAY 2 SPRAY NOSTRIL-B (08:36)
[2025-02-14] MEDS: Multivitamin TABLET 1 TAB PO (08:37)
[2025-02-14] MEDS: Montelukast Sodium 10 MG TABLET PO (08:37)
[2025-02-14] MEDS: methylPREDNISolone Sod Succ 125 MG/2 ML VIAL 40 MG IVPUSH (08:37)
[2025-02-14 08:38] VITALS: BMI 38.8
--- NOTE | 2025-02-14 11:47 | P.DS_ITS ---
DS: Providers Provider Date of Service: 02/14/25 Date of admission: 02/12/25 02:49 Date of discharge: 02/14/25 Primary care physician: Amol Titus MD Attending physician on discharge: Rich [facility] Discharging clinician: Irma Banda DS: Diagnosis Discharge Diagnosis (1) Asthma exacerbation: Status: Acute (2) Hypothyroidism: Status: Chronic (3) Varicose veins of both lower extremities with inflammation: Status: Chronic (4) BMI 37.0-37.9, adult: Status: Chronic DS: Summary Hospital Course Hospital Course: HPI Chief Complaint: Dyspnea This is a 49-year-old female with pertinent history of hypothyroidism, asthma not on home oxygen who presents to the emergency department for evaluation of dyspnea. Patient states her symptoms started 3 days prior to presentation. Patient started having runny nose and nonproductive cough. Subsequently she developed dyspnea which is worse with exertion and wheezing. Did not improve with the home inhaler. Also noticed swelling of the right eye and upper lip which improved with Benadryl. No tongue swelling, change in voice, difficulty swallowing. Denies fever or chills. Had 1 episode of vomiting on the day of presentation due to cough. Has generalized weakness and easy fatigability. No palpitations, chest pain, abdominal pain, changes in urinary or bowel habits. In the emergency department, patient wheezing despite multiple DuoNeb treatments and IV steroids. Pt remained on RA but continued with congestion and wheezing. Pt offered that she has been diagnosed with EOS asthma and has been on Fesenra but could not continue tx due to bone pain and cost. Pt offered that the IV Magnesium really helped to open up her lungs. Pt has remained afebrile, VSS, off O2. CT scan of chest completed and notes evidence of Bronchiolitis with evidence of atelectasis. Patient has been using incentive spirometer and advised to continue to use at home. pt is not februile with no leukocytosis, ABX are not indicated. Pt has tolerated steroids, nebs and has nebulizer at home. Pt continues on usual inhalers including Breo. Pt requesting one refill for DC home which was provided. Patient also has history of partial thyroidectomy for thyroid cancer. Patient has been on levothyroxine for multiple years. TSH was checked and was 0.01. Patient is following with her electronic train control technician and primary care physician for management. Patient was previously on 175 mcg of levothyroxine and was reduced to 150. This was approximately 2 weeks prior. Patient's dose was lower to 125 mcg and patient understands that she will need repeat blood work in approximately 2-4 weeks to evaluate her thyroid function. Patient is currently asymptomatic regarding hypo or hyperthyroidism. Symptoms were reviewed and patient understands when to call her provider if she is symptomatic. Patient does understand that she needs to follow up for blood work with her primary care physician and/or electronic train control technician. Patient also understands to take the medication at least 30 minutes prior to eating or 2 hours after. Plan is for DC 02/14 to home with self-care. Pt has agreed to prednisone taper, duo nebs for home use. Pt will need to follow with primary care physician in 1 week. Patient also continues to follow with drawer in stitch bonding machine at [facility] and this is recommended to make an appointment within 4 weeks for follow- up. Patient has been educated on need for humidification, increased fluid intake and nebulizer treatments as prescribed as needed for shortness of breath or wheezing. Patient advised to keep up on her vaccinations. Patient understands why she is not being prescribed antibiotics as bronchiolitis is usually viral in nature. Pt also verbalized understanding that she will continue her budesonide nebs twice daily and only use the DUONEB Q4H prn for shortness of breath or wheezing only. Patient educated to call 911 for any life-threatening illnesses or symptoms. PT verbalized understanding of discharge instructions and all questions and concerns were addressed Status at Discharge Cognitive/behavioral status at discharge: ALert and orientated X4, no deficits Functional status at discharge: independent ambulation Overall status at discharge: patient is back to baseline Time Attestation Total time managing care of this patient today: 30 mintues. Discharge Coordination Time (in mins): 10 Specific discharge activities: Coordination of care, discharge summary, dictations, ordering medications and providing patient education Quality: Safe Use of Opioids Does Pt have an Active Cancer Diagnosis on the Problem List?: No Quality: Stroke Does the patient have a stroke diagnosis?: No Physical Exam Vital Signs: Vital Signs: Last Vital Signs Temp 97.4 F 02/14/25 08:27 Pulse 106 H 02/14/25 08:27 Resp 16 02/14/25 08:27 BP 136/63 02/14/25 08:27 Pulse Ox 95 02/14/25 08:27 O2 Del Method Room Air 02/14/25 08:27 BMI result Body Mass Index 38.8 Alert and orientated X3, able to give good history. Neuro: CN II-X11 intact, no deficits, visual acuity intact EYES: PERRLA, EOM intact ENT: hearing intact, no issues with swallowing, uvula midline, lips moist, nares patent no epistaxis Cardiac: S1 S2 RRR, no murmur, no JVD, no edema in Lower ext Pulmonary: lungs diminished lower lobes, no adventitious sounds noted. No productive cough as well. Abdominal: BS active in all 4 quadrants, no guarding, tenderness, rebounding MSK: strength 5/5 upper and lower extremities : no CVA tenderness no bladder distension Extremities: no edema in lower extremities, PT and DP pulses palpable +2 Psych: mood stable, judgement and insight good Skin: intact, no rashes present DS: Data Data Completed and Pending Completed studies during hospitalization [Text1]: CT scan of the chest Imaging CT scan - chest: Radiologist's impression: IMPRESSION: 1. Localized tree-in-bud opacities are seen in the superior segment of the left lower lobe. Findings compatible with focal bronchiolitis. 2. Foci of subsegmental atelectasis noted in the right upper lobe and at the bases. Discharge Plan Discharge Anticipated Discharge Date/Time: 02/14/25 14:00 Patient Disposition: Home, Self-Care Discharge Diagnosis: Bronchiolitis, Asthma Exacerbation Referrals: Name,MD Amol [Primary Care Provider] - 1 Week Discharge Medications: New benzonatate 100 mg Capsule 100 mg PO TID PRN (Reason: Cough) Qty: 30 0RF levothyroxine 125 mcg Tablet 125 mcg PO DAILY@0600 Qty: 30 0RF ipratropium-albuterol 0.5 mg-3 mg(2.5 mg base)/3 mL Solution For Nebulization 3 ml inhalation Q4H PRN (Reason: Shortness Of Breath/Wheezing) Qty: 40 0RF fluticasone furoate-vilanterol [Breo Ellipta] 200-25 mcg/dose Blister With Device 1 inh inhalation DAILY Qty: 1 0RF prednisone 10 mg tablets,dose pack 10 mg PO DIRECTED Qty: 30 0RF Rx Instructions: Taper Instructions Take 40 mgs daily for three days Take 30 mgs for three days Take 20 mgs for three days Take 10 mgs for three days Continued budesonide 0.25 mg/2 mL suspension for nebulization 0.25 mg inhalation BID Qty: 360 2RF montelukast 10 mg tablet 10 mg PO DAILY Combivent Respimat 20-100 mcg/actuation Mist 1 puff INHALATION Q4H PRN (Reason: Shortness Of Breath Or Wheezing) fluticasone propionate 50 mcg/actuation spray,suspension 2 spray intranasal DAILY multivitamin with folic acid [Daily-Emi (with folic acid)] 400 mcg tablet 1 tab PO DAILY albuterol sulfate 90 mcg/actuation HFA aerosol inhaler 2 puff PO Q4-6H PRN (Reason: shortness of breath or wheezing) 30 Days Qty: 1 6RF Discontinued levothyroxine 150 mcg tablet 150 mcg PO DAILY@0600 fluticasone furoate-vilanterol [Breo Ellipta] 200-25 mcg/dose blister with device 1 inh inhalation DAILY 30 Days Qty: 1 6RF Discharge Orders: Discharge Order (Routine); Ordered 02/14/25 Ordered By: Irma Banda Diet: Advance to usual diet Activity on Discharge: As tolerated Stand Alone Forms: Patient Portal Discharge page Print Language: Maltese Activity Restrictions/Additional Instructions: Advised to wear mask when out in public, reduced risk of exposure To avoid direct contact with anyone dealing with a respiratory illness Discuss with PCP keeping up on vaccinations Continue to use incentive spirometer at home Care Plan Goals: To remain free of wheezing, congestion and shortness of breath. To avoid upper respiratory infections with education provided. To follow-up with drawer in stitch bonding machine in the next month. Pt will need to see PCP and or electronic train control technician for follow up for TSH 0.01 and decrease in levothyroxine from 150 mcgs to 125 mcgs. Pt will need repeat blood work in 204 weeks. Health Concerns: Worsening respiratory status. Pneumonia. Plan of Treatment: Patient being discharged home on prednisone taper, humidification at home, increase fluid intake and continuation of duo nebs and outpatient inhalers. Patient will follow up with PCP in 1 week and drawer in stitch bonding machine within 4 weeks. Assessment: Patient is currently alert and orientated x3 on room air no complaints of shortness of breath at rest or with exertion. Patient is agreeable to discharge home, self-care. Patient able to verbalize instructions appropriately. Patient Instructions: Bronchiolitis (DC), Hyperthyroidism (ED), Hypothyroidism (GEN)
[2025-02-14] MEDS: Magnesium Sulfate/D5W 1 GM/100 ML PIGGYBACK IV (12:47)
--- NOTE | 2025-02-14 13:10 | MHC.CM.PN ---
DP: PT HAS BEEN MEDICALLY CLEARED FOR DC HOME, NO SERVICES. PT HAS OWN RIDE HOME.
== END 2025-02-14 15:33 | disposition home or self-care (01) ==
LOC: HO.ED 23:53 → HO.EDOVER 02-12 02:54 → HO.S3 02-14 07:34
PROVIDERS: Physician Assistant Medical; Admitting Provider Student in an Organized Health Care Education/Training Program; Emergency Provider Emergency Medicine; PCP Internal Medicine Geriatric Medicine; Visit Provider Nurse Practitioner Family
DX: J45.41 Moderate persistent asthma with (acute) exacerbation (principal); E03.9 Hypothyroidism, unspecified; I83.11 Varicose veins of right lower extremity with inflammation; I83.12 Varicose veins of left lower extremity with inflammation; E66.9 Obesity, unspecified; Z68.37 Body mass index [BMI] 37.0-37.9, adult; R05.9 Cough, unspecified; R07.9 Chest pain, unspecified; R00.0 Tachycardia, unspecified; Z20.822 Contact with and (suspected) exposure to COVID-19; Z71.3 Dietary counseling and surveillance; Z79.899 Other long term (current) drug therapy; Z79.51 Long term (current) use of inhaled steroids
CPT/HCPCS: 0241U; 36415; 71045; 71250; 80048; 80053; 81001; 83735; 84439; 84443; 84484; 85025; 93005; 94640; 96365; 96366; 96372; 96375; 96376; 99221; 99285; J1200; J1650; J2405; J2919; J3475

== ENCOUNTER → 2025-02-11 19:03 | Outpatient (BNV) | payer MEDICAID, SELFPAY | PROVIDERS: PCP Internal Medicine Geriatric Medicine; Visit Provider General Practice | DX: R07.9 Chest pain, unspecified (principal) | CPT/HCPCS: 71045 ==

== ENCOUNTER → 2025-02-12 00:17 | Outpatient (BNV) | payer MEDICAID, SELFPAY | PROVIDERS: Admitting Provider Student in an Organized Health Care Education/Training Program; Emergency Provider Emergency Medicine; PCP Internal Medicine Geriatric Medicine; Visit Provider Internal Medicine Cardiovascular Disease | DX: R07.9 Chest pain, unspecified (principal); R00.0 Tachycardia, unspecified; R94.31 Abnormal electrocardiogram [ECG] [EKG] | CPT/HCPCS: 93010 ==

== ENCOUNTER 2025-02-12 02:49 | Outpatient (BNV) | payer MEDICAID, SELFPAY | END 2025-02-13 09:22 | PROVIDERS: Admitting Provider Student in an Organized Health Care Education/Training Program; Emergency Provider Emergency Medicine; PCP Internal Medicine Geriatric Medicine; Visit Provider Radiology Diagnostic Radiology | DX: J98.11 Atelectasis (principal); R91.8 Other nonspecific abnormal finding of lung field | CPT/HCPCS: 71250 ==

== ENCOUNTER → 2025-02-12 02:49 | Outpatient (BNV) | payer MEDICAID, SELFPAY | PROVIDERS: Admitting Provider Student in an Organized Health Care Education/Training Program; Emergency Provider Emergency Medicine; PCP Internal Medicine Geriatric Medicine; Visit Provider Student in an Organized Health Care Education/Training Program | DX: J45.901 Unspecified asthma with (acute) exacerbation (principal) | CPT/HCPCS: 99222; 99499 ==

== ENCOUNTER 2025-03-25 09:32 | Observation (INO) | payer MEDICAID, SELFPAY ==
[2025-03-25] VITALS (10 sets, daily range): BP systolic 105–147; BP diastolic 62–84; PULSE 81–103; RESP 16–22; TEMP 36.8–37.1; O2SAT 94–98; BMI 38.5
--- NOTE | ~2025-03-25 | XR_ITS ---
EXAMINATION: XR CHEST CLINICAL INFORMATION: sob COMPARISON: February 11, 2025. TECHNIQUE: 2 views of the chest were obtained. FINDINGS: There is a patchy rounded opacity in the right lower hemithorax and possibly retrocardiac on the left lower hemithorax. No pleural effusion. No pneumothorax. Cardiomediastinal silhouette size is normal. Multilevel thoracic spondylosis. Degenerative changes in the shoulders/acromioclavicular joints. XR/XR chest 2V IMPRESSION: Concerning multifocal pneumonia in the correct clinical settings. Recommend follow-up until resolution. Electronically signed by: Dayne Oneil MD 03/25/2025 10:45 AM EDT
--- NOTE | ~2025-03-25 | US_ITS ---
EXAMINATION: US PELVIC DUPLEX COMPLETE HISTORY: right inguinal pain COMPARISON: Comparison is made with the prior examination dated 03/16/2021. TECHNIQUE: Transabdominal and endovaginal real-time 2D oswald-scale ultrasound was performed. FINDINGS: Uterus: The uterus is normal in size, measuring 11.2 x 3.1 x 3.9 cm. The uterus is not well visualized due to patient body habitus. No fibroids are identified. Endometrium: The endometrial stripe measures 4 mm in thickness. Right ovary: The right ovary is not identified. Left ovary: The left ovary is not identified. Pelvic fluid: none. US/US pelvic and transvaginal IMPRESSION: The uterus is grossly unremarkable in appearance. Evaluation is limited by patient body habitus. The ovaries are not identified. Electronically signed by: James Ward MD 03/27/2025 07:28 AM EDT
--- NOTE | ~2025-03-25 | US_ITS ---
EXAMINATION: US PELVIC DUPLEX COMPLETE HISTORY: right inguinal pain COMPARISON: Comparison is made with the prior examination dated 03/16/2021. TECHNIQUE: Transabdominal and endovaginal real-time 2D oswald-scale ultrasound was performed. FINDINGS: Uterus: The uterus is normal in size, measuring 11.2 x 3.1 x 3.9 cm. The uterus is not well visualized due to patient body habitus. No fibroids are identified. Endometrium: The endometrial stripe measures 4 mm in thickness. Right ovary: The right ovary is not identified. Left ovary: The left ovary is not identified. Pelvic fluid: none. US/US pelvic ovarian doppler IMPRESSION: The uterus is grossly unremarkable in appearance. Evaluation is limited by patient body habitus. The ovaries are not identified. Electronically signed by: James Ward MD 03/27/2025 07:28 AM EDT
--- NOTE | 2025-03-25 10:04 | ED_ITS ---
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 Admits after eating shrimp Marc developed rash. Denies known allergen to shrimp, states eats shrimp frequently without prior side effect Admits to taking Cetirizine at home with some relief. Has been using inhalers/machine with little relief. Denies other known new exposures including medications or foods. Denies sick contacts, travel, difficulty or inability to swallow, fever, nausea/vomiting or diarrhea Related Data Home Medications ?Medication ?Instructions ?Recorded ?Confirmed ipratropium 20 mcg-albuterol 100 1 puff inhalation Q4H PRN 09/29/24 02/12/25 mcg/actuation mist for inhalation Shortness Of Breath Or Wheezing (Combivent Respimat) montelukast 10 mg tablet 10 mg PO DAILY 09/29/24 02/12/25 fluticasone propionate 50 2 spray intranasal DAILY 02/12/25 02/12/25 mcg/actuation nasal spray,suspension multivitamin with folic acid 400 1 tab PO DAILY 02/12/25 02/12/25 mcg tablet (Daily-Emi (with folic acid)) Previous Rx's ?Medication ?Instructions ?Recorded albuterol sulfate 90 mcg/actuation 2 puff PO Q4-6H PRN shortness of 08/03/23 aerosol inhaler breath or wheezing 30 days #1 ea budesonide 0.25 mg/2 mL suspension 0.25 mg (2 mL) inhalation BID #360 07/02/24 for nebulization mL benzonatate 100 mg capsule 100 mg PO TID PRN Cough #30 caps 02/14/25 fluticasone furoate 200 1 inh inhalation DAILY #1 ea 02/14/25 mcg-vilanterol 25 mcg/dose inhalation powder (Breo Ellipta) ipratropium 0.5 mg-albuterol 3 mg 3 ml inhalation Q4H PRN Shortness 02/14/25 (2.5 mg base)/3 mL nebulization Of Breath/Wheezing #40 mL soln levothyroxine 125 mcg tablet 125 mcg PO DAILY@0600 #30 tabs 02/14/25 Allergies Allergy/AdvReac Type Severity Reaction Status Date / Time aspirin [ASPIRIN] Allergy Unknown UNKNOWN, Verified 03/25/25 09:42 anaphylaxis latex Allergy Unknown Anaphylaxis, Verified 03/25/25 09:42 Rash Latex, Natural Rubber Allergy Unknown HIVES Verified 03/25/25 09:42 [LATEX, NATURAL RUBBER] naproxen [From NAPROSYN] Allergy Unknown UNKNOWN, Verified 03/25/25 09:42 anaphylaxis Review of Systems 2 Review of Systems: Yes all other systems are reviewed and are negative Constitutional: Constitutional: Reports as per [facility] Past Medical History Attestation statement: The following information was validated with the patient. Source: old records reviewed Medical History Varicose veins of both lower extremities with inflammation BMI 37.0-37.9, adult Severe persistent allergic asthma Asthma Hypothyroidism Morbid obesity Surgical History History of facial surgery H/O thyroidectomy Family History Family History Mother Diabetes Social History Social History Household Members: Significant Other and Children Housing: Apartment Alcohol intake: never Patient Tobacco Use Status: Never used Tobacco Smoked in Last 30 Days: No Use of substances other than those prescribed or required for medical reasons: No Advance Directives: No Advance Directives Information Provided: No Patient : No service: No Current occupational status: employed Current occupation: rt handed Physical Exam ED Vital Signs: Vital Signs - 24 hr 03/25/25 09:37 03/25/25 10:18 03/25/25 11:47 Temperature 98.3 F Pulse Rate 96 94 83 Respiratory Rate 18 22 H 18 Blood Pressure 147/84 H Pulse Oximetry 94 Oxygen Delivery Method Room Air 03/25/25 12:00 Temperature Pulse Rate 89 Respiratory Rate 18 Blood Pressure 132/64 Pulse Oximetry 96 Oxygen Delivery Method Room Air BMI result Body Mass Index 38.5 Const General: cooperative, healthy appearing and no acute distress Orientation/consciousness: patient oriented x3 Limitations: no limitations HENMT Head: Yes normal to inspection and Yes atraumatic Ears: hearing grossly normal bilaterally General nose exam: Normal external nose present Face and sinus: Yes normal facial exam Mouth: Normal oral and palatal mucosa present and no drooling Throat: Yes posterior oropharynx normal, Yes tonsils normal, Yes uvula midline, No peritonsillar mass, No uvula laterally displaced and No uvular edema Eyes General: appearance normal, both eyes and all related structures EOM: EOMs intact bilaterally Neck Neck: Yes normal visual inspection and Yes no meningeal signs Resp Effort & Inspection: no respiratory distress and no stridor Auscultation: wheezes expiratory wheezes, inspiratory wheezes and throughout Cardio Rate: regular rate Heart sounds: S1 normal heart sound present and S2 normal heart sound present GI Inspection: Yes normal to inspection Palpation (GI): Soft to palpation, nontender, no guarding and not rigid Skin Other: + erythematous macular rash/hives noted in diffuse patches to bilateral upper extremities, chest and back. Blanchable. No vesicles Wounds: no wounds Neuro General: patient oriented x3, tone normal and no meningeal signs Cranial nerves: Yes CN's II-XII intact bilaterally Gait exam (Neuro): Normal gait present Extrem General: Yes normal to inspection Course Course Course Narrative: XR chest 2V IMPRESSION: Concerning multifocal pneumonia in the correct clinical settings. Recommend follow-up until resolution > will obtain lactic/blood cultures and give empiric Rocephin/Azithromycin -1310--labs reassuring. Viral testing negative. On re-evaluation lungs still with diffuse expiratory wheeze. Will give IV magnesium and plan for admission Medications Administered Discontinued Medications Generic Name Dose Route Start Last Admin Trade Name Freq PRN Reason Stop Dose Admin Ceftriaxone Sodium 1 gm 03/25/25 11:14 03/25/25 12:45 Ceftriaxone Sodium 1 Gm Vial IVPUSH 03/25/25 11:15 1 gm ONCE ONE Administration Albuterol Sulfate 2.5 mg/ 0 mg 03/25/25 10:15 03/25/25 10:17 Albuterol/Ipratropium 3 ml INHALE 03/25/25 10:16 1 dose ONCE ONE Administration Albuterol Sulfate 2.5 mg/ 0 mg 03/25/25 11:43 03/25/25 11:45 Albuterol/Ipratropium 3 ml INHALE 03/25/25 11:44 1 dose ONCE ONE Administration Diphenhydramine HCl 50 mg 03/25/25 10:01 03/25/25 10:59 Diphenhydramine Hcl 50 Mg/Ml Vial IVPUSH 03/25/25 10:02 50 mg ONCE ONE Administration Famotidine 20 mg 03/25/25 10:01 03/25/25 10:59 Famotidine/Pf 20 Mg/2 Ml Vial IVPUSH 03/25/25 10:02 20 mg ONCE ONE Administration Sodium Chloride 1,000 mls @ 999 mls/hr 03/25/25 10:15 03/25/25 11:15 Ns IV 03/25/25 11:15 Infused .Q1H1M MARCIAL Infusion Azithromycin 500 mg/ Sodium 250 mls @ 125 mls/hr 03/25/25 11:14 03/25/25 12:45 Chloride IV 03/25/25 13:13 125 mls/hr ONCE ONE Administration Methylprednisolone Sodium Succinate 125 mg 03/25/25 10:01 03/25/25 12:45 Methylprednisolone Sod Succ 125 Mg/2 Ml Vial IVPUSH 03/25/25 10:02 125 mg ONCE ONE Administration Medical Decision Making Medical Decision Making [facility] Narrative: 49 yo female with past medical history significant for hypothyroidism, asthma and environmental allergies, as well as 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 On exam vital signs stable, inspiratory and expiratory wheeze noted throughout. No stridor. Talking in complete sentences. No respiratory distress. Uvula midline. Rash noted as above. Concern for viral illness vs asthma exacerbation vs pneumonia vs allergic reaction. Delayed anaphylaxis on differential however lower at this time. No respiratory compromise Plan: EKG, labs, CXR, ED bronch protocol, IV Solu-Medrol, IV Benadryl/Pepcid, viral testing re-evaluate Differential Diagnosis Differential Diagnoses: The differential diagnosis associated with the presentation includes As above Admission/Observation Consideration of admission/observation: Escalation of care including admission/observation considered Lab Data [facility] Lab Attestation statement: I reviewed the patient's lab results. 03/25/25 10:53 03/25/25 11:38 Labs: Lab Results 03/25/25 03/25/25 Range/Units 10:53 11:38 WBC 9.4 (4.8-10.8) X10*3/uL RBC 4.84 (4.20-5.50) X10*6/uL Hgb 13.6 (12.0-16.0) g/dl Hct 40.9 (37.0-47.0) % MCV 84.5 (80.0-98.0) fL MCH 28.1 (27.0-33.0) pg MCHC 33.3 (31.0-35.0) g/dl RDW 16.0 (11.0-16.0) % Plt Count 227 (160-400) X10*3/uL MPV 10.6 (9.4-12.3) fL Immature Gran % (Auto) 0.3 (0.0-0.4) % Neut % (Auto) 69.6 (45-73) % Lymph % (Auto) 23.2 (20-40) % [place] % (Auto) 6.1 (2-11) % Eos % (Auto) 0.7 (0-4) % Baso % (Auto) 0.1 (0-2) % Lymph # (Auto) 2.2 (1.2-4.9) X10*3/uL [place] # (Auto) 0.6 (0.1-1.2) X10*3/uL Eos # (Auto) 0.1 (0.0-0.4) X10*3/uL Baso # (Auto) 0.0 (0.0-0.2) X10*3/uL Abs Immat Gran (auto) 0.03 (0.00-0.03) X10*3/uL Absolute Neuts (auto) 6.5 (2.0-8.3) x10*3/uL Absolute Nucleated RBC 0.000 (0.0-0.012) X10*3/uL Nucleated RBC % (auto) 0.0 (0.0-0.2) /100WBC Sodium 142 (135-145) mmol/L Potassium 3.7 (3.3-5.1) mmol/L Chloride 109 H (96-108) mmol/L Carbon Dioxide 23 (22-29) mmol/L Anion Gap 14 (12-20) BUN 13 (9-16) mg/dL Creatinine 0.85 (0.5-1.4) mg/dL Estim Creat Clear Calc 84.3 Estimated GFR > 60 Random Glucose 128 H (60-115) mg/dL Lactic Acid 1.7 (0.5-2.0) mmol/L Calcium 9.0 D (8.4-10.2) mg/dL Influenza Type A (PCR) NEGATIVE (Negative) Influenza Type B (PCR) NEGATIVE (Negative) RSV RNA Qual (PCR) NEGATIVE (Negative) SARS-CoV-2 RNA (RT-PCR) NEGATIVE (Negative) Independent Interpretation I performed an independent interpretation of an: EKG and Plain X-Ray Radiology Impression Discussion of test interpretation with radiology: I have reviewed the radiologist's reading. External Record Review External record reviewed: Inpatient record, Office record, Outpatient record, Prior outpatient labs, Prior outpatient radiology, Primary care record and Outside ED record Tests considered The following testing was considered but not selected: As above Prescription Management I considered prescription management with: Other Chronic Conditions Patient?s care impacted by: Other (asthma) Social Determinants Patient?s care significantly limited by Social Determinants of Health including: Other Social Determinant of Health Critical Care Time Critical Care Time Critical Care Time: Yes Total Critical Care Time: 45 Attestation: I have personally provided critical care time exclusive of time spent on separately billable procedures. Time includes review of lab data, radiology results, discussion with consultants, and monitoring for potential decompensation. Intervention performed as documented. Discharge Plan Discharge Clinical Impression: Multifocal pneumonia, Allergic reaction, Asthma exacerbation Patient Disposition: Admitted As Inpatient Print Language: Lithuanian
[2025-03-25] MEDS: Albuterol Sulfate 2.5 MG, Albuterol/Iprat 2.5/0.5MG 3 ML 3 ML INHALE ×2 (10:17→11:45)
[2025-03-25 10:59] LABS: MANUAL DIFF FLAG NO
[2025-03-25] MEDS: Famotidine/PF 20 MG/2 ML VIAL IVPUSH (10:59)
[2025-03-25] MEDS: diphenhydrAMINE HCL 50 MG/ML VIAL IVPUSH (10:59)
[2025-03-25] MEDS: 0.9 % Sodium Chloride 1,000 ML 999 ML IV (11:00)
[2025-03-25 11:05] LABS: Basophils Percent Auto 0.1 % (0-2); Eosinophils Absolute Auto 0.1 X10*3/uL (0.0-0.4); Eosinophils Percent Auto 0.7 % (0-4); Hematocrit 40.9 % (37.0-47.0); Hemoglobin 13.6 g/dl (12.0-16.0); Imm Gran Abs Auto 0.03 X10*3/uL (0.00-0.03); Imm Gran Pct Auto 0.3 % (0.0-0.4); Lymphocytes Absolute Auto 2.2 X10*3/uL (1.2-4.9); Lymphocytes Percent Auto 23.2 % (20-40); Mean Corpuscular HGB Conc 33.3 g/dl (31.0-35.0); Mean Corpuscular Hemoglobin 28.1 pg (27.0-33.0); Mean Corpuscular Volume 84.5 fL (80.0-98.0); Mean Platelet Volume 10.6 fL (9.4-12.3); Monocytes Absolute Auto 0.6 X10*3/uL (0.1-1.2); Monocytes Percent Auto 6.1 % (2-11); Neutrophils Absolute Auto 6.5 x10*3/uL (2.0-8.3); Neutrophils Percent Auto 69.6 % (45-73); Platelet Count 227 X10*3/uL (160-400); Red Blood Count 4.84 X10*6/uL (4.20-5.50); White Blood Count 9.4 X10*3/uL (4.8-10.8)
--- NOTE | 2025-03-25 11:08 | PC.NURSE ---
pt is speaking in full clear sentences, she has slight wheezes in all [place] and diffuse hives. no angio edema no sensation of throat swelling. 20 ga iv was est LAC. pt was medicated as ordered however pharmacy has to bring solumederol to [facility].
--- NOTE | 2025-03-25 11:13 | ECG_ITS ---
Test Reason : abnormal xray Blood Pressure : */* mmHG Vent. Rate : 82 BPM Atrial Rate : 82 BPM P-R Int : 148 ms QRS Dur : 82 ms QT Int : 362 ms P-R-T Axes : 59 -5 -11 degrees QTcB Int : 422 ms Artifact in tracing Normal sinus rhythm Nonspecific T wave abnormality Abnormal ECG When compared with ECG of 12-Feb-2025 00:50, T wave inversion less evident in Lateral leads Referred By: Nelly Dorado Electronically Signed By: GRZEGORZ LEONARD
--- NOTE | 2025-03-25 11:14 | PC.NURSE ---
Report received. Taken over care at this time.
[2025-03-25 11:37] LABS: Influenza A PCR NEGATIVE (Negative); Influenza B PCR NEGATIVE (Negative); Resp Syncy Virus RNA Qual PCR NEGATIVE (Negative); SARS COV2 PCR INHOUSE NEGATIVE (Negative)
[2025-03-25 12:00] LABS: Anion Gap 14 (12-20); Blood Urea Nitrogen 13 mg/dL (9-16); Carbon Dioxide 23 mmol/L (22-29); Chloride 109 mmol/L (96-108); Creatinine Clr Calc Pharmacy 84.3; Estimated Glomerular Filt Rate > 60; Glucose Random 128 mg/dL (60-115); Potassium 3.7 mmol/L (3.3-5.1); Sodium 142 mmol/L (135-145)
[2025-03-25 12:08] LABS: Lactic Acid 1.7 mmol/L (0.5-2.0)
--- OUTSIDE RECORDS SUMMARY | 2025-03-25 12:16 | XMS_ITS | Clinical Summary ---
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 Devices (Pulse Oximeter For Finger) miscIndications :Cough in adult,COVID-19 To use every 4 hours. Call the office if O2 Sat < 90% 1 each 024 Active fluticasone (Flonase) 50 MCG/ACT nasal spray Administer 1 spray into each nostril 2 times daily. 024 Active Nebulizers miscIndications :Severe persistent asthma without complication Use nebulizer as instructed 1 each 024 Active Respiratory Therapy Supplies (Nebulizer/Tubi ng/Mouthpiece) kitIndications: Severe persistent asthma without complication To be used with Nebulizer 1 kit 024 Active budesonide (Pulmicort) 0.25 MG/2ML nebulizer solution Take 2 mL (0.25 mg) by nebulization 2 times daily. Rinse mouth with water after use to reduce aftertaste and incidence of candidiasis. Do not swallow. 120 mL 3 Active Multiple Vitamin (multivitamin) capsule Take 1 capsule by mouth Once per day. 30 capsule 11 025 2025 Active levothyroxine (Synthroid, Levoxyl) 137 MCG tablet Take 1 tablet by mouth Once per day. 025 Active Budeson-Glycopy rrol-Formoterol (Breztri Aerosphere) 160-9-4.8 MCG/ACT aerosolIndicati ons:Uncomplicat ed severe persistent asthma Inhale 2 Inhalations 2 times daily. 10.7 g 3 025 Active albuterol 108 (90 Base) MCG/ACT inhalerIndicati ons:Uncomplicat ed severe persistent asthma Inhale 2 puffs every 4 (four) hours if needed for wheezing or shortness of breath. 18 g 3 025 Active albuterol (2.5 MG/3ML) 0.083% nebulizer solutionIndicat ions:Uncomplica sarah severe persistent asthma TAKE 3ML VIA NEBULIZER 4 TIMES A DAY NEEDED 75 mL 2 025 Active Budeson-Glycopy rrol-Formoterol (Breztri Aerosphere) 160-9-4.8 MCG/ACT aerosol Inhale 2 puffs 2 times daily. 2024 Discontinued(M ed list cleanup (will not trigger notification to Pharmacy)) albuterol 108 (90 Base) MCG/ACT inhalerIndicati ons:Severe persistent asthma without complication Inhale 2 puffs every 4 (four) hours if needed for wheezing or shortness of breath. 18 g 3 024 2024 Discontinued(R eorder (will not trigger notification to Pharmacy)) furosemide (Lasix) 40 MG tabletIndicatio ns:Bilateral leg edema Take 1 tablet (40 mg) by mouth Once per day. 7 tablet 025 2024 Discontinued(M ed list cleanup (will not trigger notification to Pharmacy)) albuterol (2.5 MG/3ML) 0.083% nebulizer solutionIndicat ions:Severe persistent asthma without complication TAKE 3ML VIA NEBULIZER 4 TIMES A DAY NEEDED 75 mL 2 025 2024 Discontinued(R eorder (will not trigger notification to Pharmacy)) levothyroxine (Synthroid) 150 MCG tablet Take 1 tablet (150 mcg) by mouth before breakfast. 30 tablet 11 025 2024 Discontinued(M ed list cleanup (will not trigger notification to Pharmacy)) Active [...] Continue Singulair, Claritin and Flonase. Hypothyroidism 11/07/2017 Overview (03/05/2025): History of partial thyroidectomy for toxic thyroid nodule 2006, status post radioactive iodine treatment prior to the lobectomy Pathology showed follicular adenoma microfollicular type. 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 Overview (12/20/2022): [...] Encounters Date Type Department Care Team Description 03/25/2025 Orders Only [facility] External Provider, [facility] 03/04/2025 1:00 PM EDT Office Visit [facility] [address] [place] [phone] Name, MD Amol Uncomplicated severe persistent asthma (Primary Dx); Hypothyroidism, unspecified type 03/04/2025 Travel 02/28/2025 Telephone [facility] [address] [place] [address] Sally Tony MA chartprep 02/18/2025 Telephone [facility] [address] [place] [address] Rhea Whitmore MA may recalls 02/12/2025 Orders Only GENERIC EXTERNAL DATA DEPARTMENT Provider, Generic External Data 02/11/2025 Orders Only GENERIC EXTERNAL DATA DEPARTMENT Provider, Generic External Data 02/01/2025 Population Health Risk Score [facility] ([facility]) Department [address] [phone] Provider, Population Health Generic 01/25/2025 10:30 AM EST Office Visit [facility] [address] [place] [address] Amol Titus MD Severe persistent asthma without complication (Primary Dx); Lymphedema; Acquired hypothyroidism 01/18/2025 Patient Outreach [facility] [address] [place] [address] Amol Titus MD Care Coordination ([facility] outreach for SDOH food needs-referral completed /) 01/18/2025 Patient Outreach [facility] [address] [place], [place] [phone] Amol Titus MD Pre-visit Planning (SDOH positive, Tobacco screening negative. ) from Last 3 Months Immunizations Name Administration [...] Sign Reading Time Taken Comments Blood Pressure 134/84 03/04/2025 1:15 PM EDT Pulse 64 03/04/2025 1:15 PM EDT Temperature 36.3 ??C (97.3 ??F) 03/04/2025 1:15 PM ED T Respiratory Rate 18 03/04/2025 1:15 PM EDT Oxygen Saturation 97% 03/04/2025 1:15 PM EDT Inhaled Oxygen Concentration - - Weight 94.9 kg (209 lb 3.2 oz) 03/04/2025 1:15 P M EDT Height 157.5 cm (5' 2 ) 03/04/2025 1:15 PM EDT Body Mass Index 38.26 03/04/2025 1:15 PM EDT Plan of Treatment Upcoming Encounters Date Type Department Care Team (Late st Contact Info) Description 06/04/2025 11:00 AM EDT Office Visit [facility] [address] [place] [address] Name, MD Amol [address] [place] [address] Health Maintenance Due Date Last Done Comments CT Colonography 1973 Colonoscopy 1973 Colorectal Cancer Screening 1973 FIT DNA/Cologuard 1973 FIT 1973 FOBT 1975 HIV Screening 1975 Lipid Panel 1973 Sigmoidoscopy 1973 Family Planning (PISQ) 1988 Hepatitis C Screening 1991 Pneumococcal Vaccine: 50+ Years (1 of 2 - PCV) 1992 Pap Smear 06/18/2023 06/18/2020 Zoster Vaccines (1 of 2) 2023 COVID-19 Vaccine ( season) 2024 08/20/2021, 07/30/2021 Influenza Vaccine (#1) 2024 7, 10/03/2017, 01/06/2017, Additional history exists Depression Screening 12/26/2024 12/26/2023, 12/26/19 24 Mammogram 01/28/2025 01/28/2023, 01/19, 01/28/2023, Additional history exists Cervical Cancer Screening 06/18/2025 HPV/Cotest 06/18/2025 06/18/2020 Alcohol/Substance Use Screening 07/04/2025 07/04/2024 Diabetes: Hemoglobin A1C 12/11/2025 025, 03/30/2022, 02/05/2022, Additional history exists SDOH Screening 01/18/2026 01/18/2025 Tobacco Screening 03/04/2026 03/04/2025 DTaP/Tdap/Td Vaccines (3 - Td or Tdap) 01/24/2032 01/23/2022, 01/23/2022, 11/21/2004, Additional history exists RSV Patients and Patients Aged 60 years [...] Procedure Name Priority Date/Time Associated Diagnosis Comments LACTIC ACID Routine 03/25/2025 11:38 AM EDT BASIC METABOLIC PANEL Routine 03/25/2025 11:38 AM EDT CBC WITH AUTO DIFFERENTIAL Routine 03/25/2025 10:53 AM EDT SARS COV2/INFLUENZA A/B AND RSV RNA QL NAAT Routine 03/25/2025 10:53 AM EDT XR CHEST 2 VIEWS Routine 03/25/2025 10:[address] CHEST WO CONTRAST Routine 02/14/2025 11:21 AM EDT HIGH SENSITIVITY TROPONIN I Routine 02/12/2025 1:00 AM EDT XR CHEST 1 VIEW Routine 02/11/2025 8:35 PM EDT MAGNESIUM Routine 02/11/2025 7:58 PM EDT COMPREHENSIVE METABOLIC PANEL Routine 02/11/2025 7:58 PM EDT CBC WITH AUTO DIFFERENTIAL Routine 02/11/2025 7:58 PM EDT SARS COV2/INFLUENZA A/B AND RSV RNA QL NAAT Routine 02/11/2025 7:58 PM EDT POCT GLYCATED HEMOGLOBIN, TOTAL Routine 12/11/2024 11:49 AM EST Prediabetes BI MAMMOGRAM SCREENING TOMOSYNTHESIS BILATERAL Routine 01/28/2023 10:46 AM EST HPV MRNA E6/E7 Routine 06/18/2020 2:37 PM EDT THINPREP PAP Routine 06/18/2020 2:37 PM EDT from Last 3 Months or Most Recently Relevant to Health Maintenance Results * Lactic Acid (03/25/2025 11:38 AM EDT) Lactic Acid 1.7 0.5 - 2.0 mmol/L [facility] 03/25/2025 11:3 8 AM EDT 03/25/2025 11:48 AM EDT us Generic External Data Provider LAB BLOOD ORDERAB LES Final Result [facility] [address] [place] [phone] * (ABNORMAL) Basic Metabolic Panel (03/25/2025 11:38 AM EDT) Sodium 142 135 - 145 mmol/L [facility] Potassium 3.7 3.3 - 5.1 mmol/L [facility] Chloride 109(H) 96 - 108 mmol/L [facility] Carbon Dioxide 23 22 - 29 mmol/L [facility] Anion Gap 14 12 - 20 [facility] Urea Nitrogen (BUN) 13 9 - 16 mg/dL [facility] Creatinine, Serum 0.85 0.5 - 1.4 mg/dL [facility] Creatinine Clr Calc Pharmacy 84.3 [facility] Comment:Provided height and weight: 157.48 cm,95.4 kg.eGFR (calculated from the MDRD study equation) and eCrCl(calculated from the Cockcroft-Gault equation) are based ondifferent parameters and may not yield comparable results.If eCrCl result is absurd, please check patient'sheight/weight. Estimated Glomerular Filt Rate >60 [facility] Comment:Chronic Kidney Disea se: Estimated GFR < 60 mL/min/1.12v6Cvclzk Kidney Disease: Estimated GFR < 15 mL/min/1.73m2 Glucose 128(H) 60 - 115 mg/dL [facility] Calcium 9.0 8.4 - 10.2 mg/dL [facility] 03/25/2025 11:3 8 AM EDT 03/25/2025 11:45 AM EDT us Generic External Data Provider LAB BLOOD ORDERAB LES Final Result Performing Organization Address City/[facility]/ZIP Co de Phone Number [facility] [address] [place] [address] [phone] * SARS-CoV-2 RNA, Influenza A/B, and RSV RNA, Ql NAAT (03/25/2025 10:53 AM EDT) Only the most recent of2 resultswithin the time period is included. Influenza A PCR NEGATIVE Negative [facility] Influenza B PCR NEGATIVE Negative [facility] Resp Syncy Virus RNA Qual PCR NEGATIVE Negative [facility] SARS COV2 PCR NEGATIVE Negative [facility] Comment:All test results mus t be [...] use by authorized laboratories.Testing performed on the [employer] GeneXpert utilizingreal-time RT-PCR.All SARS CoV2 and positive influenza A/B results arereported to [facility]. 03/25/2025 10:5 3 AM EDT 03/25/2025 10:57 AM EDT us Generic External Data Provider LAB MICROBIOLOGY - GENERAL ORDERABLES Final Result Performing Organization Address City/[facility]/ZIP Co de Phone Number [facility] [address] [place] [address] [phone] * CBC auto differential (03/25/2025 10:53 AM EDT) Only the most recent of2 resultswithin the time period is included. White Blood Count 9.4 4.8 - 10.8 X10*3/uL [facility] Red Blood Count 4.84 4.20 - 5.50 X10*6/uL [facility] Hemoglobin 13.6 12.0 - 16.0 g/dl [facility] Hematocrit 40.9 37.0 - 47.0 % [facility] Mean Corpuscular Volume 84.5 80.0 - 98.0 fL [facility] Mean Corpuscular Hemoglobin 28.1 27.0 - 33.0 pg [facility] Mean Corpuscular HGB Conc 33.3 31.0 - 35.0 g/dl [facility] Red Cell Distribution Width 16.0 11.0 - 16.0 % [facility] Platelet Count 227 160 - 400 X10*3/uL [facility] Mean Platelet Volume 10.6 9.4 - 12.3 fL [facility] Neutrophils Percent Auto 69.6 45 - 73 % [facility] Imm Gran Pct Auto 0.3 0.0 - 0.4 % [facility] Lymphocytes Percent Auto 23.2 20 - 40 % [facility] Monocytes Percent Auto 6.1 2 - 11 % [facility] Eosinophils Percent Auto 0.7 0 - 4 % [facility] Basophils Percent Auto 0.1 0 - 2 % [facility] NRBC Pct Auto 0.0 0.0 - 0.2 /100WBC [facility] Neutrophils Absolute Auto 6.5 2.0 - 8.3 x10*3/uL [facility] Imm Gran Abs Auto 0.03 0.00 - 0.03 X10*3/uL [facility] Lymphocytes Absolute Auto 2.2 1.2 - 4.9 X10*3/uL [facility] Monocytes Absolute Auto 0.6 0.1 - 1.2 X10*3/uL [facility] Eosinophils Absolute Auto 0.1 0.0 - 0.4 X10*3/uL [facility] Basophils Absolute Auto 0.0 0.0 - 0.2 X10*3/uL [facility] NRBC Abs Auto 0.000 0.0 - 0.012 X10*3/uL [facility] 03/25/2025 10:5 3 AM EDT 03/25/2025 10:57 AM EDT us Generic External Data Provider LAB BLOOD ORDERAB LES Final Result [facility] [address] [place] [address] [phone] * XR Chest 2 Views (03/25/2025 10:01 AM EDT) Anatomical Region Laterality Modality Chest Radiographic Mariana ging 03/25/2025 10:0 1 AM EDT Narrative 03/25/2025 10:48 AM EDT ? [facility] ?[address] ?[place] [address] ?XRay Report ? Signed ? Patient: Chip,Denise ?MR#: [id number] ?? 190 ? : 1975 ?Acct:[id number] ? Age/Sex: 49 / F ?ADM Date: 03/25/25 ? Loc: HO.ED ? Attending Dr: ? Ordering Physician: Nelly Dorado ?? Date of Service: 03/25/25 ?? Procedure(s): XR chest 2V ?? Accession Number(s): [id number] ? cc: Amol Titus MD; Nelly Dorado ? EXAMINATION: ?? XR CHEST ? CLINICAL INFORMATION: ?? sob ? COMPARISON: ?? February 11, 2025. ? TECHNIQUE: ?? 2 views of the chest were obtained. ? FINDINGS: ?? There is a patchy rounded opacity in the right lower hemithorax and ?? possibly retrocardiac on the left lower hemithorax. ?? No pleural effusion. No pneumothorax. ?? Cardiomediastinal silhouette size is normal. ?? Multilevel thoracic spondylosis. Degenerative changes in the ?? shoulders/acromioclavicular joints. ? XR/XR chest 2V ?? IMPRESSION: ?? Concerning multifocal pneumonia in the correct clinical settings. ?? Recommend follow-up until resolution. ? Electronically signed by: ??Dayne Oneil MD ??03/25/2025 10:45 AM ?? EDT RP ? Dictated By: ?Dayne Spencer MD ? Signed By: ?<Electronically signed by Dayne Alonzo MD in OV> ? 03/25/255 ? DD/ 1001 ? TD/TT: 03/25/25 1035 ? Employment Consultant: ? Procedure Note Donnavibradaubreeter, Image - 03/25/2025 [place] [address] XRay Report Signed Patient: Denise SaundersMR#: [id number] 190 : 1975Acct:[id number] Age/Sex: 49 / FADM Date: 03/25/25 Loc: HO.ED Attending Dr: Ordering Physician: Nelly Dorado Date of Service: 03/25/25 Procedure(s): XR chest 2V Accession Number(s): [id number] cc: Amol Titus MD; Nelly Dorado EXAMINATION: XR CHEST CLINICAL INFORMATION: sob COMPARISON: February 11, 2025. TECHNIQUE: 2 views of the chest were obtained. FINDINGS: There is a patchy rounded opacity in the right lower hemithorax and possibly retrocardiac on the left lower hemithorax. No pleural effusion. No pneumothorax. Cardiomediastinal silhouette size is normal. Multilevel thoracic spondylosis. Degenerative changes in the shoulders/acromioclavicular joints. XR/XR chest 2V IMPRESSION: Concerning multifocal pneumonia in the correct clinical settings. Recommend follow-up until resolution. Electronically signed by: Dayne Oneil MD 03/25/2025 10:45 AM EDT Dictated By: Oneil Clinton,Dayne MD Signed By: <Electronically signed by Kirsten Almonte OV> 03/25/25 1045 DD/ 1001 TD/TT: 03/25/25 1035 Employment Consultant: [facility] External Provider IMG XR PROCEDURES Final Result * CT Chest w/o Contrast (02/14/2025 11:21 AM EDT) Anatomical Region Laterality Modality Body, Chest Computed Tomogra phy 02/14/2025 11:2 1 AM EDT Narrative 02/14/2025 11:22 AM EDT ? [facility] ?[address] ?[place] [address] ? CT Scan Report ? Signed ? Patient: Chip,Denise ?MR#: [id number] ?? 190 ? : 1975 ?Acct:[id number] ? Age/Sex: 49 / F ?ADM Date: 02/12/25 ? Loc: HO.S3 ?346-1 ? Attending Dr: Irma GEE ? Ordering Physician: Irma Banda ?? Date of Service: 02/13/25 ?? Procedure(s): CT chest wo IV con ?? Accession Number(s): [id number] ? cc: Irma Banda; Name,Amol CARY ? Report Number: ?? [id number]: Total DLP = ??157.00 mGy-cm ? CLINICAL HISTORY: worsening RAD ??? underlying PNA ? CT chest without contrast ? Comparison: CT/SR - CT ANGIO CHEST PE PROTOCOL - 09/30/24 10:10 EST ? Findings: ?? The heart size is normal. ?? The visualized thyroid and mediastinum are unremarkable. ? Localized tree-in-bud opacities are seen in the superior segment of the ?? left lower lobe. Findings compatible with focal bronchiolitis. ?? Foci of subsegmental atelectasis noted in the right upper lobe and at the ?? bases. ? The upper abdomen is unremarkable. ?? No acute fractures. ? IMPRESSION: ?? 1. Localized tree-in-bud opacities are seen in the superior segment of the ?? left lower lobe. Findings compatible with focal bronchiolitis. ?? 2. Foci of subsegmental atelectasis noted in the right upper lobe and at ?? the bases. ? This document has been electronically signed by: Juan Diego Murdock MD on ?? 02/14/2025 11:21:46 ? Dictated By: ?Juan Diego Murdock MD ? Signed By: ?<Electronically signed by Juan Diego Murdock MD in OV> ? 02/14/251121 ? DD/ 1121 ? TD/TT: 02/14/25 1121 ? Employment Consultant: ? Procedure Note Donotuseinterpreter, Image - 02/14/[address] [address] [address] Scan Report Signed Patient: Denise SaundersMR#: [id number] 190 : 1975Acct:[id number] Age/Sex: 49 / FADM Date: 02/12/25 Loc: HO.S3 346-[address]: Irma Banda [facility] Ordering Physician: Irma Banda Date of Service: 02/13/25 Procedure(s): CT chest wo IV con Accession Number(s): [id number] cc: Irma Banda [facility]; Name,Amol CARY Report Number: [id number]: Total DLP = 157.00 mGy-cm CLINICAL HISTORY: worsening RAD ? underlying PNA CT chest without contrast Comparison: CT/SR - CT ANGIO CHEST PE PROTOCOL - 09/30/24 10:10 EST Findings: The heart size is normal. The visualized thyroid and mediastinum are unremarkable. Localized tree-in-bud opacities are seen in the superior segment of the left lower lobe. Findings compatible with focal bronchiolitis. Foci of subsegmental atelectasis noted in the right upper lobe and at the bases. The upper abdomen is unremarkable. No acute fractures. IMPRESSION: 1. Localized tree-in-bud opacities are seen in the superior segment of the left lower lobe. Findings compatible with focal bronchiolitis. 2. Foci of subsegmental atelectasis noted in the right upper lobe and at the bases. This document has been electronically signed by: Juan Diego Murdock MD on 02/14/2025 11:21:46 Dictated By: Juan Diego Murdock MD Signed By: <Electronically signed by Juan Diego Murdock MD in OV> 02/14/25 1122 DD/ 1121 TD/TT: 02/14/25 1121 Employment Consultant: [facility] External Provider IMG CT PROCEDURES Final Result * High Sensitivity Troponin I (02/12/2025 1:00 AM EDT) TROPONIN I HIGH SENSITIVITY 3.3 <3.5 - 17.0 ng/L [facility] Comment:The Leija high sens itivity Troponin-I results should beused in conjunction with other diagnostic information suchas ECG, clinical observations and information, and patientsymptoms to aid in the diagnosis of SC. 02/12/2025 1:00 AM EDT 02/12/2025 1:05 AM EDT Generic External Data Provider LAB BLOOD ORDERAB LES Final Result Performing Organization Address City/State/[facility] Co de Phone Number [facility] [address] [place] [address] [phone] * XR Chest 1 View (02/11/2025 8:35 PM EDT) Anatomical Region Laterality Modality Chest Radiographic Mariana ging 02/11/2025 8:35 PM EDT Narrative 02/11/2025 8:36 PM EDT ? [facility] ?[address] ?[place] [address] ?XRay Report ? Signed ? Patient: Chip,Denise ?MR#: [id number] ?? 190 ? : 1975 ?Acct:[id number] ? Age/Sex: 49 / F ?ADM Date: 03/24/25 ? Loc: HO.ED ? Attending Dr: ? Ordering Physician: Kristie Melgoza ?? Date of Service: 02/11/25 ?? Procedure(s): XR chest 1V ?? Accession Number(s): [id number] ? cc: Kristie Melgoza; Name,Amol CARY ? CLINICAL HISTORY: cough ? 1 view chest x-ray ? Comparison: CR/SR - XR CHEST 1V - 09/29/24 13:30 EST ? Findings: ?? The lungs are clear. ?? Normal size heart. ?? No acute fracture. ? IMPRESSION: ?? 1. No acute findings. ? This document has been electronically signed by: Gómez Mcgee MD, ?? PHD on 02/11/2025 20:35:17 ? Dictated By: ?Gómez Mcgee MD ? Signed By: ?<Electronically signed by Gómez Mcgee MD in OV> ? 02/11/252035 ? DD/ 34 ? TD/TT: 02/11/252034 ? Employment Consultant: ? Procedure Note Donotbradinterpreter, Image - 02/11/2025 [place] [address] XRay Report Signed Patient: Jesus Saunders#: [id number] 190 : 1975Acct:[id number] Age/Sex: 49 / FADM Date: 02/11/25 Loc: HO.ED Attending Dr: Ordering Physician: Kristie Melgoza Date of Service: 02/11/25 Procedure(s): XR chest 1V Accession Number(s): [id number] cc: Kristie Melgoza; Name,Amol CARY CLINICAL HISTORY: cough 1 view chest x-ray Comparison: CR/SR - XR CHEST 1V - 09/29/24 13:30 EST Findings: The lungs are clear. Normal size heart. No acute fracture. IMPRESSION: 1. No acute findings. This document has been electronically signed by: Gómez Mcgee MD, PHD on 02/11/2025 20:35:17 Dictated By: Gómez Mcgee MD Signed By: <Electronically signed by Gómez Mcgee MD in OV> 02/11/252035 DD/ 34 TD/TT: 02/11/252034 Employment Consultant: [facility] External Provider IMG XR PROCEDURES Edited Result - Final * Magnesium (02/11/2025 7:58 PM EDT) Magnesium 1.9 1.6 - 2.6 mg/dL [facility] 02/11/2025 7:58 PM EDT 02/11/2025 8:11 PM EDT us Generic External Data Provider LAB BLOOD ORDERAB LES Final Result [facility] [address] [place] [address] [phone] * (ABNORMAL) Comprehensive Metabolic Panel (02/11/2025 7:58 PM EDT) Sodium 140 135 - 145 mmol/L [facility] Potassium 4.0 3.3 - 5.1 mmol/L [facility] Chloride 108 96 - 108 mmol/L [facility] Carbon Dioxide 23 22 - 29 mmol/L [facility] Anion Gap 13 12 - 20 [facility] Urea Nitrogen (BUN) 9 9 - 16 mg/dL [facility] Creatinine, Serum 0.76 0.5 - 1.4 mg/dL [facility] Creatinine Clr Calc Pharmacy 93.4 [facility] Comment:Provided height and weight: 157.48 cm,93.8 kg.eGFR (calculated from the MDRD study equation) and eCrCl(calculated from the Cockcroft-Gault equation) are based ondifferent parameters and may not yield comparable results.If eCrCl result is absurd, please check patient'sheight/weight. Estimated Glomerular Filt Rate >60 [facility] Comment:Chronic Kidney Disea se: Estimated GFR < 60 mL/min/1.73p8Mixbws Kidney Disease: Estimated GFR < 15 mL/min/1.73m2 Glucose 109 60 - 115 mg/dL [facility] Calcium 9.6 8.4 - 10.2 mg/dL [facility] Bilirubin, Total 1.3(H) 0.0 - 1.0 mg/dL [facility] Aspartate Amino Transferase 21 5 - 31 U/L [facility] Alanine Aminotransferase 14 0 - 31 U/L [facility] Total Protein 7.4 6.5 - 8.0 g/dL [facility] Albumin Level 4.2 3.5 - 5.0 g/dL [facility] Alkaline Phosphatase 75 39 - 117 U/L [facility] 02/11/2025 7:58 PM EDT 02/11/2025 8:11 PM EDT us Generic External Data Provider LAB BLOOD ORDERAB LES Final Result [facility] [address] [facility] [place] [address] [phone] * POCT HGB A1C (12/11/2024 11:49 AM EST) Hemoglobin A1C 6.0 4.0 - 6.0 % QC Media Lot # [id number] Lot# Expiration Date [id number] Blood 12/11/2024 11:4 9 AM EST Amol Tacho CARY POINT OF CARE TEST ENTER/EDIT OR DERABLES Final Result * BI Mammogram Screening Tomosynthesis Bilateral (01/28/2023 10:46 AM EST) Anatomical Region Laterality Modality Breast Bilateral Mammography 01/28/2023 10:4 6 AM EST Narrative 01/31/2023 1:16 PM EDT ? [facility] ? [address] ?[place] [address] ? Mammography Report ? Signed ? Patient: Chip,Denise ?MR#: [id number] ?? 190 ? : 1975 ?Acct:[id number] ? Age/Sex: 47 / F ?ADM Date: 03/10/23 ? Loc: HO.MAMMO ? Attending : Amol Titus MD ? Ordering Physician: Name,Amol CARY ?Results: 1Negative ? Date of Service: 01/28/23 ?Follow Up: 1 Year From Orig ?? inal Mammogram ? Procedure(s): MM tomosynthesis screening BI ?? Accession Number(s): [id number] ? cc: Name,Amol CARY ? EXAMINATION: ?? [...] MD in OV> ?01/31/23 1314 ? DD/ ? TD/TT: ? Employment Consultant: BUCK ? Procedure Note Donotuseinterpreter, Image - 01/31/2023 [facility] [address] [place], [place] [address] Mammography Report Signed Patient: Denise SaundersMR#: [id number] 190 : 1975Acct:[id number] Age/Sex: 47 / FADM Date: 01/28/23 Loc: HO.MAMMO Attending Dr: Amol Titus MD Ordering Physician: Amol Titusesults: 1Negative Date of Service: 01/28/23Follow Up: 1 Year From Orig inal Mammogram Procedure(s): MM tomosynthesis screening BI Accession Number(s): [id number] cc: Amol Titus MD EXAMINATION: MM SCREENING [...] in OV> 01/31/23 1314 DD/ 1046 TD/TT: Employment Consultant: HEBER [facility] External Provider IMG BI PROCEDURES Edited Result [...] historic and ?? current clinical information. ?? Foundry Technician: SEE COMMENT [facility] Comment: JXM, CT(ASCP) CT screening location: [address] ??[address] Interpretation/Resu lt: SEE COMMENT [facility] Comment:Negative for intraep ithelial lesion or malignancy. LMP: SEE COMMENT [facility] Comment:05/28/20 Prev. BX: NONE GIVEN [facility] Prev. PAP: SEE COMMENT [facility] Comment:NONE GIVEN SOURCE: SEE COMMENT [facility] Comment:None given Statement Of Adequacy: SEE COMMENT [facility] Comment: Satisfactory for evaluation. Endocervical/transformation zone component present. 06/18/2020 2:37 PM EDT Tamar BERMUDEZ LAB PATHOLOGY ORDERABLES Final Result [facility] [address] * HPV mRNA E6/E7 (06/18/2020 2:37 PM EDT) HPV nRNA E6/E7 Not Detected Not Detected [facility] Comment: This test was performed using the APTIMA HPV Assay ([employer] ?? This assay detects E6/E7 viral messenger RNA (mRNA) from 14 high-risk HPV types (16,18,31,33,35,39,45,51,52,56,58,59,66,68). ?? The analytical performance characteristics of this assay have been determined by [employer]. The modifications have not been cleared or approved by the FDA. This assay has been validated pursuant to the CLIA regulations and is used for clinical purposes. 06/18/2020 2:37 PM EDT us Tamar BERMUDEZ LAB BLOOD ORDERABLES Gin kenna Result [facility] [address] from Last 3 Months or Most Recently Relevant to Health Maintenance [place] [address] [place] [address] C3 [facility] FULL Care Teams Arc And Gas Welder Relationship Specialty Start Date End Date Name, MD Amol [address] [place] [address] PCP - General Internal Medicine 02/18/25
--- OUTSIDE RECORDS SUMMARY | 2025-03-25 12:16 | XMS_ITS | Continuity of Care Document ---
Author Organization [facility] Address [address] [place] [address]- Care Team Providers Care Fusing Machine Operator Name Role Phone Not on Staff, PCP Primary Care Physician Unavail able Encounter [place] Date(s): 02/19/25 - 03/21/25 [facility] [address] [place] [address] Encounter Type: Triage Allergies, Adverse Reactions, Alerts Substance Criticality Severity Reaction Reaction Severity Status naproxen Unable to assess criticality Persistent Severe swelling Active aspirin Unable to assess criticality Persistent Severe difficulty breathing hives Active Naprosyn Unable to assess criticality Persistent Severe swelling Active Latex Unable to assess criticality Persistent Severe swelling of face Active Immunizations Given and Recorded Vaccine Date Status Refusal Reason tetanus/diphtheria/pertussis, acel(Tdap) 01/23/22 Recorded SARS-CoV-2 (COVID-19) mRNA BNT-162b2 vac 08/20/21 Recorded SARS-CoV-2 (COVID-19) mRNA BNT-162b2 vac 07/30/21 Recorded influenza virus vaccine, inactivated 10/03/17 Gama rded influenza virus vaccine, inactivated 01/06/17 Gama rded influenza virus vaccine, inactivated 09/29/15 Gama rded Measles/Mumps/Rubella Virus Vaccine 07/31/14 Recor ded Measles/Mumps/Rubella Virus Vaccine 05/13/14 Recor ded hepatitis B adult vaccine 01/08/09 Recorded hepatitis B adult vaccine 08/27/08 Recorded hepatitis B adult vaccine 07/03/02 Recorded tetanus-diphtheria toxoids (Td) 11/21/04 Recorded Medications Advair Diskus 500 mcg-50 mcg inhalation powder 1, puffs, Inhalation, Daily in AM, Refills 0, Maintenance, 09/13/16 1:25:20 PM EDT Start Date: 09/13/16 Status: Ordered Repeat number: 1 albuterol 0.021% inhalation solution 3 mL = 0.63 mg, Neb, 3 times a day, PRN Wheezing/Shortness of Breath, 0 Refills, Maintenance, 01/19/18 3:24:39 PM EST Start Date: 01/19/18 Status: Ordered Repeat number: 1 Breztri Aerosphere Inhalation, 2 times a day, 0 Refills, Maintenance, 01/22/25 11:28:00 AM EST, Partial fill upon patient request if the prescription is for a schedule II opioid drug. Start Date: 01/22/25 Status: Ordered Repeat number: 1 Claritin 10 mg oral tablet 10 mg, 1, tablet, By Mouth, Daily, PRN, Maintenance, allergy symptoms, 08/01/18 10:46:54 AM EDT Start Date: 08/01/18 Status: Ordered Repeat number: 1 doxycycline hyclate 100 mg oral capsule 1 capsule = 100 mg, By Mouth, 2 times a day, start 07/26/18, Maintenance, 08/01/18 11:13:09 AM EDT, Capsule Start Date: 08/01/18 Stop Date: 08/15/18 Status: Ordered Repeat number: 1 Flonase 1 sprays, Nares, Both, 2 times a day, 0 Refills, Maintenance, 09/13/16 1:26:00 PM EDT Start Date: 09/13/16 Status: Ordered Repeat number: 1 levothyroxine 150 mcg (0.15 mg) oral tablet 1 tablet = 150 mcg, By Mouth, Daily, # 30 tablet, 11 Refills, Maintenance, 02/07/25 2:10:00 PM EDT, [facility]/pharmacy #[id number], pt report taking 150mcg current instead of 137mcg, 157.5, cm, 02/07/25 13:39:00 EDT, Height, 95.5, kg, 02/07/25 13:39:00 EDT, Dry Weight Start Date: 02/07/25 Status: Ordered Quantity: 30.0 Unit: tablet Repeat number: 12 Indication: Hypothyroidism, unspecified PreserVision AREDS 2 1 capsule, By Mouth, 2 times a day, Maintenance, 08/01/18 10:59:38 AM EDT Start Date: 08/01/18 Status: Ordered Repeat number: 1 Pulmicort Respules 1 mg/2 mL inhalation suspension 2 mL = 1 mg, Neb, Daily at bedtime, Maintenance, 08/01/18 10:38:07 AM EDT, Suspension Start Date: 08/01/18 Status: Ordered Repeat number: 1 Singulair 10 mg oral tablet 10 mg, 1, tablet, By Mouth, Daily at bedtime, Refills 0, Maintenance, 09/13/16 1:25:31 PM EDT Start Date: 09/13/16 Status: Ordered Repeat number: 1 Problem List Condition Confirmation Course Effective Dates Status H ealth Status Informant Allergic rhinitis Confirmed 11/07/17 Active Gastroesophageal reflux disease Confirmed 12/23/23 Active Hypothyroidism Confirmed Active Immunoglobulin above reference range Confirmed 11/07/17 Active Leg swelling Confirmed Active Pain in limb Confirmed Active Reflux Confirmed Active Severe obesity (BMI 35.0-39.9) with comorbidity Confirmed Active Snoring Confirmed 11/07/17 Active Thyroid nodule Confirmed Active Uncomplicated severe persistent asthma 1 Confirmed 06/26/18 Active Varicose vein Confirmed Active 1Outside Source Comment: Severe persistent asthma, uncomplicated; Note: Date Diagnosed: 06/26/2018 1:04 PM (J45.50) Social History Social History Type Response Smoking Status Never smoker entered on: 09/13/16 Sex Sex Representation Female (finding) Patient Care team information Care Team Personnel Name: Not on Staff, PCP Position: S Physician (General Medicine) Member Role: PCP Care Team Related Persons Name: AJAY ABBOTT Name: NO, ONE Name: AJAY CAVAZOS Name: LENKA MARAVILLA Insurance Providers Guarantor name: SHANIA KENIA [employer] [facility] Information #: 1 Payer: [employer] Member Number: NA Policy Number: NA Group Number: NA
--- OUTSIDE RECORDS SUMMARY | 2025-03-25 12:16 | XMS_ITS | Encounter Summary ---
Author Organization [facility] Address [address] [place] [address] [address] [place] [address] Care Team Providers Care Job Hand Name Role Phone Name, Amol CARY Primary Care Provider [phone] Amol Titus MD Primary Care Provider [phone] Encounter Details Date Type Department Care Team (Latest Contact Info) Description 07/28/2022 Abstract [facility] CONVERSIONS Dental, Provider, DDS Social History [...] Upcoming Encounters Date Type Department Care Team ( st Contact Info) Description 06/04/2025 11:00 AM EDT Office Visit [facility] MEDICINE [address] [place] [address] Amol Titus MD [address] [place] [address] documented as of this encounter Visit Diagnoses Not on filedocumented in this encounter Care Teams Job Hand Relationship Specialty Start Date End Date Amol Titus MD [address] [place] [address] PCP - General Family Medicine 07/06/17 02/17/25 Amol Titus MD [address] [place] [address] [place] [address] PCP - General Internal Medicine 02/18/25 documented as of this encounter
--- OUTSIDE RECORDS SUMMARY | 2025-03-25 12:16 | XMS_ITS | Encounter Summary ---
Author Organization [employer] Address [address] [place] [address] Care Team Providers Care Upholstery Mechanic Name Role Phone Name, Amol CARY Primary Care Provider [phone] Encounter Details Date Type Department Care Team ([facility] Contact Info) Description 03/25/2025 Orders Only [facility] External Provider, [facility] Social History Tobacco Use Types Packs/Day Years [...] Description 06/04/2025 11:00 AM EDT Office Visit [facility] MED[facility] [address] [place] [address] Name, MD Amol [address] [place] [address] documented as of this encounter Procedures Procedure Name Priority Date/Time Associated Diagnosis Comments LACTIC ACID Routine 03/25/2025 11:38 AM EDT BASIC METABOLIC PANEL Routine 03/25/2025 11:38 AM EDT SARS COV2/INFLUENZA A/B AND RSV RNA QL NAAT Routine 03/25/2025 10:53 AM EDT CBC WITH AUTO DIFFERENTIAL Routine 03/25/2025 10:53 AM EDT XR CHEST 2 VIEWS Routine 03/25/2025 10:0 1 AM EDT documented in this encounter Results * Lactic Acid (03/25/2025 11:38 AM EDT) Lactic Acid 1.7 0.5 - 2.0 mmol/L [facility] 03/25/2025 11:3 8 AM EDT 03/25/2025 11:48 AM EDT us Generic External Data Provider LAB BLOOD ORDERAB LES Final Result [facility] [address] [place] [phone] * (ABNORMAL) Basic Metabolic Panel (03/25/2025 11:38 AM EDT) Sodium 142 135 - 145 mmol/L [facility] Potassium 3.7 3.3 - 5.1 mmol/L [facility] Chloride 109(H) 96 - 108 mmol/L [facility] Carbon Dioxide 23 22 - 29 mmol/L [facility] Anion Gap 14 12 - 20 [facility] Urea Nitrogen (BUN) 13 9 - 16 mg/dL [facility] Creatinine, Serum 0.85 0.5 - 1.4 mg/dL [facility] Creatinine Clr Calc Pharmacy 84.3 [facility] Comment:Provided height and weight: 157.48 cm,95.4 kg.eGFR (calculated from the MDRD study equation) and eCrCl(calculated from the Cockcroft-Gault equation) are based ondifferent parameters and may not yield comparable results.If eCrCl result is absurd, please check patient'sheight/weight. Estimated Glomerular Filt Rate >60 [facility] Comment:Chronic Kidney Disea se: Estimated GFR < 60 mL/min/1.95v6Mbxvxe Kidney Disease: Estimated GFR < 15 mL/min/1.73m2 Glucose 128(H) 60 - 115 mg/dL [facility] Calcium 9.0 8.4 - 10.2 mg/dL [facility] 03/25/2025 11:3 8 AM EDT 03/25/2025 11:45 AM EDT us Generic External Data Provider LAB BLOOD ORDERAB LES Final Result [facility] [address] [place] [address] [phone] * SARS-CoV-2 RNA, Influenza A/B, and RSV RNA, Ql NAAT (03/25/2025 10:53 AM EDT) Pathologist [facility] Influenza A PCR NEGATIVE Negative [facility] Influenza B PCR NEGATIVE Negative [facility] Resp Syncy Virus RNA Qual PCR NEGATIVE Negative [facility] SARS COV2 PCR NEGATIVE Negative [facility] Comment:All test results mus t [...] use by authorized laboratories.Testing performed on the [employer] GeneXpert utilizingreal-time RT-PCR.All SARS CoV2 and positive influenza A/B results arereported to [facility]. 03/25/2025 10:5 3 AM EDT 03/25/2025 10:57 AM EDT us Generic External Data Provider LAB MICROBIOLOGY - GENERAL ORDERABLES Final Result [facility] [address] [place] [phone] * CBC auto differential (03/25/2025 10:53 AM EDT) [facility] White Blood Count 9.4 4.8 - 10.8 X10*3/uL [facility] Red Blood Count 4.84 4.20 - 5.50 X10*6/uL [facility] Hemoglobin 13.6 12.0 - 16.0 g/dl [facility] Hematocrit 40.9 37.0 - 47.0 % [facility] Mean Corpuscular Volume 84.5 80.0 - 98.0 fL [facility] Mean Corpuscular Hemoglobin 28.1 27.0 - 33.0 pg [facility] Mean Corpuscular HGB Conc 33.3 31.0 - 35.0 g/dl [facility] Red Cell Distribution Width 16.0 11.0 - 16.0 % [facility] Platelet Count 227 160 - 400 X10*3/uL [facility] Mean Platelet Volume 10.6 9.4 - 12.3 fL [facility] Neutrophils Percent Auto 69.6 45 - 73 % [facility] Imm Gran Pct Auto 0.3 0.0 - 0.4 % [facility] Lymphocytes Percent Auto 23.2 20 - 40 % [facility] Monocytes Percent Auto 6.1 2 - 11 % [facility] Eosinophils Percent Auto 0.7 0 - 4 % [facility] Basophils Percent Auto 0.1 0 - 2 % [facility] NRBC Pct Auto 0.0 0.0 - 0.2 /100WBC [facility] Neutrophils Absolute Auto 6.5 2.0 - 8.3 x10*3/uL [facility] Imm Gran Abs Auto 0.03 0.00 - 0.03 X10*3/uL [facility] Lymphocytes Absolute Auto 2.2 1.2 - 4.9 X10*3/uL [facility] Monocytes Absolute Auto 0.6 0.1 - 1.2 X10*3/uL [facility] Eosinophils Absolute Auto 0.1 0.0 - 0.4 X10*3/uL [facility] Basophils Absolute Auto 0.0 0.0 - 0.2 X10*3/uL [facility] NRBC Abs Auto 0.000 0.0 - 0.012 X10*3/uL [facility] 03/25/2025 10:5 3 AM EDT 03/25/2025 10:57 AM EDT us Generic External Data Provider LAB BLOOD ORDERAB LES Final Result [facility] [address] [place] [phone] * XR Chest 2 Views (03/25/2025 10:01 AM EDT) Anatomical Region Laterality Modality Chest Radiographic Mariana ging 03/25/2025 10:0 1 AM EDT Narrative 03/25/2025 10:48 AM EDT ? [facility] ?[address] ?[place] [address] ?XRay Report ? Signed ? Patient: Chip,Denise ?MR#: [id number] ?? 190 ? : 1975 ?Acct:[id number] ? Age/Sex: 49 / F ?ADM Date: 03/25/25 ? Loc: HO.ED ? Attending Dr: ? Ordering Physician: Nelly Dorado ?? Date of Service: 03/25/25 ?? Procedure(s): XR chest 2V ?? Accession Number(s): [id number] ? cc: Tacho,Amol CARY; Nelly Dorado ? EXAMINATION: ?? XR CHEST [...] Oneil MD ??03/25/2025 10:45 AM ?? EDT ? Dictated By: ?Dayne Spencer MD ? Signed By: ?<Electronically signed by Dayne Alonzo MD in OV> ? 03/25/25 1045 ? DD/ 1001 ? TD/TT: 03/25/25 1035 ? Access Rn: ? Procedure Note Dottie Richards - 03/25/[address] [address] XRay Report Signed Patient: Cesar SaunderstrentMR#: [id number] 190 : 1975Acct:[id number] Age/Sex: 49 / FADM Date: 03/25/25 Loc: HO.ED Attending Dr: Ordering Physician: Nelly Dorado Date of Service: 03/25/25 Procedure(s): XR chest 2V Accession Number(s): [id number] cc: Name,Amol CARY; Nelly Dorado EXAMINATION: XR CHEST CLINICAL INFORMATION: [...] MD 03/25/2025 10:45 AM EDT Dictated By: Dayne Spencer MD Signed By: <Electronically signed by Dayne Alonzo MDin OV> 03/25/25 1045 DD/ 1001 TD/TT: 03/25/25 1035 Access Rn: [facility] External Provider IMG XR PROCEDURES Final Result documented in this encounter Visit Diagnoses Not on filedocumented in this encounter Additional Health Concerns Assessment Noted Time PHQ-9 Depression Total Score: 0 12/26/19 10:28 AM EST documented as of this encounter Care Teams Upholstery Mechanic Relationship Specialty Start Date End Date Name, MD Amol [address] [place] [address] PCP - General Internal Medicine 02/18/25 documented as of this encounter
--- OUTSIDE RECORDS SUMMARY | 2025-03-25 12:16 | XMS_ITS | Encounter Summary ---
Author Organization [employer] Address [address] [place] [address] Care Team Providers Care Electric Spot Welder Name Role Phone Name, Amol CARY Primary Care Provider [phone] Name, Amol CARY Primary Care Provider [phone] Reason for Visit * Reason Comments Med Refill Encounter Details Date Type Department Care Team ([facility] st Contact Info) Description 07/01/2024 Refill [facility] MEDICINE [address] [place], [place] [phone] Name, MD Amol [address] [place] [address] Severe persistent allergic asthma Social History Tobacco [...] Description 06/04/2025 11:00 AM EDT Office Visit [facility] MEDICINE [address] [place] [phone] NameAmol MD [address] [place] [phone] documented as of this encounter Visit Diagnoses Diagnosis Severe persistent allergic asthma documented in this encounter Additional Health Concerns Assessment Noted Time PHQ-9 Depression Total Score: 0 12/26/19 24 10:28 AM EST documented as of this encounter Care Teams Electric Spot Welder Relationship Specialty Start Date End Date Amol Titus MD [address] [place] [phone] PCP - General Family Medicine 07/06/17 02/17/25 Amol Titus MD [address] [place] [phone] PCP - General Internal Medicine 02/18/25 documented as of this encounter
[2025-03-25] MEDS: methylPREDNISolone Sod Succ 125 MG/2 ML VIAL IVPUSH (12:45)
[2025-03-25] MEDS: cefTRIAXone sodium 1 GM VIAL IVPUSH (12:45)
[2025-03-25] MEDS: Azithromycin 500 MG in 0.9 % Sodium Chloride 250 ML 125 MG IV (12:45)
[2025-03-25] MEDS: Magnesium Sulfate/H2O 2 GM/50 ML PIGGYBACK IV (13:51)
--- NOTE | 2025-03-25 13:59 | PC.NURSE ---
Report given to TALHA Nevarez. Pt. going to OV room: 4.
--- NOTE | 2025-03-25 14:20 | PHA.MEDREC ---
Addendum entered by Martha Villarreal RPh 03/25/25 14:28: reviewed by [facility]. Original Note: Pharmacy Consult ? Medication Reconciliation Pharmacy has completed the medication reconciliation. Spoke to patient to confirm med list. Patient states she is taking Levothyroxine 137mcg daily.
[2025-03-25] MEDS: Albuterol/Iprat 2.5/0.5MG 3 ML AMPUL.NEB INHALE ×2 (15:20→20:11)
[2025-03-25] MEDS: Enoxaparin Sodium 40 MG/0.4 ML SYRINGE SUBCUT (17:48)
[2025-03-25] MEDS: guaiFENesin 200 MG/10 ML 10 ML LIQUID PO (17:48)
[2025-03-25] MEDS: Loratadine 10 MG TABLET PO (17:48)
--- NOTE | 2025-03-25 18:41 | PM.IMHP ---
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 Lab imaging reviewed: No leukocytosis, BMP fine, chest x-ray shows possible pneumonia. In ED:ED bronch protocol, IV Solu-Medrol, IV Benadryl/Pepcid, IV ceftriaxone/azithromycin, viral testing : RSV/COVID/influenza a and B negative. Her shortness of breaths seems to be improving but still short of breath even walking to the bathroom. No stridor. Rash area also improving. ED requested admission for for COPD exacerbation/pneumonia: Already started on nebs, steroids, antibiotics in ED. Review of Systems Review of Systems: As above. Yes all other systems are reviewed and are negative REPLACED BY [facility] Medical History Varicose veins of both lower extremities with inflammation BMI 37.0-37.9, adult Severe persistent allergic asthma Asthma Hypothyroidism Morbid obesity Family History Mother Diabetes Surgical History History of facial surgery H/O thyroidectomy Social History Household Members: Significant Other and Children Housing: Apartment Alcohol intake: never Patient Tobacco Use Status: Never used Tobacco Smoked in Last 30 Days: No Use of substances other than those prescribed or required for medical reasons: No Advance Directives: No Advance Directives Information Provided: No Nutrition Risks: No Nutritional Risk Patient : No service: No Current occupational status: employed Current occupation: rt handed Meds Allergies Allergy/AdvReac Type Severity Reaction Status Date / Time aspirin [ASPIRIN] Allergy Unknown UNKNOWN, Verified 03/25/25 09:42 anaphylaxis latex Allergy Unknown Anaphylaxis, Verified 03/25/25 09:42 Rash Latex, Natural Rubber Allergy Unknown HIVES Verified 03/25/25 09:42 [LATEX, NATURAL RUBBER] naproxen [From NAPROSYN] Allergy Unknown UNKNOWN, Verified 03/25/25 09:42 anaphylaxis Active Medications: Current Medications Albuterol/Ipratropium (Albuterol/Iprat 2.5/0.5mg 3 Ml Ampul.Neb) 3 ml INHALE Q3H PRN PRN Reason: Sob Albuterol/Ipratropium (Albuterol/Iprat 2.5/0.5mg 3 Ml Ampul.Neb) 3 ml INHALE RQ4H WHILE AWAKE [facility] Albuterol/Ipratropium (Albuterol/Iprat 2.5/0.5mg 3 Ml Ampul.Neb) 3 ml INHALE Q4H PRN PRN Reason: Shortness Of Breath/Wheezing Benzonatate (Benzonatate 100 Mg Capsule) 100 mg PO TID PRN PRN Reason: Cough Ceftriaxone Sodium (Ceftriaxone Sodium 1 Gm Vial) 1 gm IVPUSH Q24H [facility] Diphenhydramine HCl (Diphenhydramine Hcl 25 Mg Capsule) 25 mg PO Q4H PRN PRN Reason: Allergic Symptoms Enoxaparin Sodium (Enoxaparin Sodium 40 Mg/0.4 Ml Syringe) 40 mg SUBCUT Q24H [facility] Last Admin: 03/25/25 17:48 Dose: 40 mg Guaifenesin (Guaifenesin 200 Mg/10 Ml 10 Ml Liquid) 10 ml PO Q6H PRN PRN Reason: Cough Last Admin: 03/25/25 17:48 Dose: 10 ml Azithromycin 500 mg/ Sodium (Chloride) 250 mls @ 125 mls/hr IV Q24H [facility] Levothyroxine Sodium 112 mcg/ (Levothyroxine Sodium 25 mcg) 137 mcg PO DAILY@0600 [facility] Loratadine (Loratadine 10 Mg Tablet) 10 mg PO DAILY [facility] Last Admin: 03/25/25 17:48 Dose: 10 mg Methylprednisolone Sodium Succinate (Methylprednisolone Sod Succ 40 Mg/Ml Vial) 40 mg IVPUSH Q12H [facility] Home Medications ?Medication ?Instructions ?Recorded ?Confirmed ?Last Taken ?Type albuterol sulfate 2.5 mg/3 mL 2.5 mg inhalation QID PRN 03/25/25 03/25/25 03/24/25 History (0.083 %) solution for nebulization Shortness Of Breath Or Wheezing budesonide 0.25 mg/2 mL suspension 0.25 mg inhalation BID PRN 03/25/25 03/25/25 03/24/25 History for nebulization Shortness Of Breath Or Wheezing budesonide 160 mcg-glycopyr 9 2 inh inhalation BID 03/25/25 03/25/25 03/24/25 History mcg-formot 4.8 mcg/actuation HFA inhaler (Breztri Aerosphere) levothyroxine 137 mcg tablet 137 mcg PO DAILY@0600 03/25/25 03/25/25 03/24/25 History Physical Exam Vital Signs and Narrative: Vital Signs: Last Vital Signs Temp 98.7 F 03/25/25 16:45 Pulse 97 03/25/25 16:45 Resp 16 03/25/25 16:45 BP 125/72 03/25/25 16:45 Pulse Ox 97 03/25/25 16:45 O2 Del Method Room Air 03/25/25 16:45 BMI result Body Mass Index 38.5 Appearance: Alert.? Oriented X3.?sob improving cvs: rrr, [id number] . res: air entry seems diminshed ,has b/l exp wheezing abd: no rebound or guarding ,nt, bs present. ext pulses present , no cyanosis . neuro: axo3 , nonfocal. Results Labs 03/25/25 10:53 03/25/25 11:38 Labs: Laboratory Results - last 24 hr 03/25/25 03/25/25 10:53 11:38 MCV 84.5 MCH 28.1 MCHC 33.3 RDW 16.0 Plt Count 227 MPV 10.6 Immature Gran % (Auto) 0.3 Neut % (Auto) 69.6 Lymph % (Auto) 23.2 [place] % (Auto) 6.1 Eos % (Auto) 0.7 Baso % (Auto) 0.1 Lymph # (Auto) 2.2 [place] # (Auto) 0.6 Eos # (Auto) 0.1 Baso # (Auto) 0.0 Abs Immat Gran (auto) 0.03 Absolute Neuts (auto) 6.5 Absolute Nucleated RBC 0.000 Nucleated RBC % (auto) 0.0 Anion Gap 14 Estim Creat Clear Calc 84.3 Estimated GFR > 60 Random Glucose 128 H Lactic Acid 1.7 Calcium 9.0 D Influenza Type A (PCR) NEGATIVE Influenza Type B (PCR) NEGATIVE RSV RNA Qual (PCR) NEGATIVE SARS-CoV-2 RNA (RT-PCR) NEGATIVE Imaging Radiologist's Impressions: Impressions Chest X-Ray 03/25/25 10:01 IMPRESSION: Concerning multifocal pneumonia in the correct clinical settings. Recommend follow-up until resolution. Electronically signed by: Dayne Oneil MD 03/25/2025 10:45 AM EDT Assessment and Plan (1) Asthma exacerbation: Qualifiers: Asthma severity: moderate Asthma persistence: persistent Qualified Code(s): J45.41 - Moderate persistent asthma with (acute) exacerbation Status: Acute (2) Multifocal pneumonia: Status: Acute Plan 49-year-old female with pertinent history of hypothyroidism, asthma not on home oxygen who presents to the emergency department for evaluation of sob ,rash/allergic reaction Acute exacerbation of asthma(possible moderate persistent asthma) and pneumonia : Short of breath with minimal exertion respiratory continue scheduled and p.r.n. inhaled bronchodilators,steroids,iv antibiotics. blood cultures sent an pending ?allergic reaction -rash: improving continue steriods and benadryl and pepcid. Hypothyroidism: On Synthroid Obesity: Counseled regarding diet and exercise. dvt prophylax: s/c lovenox. Patient will benefit from at least observation level of stay: Considering need of IV antibiotics for pneumonia as well as need of steroids and nebs-for allergic reaction, respiratory status is not optimal yet. Quality Stroke Does the patient have a stroke diagnosis?: No VTE Prior VTE?: No VTE Risk Level:: Medical - moderate - high VTE Device Contraindication: N/A - Device Ordered VTE Drug Contraindication: N/A - Med Ordered
--- NOTE | 2025-03-25 20:16 | PC.NURSE ---
assumed care for tp at 1900. pt resting in stercther in no notable distress. pt a&ox3 speaking in full clear sentences. pts son is in room visiting. pt eating dinner with son. pts needs met at this time. call russell is within reach plan of care ongoing
--- NOTE | 2025-03-25 21:15 | MHC.EDTECH ---
Resp Panel collected and sent to lab ,vitals taken .
[2025-03-26] VITALS (11 sets, daily range): BP systolic 113–138; BP diastolic 56–75; PULSE 72–92; RESP 18–20; TEMP 36.3–36.7; O2SAT 90–96
[2025-03-26] MEDS: methylPREDNISolone Sod Succ 40 MG/ML VIAL IVPUSH ×2 (00:36→12:14)
[2025-03-26] MEDS: Levothyroxine Sodium 112 MCG, Levothyroxine Sodium 25 MCG 137 MCG PO (05:49)
[2025-03-26] MEDS: Albuterol/Iprat 2.5/0.5MG 3 ML AMPUL.NEB INHALE ×4 (07:40→19:34)
--- NOTE | 2025-03-26 07:46 | PC.NURSE ---
Assumed care at 0700 - patient c/o 6/10 right lower quadrant pain, pulsing sensation, started overnight. Dr Pireto notified - no new orders at this time.
[2025-03-26] MEDS: Loratadine 10 MG TABLET PO (09:13)
[2025-03-26] MEDS: guaiFENesin 200 MG/10 ML 10 ML LIQUID PO ×2 (09:59→19:16)
[2025-03-26] MEDS: Benzonatate 100 MG CAPSULE PO ×2 (09:59→19:16)
--- NOTE | 2025-03-26 11:22 | P.PNIM_ITS ---
Subjective Subjective Date of Service: 03/26/25 Interval History: sob Physical Exam 2 Vital Signs: Vital Signs: Last Vital Signs Temp 98.1 F 03/26/25 08:35 Pulse 90 03/26/25 11:13 Resp 20 03/26/25 11:13 BP 135/70 03/26/25 08:35 Pulse Ox 95 03/26/25 08:35 O2 Del Method Room Air 03/26/25 08:35 BMI result Body Mass Index 38.5 General: AO X 3, no acute distress Resp: wheezing bilateral, no accessory muscles used CVS: S1,S2,RRR GI: soft, non tender, non distended Neuro: motor grossly intact, alert Psych: appropriate affect, appropriate insight rash resolved Objective Data Active Medications Albuterol/Ipratropium (Albuterol/Iprat 2.5/0.5mg 3 Ml Ampul.Neb) 3 ml INHALE Q3H PRN PRN Reason: Sob Albuterol/Ipratropium (Albuterol/Iprat 2.5/0.5mg 3 Ml Ampul.Neb) 3 ml INHALE RQ4H WHILE AWAKE [facility] Last Admin: 03/26/25 11:13 Dose: 3 ml Documented By: ANN MARIE Albuterol/Ipratropium (Albuterol/Iprat 2.5/0.5mg 3 Ml Ampul.Neb) 3 ml INHALE Q4H PRN PRN Reason: Shortness Of Breath/Wheezing Benzonatate (Benzonatate 100 Mg Capsule) 100 mg PO TID PRN PRN Reason: Cough Last Admin: 03/26/25 09:59 Dose: 100 mg Documented By: DELON Ceftriaxone Sodium (Ceftriaxone Sodium 1 Gm Vial) 1 gm IVPUSH Q24H [facility] Diphenhydramine HCl (Diphenhydramine Hcl 25 Mg Capsule) 25 mg PO Q4H PRN PRN Reason: Allergic Symptoms Enoxaparin Sodium (Enoxaparin Sodium 40 Mg/0.4 Ml Syringe) 40 mg SUBCUT Q24H [facility] Last Admin: 03/25/25 17:48 Dose: 40 mg Documented By: MARCK Guaifenesin (Guaifenesin 200 Mg/10 Ml 10 Ml Liquid) 10 ml PO Q6H PRN PRN Reason: Cough Last Admin: 03/26/25 09:59 Dose: 10 ml Documented By: DELON Azithromycin 500 mg/ Sodium (Chloride) 250 mls @ 125 mls/hr IV Q24H [facility] Levothyroxine Sodium 112 mcg/ (Levothyroxine Sodium 25 mcg) 137 mcg PO DAILY@0600 [facility] Last Admin: 03/26/25 05:49 Dose: 137 mcg Documented By: YONATAN Loratadine (Loratadine 10 Mg Tablet) 10 mg PO DAILY [facility] Last Admin: 03/26/25 09:13 Dose: 10 mg Documented By: KAMARI Methylprednisolone Sodium Succinate (Methylprednisolone Sod Succ 40 Mg/Ml Vial) 40 mg IVPUSH Q12H [facility] Last Admin: 03/26/25 00:36 Dose: 40 mg Documented By: YONATAN Labs 03/25/25 10:53 03/25/25 11:38 Labs: Laboratory Results - last 24 hr 03/25/25 03/25/25 10:53 11:38 Anion Gap 14 Estim Creat Clear Calc 84.3 Estimated GFR > 60 Random Glucose 128 H Lactic Acid 1.7 Calcium 9.0 D Influenza Type A (PCR) NEGATIVE Influenza Type B (PCR) NEGATIVE RSV RNA Qual (PCR) NEGATIVE SARS-CoV-2 RNA (RT-PCR) NEGATIVE Assessment and Plan (1) Allergic reaction: Status: Acute Plan 49F PMH severe persistent allergic asthma, hypothyroid, obesity, presented with rash and sob Severe persistent allergic asthma with acute decompensation Steroids, DuoNebs Bilateral opacities on chest x-ray Empirically cover with ceftriaxone azithromycin for pneumonia Follow up Infectious Disease Allergic reaction Improved with steroids Hypothyroid Levothyroxine Obesity Weight loss recommended DVT prophylaxis - Lovenox Full code reason for continued hospitalization: Still wheezing and short of breath Quality Stroke Does the patient have a stroke diagnosis?: No VTE Prior VTE?: No VTE Risk Level:: Medical - moderate - high VTE Device Contraindication: N/A - Device Ordered VTE Drug Contraindication: N/A - Med Ordered
[2025-03-26 11:49] LABS: Adenovirus PCR Not Detected (Not Detect.); Bordetella parapertussis PCR Not Detected (Not Detect.); Bordetella pertussis PCR Not Detected (Not Detect.); Chlamydia pneumoniae PCR Not Detected (Not Detect.); Coronavirus 229E PCR Not Detected (Not Detect.); Coronavirus HKU1 PCR Not Detected (Not Detect.); Coronavirus NL63 PCR Not Detected (Not Detect.); Coronavirus OC43 PCR Not Detected (Not Detect.); Human metapneumovirus PCR Not Detected (Not Detect.); Influenza A PCR Not Detected (Not Detect.); Influenza B PCR Not Detected (Not Detect.); Mycoplasma pneumoniae PCR Not Detected (Not Detect.); Parainfluenza 1 PCR Not Detected (Not Detect.); Parainfluenza 2 PCR Not Detected (Not Detect.); Parainfluenza 3 PCR Not Detected (Not Detect.); Parainfluenza 4 PCR Not Detected (Not Detect.); RSV PCR Not Detected (Not Detect.); Rhino/Enterovirus PCR Detected (Not Detect.)
[2025-03-26 12:01] LABS: Influenza A H1 PCR Not Detected (Not Detect.); Influenza A H1-2009 PCR Not Detected (Not Detect.); Influenza A H3 PCR Not Detected (Not Detect.); SARS-CoV-2 PCR Not Detected (Not Detect.)
--- NOTE | 2025-03-26 12:01 | MHC.CM.PN ---
HEENA delivered. 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 Independent. Has a nebulizer. PCP Amol Titus MD Reports she has an HCP listing her daughter, Víctor, as HCA. Copy requested. DP: Home self care. Daughter transport. CM will continue to follow.
[2025-03-26] MEDS: cefTRIAXone sodium 1 GM VIAL IVPUSH (12:14)
--- OUTSIDE RECORDS SUMMARY | 2025-03-26 13:40 | XMS_ITS | Continuity of Care Document ---
Author Organization [facility] ter Address [address] [place] [id number]- Care Team Providers Care Forensic Nurse Name Role Phone Not on Staff, PCP Primary Care Physician Unavail able [place] [facility] [place]17[place] - 03/25/[address] [address]- Attending Physician: Ludwin Mcgee MD Admitting Physician: Ludwin Mcgee MD Referring Physician: Ludwin Mcgee MD Encounter Type: Pre-Outpt Allergies, Adverse Reactions, Alerts Substance Criticality Severity [...] 11 Refills, Maintenance, 02/07/25 2:10:00 PM EDT, [facility]/pharmacy #[id number], pt report taking 150mcg current instead of [...] Name: LENKA MARAVILLA Insurance Providers Guarantor name: [facility] Health Plan Information #: 1 Payer: [employer] Member Number: [id number] Policy Number: NA Group Number: NA Health Plan Information #: 2 Payer: [employer] Member Number: [id number] Policy Number: NA Group Number: NA
--- OUTSIDE RECORDS SUMMARY | 2025-03-26 13:40 | XMS_ITS | Encounter Summary ---
Author Organization [employer] Address [address] [place] [address] Care Team Providers Care Reliability Specialist Name Role Phone Name, Amol CARY Primary Care Provider Encounter Details Date Type Department Care Team ([facility] st Contact Info) Description 03/26/2025 Patient Outreach [facility] [address] [place], [place] [phone] Name, MD Amol [address] [place] [address] Social History Tobacco Use Types Packs/Day Years [...] as of this encounter Progress Notes * Nadine Ag - 03/26/2025 8:52 AM EDT ADT-admitted [facility] 03/25/25 asthma exacerbation. Please outreach pt/facility for enrollment. CHW Nadine Ag reviewed chart review completed by DENNY Peters RN documented in this encounter Plan of Treatment Upcoming Encounters Date Type Department Care Team (Late st Contact Info) Description 06/04/2025 11:00 AM EDT Office Visit [facility] MED[facility]INE [address] [place] [address] Name, MD Amol [address] [place] [phone] documented as of this encounter Visit Diagnoses Not on filedocumented in this encounter Additional Health Concerns Assessment Noted Time PHQ-9 Depression Total Score: 0 12/26/19 24 10:28 AM EST documented as of this encounter Care Teams Reliability Specialist Relationship Specialty Start Date End Date Name, MD Amol [address] [place] [address] PCP - General Internal Medicine 02/18/25 documented as of this encounter
--- OUTSIDE RECORDS SUMMARY | 2025-03-26 13:40 | XMS_ITS | Encounter Summary ---
Author Organization [employer] Address [address] [place] [address] Care Team Providers Care Model Builder Display Name Role Phone Name, Amol CARY Primary Care Provider [phone] Reason for Visit * Reason Comments Care Coordination C3CM- chart review Encounter Details Date Type Department Care Team (Latest Contact Info) Description 03/26/2025 Patient Outreach [facility] MED[facility] [address] [place], [place] [phone] Name, MD Amol [address] [place] [address] Care Coordination (C3CM- chart review) Social History Tobacco Use Types Packs/Day Years [...] as of this encounter Progress Notes * Dain Peters RN - 03/26/2025 8:36 AM EDT CM Dain Peters RN, performed chart review, in anticipation of initial assessment with patient, aspatient has stratified for C3 Adult Complex Care through the ADT feed. History significant for allergic rhinitis, class 2 obesity, hypothyroidism, prediabetes, uncomplicated severe persistent asthma, Stargardt's disease, acid reflux, headache, dermatitis, chronic pansinusitis, lymphedema. Specialists include [facility] cardiology, vascular surgery, [facility] [place] endocrinology and diabetes, ENT, [facility] general genetics, [facility] general ophthalmology. ED visits within the last 12 months include [facility] 03/25/25, [facility] 02/11-02/14/25, [facility] 09/29-10/06/24. Patient admitted to [facility] on 03/25/25 and discharge pending. Last appointment in PCP office on 03/04/25. Next appointment scheduled for 06/04/25. documented in this encounter Plan of Treatment Upcoming Encounters Date Type Department Care Team (Late st Contact Info) Description 06/04/2025 11:00 AM EDT Office Visit [facility] MED[facility] [address] [place] [address] Name, MD Amol [address] [place] [address] documented as of this encounter Visit Diagnoses Not on filedocumented in this encounter Additional Health Concerns Assessment Noted Time PHQ-9 Depression Total Score: 0 12/26/19 10:28 AM EST documented as of this encounter Care Teams Model Builder Display Relationship Specialty Start Date End Date Name, MD Amol [address] [place] [address] PCP - General Internal Medicine 02/18/25 documented as of this encounter
--- OUTSIDE RECORDS SUMMARY | 2025-03-26 13:40 | XMS_ITS | Data Portability ---
Author Organization [place] - [facility], Allergy Address [address] [place] [id number] Care Team Providers Care Machine Helper Name Role Phone NAME, YANIRA Primary Care [...] and sinus irrigation. All questions were answered. [email or web address] Not available 10/12/2024 11:50:21 Plan of Treatment Reminders Order Date Submit Date Provider Last Modified By Organization Details Last Modified Time Details Appointments Establish ed 30 2024 01:00P M ADDY Abdi MD Not available Not available Not available Lab None recorded. Referral None recorded. Procedures None recorded. Surgeries None recorded. Imaging CT, maxillofa cial, w/o contrast 2023 024 [facility], [address] [facility] [address], [place], [address], 10/29/2024 13:56:00 Medication Orders fluticaso ne propionat e 50 mcg/actua tion nasal spray,milka pension 2024 025 [id number], [address] [place], [address], 01/01/2025 15:18:22 Flonase Allergy Relief 50 mcg/actua tion nasal spray,milka pension 2023 024 [email or web address] 32 [id number], [address] [place], [address], 10/26/2024 16:10:11 Patient TargetsNo targets recorded. Patient InstructionsNo instructions recorded. Reason for Referral None Reported. Results Created Date Observation Date Name Description Value Unit Range Abnormal Flag Note LastModifiedBy Organization Detail LastModifiedTime 10/20/20 24 10/19/2024 CT, maxil lofac ial, w/o contr ast No observ ation record ed. [facility] [address] [facility] [address], [place], [address], 10/24/2024 14:14:10 Result Notes None recorded. Problems Name Problem SNOMED Code Status Onset Date Resolution Date Notes Provider Name and Address Organization Details Recorded Time Headache 67804167 Active 2017 Facial pain NOS; Note: Date Diagnosed: 07/26/2018 11:01 AM (R51) Not Available [facility] 4 02:30:49 Uncomplic ated severe persisten t asthma 984637422 Active 2017 Severe persistent asthma, uncomplica sarah; Note: Date Diagnosed: 06/26/2018 1:04 PM (J45.50) Not Available [facility] 4 02:30:43 Recurrent acute sinusitis 626807149 Active 2017 Other acute recurrent sinusitis; Note: Date Diagnosed: 07/26/2018 10:56 AM (J01.81) Not Available [facility] 4 02:30:42 Nasal congestio n 33944170 Active 2017 Nasal congestion ; Note: Date Diagnosed: 06/26/2018 1:04 PM (R09.81) Not Available [facility] 4 02:30:57 Chronic pansinusi tis 30707945 Active 2024 ADDY ANDRADE MD [address] [place] [address], [facility] [place], [address] , [facility] - [facility] 5 15:16:18 Polyp of nasal cavity 433603004 Active 2024 ADDY ANDRADE MD [address] [address], [place], [address] , [facility] - [facility] 5 15:16:21 Problem Notes None recorded. Procedures Surgical History Date Name Laterality Status Provider Name and Address Organization Details Recorded Time NasalEndoscop y_DP completed ADDY ANDRADE MD [address] [address], [place], [address], [facility] - [facility] 01/01/2025 15:15:51 Thyroid Surgery completed Estefani Coello [facility] 10/12/2024 10:31:27 excision of varicose vein completed Estefnai Coello [facility] 10/12/2024 10:31:35 Imaging Results Imaging Date Name Status LastModified by Organiz ation Details LastModified Time 10/19/2024 CT, maxillofacial , w/o contrast completed [email or web address] [facility] [address] [facility] [address], [place], [address], 10/24/2024 14:14:10 Procedure Notes None recorded. Medical Equipment None Reported. Allergies Allergen ID Allergen Name Allergen Category Reaction Reaction Severity Criticality Documentation Date Start Date Code Code System Note Provider Name and Address Organization Details Recorded Time 44885 Latex (substanc e) environme nt,medica tion other Not available Not available 04/03/2024 99867 8007 SNOMED React ion: unkno wn, unspe cifie d;; Not Available [facility] 4 00:59:03 13980 aspirin medicatio n other Not available Not available 04/03/2024 1191 RxNorm React ion: unkno wn, unspe cifie d;; Not Available [facility] 4 00:59:05 35022 naproxen medicatio n other Not available Not available 04/03/2024 7258 RxNorm React ion: unkno wn, unspe cifie d;; Not Available [facility] 4 00:59:09 Medications Name Sig [...] mg capsule 10/12 completed Medicati on ID: [id number] P rescribe d By Name: Addy dangelo [...] by mouth 10/12 completed Medicati on ID: [id number] D uration Value: 30 Prescri bed By Name: JESE Rock nd Name: karthik craig Send Method: E-Prescr ibed Sub s Allowed: subs OK Medic ationGen ericName : [email or web address] le Not Available Not Available Not Available [...] [place] - [facility] 01/01/2025 14:35:48 Social History None recorded. Functional Status None recorded. Mental Status None recorded. Family History Nothing Reported. Medical History Condition Response Thyroid Problems Y Asthma Y Gynecological HistoryNo gynecological history recorded. Obstetrics History GPAL:G 0 P 0 0 0 0 Past Encounters Encounter ID Performer Location Encounter Start Date Encounter Closed Date Diagnosis/Indication Diagnosis SNOMED-CT Code Diagnosis ICD10 Code Diagnosis Note [id number] MEENU DANIELS PA-C [facility] [address] [address] 10/12/2024 09:52:25 10/12/2024 11:06:29 Nasal congestion 03942892 R09.81 Recurrent acute sinusitis 621354448 J01.81 Uncomplicdeclan smith severe persistent asthma 714731005 J45.50 [id number] ADDY ANDRADE MD [facility] [address] [place] [address] 01/01/2025 14:11:28 01/01/2025 15:13:46 Nasal congestion 43755101 R09.81 see below Uncomplicdeclan smith severe persistent asthma 856872311 J45.50 If her asthma becomes poorly controlled I would be more in favor of revision FESS. Chronic pansinusitis 888 78776 J32.4 Polyps are moderate on nasal endo. Last CT showed mild pansinusit is. I recommend observatio n at this point and the daily use of flonase. We will recheck in 6 months. If her asthma becomes poorly controlled I would be more in favor of revision FESS. Polyp of nasal cavity 73 8498132 J33.0 see above Health Concerns Section Related Observation LastModified by Organization Detai ls LastModified Time None Recorded Concern Status LastModified by Organization Details LastModified Time None Recorded Advance Directives Directive None Recorded Payers Encounter Date Sequence Insurance Name Policy Number Policy Gan Covered Member ID Gan Member ID Guarantor Name 10/12/2024 1 [facility] - DIRECT CONNECTORCARE TYPE I (HMO) [id number] Denise Chip [id number] Denise Chip 01/01/2025 1 [facility] - [employer]CARE TYPE I (HMO) [id number] Denise Chip [id number] Denise Chip Notes Date Note Type Note Provider Name and Address Organization Details Recorded Time 10/12/2024 text/html 48-year-old alverto craig with history of endoscopic sinus surgery with Dr. Andrade 6 years ago presents for reevaluation. Recently evaluated at the emergency room for cough. She was also having copious nasal discharge. She sees a clinical technician and an farm crew member who manage her allergies and asthma. Was recently prescribed a new inhaler. Chest x-rays were negative for pneumonia. She was prescribed doxycycline and prednisone and is feeling improved but does continue to have some facial pain and pressure. Was on antibiotic for 8 days in the hospital and was prescribed an additional 7 days outpatient. 2 more days until completion. MEENU DANIELS PA-C [address], [address], [facility] - [facility] 10/12/2024 11:51:22 01/01/2025 text/html 49-year-old fema le with history of FESS 07/2018 including bilateral [...] the beginning of September. ADDY ANDRADE MD [address] [facility] [address], [place], [address], [facility] - [facility] 01/01/2025 15:18:20 OBGyn Episode No OBEpisode recorded.
--- OUTSIDE RECORDS SUMMARY | 2025-03-26 13:40 | XMS_ITS | Encounter Summary ---
Author Organization [employer] Address [address] [place] [address] Care Team Providers Care [employer] Truck Driver Name Role Phone Name, Amol CARY Primary Care Provider [phone] Name, Amol CARY Primary Care Provider [phone] Reason for Visit * Reason Comments Med Refill Encounter Details Date Type Department Care Team ([facility] st Contact Info) Description 07/01/2024 Refill [facility] [address] [place], [place] [phone] Name, MD Amol [address] [place] [address] Severe persistent allergic asthma Social History Tobacco [...] Description 06/04/2025 11:00 AM EDT Office Visit [facility] [address] [place] [phone] NameAmol MD [address] [place] [phone] documented as of this encounter Visit Diagnoses Diagnosis Severe persistent allergic asthma documented in this encounter Additional Health Concerns Assessment Noted Time PHQ-9 Depression Total Score: 0 12/26/19 24 10:28 AM EST documented as of this encounter Care Teams [employer] Truck [employer] Relationship Specialty Start Date End Date Amol Titus MD [address] [place] [address] PCP - General Family Medicine 07/06/17 02/17/25 Amol Titus MD [address] [place] [address] PCP - General Internal Medicine 02/18/25 documented as of this encounter
--- OUTSIDE RECORDS SUMMARY | 2025-03-26 13:40 | XMS_ITS | Clinical Summary ---
Author Organization [employer] Address [address] [place] [address] Care Team Providers Care Oracle Bpm Consultant Name Role Phone Name, Amol CARY Primary Care Provider [phone] Allergies Active Allergy Reactions Criticality Noted Date [...] be used with Nebulizer 1 kit Active budesonide (Pulmicort) 0.25 MG/2ML nebulizer solution [...] follicular adenoma microfollicular type. She follows at [facility] endocrinology Elevated immunoglobulin E level 11/07/2017 Overview [...] Encounters Date Type Department Care Team Description 03/26/2025 Patient Outreach [facility] [address] [place] [address] Amol Titus MD 03/26/2025 Patient Outreach [address] [address] NameAmol MD Care Coordination (C3CM- chart review) 03/26/2025 Patient Outreach [address] [address] Amol Titus MD 03/25/2025 Orders Only [facility] External Provider, [facility] 03/04/2025 1:00 PM EDT Office Visit [address] [address] Amol Titus MD Uncomplicated severe persistent asthma (Primary Dx); Hypothyroidism, unspecified type 03/04/2025 Travel 02/28/[address] [address] Sally Tony MA chartprep 02/18/2025 Telephone [facility] [address] [place] [address] Rhea Whitmore MA may recalls 02/12/2025 Orders Only GENERIC EXTERNAL DATA DEPARTMENT Provider, Generic External Data 02/11/2025 Orders Only GENERIC EXTERNAL DATA DEPARTMENT Provider, Generic External Data 02/01/2025 Population Health Risk Score [facility] (C3) Department [address] [place] [phone] Provider, Population Health Generic 01/25/2025 10:30 AM EST Office Visit [facility] [address] [place] [address] Amol Titus MD Severe persistent asthma without complication (Primary Dx); Lymphedema; Acquired hypothyroidism 01/18/2025 Patient Outreach [facility] [address] [place] [address] Amol Titus MD Care Coordination (CHW outreach for SDOH food needs-referral completed /) 01/18/2025 Patient Outreach [facility] [address] [place] [address] Amol Titus MD Pre-visit Planning (SDOH positive, [...] Office Visit [facility] [address] [place] [address] Name, MD [place] [address] Health Maintenance Due Date Last Done Comments [...] * Lactic Acid (03/25/2025 11:38 AM EDT) Pathologist [facility] Lactic Acid 1.7 0.5 - 2.0 mmol/L [facility] 03/25/2025 11:3 8 AM EDT 03/25/2025 11:48 AM EDT us Generic External Data Provider LAB BLOOD ORDERAB LES Final Result [facility] [address] [place] [phone] * (ABNORMAL) Basic Metabolic Panel (03/25/2025 11:38 AM EDT) Sodium 142 135 - 145 mmol/L [facility] Potassium 3.7 3.3 - 5.1 mmol/L [facility] Chloride 109(H) 96 - 108 mmol/L [facility] Carbon Dioxide 23 22 - 29 mmol/L [facility] Anion Gap 14 12 - 20 [facility] Urea Nitrogen (BUN) 13 9 - 16 mg/dL [facility] Creatinine, Serum 0.85 0.5 - 1.4 mg/dL [facility] Creatinine Clr Calc Pharmacy 84.3 [facility] Comment:Provided height and weight: 157.48 cm,95.4 kg.eGFR (calculated from the MDRD study equation) and eCrCl(calculated from the Cockcroft-Gault equation) are based ondifferent parameters and may not yield comparable results.If eCrCl result is absurd, please check patient'sheight/weight. Estimated Glomerular Filt Rate >60 [facility] Comment:Chronic Kidney Disea se: Estimated GFR < 60 mL/min/1.34r9Upjioc Kidney Disease: Estimated GFR < 15 mL/min/1.73m2 Glucose 128(H) 60 - 115 mg/dL [facility] Calcium 9.0 8.4 - 10.2 mg/dL [facility] 03/25/2025 11:3 8 AM EDT 03/25/2025 11:45 AM EDT us Generic External Data Provider LAB BLOOD ORDERAB LES Final Result [facility] [address] [place] [phone] * SARS-CoV-2 RNA, Influenza A/B, and RSV RNA, Ql NAAT (03/25/2025 10:53 AM EDT) Only the most recent of2 resultswithin the time period is included. Influenza A PCR NEGATIVE Negative [facility] Influenza B PCR NEGATIVE Negative [facility] Resp Syncy Virus RNA Qual PCR NEGATIVE Negative [facility] SARS COV2 PCR NEGATIVE Negative [facility] Comment:All test results mus t be [...] use by authorized laboratories.Testing performed on the Cepheid GeneXpert utilizingreal-time RT-PCR.All SARS CoV2 and positive influenza A/B results arereported to [facility]. 03/25/2025 10:5 3 AM EDT 03/25/2025 10:57 AM EDT us Generic External Data Provider LAB MICROBIOLOGY - GENERAL ORDERABLES Final Result [facility] [address] [place] [phone] [phone] * CBC auto differential (03/25/2025 10:53 AM EDT) Only the most recent of2 resultswithin the time period is included. White Blood Count 9.4 4.8 - 10.8 X10*3/uL [facility] Red Blood Count 4.84 4.20 - 5.50 X10*6/uL [facility] Hemoglobin 13.6 12.0 - 16.0 g/dl [facility] Hematocrit 40.9 37.0 - 47.0 % [facility] Mean Corpuscular Volume 84.5 80.0 - 98.0 fL [facility] Mean Corpuscular Hemoglobin 28.1 27.0 - 33.0 pg [facility] Mean Corpuscular HGB Conc 33.3 31.0 - 35.0 g/dl [facility] Red Cell Distribution Width 16.0 11.0 - 16.0 % [facility] Platelet Count 227 160 - 400 X10*3/uL [facility] Mean Platelet Volume 10.6 9.4 - 12.3 fL [facility] Neutrophils Percent Auto 69.6 45 - 73 % [facility] Imm Gran Pct Auto 0.3 0.0 - 0.4 % [facility] Lymphocytes Percent Auto 23.2 20 - 40 % [facility] Monocytes Percent Auto 6.1 2 - 11 % [facility] Eosinophils Percent Auto 0.7 0 - 4 % [facility] Basophils Percent Auto 0.1 0 - 2 % [facility] NRBC Pct Auto 0.0 0.0 - 0.2 /100WBC [facility] Neutrophils Absolute Auto 6.5 2.0 - 8.3 x10*3/uL [facility] Imm Gran Abs Auto 0.03 0.00 - 0.03 X10*3/uL [facility] Lymphocytes Absolute Auto 2.2 1.2 - 4.9 X10*3/uL [facility] Monocytes Absolute Auto 0.6 0.1 - 1.2 X10*3/uL [facility] Eosinophils Absolute Auto 0.1 0.0 - 0.4 X10*3/uL [facility] Basophils Absolute Auto 0.0 0.0 - 0.2 X10*3/uL [facility] NRBC Abs Auto 0.000 0.0 - 0.012 X10*3/uL [facility] 03/25/2025 10:5 3 AM EDT 03/25/2025 10:57 AM EDT us Generic External Data Provider LAB BLOOD ORDERAB LES Final Result [facility] [address] [place] [phone] * XR Chest 2 Views (03/25/2025 10:01 AM EDT) Anatomical Region Laterality Modality Chest Radiographic Mariana ging 03/25/2025 10:0 1 AM EDT Narrative 03/25/2025 10:48 AM EDT ? [facility] ?[address] ?[place] [address] ?XRay Report ? Signed ? Patient: Chip,Denise ?MR#: [id number] ?? 190 ? : 1975 ?Acct:[id number] ? Age/Sex: 49 / F ?ADM Date: 05/05/25 ? Loc: HO.ED ? Attending Dr: ? Ordering Physician: Nelly Dorado ?? Date of Service: 03/25/25 ?? Procedure(s): XR chest 2V ?? Accession Number(s): [id number] ? cc: Name,Amol CARY; Nelly Dorado ? EXAMINATION: ?? XR [...] DD/ 1001 ? TD/TT: 03/25/25 1035 ? Balance Truing Inspector: ? Procedure Note Dottie Richards - 03/25/2025 [place] [address] XRay Report Signed Patient: Denise SaundersMR#: [id number] 190 : 1975Acct:[id number] Age/Sex: 49 / FADM Date: 03/25/25 Loc: HO.ED Attending Dr: Ordering Physician: Nelly Dorado Date of Service: 03/25/25 Procedure(s): XR chest 2V Accession Number(s): [id number] cc: Amol Titus MD; Nelly Dorado EXAMINATION: [...] Dayne Oneil MD 03/25/2025 10:45 AM EDT RP Dictated By: Dayne Spencer MD Signed By: <Electronically signed by Dayne Alonzo MDin OV> 03/25/25 1045 DD/ 1001 TD/TT: 03/25/25 1035 Balance Truing Inspector: [facility] External Provider IMG XR PROCEDURES Final Result * CT Chest w/o Contrast (02/14/2025 11:21 AM EDT) Anatomical Region Laterality Modality Body, Chest Computed Tomogra phy 02/14/2025 11:2 1 AM EDT Narrative 02/14/2025 11:22 AM EDT ? [facility] ?[address] ?[place] [address] ? CT Scan Report ? Signed ? Patient: Denise Saunders ?MR#: [id number] ?? 190 ? : 1975 ?Acct:[id number] ? Age/Sex: 49 / F ?ADM Date: 02/12/25 ? Loc: HO.S3 ?346-1 ? Attending Dr: Irma QUISPE-BC ? Ordering Physician: Irma BandaP-BC ?? Date of Service: 02/13/25 ?? Procedure(s): CT chest wo IV con ?? Accession Number(s): [id number] ? cc: Irma Banda CELLULAR BIOLOGIST-BC; Name,Amol CARY ? Report Number: ?? [id number]: Total DLP = ??157.00 mGy-cm ? CLINICAL [...] Juan Diego Murdock MD in OV> ? 02/14/25 1122 ? DD/ 1121 ? TD/TT: 02/14/25 1121 ? Balance Truing Inspector: ? Procedure Note Donrusty, Image - 02/14/[address] [place] [address] [address] Scan Report Signed Patient: Denise SaundersMR#: [id number] 190 : 1975Acct:[id number] Age/Sex: 49 / FADM Date: 02/12/25 Loc: HO.S3 346-[address]: Irma VELEZPRadha Ordering Physician: Irma Banda Date of Service: 02/13/25 Procedure(s): CT chest wo IV con Accession Number(s): [id number] cc: Irma Banda [facility]; Name,Amol CARY Report Number: [id number]: Total DLP = 157.00 mGy-cm CLINICAL HISTORY: [...] 02/14/25 1122 DD/ 1121 TD/TT: 02/14/25 1121 Balance Truing Inspector: [facility] External Provider IMG CT PROCEDURES Final Result * High Sensitivity Troponin I (02/12/2025 1:00 AM EDT) TROPONIN I HIGH SENSITIVITY 3.3 <3.5 - 17.0 ng/L [facility] Comment:The Leija high sens itivity Troponin-I results should beused in conjunction with other diagnostic information suchas ECG, clinical observations and information, and patientsymptoms to aid in the diagnosis of [place]. 02/12/2025 1:00 AM EDT 02/12/2025 1:05 AM EDT Generic External Data Provider LAB BLOOD ORDERAB LES Final Result Performing Organization Address City/State/[facility] Co de Phone Number [facility] [address] [place] [phone] * XR Chest 1 View (02/11/2025 8:35 PM EDT) Anatomical Region Laterality Modality Chest Radiographic Mariana ging 02/11/2025 8:35 PM EDT Narrative 02/11/2025 8:36 PM EDT ? [facility] ?[address] ?[place] [address] ?XRay Report ? Signed ? Patient: Chip,Denise ?MR#: [id number] ?? 190 ? : 1975 ?Acct:[id number] ? Age/Sex: 49 / F ?ADM Date: 02/11/25 ? Loc: HO.ED ? Attending Dr: ? Ordering Physician: Kristie Melgoza ?? Date of Service: 02/11/25 ?? Procedure(s): XR chest 1V ?? Accession Number(s): [id number] ? cc: Kristie Melgoza; Name,Amol CARY ? [...] ? DD/ 34 ? TD/TT: 02/11/252034 ? Balance Truing Inspector: ? Procedure Note Susie, Image - 02/11/2025 [place] [address] XRay Report Signed Patient: Jesus Saunders#: [id number] 190 : 1975Acct:[id number] Age/Sex: 49 / FADM Date: 02/11/25 Loc: HO.ED Attending Dr: Ordering Physician: Kristie Melgoza Date of Service: 02/11/25 Procedure(s): XR chest 1V Accession Number(s): [id number] cc: Kristie Melgoza; Name,Amol CARY CLINICAL HISTORY: [...] in OV> 02/11/252035 DD/ 34 TD/TT: 02/11/252034 Balance Truing Inspector: [facility] External Provider IMG XR PROCEDURES Edited Result - Final * Magnesium (02/11/2025 7:58 PM EDT) Magnesium 1.9 1.6 - 2.6 mg/dL [facility] 02/11/2025 7:58 PM EDT 02/11/2025 8:11 PM EDT Generic External Data Provider LAB BLOOD ORDERAB LES Final Result [facility] [address] [place] [phone] * (ABNORMAL) Comprehensive Metabolic Panel (02/11/2025 7:58 PM EDT) Sodium 140 135 - 145 mmol/L [facility] Potassium 4.0 3.3 - 5.1 mmol/L [facility] Chloride 108 96 - 108 mmol/L [facility] Carbon Dioxide 23 22 - 29 mmol/L [facility] Anion Gap 13 12 - 20 [facility] Urea Nitrogen (BUN) 9 9 - 16 mg/dL [facility] Creatinine, Serum 0.76 0.5 - 1.4 mg/dL [facility] Creatinine Clr Calc Pharmacy 93.4 [facility] Comment:Provided height and weight: 157.48 cm,93.8 kg.eGFR (calculated from the MDRD study equation) and eCrCl(calculated from the Cockcroft-Gault equation) are based ondifferent parameters and may not yield comparable results.If eCrCl result is absurd, please check patient'sheight/weight. Estimated Glomerular Filt Rate >60 [facility] Comment:Chronic Kidney Disea se: Estimated GFR < 60 mL/min/1.36r2Cdmoaa Kidney Disease: Estimated GFR < 15 mL/min/1.73m2 Glucose 109 60 - 115 mg/dL [facility] Calcium 9.6 8.4 - 10.2 mg/dL [facility] Bilirubin, Total 1.3(H) 0.0 - 1.0 mg/dL [facility] Aspartate Amino Transferase 21 5 - 31 U/L [facility] Alanine Aminotransferase 14 0 - 31 U/L [facility] Total Protein 7.4 6.5 - 8.0 g/dL [facility] Albumin Level 4.2 3.5 - 5.0 g/dL [facility] Alkaline Phosphatase 75 39 - 117 U/L [facility] 02/11/2025 7:58 PM EDT 02/11/2025 8:11 PM EDT us Generic External Data Provider LAB BLOOD ORDERAB LES Final Result Performing Organization Address City/State[facility] Co de Phone Number [facility] [address] [place] [phone] * POCT HGB A1C (12/11/2024 11:49 AM EST) Hemoglobin A1C 6.0 4.0 - 6.0 % QC Media Lot # [id number] Lot# Expiration Date [id number] Blood 12/11/2024 11:4 9 AM EST us Amol Titus MD POINT OF CARE TEST ENTER/EDIT OR DERABLES Final Result * BI Mammogram Screening Tomosynthesis Bilateral (01/28/2023 10:46 AM EST) Anatomical Region Laterality Modality Breast Bilateral Mammography 01/28/2023 10:4 6 AM EST Narrative 01/31/2023 1:16 PM EDT ? [facility] ? [address] ?[place] [address] ? Mammography Report ? Signed ? Patient: Chip,Denise ?MR#: [id number] ?? 190 ? : 1975 ?Acct:[id number] ? Age/Sex: 47 / F ?ADM Date: 03/10/23 ? Loc: HO.MAMMO ? Attending Dr: Amol Titus MD ? Ordering Physician: Amol Titus MD ?Results: 1Negative ? Date of Service: 01/28/23 ?Follow Up: 1 Year From Orig ?? inal Mammogram ? Procedure(s): MM tomosynthesis screening BI ?? Accession Number(s): [id number] ? cc: Amol Titus MD ? EXAMINATION: ?? MM SCREENING DIGITAL BREAST [...] 1314 ? DD/ 1046 ? TD/TT: ? Balance Truing Inspector: BUCK ? Procedure Note Donotuseinterpreter, Image - 01/31/2023 [facility] [address] [place], [place] [address] Mammography Report Signed Patient: Denise SaundersMR#: [id number] 190 : 1975Acct:[id number] Age/Sex: 47 / FADM Date: 01/28/23 Loc: HO.MAMMO Attending Dr: Amol Titus MD Ordering Physician: Amol Titus MDResults: 1Negative Date of Service: 01/28/23Follow Up: 1 Year From Orig inal Mammogram Procedure(s): MM tomosynthesis screening BI Accession Number(s): [id number] cc: Amol Titus MD EXAMINATION: MM SCREENING [...] in OV> 01/31/23 1314 DD/ 1046 TD/TT: Balance Truing Inspector: HEBER [facility] External Provider IMG BI PROCEDURES Edited Result - Final * THINPREP PAP (06/18/2020 2:37 PM EDT) Clinical Information: SEE COMMENT [facility] Comment:None given COMMENT SEE COMMENT [...] historic and ?? current clinical information. ?? Big Data Lead: SEE COMMENT [facility] Comment: JXM, CT(ASCP) CT screening location: [address] ??[address] Interpretation/Resu lt: SEE COMMENT [facility] Comment:Negative for intraep ithelial lesion or malignancy. LMP: SEE COMMENT [facility] Comment:05/28/20 Prev. BX: NONE GIVEN [facility] Prev. PAP: SEE COMMENT [facility] Comment:NONE GIVEN SOURCE: SEE COMMENT [facility] Comment:None given Statement Of Adequacy: SEE COMMENT [facility] Comment: Satisfactory for evaluation. Endocervical/transformation zone component present. 06/18/2020 2:37 PM EDT Tamar BERMUDEZ LAB PATHOLOGY ORDERABLES Final Result [facility] [address] * HPV mRNA E6/E7 (06/18/2020 2:37 PM EDT) HPV nRNA E6/E7 Not Detected Not Detected [facility] Comment: This test was performed using the APTIMA HPV Assay ([employer] ?? This assay detects E6/E7 viral messenger RNA (mRNA) from 14 high-risk HPV types (16,18,31,33,35,39,45,51,52,56,58,59,66,68). ?? The analytical performance characteristics of this assay have been determined by [employer]. The modifications have not been cleared or approved by the FDA. This assay has been validated pursuant to the CLIA regulations and is used for clinical purposes. 06/18/2020 2:37 PM EDT Tamar BERMUDEZ LAB BLOOD ORDERABLES Gin pierson Result [facility] [address] from Last 3 Months or Most Recently Relevant to Health Maintenance Insurance [facility] C3 HSN FULL Care Teams Oracle Bpm Consultant Relationship Specialty Start Date End Date Name, MD Amol [address] [place] [phone] PCP - General Internal Medicine 02/18/25
--- OUTSIDE RECORDS SUMMARY | 2025-03-26 13:40 | XMS_ITS | Encounter Summary ---
Author Organization [employer] Address [address] [place] [address] [address] [place] [address] Care Team Providers Care It Web Development Consultant Name Role Phone Name, Amol CARY Primary Care Provider [phone] Amol Titus MD Primary Care Provider [phone] Encounter Details Date Type Department Care Team (Latest Contact Info) Description 07/28/2022 Abstract [facility] CONVERSIONS Dental, Provider, DDS Social History [...] Description 06/04/2025 11:00 AM EDT Office Visit [facility]ICINE [address] [place] [address] Amol Titus MD [address] [place] [address] documented as of this encounter Visit Diagnoses Not on filedocumented in this encounter Care Teams It Web Development Consultant Relationship Specialty Start Date End Date Amol Titus MD [address] [place] [address] PCP - General Family Medicine 07/06/17 02/17/25 Amol Titus MD [address] [place] [address] PCP - General Internal Medicine 02/18/25 documented as of this encounter
--- OUTSIDE RECORDS SUMMARY | 2025-03-26 13:40 | XMS_ITS ---
Author Organization [employer] Address [address] [place] [address] [address] [place] [address] Care Team Providers Care Dock Pumper Name Role Phone Name, Amol CARY Primary Care Provider [phone] CM Complex Status:Identified (Enrolling) Start date:03/26/2025 Enrollment reason:ADT Feed Overview ADT-admitted [facility] 03/25/25 asthma exacerbation Case Team Name Relationship Phone Dain Peters RN Registered Nurse(Responsible St aff) [phone] Continued Care and Services Coordination
--- OUTSIDE RECORDS SUMMARY | 2025-03-26 13:40 | XMS_ITS | Encounter Summary ---
Author Organization [employer] Address [address] [place] [address] Care Team Providers Care Computer Operations Technician Name Role Phone Name, Amol CARY Primary Care Provider [phone] Encounter Details Date Type Department Care Team ([facility] Contact Info) Description 03/25/2025 Orders Only [facility] External Provider, [facility] Social History Tobacco Use Types Packs/Day Years [...] Description 06/04/2025 11:00 AM EDT Office Visit [facility] [address] [place] [address] Name, MD Amol [address] [place] [address] documented as of this encounter Procedures Procedure [...] Lactic Acid 1.7 0.5 - 2.0 mmol/L [facility] 03/25/2025 11:3 8 AM EDT 03/25/2025 11:48 AM EDT us Generic External Data Provider LAB BLOOD ORDERAB LES Final Result [facility] [address] [place] [phone] * (ABNORMAL) Basic Metabolic Panel (03/25/2025 11:38 AM EDT) Sodium 142 135 - 145 mmol/L [facility] Potassium 3.7 3.3 - 5.1 mmol/L [facility] Chloride 109(H) 96 - 108 mmol/L [facility] Carbon Dioxide 23 22 - 29 mmol/L [facility] Anion Gap 14 12 - 20 [facility] Urea Nitrogen (BUN) 13 9 - 16 mg/dL [facility] Creatinine, Serum 0.85 0.5 - 1.4 mg/dL [facility] Creatinine Clr Calc Pharmacy 84.3 [facility] Comment:Provided height and weight: 157.48 cm,95.4 kg.eGFR (calculated from the MDRD study equation) and eCrCl(calculated from the Cockcroft-Gault equation) are based ondifferent parameters and may not yield comparable results.If eCrCl result is absurd, please check patient'sheight/weight. Estimated Glomerular Filt Rate >60 [facility] Comment:Chronic Kidney Disea se: Estimated GFR < 60 mL/min/1.97p8Tivjhv Kidney Disease: Estimated GFR < 15 mL/min/1.73m2 Glucose 128(H) 60 - 115 mg/dL [facility] Calcium 9.0 8.4 - 10.2 mg/dL [facility] 03/25/2025 11:3 8 AM EDT 03/25/2025 11:45 AM EDT us Generic External Data Provider LAB BLOOD ORDERAB LES Final Result [facility] [address] [place] [phone] * SARS-CoV-2 RNA, Influenza A/B, and RSV RNA, Ql NAAT (03/25/2025 10:53 AM EDT) Pathologist [facility] Influenza A PCR NEGATIVE Negative [facility] Influenza B PCR NEGATIVE Negative [facility] Resp Syncy Virus RNA Qual PCR NEGATIVE Negative [facility] SARS COV2 PCR NEGATIVE Negative [facility] Comment:All test results mus t [...] use by authorized laboratories.Testing performed on the [employer] GeneXpert utilizingreal-time RT-PCR.All SARS CoV2 and positive influenza A/B results arereported to [facility]. 03/25/2025 10:5 3 AM EDT 03/25/2025 10:57 AM EDT Generic External Data Provider LAB MICROBIOLOGY - GENERAL ORDERABLES Final Result [facility] [address] [place] [phone] * CBC auto differential (03/25/2025 10:53 AM EDT) Pathologist [facility] White Blood Count 9.4 4.8 - 10.8 X10*3/uL [facility] Red Blood Count 4.84 4.20 - 5.50 X10*6/uL [facility] Hemoglobin 13.6 12.0 - 16.0 g/dl [facility] Hematocrit 40.9 37.0 - 47.0 % [facility] Mean Corpuscular Volume 84.5 80.0 - 98.0 fL [facility] Mean Corpuscular Hemoglobin 28.1 27.0 - 33.0 pg [facility] Mean Corpuscular HGB Conc 33.3 31.0 - 35.0 g/dl [facility] Red Cell Distribution Width 16.0 11.0 - 16.0 % [facility] Platelet Count 227 160 - 400 X10*3/uL [facility] Mean Platelet Volume 10.6 9.4 - 12.3 fL [facility] Neutrophils Percent Auto 69.6 45 - 73 % [facility] Imm Gran Pct Auto 0.3 0.0 - 0.4 % [facility] Lymphocytes Percent Auto 23.2 20 - 40 % [facility] Monocytes Percent Auto 6.1 2 - 11 % [facility] Eosinophils Percent Auto 0.7 0 - 4 % [facility] Basophils Percent Auto 0.1 0 - 2 % [facility] NRBC Pct Auto 0.0 0.0 - 0.2 /100WBC [facility] Neutrophils Absolute Auto 6.5 2.0 - 8.3 x10*3/uL [facility] Imm Gran Abs Auto 0.03 0.00 - 0.03 X10*3/uL [facility] Lymphocytes Absolute Auto 2.2 1.2 - 4.9 X10*3/uL [facility] Monocytes Absolute Auto 0.6 0.1 - 1.2 X10*3/uL [facility] Eosinophils Absolute Auto 0.1 0.0 - 0.4 X10*3/uL [facility] Basophils Absolute Auto 0.0 0.0 - 0.2 X10*3/uL [facility] NRBC Abs Auto 0.000 0.0 - 0.012 X10*3/uL [facility] 03/25/2025 10:5 3 AM EDT 03/25/2025 10:57 AM EDT us Generic External Data Provider LAB BLOOD ORDERAB LES Final Result [facility] [address] [place] [phone] * XR Chest 2 Views (03/25/2025 10:01 AM EDT) Anatomical Region Laterality Modality Chest Radiographic Mariana ging 03/25/2025 10:0 1 AM EDT Narrative 03/25/2025 10:48 AM EDT ? [facility] ?[address] ?[place] [address] ?XRay Report ? Signed ? Patient: Chip,Denise ?MR#: [id number] ?? 190 ? : 1975 ?Acct:[id number] ? Age/Sex: 49 / F ?ADM Date: 03/25/25 ? Loc: HO.ED ? Attending Dr: ? Ordering Physician: Nelly Dorado ?? Date of Service: 03/25/25 ?? Procedure(s): XR chest 2V ?? Accession Number(s): [id number] ? cc: aTcho,Amol CARY; Nelly Dorado ? EXAMINATION: ?? XR [...] DD/ 1001 ? TD/TT: 03/25/25 1035 ? Nursing Service Director: ? Procedure Note Dottie Richards - 03/25/[address] [address] XRay Report Signed Patient: Cesar SaunderstrentMR#: [id number] : 1975Acct:[id number] Age/Sex: 49 / FADM Date: 03/25/25 Loc: HO.ED Attending Dr: Ordering Physician: Nelly Dorado Date of Service: 03/25/25 Procedure(s): XR chest 2V Accession Number(s): [id number] cc: Name,Amol CARY; Nelly Dorado EXAMINATION: XR [...] 03/25/25 1045 DD/ 1001 TD/TT: 03/25/25 1035 Nursing Service Director: [facility] External Provider IMG XR PROCEDURES Final Result documented in this encounter Visit Diagnoses Not on filedocumented in this encounter Additional Health Concerns Assessment Noted Time PHQ-9 Depression Total Score: 0 12/26/19 10:28 AM EST documented as of this encounter Care Teams Computer Operations Technician Relationship Specialty Start Date End Date Name, MD Amol [address] [place] [address] PCP - General Internal Medicine 02/18/25 documented as of this encounter
--- OUTSIDE RECORDS SUMMARY | 2025-03-26 13:40 | XMS_ITS | Encounter Summary ---
Author Organization [employer] Address [address] [place] [address] Care Team Providers Care Neurosurgery Physician Name Role Phone Name, Amol CARY Primary Care Provider [phone] Encounter Details Date Type Department Care Team ([facility] st Contact Info) Description 03/26/2025 Patient Outreach [facility] [address] [place], [place] [phone] Name, MD Amol [address] [place] [address] Social History Tobacco Use Types Packs/Day Years [...] Description 06/04/2025 11:00 AM EDT Office Visit [facility] [address] [place] [address] Name, MD Amol [address] [place] [phone] documented as of this encounter Visit Diagnoses Not on filedocumented in this encounter Additional Health Concerns Assessment Noted Time PHQ-9 Depression Total Score: 0 12/26/19 24 10:28 AM EST documented as of this encounter Care Teams Neurosurgery Physician Relationship Specialty Start Date End Date NameAmol MD [address] [place] [phone] PCP - General Internal Medicine 02/18/25 documented as of this encounter
--- OUTSIDE RECORDS SUMMARY | 2025-03-26 13:40 | XMS_ITS ---
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
[2025-03-26] MEDS: Enoxaparin Sodium 40 MG/0.4 ML SYRINGE SUBCUT (16:10)
[2025-03-26] MEDS: Azithromycin 500 MG in 0.9 % Sodium Chloride 250 ML 125 MG IV (16:11)
--- NOTE | 2025-03-26 22:17 | P.CNID_ITS ---
History of Present Illness Data of Consult Service Date: 03/26/25 Requesting physician: Ace Prieto Primary Care Provider: MD SHANTE Gupta Reason for consult: cough,wheezing She presents with cough and wheezing for a day. She was eating shrimp and throat felt tight. She has no fever or chills. Review of Systems 2 Review of Systems: Yes all other systems are reviewed and are negative PMFSH Past Medical History Medical History Varicose veins of both lower extremities with inflammation BMI 37.0-37.9, adult Severe persistent allergic asthma Asthma Hypothyroidism Morbid obesity Family History Family History Mother Diabetes Surgical History Surgical History History of facial surgery H/O thyroidectomy Social History Social History Household Members: Significant Other and Children Housing: Apartment Alcohol intake: never Patient Tobacco Use Status: Never used Tobacco service: No Current occupational status: employed Current occupation: rt handed Meds Allergies Allergy/AdvReac Type Severity Reaction Status Date / Time aspirin [ASPIRIN] Allergy Unknown UNKNOWN, Verified 03/25/25 09:42 anaphylaxis latex Allergy Unknown Anaphylaxis, Verified 03/25/25 09:42 Rash Latex, Natural Rubber Allergy Unknown HIVES Verified 03/25/25 09:42 [LATEX, NATURAL RUBBER] naproxen [From NAPROSYN] Allergy Unknown UNKNOWN, Verified 03/25/25 09:42 anaphylaxis Active Medications: Current Medications Albuterol/Ipratropium (Albuterol/Iprat 2.5/0.5mg 3 Ml Ampul.Neb) 3 ml INHALE Q3H PRN PRN Reason: Sob Albuterol/Ipratropium (Albuterol/Iprat 2.5/0.5mg 3 Ml Ampul.Neb) 3 ml INHALE RQ4H WHILE AWAKE MARCIAL Last Admin: 03/26/25 19:34 Dose: 3 ml Albuterol/Ipratropium (Albuterol/Iprat 2.5/0.5mg 3 Ml Ampul.Neb) 3 ml INHALE Q4H PRN PRN Reason: Shortness Of Breath/Wheezing Benzonatate (Benzonatate 100 Mg Capsule) 100 mg PO TID PRN PRN Reason: Cough Last Admin: 03/26/25 19:16 Dose: 100 mg Ceftriaxone Sodium (Ceftriaxone Sodium 1 Gm Vial) 1 gm IVPUSH Q24H [facility] Last Admin: 03/26/25 12:14 Dose: 1 gm Diphenhydramine HCl (Diphenhydramine Hcl 25 Mg Capsule) 25 mg PO Q4H PRN PRN Reason: Allergic Symptoms Enoxaparin Sodium (Enoxaparin Sodium 40 Mg/0.4 Ml Syringe) 40 mg SUBCUT Q24H [facility] Last Admin: 03/26/25 16:10 Dose: 40 mg Guaifenesin (Guaifenesin 200 Mg/10 Ml 10 Ml Liquid) 10 ml PO Q6H PRN PRN Reason: Cough Last Admin: 03/26/25 19:16 Dose: 10 ml Azithromycin 500 mg/ Sodium (Chloride) 250 mls @ 125 mls/hr IV Q24H [facility] Last Infusion: 03/26/25 19:19 Dose: Infused Levothyroxine Sodium 112 mcg/ (Levothyroxine Sodium 25 mcg) 137 mcg PO DAILY@0600 [facility] Last Admin: 03/26/25 05:49 Dose: 137 mcg Loratadine (Loratadine 10 Mg Tablet) 10 mg PO DAILY [facility] Last Admin: 03/26/25 09:13 Dose: 10 mg Methylprednisolone Sodium Succinate (Methylprednisolone Sod Succ 40 Mg/Ml Vial) 40 mg IVPUSH Q12H [facility] Last Admin: 03/26/25 12:14 Dose: 40 mg Home Medications ?Medication ?Instructions ?Recorded ?Confirmed ?Last Taken ?Type albuterol sulfate 2.5 mg/3 mL 2.5 mg inhalation QID PRN 03/25/25 03/25/25 03/24/25 History (0.083 %) solution for nebulization Shortness Of Breath Or Wheezing budesonide 0.25 mg/2 mL suspension 0.25 mg inhalation BID PRN 03/25/25 03/25/25 03/24/25 History for nebulization Shortness Of Breath Or Wheezing budesonide 160 mcg-glycopyr 9 2 inh inhalation BID 03/25/25 03/25/25 03/24/25 History mcg-formot 4.8 mcg/actuation HFA inhaler (Breztri Aerosphere) levothyroxine 137 mcg tablet 137 mcg PO DAILY@0600 03/25/25 03/25/25 03/24/25 History Physical Exam 2 Vital Signs: Vital Signs: Last Vital Signs Temp 97.5 F 03/26/25 19:15 Pulse 92 03/26/25 19:34 Resp 18 03/26/25 19:34 BP 123/71 03/26/25 19:15 Pulse Ox 95 03/26/25 19:15 O2 Del Method Room Air 03/26/25 19:15 BMI result Body Mass Index 38.5 Const: General: cooperative HEENT: Head: Yes normal to inspection Face and sinus: Yes normal facial exam Mouth: Normal oral and palatal mucosa present Teeth and gingiva: d entition normal Eyes: General: appearance normal, both eyes and all related structures P upils: Equal, round and reactive pupils present Resp: Other: wheezing Cardio: Rate: regular rate Rhythm: regular rhythm GI: Palpation (GI): Soft to palpation and nontender : General: Yes no CVA tenderness Back/Spine/Pelvis: Back: no CVA tenderness Skin: General skin exam: no rashes or lesions noted Neuro: General: moves all extremities Cranial nerves: Yes Equal, round and reactive pupils present Extrem: General: Yes normal to inspection Psych: Appearance: grossly normal Results Labs 03/25/25 10:53 03/25/25 11:38 Microbiology Microbiology Results: Microbiology 03/25/25 12:42 Blood - Venous Blood Culture - Preliminary No growth after 24 hours. 03/25/25 11:38 Blood - Venous Blood Culture - Preliminary No growth after 24 hours. Assessment and Plan (1) Asthma exacerbation: Qualifiers: Asthma persistence: persistent Asthma severity: moderate Qualified Code(s): J45.41 - Moderate persistent asthma with (acute) exacerbation Status: Acute (2) Allergic reaction: Status: Acute (3) Multifocal pneumonia: Status: Acute Plan Possible atypical pneumonia Possible allergic reaction Agree CTX and azithromycin,change to Ceftin and zmax total 7 d outpatient. Send with epi pen, steroids. Avoid shrimp.
[2025-03-27] VITALS (8 sets, daily range): BP systolic 110–145; BP diastolic 57–74; PULSE 68–97; RESP 18–20; TEMP 36.3–36.5; O2SAT 92–96
[2025-03-27] MEDS: methylPREDNISolone Sod Succ 40 MG/ML VIAL IVPUSH ×2 (00:05→13:13)
[2025-03-27] MEDS: Albuterol/Iprat 2.5/0.5MG 3 ML AMPUL.NEB INHALE ×4 (00:08→15:57)
[2025-03-27] MEDS: guaiFENesin 200 MG/10 ML 10 ML LIQUID PO (00:23)
[2025-03-27] MEDS: Levothyroxine Sodium 112 MCG, Levothyroxine Sodium 25 MCG 137 MCG PO (05:16)
[2025-03-27 06:35] LABS: Hemoglobin 12.9 g/dl (12.0-16.0); Mean Corpuscular HGB Conc 33.1 g/dl (31.0-35.0); Mean Corpuscular Hemoglobin 27.7 pg (27.0-33.0); Mean Corpuscular Volume 83.9 fL (80.0-98.0); Mean Platelet Volume 11.1 fL (9.4-12.3); Platelet Count 240 X10*3/uL (160-400); Red Blood Count 4.65 X10*6/uL (4.20-5.50); Red Cell Distribution Width 16.8 % (11.0-16.0); White Blood Count 18.1 X10*3/uL (4.8-10.8)
[2025-03-27 06:49] LABS: Anion Gap 15 (12-20); Blood Urea Nitrogen 21 mg/dL (9-16); Calcium 9.8 mg/dL (8.4-10.2); Carbon Dioxide 24 mmol/L (22-29); Chloride 110 mmol/L (96-108); Creatinine Clr Calc Pharmacy 96.8; Estimated Glomerular Filt Rate > 60; Glucose Random 163 mg/dL (60-115); Potassium 4.6 mmol/L (3.3-5.1); Sodium 144 mmol/L (135-145)
[2025-03-27] MEDS: Loratadine 10 MG TABLET PO (07:02)
[2025-03-27] MEDS: Magnesium Sulfate/H2O 2 GM/50 ML PIGGYBACK IV (10:10)
--- NOTE | 2025-03-27 10:32 | P.DS_ITS ---
DS: Providers Provider Date of Service: 03/27/25 Date of admission: 03/25/25 13:29 Date of discharge: 03/27/25 Primary care physician: Amol Titus MD Consults: 03/25/25 19:13 Consult to Infectious Diseases Routine Consulting Provider: [facility] Reason for consultation: pneumonia multifocal Has provider been notified: No DS: Diagnosis Discharge Diagnosis (1) Asthma exacerbation: Status: Acute (2) Allergic reaction: Status: Acute (3) Multifocal pneumonia: Status: Acute DS: Summary Hospital Course Hospital Course: from initial hpi: 49y/o F with pmhx of hypothyroidism, asthma came to hospital and environmental allergies, as well as 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 Lab imaging reviewed: No leukocytosis, BMP fine, chest x-ray shows possible pneumonia. In ED:ED bronch protocol, IV Solu-Medrol, IV Benadryl/Pepcid, IV ceftriaxone/azithromycin, viral testing : RSV/COVID/influenza a and B negative. Her shortness of breaths seems to be improving but still short of breath even walking to the bathroom. No stridor. Rash area also improving. ED requested admission for for COPD exacerbation/pneumonia: Already started on nebs, steroids, antibiotics in ED. hospital course: Patient was admitted for severe persistent allergic asthma with acute decompensation due to rhinovirus. Was treated with steroids and DuoNebs and symptoms improved. On discharge we will continue 5 more days of prednisone. Also noted to have bilateral opacities on chest x-ray possibly atypical pneumonia. Was seen by infectious disease who recommended coverage with cephalosporin and azithromycin for 7 day total. Was treated with ceftriaxone azithromycin on hospital and we will transitioned to Ceftin and azithromycin on discharge. She appeared to have a anaphylactic reaction to shrimp and should be avoided. This has resolved. For hypothyroid was continued on levothyroxine. For obesity weight loss recommended. Time Attestation Discharge Coordination Time (in mins): 36 Quality: Safe Use of Opioids Does Pt have an Active Cancer Diagnosis on the Problem List?: No Quality: Stroke Does the patient have a stroke diagnosis?: No Physical Exam Vital Signs: Vital Signs: Last Vital Signs Temp 97.4 F 03/27/25 07:50 Pulse 74 03/27/25 07:50 Resp 18 03/27/25 07:50 BP 133/74 03/27/25 07:50 Pulse Ox 93 03/27/25 07:50 O2 Del Method Room Air 03/27/25 07:50 BMI result Body Mass Index 38.5 General: AO X 3, no acute distress Resp: Some wheezing bilateral, no accessory muscles used CVS: S1,S2,RRR GI: soft, non tender, non distended Neuro: motor grossly intact, alert Psych: appropriate affect, appropriate insight DS: Data Data Completed and Pending Labs on day of discharge: Laboratory Results - last 24 hr 03/25/25 03/27/25 21:13 05:35 WBC 18.1 H RBC 4.65 Hgb 12.9 Hct 39.0 MCV 83.9 MCH 27.7 MCHC 33.1 RDW 16.8 H Plt Count 240 MPV 11.1 Absolute Nucleated RBC 0.000 Nucleated RBC % (auto) 0.0 Sodium 144 Potassium 4.6 D Chloride 110 H Carbon Dioxide 24 Anion Gap 15 BUN 21 H Creatinine 0.74 Estim Creat Clear Calc 96.8 Estimated GFR > 60 Random Glucose 163 H Calcium 9.8 D Respiratory Panel Valerio See Note Adenovirus (Rapid PCR) Not Detected B.pert (TEM-PCR) Not Detected B.parapertussis DNA PCR Not Detected C. pneumoniae DNA (PCR) Not Detected Coronavirus OC43 (PCR) Not Detected Coronavirus HKU1 (PCR) Not Detected Coronavirus 229E (PCR) Not Detected Coronavirus NL63 (PCR) Not Detected Human Metapneumovir PCR Not Detected Influenza A (RT-PCR) Not Detected Influenza A (H1) PCR Not Detected Influ A (H1/09) PCR Not Detected Influenza A (H3) PCR Not Detected Influenza B (RT-PCR) Not Detected M. pneumoniae (PCR) Not Detected Parainfluenza 1 (PCR) Not Detected Parainfluenza 2 (PCR) Not Detected Parainfluenza 3 (PCR) Not Detected Parainfluenza 4 (PCR) Not Detected RSV (PCR) Not Detected Entero/Rhino (PCR) Detected A SARS-CoV-2 RNA (RT-PCR) Not Detected Preliminary micro results at discharge 03/25/25 12:42 Blood Culture - Preliminary Blood - Venous No growth after 24 hours. 03/25/25 11:38 Blood Culture - Preliminary Blood - Venous No growth after 24 hours. Discharge Plan Discharge Anticipated Discharge Date/Time: 03/27/25 10:29 Patient Disposition: Home, Self-Care Discharge Diagnosis: asthma Referrals: Name,MD Amol [Primary Care Provider] - 1 Week Discharge Medications: New prednisone 20 mg tablet 40 mg PO DAILY Qty: 10 0RF cefuroxime axetil 500 mg tablet 500 mg PO BID Qty: 10 0RF azithromycin 500 mg tablet 500 mg PO DAILY 5 Days Qty: 5 0RF epinephrine [Auvi-Q] 0.3 mg/0.3 mL auto-injector 0.3 mg IM Q10M PRN (Reason: anaphylaxis) Qty: 2 0RF Rx Instructions: for 2 doses Continued benzonatate 100 mg Capsule 100 mg PO TID PRN (Reason: Cough) Qty: 30 0RF ipratropium-albuterol 0.5 mg-3 mg(2.5 mg base)/3 mL Solution For Nebulization 3 ml inhalation Q4H PRN (Reason: Shortness Of Breath/Wheezing) Qty: 40 0RF levothyroxine 137 mcg tablet 137 mcg PO DAILY@0600 albuterol sulfate 2.5 mg /3 mL (0.083 %) solution for nebulization 2.5 mg inhalation QID PRN (Reason: Shortness Of Breath Or Wheezing) Breztri Aerosphere 160-9-4.8 mcg/actuation HFA aerosol inhaler 2 inh inhalation BID budesonide 0.25 mg/2 mL suspension for nebulization 0.25 mg inhalation BID PRN (Reason: Shortness Of Breath Or Wheezing) albuterol sulfate 90 mcg/actuation HFA aerosol inhaler 2 puff PO Q4-6H PRN (Reason: shortness of breath or wheezing) 30 Days Qty: 1 6RF Discharge Orders: Discharge Order (Routine); Ordered 03/27/25 Ordered By: Ace Prieto Diet: Advance to usual diet Activity on Discharge: As tolerated Stand Alone Forms: Patient Portal Discharge page Print Language: Mexican Care Plan Goals: recovery Health Concerns: asthma Plan of Treatment: 5 more days prednisone and ceftin and azitrho Assessment: see above
--- NOTE | 2025-03-27 10:35 | MHC.CM.PN ---
Per MD patient medically cleared for dc home self care. Patient will arrange private transport.
[2025-03-27] MEDS: cefTRIAXone sodium 1 GM VIAL IVPUSH (13:13)
[2025-03-27] MEDS: Azithromycin 500 MG in 0.9 % Sodium Chloride 250 ML 125 MG IV (14:05)
== END 2025-03-27 17:24 | disposition home or self-care (01) ==
LOC: HO.ED 13:13 → HO.EDOVER 13:59 → HO.S3 03-26 07:28 → HO.EDOVER 03-26 12:16
PROVIDERS: Physician Assistant; Admitting Provider Internal Medicine; Emergency Provider Emergency Medicine; PCP Internal Medicine Geriatric Medicine; Visit Provider Internal Medicine
DX: J45.41 Moderate persistent asthma with (acute) exacerbation (principal); J18.9 Pneumonia, unspecified organism; T78.1XXA Other adverse food reactions, not elsewhere classified, initial encounter; R13.10 Dysphagia, unspecified; L27.2 Dermatitis due to ingested food; X58.XXXA Exposure to other specified factors, initial encounter; R06.02 Shortness of breath; E03.9 Hypothyroidism, unspecified; R05.9 Cough, unspecified; J34.89 Other specified disorders of nose and nasal sinuses; R21 Rash and other nonspecific skin eruption; R91.8 Other nonspecific abnormal finding of lung field; R10.31 Right lower quadrant pain; E66.9 Obesity, unspecified; Z68.38 Body mass index [BMI] 38.0-38.9, adult; Z79.899 Other long term (current) drug therapy; Z03.818 Encounter for observation for suspected exposure to other biological agents ruled out
CPT/HCPCS: 0241U; 36415; 71046; 76830; 76856; 80048; 83605; 85025; 85027; 87040; 87633; 93005; 93975; 94640; 96365; 96366; 96367; 96372; 96375; 96376; 99221; 99285; J0456; J0696; J1200; J1308; J1650; J2919; J3475

== ENCOUNTER → 2025-03-25 10:01 | Outpatient (BNV) | payer MEDICAID, SELFPAY | PROVIDERS: PCP Internal Medicine Geriatric Medicine; Visit Provider Radiology Diagnostic Radiology | DX: R06.02 Shortness of breath (principal) | CPT/HCPCS: 71046 ==

== ENCOUNTER → 2025-03-25 11:13 | Outpatient (BNV) | payer MEDICAID, SELFPAY | PROVIDERS: Admitting Provider Internal Medicine; Emergency Provider Emergency Medicine; PCP Internal Medicine Geriatric Medicine; Visit Provider Internal Medicine | DX: R94.31 Abnormal electrocardiogram [ECG] [EKG] (principal) | CPT/HCPCS: 93010 ==

== ENCOUNTER 2025-03-25 13:29 | Outpatient (BNV) | payer MEDICAID, SELFPAY | END 2025-03-26 16:36 | PROVIDERS: Admitting Provider Internal Medicine; Emergency Provider Emergency Medicine; PCP Internal Medicine Geriatric Medicine; Visit Provider Radiology Diagnostic Radiology | DX: R10.31 Right lower quadrant pain (principal) | CPT/HCPCS: 76830; 76856; 93975 ==

== ENCOUNTER → 2025-03-25 13:29 | Outpatient (BNV) | payer MEDICAID, SELFPAY | PROVIDERS: Admitting Provider Internal Medicine; Emergency Provider Emergency Medicine; PCP Internal Medicine Geriatric Medicine; Visit Provider Internal Medicine | DX: J45.41 Moderate persistent asthma with (acute) exacerbation (principal); T78.40XA Allergy, unspecified, initial encounter; J18.9 Pneumonia, unspecified organism | CPT/HCPCS: 99222; 99232; 99239 ==

== ENCOUNTER → 2025-03-25 13:29 | Outpatient (BNV) | payer MEDICAID, SELFPAY | PROVIDERS: Admitting Provider Internal Medicine; Emergency Provider Emergency Medicine; PCP Internal Medicine Geriatric Medicine; Visit Provider Internal Medicine | DX: J45.41 Moderate persistent asthma with (acute) exacerbation (principal); T78.40XA Allergy, unspecified, initial encounter; J18.9 Pneumonia, unspecified organism | CPT/HCPCS: 99222 ==

== ENCOUNTER 2025-04-28 13:24 | Emergency (ER) | payer MEDICAID, SELFPAY ==
--- NOTE | ~2025-04-28 | XR_ITS ---
CLINICAL HISTORY: sob Chest X-ray, 2 Views COMPARISON: CR/AL/SR - XR CHEST 2V - 03/25/25 10:35 EDT FINDINGS: Right middle lobe atelectasis or infiltrate. No pleural effusion. No pneumothorax. No cardiomegaly. No acute fracture. Degenerative changes in the spine. IMPRESSION: Right middle lobe atelectasis or infiltrate. This document has been electronically signed by: Joel Hawkins MD on 04/28/2025 14:50:55
[2025-04-28 13:37] VITALS: BP 145/80; PULSE 101; RESP 19; TEMP 36.6; O2SAT 98; BMI 37.9
--- NOTE | 2025-04-28 13:37 | ED_ITS ---
HPI - SOB/Dyspnea General Chief Complaint: Allergic Reaction Stated Complaint: asthma Time Seen by Provider: 04/28/25 15:21 Source: patient Mode of arrival: ambulatory Limitations: no limitations History of Present Illness ED Provider: HPI Narrative: 49-year-old woman with history of asthma, allergies both seasonal, food allergies and medical allergies presenting with a wheezing for the past 5 days, not recalling any new medications, foods, states she has been wheezing, she had urticaria over her face, arms abdomen and legs, and yesterday though since resolved she had swelling of bilateral lips but no tongue, no fevers or chills reported. Related Data Home Medications ?Medication ?Instructions ?Recorded ?Confirmed albuterol sulfate 2.5 mg/3 mL 2.5 mg inhalation QID PRN 03/25/25 03/25/25 (0.083 %) solution for nebulization Shortness Of Breath Or Wheezing budesonide 0.25 mg/2 mL suspension 0.25 mg inhalation BID PRN 03/25/25 03/25/25 for nebulization Shortness Of Breath Or Wheezing budesonide 160 mcg-glycopyr 9 2 inh inhalation BID 03/25/25 03/25/25 mcg-formot 4.8 mcg/actuation HFA inhaler (Breztri Aerosphere) levothyroxine 137 mcg tablet 137 mcg PO DAILY@0600 03/25/25 03/25/25 Previous Rx's ?Medication ?Instructions ?Recorded albuterol sulfate 90 mcg/actuation 2 puff PO Q4-6H PRN shortness of 08/03/23 aerosol inhaler breath or wheezing 30 days #1 ea benzonatate 100 mg capsule 100 mg PO TID PRN Cough #30 caps 02/14/25 ipratropium 0.5 mg-albuterol 3 mg 3 ml inhalation Q4H PRN Shortness 02/14/25 (2.5 mg base)/3 mL nebulization Of Breath/Wheezing #40 mL soln azithromycin 500 mg tablet 500 mg PO DAILY 5 days #5 tabs 03/27/25 cefuroxime axetil 500 mg tablet 500 mg PO BID #10 tabs 03/27/25 epinephrine 0.3 mg/0.3 mL 0.3 mg (0.3 mL) IM Q10M PRN 03/27/25 injection, auto-injector (Auvi-Q) anaphylaxis #2 ea prednisone 20 mg tablet 40 mg (2 x 20 mg) PO DAILY #10 tabs 03/27/25 doxycycline hyclate 100 mg capsule 100 mg PO BID 7 days #14 caps 04/28/25 hydroxyzine HCl 25 mg tablet 25 mg PO TID PRN itching 3 days 04/28/25 #14 tabs prednisone 20 mg tablet 40 mg (2 x 20 mg) PO DAILY 5 days 04/28/25 #10 tabs Allergies Allergy/AdvReac Type Severity Reaction Status Date / Time shrimp Allergy Severe Anaphylaxis Verified 04/28/25 13:38 aspirin [ASPIRIN] Allergy Unknown UNKNOWN, Verified 04/28/25 13:38 anaphylaxis latex Allergy Unknown Anaphylaxis, Verified 04/28/25 13:38 Rash Latex, Natural Rubber Allergy Unknown HIVES Verified 04/28/25 13:38 [LATEX, NATURAL RUBBER] naproxen [From NAPROSYN] Allergy Unknown UNKNOWN, Verified 04/28/25 13:38 anaphylaxis Review of Systems 2 Constitutional: Constitutional: Reports as per [facility] Past Medical History Medical History Varicose veins of both lower extremities with inflammation BMI 37.0-37.9, adult Severe persistent allergic asthma Asthma Hypothyroidism Morbid obesity Surgical History History of facial surgery H/O thyroidectomy Family History Family History Mother Diabetes Social History Social History Household Members: Significant Other and Children Housing: Apartment Alcohol intake: never Patient Tobacco Use Status: Never used Tobacco Advance Directives: No Advance Directives Information Provided: Yes Do you have a plan to hurt others: No Plan service: No Current occupational status: employed Current occupation: rt handed Physical Exam 2 Vital Signs: Vital Signs: Last Vital Signs Temp 98 F 04/28/25 13:37 Pulse 97 04/28/25 15:27 Resp 18 04/28/25 15:27 BP 125/62 04/28/25 15:05 Pulse Ox 95 04/28/25 15:05 O2 Del Method Room Air 04/28/25 15:05 BMI result Body Mass Index 37.9 Const: Other: * Gen: ?Overall well-appearing patient * HEENT: PERRLA, EOMI, MMM, * Neck: Supple, no LAD * CV: RRR, no obvious murmurs appreciated * Resp: Expiratory wheezing * Abd: ?Bowel sounds are present, no tenderness no rebound no rigidity * MSK: FROM, strength 5/5 all extremities * Skin: Residual urticarial lesions over the forehead on upper arms * Neuro: ?Alert and oriented x3, moving upper and lower extremities symmetrically, no obvious facial asymmetry noted Course Course Course Narrative: This is a Rapid Medical Exam performed in triage by Nelly Dorado PA-C. Full HPI, ROS and PE to be performed by primary ED provider. 49 yo F with a past medical history of hypothyroid, asthma presenting to the ED c/o diffuse hives, pruritus, SOB, cough x Tuesday. Reports lip swelling yesterday, resolved at present PE: Dry cough appreciated, talking in complete sentences, diffuse hives noted exp wheeze Plan: EKG, labs, CXR, SARs Medications Administered Generic Name Dose Route Start Last Admin Trade Name Freq PRN Reason Stop Dose Admin Magnesium Sulfate 2 gm in 50 mls @ 25 mls/hr 04/28/25 15:43 04/28/25 15:54 Magnesium Sulfate/H2o IV 04/28/25 17:42 25 mls/hr ONCE ONE Administration Azithromycin 500 mg/ Sodium 250 mls @ 125 mls/hr 04/28/25 15:58 04/28/25 16:18 Chloride IV 04/28/25 17:57 125 mls/hr ONCE ONE Administration Discontinued Medications Generic Name Dose Route Start Last Admin Trade Name Freq PRN Reason Stop Dose Admin Ceftriaxone Sodium 1 gm 04/28/25 15:58 04/28/25 16:18 Ceftriaxone Sodium 1 Gm Vial IVPUSH 04/28/25 15:59 1 gm ONCE ONE Administration Albuterol Sulfate 2.5 mg/ 0 mg 04/28/25 13:54 04/28/25 13:57 Albuterol/Ipratropium 3 ml INHALE 04/28/25 13:55 5 dose ONCE ONE Administration Albuterol Sulfate 2.5 mg/ 0 mg 04/28/25 15:23 04/28/25 15:26 Albuterol/Ipratropium 3 ml INHALE 04/28/25 15:24 5 dose ONCE ONE Administration Dexamethasone Sodium Phosphate 8 mg 04/28/25 15:43 04/28/25 15:54 Dexamethasone Sod Phosphate 4 Mg/Ml Vial IVPUSH 04/28/25 15:44 8 mg ONCE ONE Administration Diphenhydramine HCl 50 mg 04/28/25 13:38 04/28/25 14:00 Diphenhydramine Hcl 50 Mg/Ml Vial IVPUSH 04/28/25 13:39 50 mg ONCE ONE Administration Diphenhydramine HCl 25 mg 04/28/25 15:43 04/28/25 16:23 Diphenhydramine Hcl 50 Mg/Ml Vial IVPUSH 04/28/25 15:44 25 mg ONCE ONE Administration Famotidine 20 mg 04/28/25 13:38 04/28/25 14:00 Famotidine/Pf 20 Mg/2 Ml Vial IVPUSH 04/28/25 13:39 20 mg ONCE ONE Administration Methylprednisolone Sodium Succinate 125 mg 04/28/25 13:38 04/28/25 14:13 Methylprednisolone Sod Succ 125 Mg/2 Ml Vial IVPUSH 04/28/25 13:39 Not Given ONCE ONE Methylprednisolone Sodium Succinate 125 mg 04/28/25 14:15 04/28/25 14:13 Methylprednisolone Sod Succ 125 Mg Vial IVPUSH 04/28/25 14:16 125 mg ONCE ONE Administration Medical Decision Making Medical Decision Making [facility] Narrative: 15:49 by the time of my evaluation patient already had 2nd treatment of albuterol continue to wheeze, urticaria has pretty much resolved, she continued to have itching however, there is no ongoing angioedema, not sure whether this is seasonal allergies or asthma exacerbation or combination of both, we will continue to monitor, disposition to be determined 16:05 patient re-examined she is breathing better, we will perform ambulatory trial, we will start antibiotics, if she does well we will discharge she is comfortable with that plan. Differential Diagnosis Differential Diagnoses: The differential diagnosis associated with the presentation includes Angioedema, allergic reaction, asthma exacerbation, pneumonia, pneumothorax, ACS, PE, Admission/Observation Consideration of admission/observation: Escalation of care including admission/observation considered We will perform ambulatory trial if she passes ambulatory trial we will be able to discharge if not we will admit Lab Data [facility] Lab Attestation statement: I reviewed the patient's lab results. 04/28/25 13:52 04/28/25 14:12 Labs: Lab Results 04/28/25 04/28/25 Range/Units 13:52 14:12 WBC 7.3 (4.8-10.8) X10*3/uL RBC 4.81 (4.20-5.50) X10*6/uL Hgb 13.9 (12.0-16.0) g/dl Hct 40.9 (37.0-47.0) % MCV 85.0 (80.0-98.0) fL MCH 28.9 (27.0-33.0) pg MCHC 34.0 (31.0-35.0) g/dl RDW 16.9 H (11.0-16.0) % Plt Count 269 (160-400) X10*3/uL MPV 10.0 (9.4-12.3) fL Immature Gran % (Auto) 0.3 (0.0-0.4) % Neut % (Auto) 63.6 (45-73) % Lymph % (Auto) 29.1 (20-40) % [place] % (Auto) 5.1 (2-11) % Eos % (Auto) 1.8 (0-4) % Baso % (Auto) 0.1 (0-2) % Lymph # (Auto) 2.1 (1.2-4.9) X10*3/uL [place] # (Auto) 0.4 (0.1-1.2) X10*3/uL Eos # (Auto) 0.1 (0.0-0.4) X10*3/uL Baso # (Auto) 0.0 (0.0-0.2) X10*3/uL Abs Immat Gran (auto) 0.02 (0.00-0.03) X10*3/uL Absolute Neuts (auto) 4.7 (2.0-8.3) x10*3/uL Absolute Nucleated RBC 0.000 (0.0-0.012) X10*3/uL Nucleated RBC % (auto) 0.0 (0.0-0.2) /100WBC Sodium 143 (135-145) mmol/L Potassium 3.7 (3.3-5.1) mmol/L Chloride 111 H (96-108) mmol/L Carbon Dioxide 24 (22-29) mmol/L Anion Gap 12 (12-20) BUN 15 (9-16) mg/dL Creatinine 0.96 (0.5-1.4) mg/dL Estim Creat Clear Calc 74.0 Estimated GFR > 60 Random Glucose 92 (60-115) mg/dL Calcium 9.8 (8.4-10.2) mg/dL Influenza Type A (PCR) NEGATIVE (Negative) Influenza Type B (PCR) NEGATIVE (Negative) RSV RNA Qual (PCR) NEGATIVE (Negative) SARS-CoV-2 RNA (RT-PCR) NEGATIVE (Negative) Independent Interpretation I performed an independent interpretation of an: EKG (82 beats per minute otherwise normal ECG without dysrhythmia, AV ange blocks or ST-T changes to suspect underlying ACS, my independent interpretation) Radiology Impression Discussion of test interpretation with radiology: I have reviewed the radiologist's reading. Radiologist Impression: IMPRESSION: Right middle lobe atelectasis or infiltrate. Discharge Plan Discharge Clinical Impression: Asthma attack, Urticaria, Community acquired pneumonia Instructions: Asthma (DC), Pneumonia (ED) Additional Instructions: Evaluated with what looks like an asthma exacerbation, itching, chest x-ray with what appears to be pneumonia on the right side, you received antibiotics for the day, I am switching her over to oral steroids starting tomorrow, use hydroxyzine 25 mg every 6-8 hours as needed for itching, you can supplement with Benadryl 25 mg every 4-6 hours for itching, just be mindful it can make you drowsy do not drive mix alcohol and marijuana, start doxycycline 100 mg twice a day for the next 7 days starting tomorrow and prednisone for the next 5 days, any swelling of the lips, the tongue, worsening breathing come back to the ER. For the rest of the day today 2 puffs every 4 hours of your rescue inhaler, and do the same tomorrow please as well. Prescriptions: New doxycycline hyclate 100 mg capsule 100 mg PO BID 7 Days Qty: 14 0RF prednisone 20 mg tablet 40 mg PO DAILY 5 Days Qty: 10 0RF hydroxyzine HCl 25 mg tablet 25 mg PO TID PRN (Reason: itching) 3 Days Qty: 14 0RF No Action benzonatate 100 mg Capsule 100 mg PO TID PRN (Reason: Cough) Qty: 30 0RF ipratropium-albuterol 0.5 mg-3 mg(2.5 mg base)/3 mL Solution For Nebulization 3 ml inhalation Q4H PRN (Reason: Shortness Of Breath/Wheezing) Qty: 40 0RF levothyroxine 137 mcg tablet 137 mcg PO DAILY@0600 albuterol sulfate 2.5 mg /3 mL (0.083 %) solution for nebulization 2.5 mg inhalation QID PRN (Reason: Shortness Of Breath Or Wheezing) Breztri Aerosphere 160-9-4.8 mcg/actuation HFA aerosol inhaler 2 inh inhalation BID budesonide 0.25 mg/2 mL suspension for nebulization 0.25 mg inhalation BID PRN (Reason: Shortness Of Breath Or Wheezing) prednisone 20 mg tablet 40 mg PO DAILY Qty: 10 0RF cefuroxime axetil 500 mg tablet 500 mg PO BID Qty: 10 0RF azithromycin 500 mg tablet 500 mg PO DAILY 5 Days Qty: 5 0RF epinephrine [Auvi-Q] 0.3 mg/0.3 mL auto-injector 0.3 mg IM Q10M PRN (Reason: anaphylaxis) Qty: 2 0RF Rx Instructions: for 2 doses albuterol sulfate 90 mcg/actuation HFA aerosol inhaler 2 puff PO Q4-6H PRN (Reason: shortness of breath or wheezing) 30 Days Qty: 1 6RF Print Language: Romanian
[2025-04-28 13:57] LABS: MANUAL DIFF FLAG NO
[2025-04-28] MEDS: Albuterol Sulfate 2.5 MG, Albuterol/Iprat 2.5/0.5MG 3 ML 3 ML INHALE ×2 (13:57→15:26)
[2025-04-28 13:58] LABS: Basophils Percent Auto 0.1 % (0-2); Eosinophils Absolute Auto 0.1 X10*3/uL (0.0-0.4); Eosinophils Percent Auto 1.8 % (0-4); Hematocrit 40.9 % (37.0-47.0); Hemoglobin 13.9 g/dl (12.0-16.0); Imm Gran Abs Auto 0.02 X10*3/uL (0.00-0.03); Imm Gran Pct Auto 0.3 % (0.0-0.4); Lymphocytes Absolute Auto 2.1 X10*3/uL (1.2-4.9); Lymphocytes Percent Auto 29.1 % (20-40); Mean Corpuscular Hemoglobin 28.9 pg (27.0-33.0); Monocytes Absolute Auto 0.4 X10*3/uL (0.1-1.2); Monocytes Percent Auto 5.1 % (2-11); Neutrophils Absolute Auto 4.7 x10*3/uL (2.0-8.3); Neutrophils Percent Auto 63.6 % (45-73); Platelet Count 269 X10*3/uL (160-400); Red Blood Count 4.81 X10*6/uL (4.20-5.50); Red Cell Distribution Width 16.9 % (11.0-16.0); White Blood Count 7.3 X10*3/uL (4.8-10.8)
[2025-04-28 13:59] VITALS: PULSE 104; RESP 20; O2SAT 94
[2025-04-28] MEDS: Famotidine/PF 20 MG/2 ML VIAL IVPUSH (14:00)
[2025-04-28] MEDS: diphenhydrAMINE HCL 50 MG/ML VIAL IVPUSH (14:00)
[2025-04-28 14:30] LABS: Anion Gap 12 (12-20); Blood Urea Nitrogen 15 mg/dL (9-16); Calcium 9.8 mg/dL (8.4-10.2); Carbon Dioxide 24 mmol/L (22-29); Chloride 111 mmol/L (96-108); Estimated Glomerular Filt Rate > 60; Glucose Random 92 mg/dL (60-115); Potassium 3.7 mmol/L (3.3-5.1); Sodium 143 mmol/L (135-145)
[2025-04-28 14:34] LABS: Influenza A PCR NEGATIVE (Negative); Influenza B PCR NEGATIVE (Negative); Resp Syncy Virus RNA Qual PCR NEGATIVE (Negative); SARS COV2 PCR INHOUSE NEGATIVE (Negative)
[2025-04-28 15:05] VITALS: BP 125/62; PULSE 95; RESP 20; O2SAT 95
[2025-04-28 15:27] VITALS: PULSE 97; RESP 18; O2SAT 95
[2025-04-28] MEDS: Magnesium Sulfate/H2O 2 GM/50 ML PIGGYBACK IV (15:54)
[2025-04-28] MEDS: dexAMETHasone sod phosphate 4 MG/ML VIAL 8 MG IVPUSH (15:54)
[2025-04-28] MEDS: cefTRIAXone sodium 1 GM VIAL IVPUSH (16:18)
[2025-04-28] MEDS: Azithromycin 500 MG in 0.9 % Sodium Chloride 250 ML 125 MG IV (16:18)
[2025-04-28] MEDS: diphenhydrAMINE HCL 50 MG/ML VIAL 25 MG IVPUSH (16:23)
[2025-04-28 17:33] VITALS: BP 101/58; PULSE 102; RESP 18; TEMP 36.6; O2SAT 94
[2025-04-28 18:30] VITALS: BP 101/58; PULSE 102; RESP 18; TEMP 36.6; O2SAT 94
== END 2025-04-28 18:34 | disposition home or self-care (01) ==
PROVIDERS: Physician Assistant; Emergency Provider Emergency Medicine; PCP Internal Medicine Geriatric Medicine
DX: J45.909 Unspecified asthma, uncomplicated (principal); L50.9 Urticaria, unspecified; J18.9 Pneumonia, unspecified organism; Z03.818 Encounter for observation for suspected exposure to other biological agents ruled out
CPT/HCPCS: 0241U; 36415; 71046; 80048; 85025; 94640; 96365; 96366; 96375; 96376; 99285; J0456; J0696; J1100; J1200; J1308; J2919; J3475

== ENCOUNTER → 2025-04-28 13:38 | Outpatient (BNV) | payer MEDICAID, SELFPAY | PROVIDERS: PCP Internal Medicine Geriatric Medicine; Visit Provider Radiology Diagnostic Radiology | DX: J98.11 Atelectasis (principal) | CPT/HCPCS: 71046 ==